=== PATIENT | female | born 1965 | race Caucasian/White ===

== ENCOUNTER → 2016-04-10 | Outpatient (REF) | payer OTHER ==
[~2016-04-10] MED LIST: /AUGM875TA OR; /CELE20CA PO; /DULO30CA; /ESCI20TA; /ESCI20TA OR; ABIL5TAB5 PO; ACETGRA PO; AMIT50TA2 OR; CLON-412 PO; COLA100C PO; COLA100C2 OR; COLA100C2 PO; COMBO CREAM TOP; COZA100T2 PO; COZA50TA18 OR; CRES20TA OR; CRES20TA PO; DOCU10CA PO; DULO20CA OR; ESTR2TAB; ESTR2TAB OR; FERR325T OR; FERR325T PO; FLAG500T OR; FURO40TA2 OR; KEFL500C; LASI20TA PO; LIDO5DIS EXT; LYRI75CA PO; NEUR300C; NEUR600T OR; NICO21DI4 TD; OXYC-299 PO; OXYC10TA12 OR; OXYC30TA4 PO; OXYC5CAP4; OXYC5CAP4 OR; PRIL20CA; PRIL20CA PO; PRIL40CA OR; SING10TA31 OR; SUDAFED PO; SULCRAFATE OR; TOPI100T OR; TOPI50TA OR; TRAM50TA2 OR; TRAZ50TA4 PO; TRIC145T PO; TRIC145T19 OR; VENL150T PO; VENL75CA PO; VITA500C OR; VITA500T PO; ZANT150T; ZANT150T PO; [UNRECOGNIZED DRUG - CODE] PO; [UNRECOGNIZED DRUG - OTHER]; [UNRECOGNIZED DRUG - OTHER] INH; butrans TOP
[2016-04-10 12:49] LABS: ALBUMIN 3.4 GM/DL (3.2-5.2); ALBUMIN/GLOBULIN RATIO 1.06 (1.00-1.93); ALKALINE PHOSPHATASE 127 U/L (45-117); ALT/SGPT 23 U/L (12-78); ANION GAP 6 MEQ/L (8-16); AST/SGOT 20 U/L (15-37); BILIRUBIN,TOTAL 0.3 MG/DL (0.2-1.0); BLOOD UREA NITROGEN 7 MG/DL (7-18); CALCIUM LEVEL 8.7 MG/DL (8.5-10.1); CARBON DIOXIDE LEVEL 29 MEQ/L (21-32); CHLORIDE LEVEL 109 MEQ/L (98-107); CREATININE FOR GFR 0.67 MG/DL (0.55-1.02); GLOMERULAR FILTRATION RATE > 60.0 (>58); GLUCOSE, FASTING 89 MG/DL (70-105); POTASSIUM SERUM 4.2 MEQ/L (3.5-5.1); SODIUM LEVEL 144 MEQ/L (136-145); TOTAL PROTEIN 6.6 GM/DL (6.4-8.2)
== END ==
LOC: M SFHCADAM 09:22
PROVIDERS: ATTEND Family Medicine
DX: R73.09 Other abnormal glucose (principal); E55.9 Vitamin D deficiency, unspecified

== ENCOUNTER → 2016-04-16 | Outpatient (CLI) | payer OTHER ==
[~2016-04-16] MED LIST changes: +ISOVUE-370 76% 100ML VIAL (Q9967) As Ordered ONE
--- NOTE | 2016-04-16 15:17 | REP ---
MAXILLOFACIAL CT WITH CONTRAST: HISTORY: Chronic rhinitis. Contrast: Isovue 370, 75 mL. Minimal mucosal thickening is present in the left ethmoid and right maxillary sinuses. The remaining sinuses are clear. The osteomeatal units are patent. The middle and inferior nasal turbinates are partially paradoxical. There is minimal deviation of the nasal septum to the right. The cribriform plate, medial christine of the orbits and optic canals are intact. The carotid canals form a segment of the posterolateral christine of the sphenoid sinus. A dorsal column stimulator is present in the cervical spinal canal. IMPRESSION: Sinus mucosal thickening as described above. Signed by Thor Gamboa MD 04/16/2016 03:46 P
== END ==
LOC: M RAD 14:04
PROVIDERS: ATTEND Otolaryngology
DX: J31.0 Chronic rhinitis (principal); H65.21 Chronic serous otitis media, right ear
CPT/HCPCS: 70487; Q9967

== ENCOUNTER → 2016-04-24 | Outpatient (REF) | payer OTHER ==
[~2016-04-24] MED LIST changes: +ALBU17IN INH; +ESOM1CAP5 PO; +FLON1SPR; +FURO20TA2 PO; -ISOVUE-370 76% 100ML VIAL (Q9967) As Ordered ONE; +SUCR1TA PO; +TRAM50TA2 PO; +VITAMIN D2 PO
[2016-04-24 20:46] LABS: FREE T4 0.9 NG/DL (0.76-1.46)
== END ==
LOC: M SFHCADAM 13:56
PROVIDERS: ATTEND Physician Assistant
DX: L65.9 Nonscarring hair loss, unspecified (principal)
CPT/HCPCS: 84439; 84443; G0463

== ENCOUNTER → 2016-04-25 | Outpatient (CLI) | payer OTHER | LOC: M PAIN 10:40 | PROVIDERS: ATTEND Anesthesiology | DX: Z53.29 Procedure and treatment not carried out because of patient's decision for other reasons (principal) ==

== ENCOUNTER → 2016-04-30 | Outpatient (REF) | payer OTHER ==
[2016-04-30 16:04] LABS: MEAN CORPUSCULAR HEMOGLOBIN 29.2 pg (27.0-33.0); MEAN CORPUSCULAR HGB CONC 33.6 g/dl (32.0-36.5); MEAN CORPUSCULAR VOLUME 86.9 fl (80.0-96.0); RED CELL DISTRIBUTION WIDTH 17.6 % (11.5-14.5); WHITE BLOOD COUNT 14.4 K/mm3 (4.0-10.0)
[2016-04-30 17:09] LABS: ALBUMIN 3.3 GM/DL (3.2-5.2); ALBUMIN/GLOBULIN RATIO 1.03 (1.00-1.93); ALKALINE PHOSPHATASE 122 U/L (45-117); ALT/SGPT 22 U/L (12-78); ANION GAP 6 MEQ/L (8-16); AST/SGOT 20 U/L (15-37); BILIRUBIN,TOTAL 0.2 MG/DL (0.2-1.0); BLOOD UREA NITROGEN 10 MG/DL (7-18); CALCIUM LEVEL 8.8 MG/DL (8.5-10.1); CARBON DIOXIDE LEVEL 27 MEQ/L (21-32); CHLORIDE LEVEL 112 MEQ/L (98-107); CREATININE FOR GFR 0.71 MG/DL (0.55-1.02); GLOMERULAR FILTRATION RATE > 60.0 (>58); GLUCOSE, FASTING 100 MG/DL (70-105); POTASSIUM SERUM 4.4 MEQ/L (3.5-5.1); SODIUM LEVEL 145 MEQ/L (136-145); TOTAL PROTEIN 6.5 GM/DL (6.4-8.2)
== END ==
LOC: M SFHCADAM 14:06
PROVIDERS: ATTEND Physician Assistant
DX: Z01.818 Encounter for other preprocedural examination (principal); H65.21 Chronic serous otitis media, right ear; R22.1 Localized swelling, mass and lump, neck; J31.0 Chronic rhinitis; J35.2 Hypertrophy of adenoids

== ENCOUNTER → 2016-04-30 | Outpatient (CLI) | payer OTHER ==
--- NOTE | 2016-04-30 16:54 | REP ---
Chest x-ray: Two views: History: Pneumonia. Findings: The lungs are well inflated and clear. Pleural angles are sharp. Cardiomediastinal silhouette is unremarkable. A dorsal column stimulator is seen in the mid thoracic canal and a pacemaker power plant is seen projecting over the posterolateral chest wall on the right with its leads extending up into the neck soft tissues. These findings are unchanged when compared with the prior chest x-ray of 01/19/2016. The left lower lobe infiltrate seen on that prior chest x-ray has resolved. Impression: Previously noted infiltrate has resolved. No acute disease seen radiographically. Signed by Bladimir Keith MD 04/30/2016 05:00 P
== END ==
LOC: M ADAMS 14:08
PROVIDERS: ATTEND Physician Assistant
DX: Z01.818 Encounter for other preprocedural examination (principal); H65.21 Chronic serous otitis media, right ear; R22.1 Localized swelling, mass and lump, neck; J31.0 Chronic rhinitis; J35.2 Hypertrophy of adenoids; Z72.0 Tobacco use; Z87.01 Personal history of pneumonia (recurrent)
CPT/HCPCS: 71020; 80053; 85027; G0463

== ENCOUNTER → 2016-05-08 | Day surgery (SDC) | payer OTHER ==
[~2016-05-08] VITALS: Ht 167.6 cm; Wt 80.7 kg
[~2016-05-08] MED LIST changes: +CIPRODEX OTIC SUSP 7.5ML As Ordered ONE; +EPINEPHrine 1MG/ML INJ 30ML MD-VIAL As Ordered ONE; +LIDOCAINE 2% INJ 100 MG/5 ML SDV (FOR ANES.) As Ordered ONE; +LR 1,000 ML IV SCH; +METOCLOPRAMIDE INJ 10MG/2ML VIAL (J2765) IV PRN; +MIDAZOLAM INJ 2 MG/2 ML VIAL (J2250) As Ordered ONE; +ONDANSETRON 4MG/2ML VIAL (J2405) As Ordered ONE; +ONDANSETRON 4MG/2ML VIAL (J2405) IV PRN; +OXYMETAZOLINE NASAL SPRAY (AFRIN) As Ordered ONE; +PERCOCET 5MG/325MG TAB As Ordered ONE; +PERCOCET 5MG/325MG TAB PO PRN; +PROPOFOL 200 MG/20 ML VIAL As Ordered ONE; +ROCURONIUM BROMIDE 50 MG/5 ML VIAL As Ordered ONE; +SILVER NITRATE APPLICATOR As Ordered ONE; +THROMBIN SOLN 5,000 UNITS VIAL As Ordered ONE; +dexameTHASONE 4 MG/ML 1ML VIAL (J1100) IV ONE; +fentaNYL 100 MCG/2 ML INJECTION (J3010) IV PRN; +fentaNYL 250 MCG/5 ML INJECTION (J3010) As Ordered ONE
[2016-05-08 13:50] VITALS: BP 118/61
--- NOTE | 2016-05-09 23:22 | RO ---
DATE OF PROCEDURE: 05/08/2016 PREPROCEDURE DIAGNOSIS: Right serous otitis media. POSTPROCEDURE DIAGNOSIS: Right serous otitis media. PROCEDURE PERFORMED: Right tympanostomy and nasal endoscopy with biopsy of the nasopharynx. SURGEON: Aj Aguilar MD CASINO SUPERVISOR: ANESTHESIA: General. CLINICAL PREAMBLE: This 50-year-old woman presented to the office with history of right serous otitis media. Physical exam revealed serous fluid in the right middle ear as well as fullness of the nasopharynx. Management options including surgery listed above have been discussed. The patient understood and consented to the procedure. DESCRIPTION OF PROCEDURE: Patient was identified in preop holding and had the right ear marked. She was brought to the operating room in stable condition. In supine position on the operating table, patient received general anesthesia followed by orotracheal intubation without incident. Patient was prepped and draped in the usual fashion for the procedure. Patient's head was turned to the left side to expose the right ear. Ear speculum was inserted, and cerumen was debrided. The right tympanic membrane was found to be intact and mildly retracted. Myringotomy incision was made over the anterior inferior quadrant of the tympanic membrane. Minimal effusion was encountered and suctioned clear. A 7 mm straight shank tympanostomy tube was inserted. Ciprodex drops were instilled, and a cotton ball was used to occlude the ear canal. Attention was turned to performing the biopsy from the nasopharynx. Both sides of the nasal cavity were packed using pledgets soaked in 1:1000 epinephrine. After a waiting period, both pledgets were removed. Both sides of the nasal cavity were inspected using 0-degree rigid nasal endoscope. No mucosal incision was noted in both sides of the nasal cavity. The nasopharynx was then visualized and found to have a cystic-like structure over the roof of the nasopharynx. Biopsy was then performed using straight cutting forceps from the nasopharyngeal area. Hemostasis was achieved using pledgets soaked in 1:1000 epinephrine. At the end of the procedure, sponge and instruments counts were correct. No complication was encountered. Estimated blood loss was less than 5 mL. General anesthesia was reversed, and patient was extubated and brought to recovery room in stable condition.
== END | disposition home or self-care (01) ==
LOC: M SDC 09:02
PROVIDERS: ATTEND Otolaryngology
DX: H65.21 Chronic serous otitis media, right ear (principal); J34.89 Other specified disorders of nose and nasal sinuses; I10 Essential (primary) hypertension; E78.5 Hyperlipidemia, unspecified; K21.9 Gastro-esophageal reflux disease without esophagitis; M79.7 Fibromyalgia; M43.07 Spondylolysis, lumbosacral region; F41.9 Anxiety disorder, unspecified; F32.9 Major depressive disorder, single episode, unspecified; Z79.899 Other long term (current) drug therapy; F17.210 Nicotine dependence, cigarettes, uncomplicated
CPT/HCPCS: 31237; 69436; 88305; J1100; J2250; J2405; J3010

== ENCOUNTER → 2016-06-14 | Outpatient (CLI) | payer OTHER ==
[~2016-06-14] MED LIST changes: -CIPRODEX OTIC SUSP 7.5ML As Ordered ONE; -COLA100C PO; +COLA100C3 PO; -EPINEPHrine 1MG/ML INJ 30ML MD-VIAL As Ordered ONE; -LIDOCAINE 2% INJ 100 MG/5 ML SDV (FOR ANES.) As Ordered ONE; -LR 1,000 ML IV SCH; -METOCLOPRAMIDE INJ 10MG/2ML VIAL (J2765) IV PRN; -MIDAZOLAM INJ 2 MG/2 ML VIAL (J2250) As Ordered ONE; -ONDANSETRON 4MG/2ML VIAL (J2405) As Ordered ONE; -ONDANSETRON 4MG/2ML VIAL (J2405) IV PRN; -OXYMETAZOLINE NASAL SPRAY (AFRIN) As Ordered ONE; -PERCOCET 5MG/325MG TAB As Ordered ONE; -PERCOCET 5MG/325MG TAB PO PRN; -PROPOFOL 200 MG/20 ML VIAL As Ordered ONE; -ROCURONIUM BROMIDE 50 MG/5 ML VIAL As Ordered ONE; -SILVER NITRATE APPLICATOR As Ordered ONE; -THROMBIN SOLN 5,000 UNITS VIAL As Ordered ONE; -dexameTHASONE 4 MG/ML 1ML VIAL (J1100) IV ONE; -fentaNYL 100 MCG/2 ML INJECTION (J3010) IV PRN; -fentaNYL 250 MCG/5 ML INJECTION (J3010) As Ordered ONE
--- NOTE | 2016-06-24 00:17 | ECWPNPC ---
PATIENT NAME: RACHEL MARTINEZ : 1965 GENDER: FEMALE VISIT DATE: 06/14/2016 DISCHARGE DATE: 06/14/16 1344 VISIT LOCKED DATE TIME: PHYSICIAN: JENNIFER MANUEL RESOURCE: JENNIFER MANUEL REASON FOR APPOINTMENT 1. BACK PAIN, WC HISTORY OF PRESENT ILLNESS HISTORY OF PRESENT ILLNESS: PAIN THE PATIENT DESCRIBES THE PAIN... 51 YEAR OLD FEMALE PATIENT WITH HISTORY OF CHRONIC NECK AND BACK PAIN. PATIENT DESCRIBES THE PAIN ACHING, BURNING, SHARP, STABBING, TENDER, THROBBING, SORE, SHOOTING AND HAVING IT ALL THE TIME WITH A PAIN SCORE OF 3/10 FOR THE NECK AND 7/10 FOR THE LOW BACK AT THIS TIME. PATIENT WAS HURT IN A WORK RELATED INJURY WHEN SHE WAS WORKING AT [employer] ON 02/28/1998 AND WAS TRYING TO RETRIEVE FILES OFF THE TOP SHELF WHEN SHE PULLED ON A BOX THAT RIPPED AND PATIENT FELL ONTO A CHAIR THEN THE FLOOR. PATIENT RECEIVED A LUMBAR FACET BLOCK ON 11/02/15 AND REPORTS HAVING OVER 50% PAIN RELIEF FOR OVER 2 MONTHS WITH INCREASED MOBILITY AND FUNCTIONALITY FROM THE INJECTION. CURRENTLY THE PATIENT IS USING TRAMADOL, GABAPENTIN, AND LYRICA WHICH SHE STATES KEEPS HER MOBILE AND FUNCTIONAL. PATIENT ALSO USING THE DCS FOR THE UPPER AND LOWER EXTREMITIES WHICH SHE STATES AIDS IN PAIN RELIEF WELL. PATIENT DENIES UNEXPLAINABLE WEIGHT LOSS, FEVER, CHILLS, NEW CHANGES ON HER URINARY OR BOWEL CONTROL. FALL RISK SCREENING: SCREENING :NO FALLS IN THE PAST YEAR CURRENT MEDICATIONS TAKING NICOTROL 10 MG INHALER 1 PUFF NEEDED INHALATION 16 TIME(S) A DAY TAKING OMEPRAZOLE 40 MG CAPSULE DELAYED RELEASE 1 CAPSULE ORALLY ONCE A DAY TAKING EFFEXOR XR 150 MG CAPSULE EXTENDED RELEASE 24 HOUR 3 CAPSULE WITH FOOD ORALLY ONCE A DAY TAKING ABILIFY 5 MG TABLET 1 TABLET ORALLY ONCE A DAY TAKING LYRICA 150 MG TABLET 1 TAB(S) ORALLY THREE A DAY MDD3 TAKING GABAPENTIN 600 MG TABLET 1 TABLET P.O. FOUR TIMES DAILY TAKING LOSARTAN POTASSIUM 50 MG TABLET 1 TAB(S) ORALLY ONCE A DAY TAKING LASIX 20 MG TABLET 1 TABLET ORALLY ONCE A DAY TAKING SUCRALFATE 1 GM TABLET 1 TABLET ON AN EMPTY STOMACH ORALLY TWICE A DAY TAKING ESTRADIOL 2 MG TABLET 1 TABLET ORALLY ONCE A DAY TAKING TRAMADOL HCL 50 MG TABLET 1 ORALLY EVERY 6 HRSMDD 4 TAKING FLUTICASONE PROPIONATE 50 MCG/ACT SUSPENSION 1 SPRAY IN EACH NOSTRIL NASALLY ONCE A DAY TAKING METFORMIN HCL 500 MG TABLET 1 TABLET WITH MEALS ORALLY TWICE A DAY TAKING DRISDOL 88392 UNIT CAPSULE 1 CAPSULE ORALLY WEEKLY TAKING NEXIUM 40 MG CAPSULE DELAYED RELEASE 1 CAPSULE ORALLY ONCE A DAY TAKING VENTOLIN HFA 108 (90 BASE) MCG/ACT AEROSOL SOLUTION 2 PUFFS NEEDED INHALATION EVERY 4 HRS NEEDED FOR SHORTNESS OF BREATH TAKING CRESTOR 10 MG TABLET 1 TABLET ORALLY ONCE A DAY TAKING METFORMIN HCL 1000 MG TABLET TAKE ONE TABLET BY MOUTH TWICE A DAY WITH MEALS MEDICATION LIST REVIEWED AND RECONCILED WITH THE PATIENT PAST MEDICAL HISTORY ANXIETY/DEPRESSION/AGORAPHOBIA WITH PANIC ATTACKS - PSYCHIATRIST CHRONIC LOWER BACK PAIN, DORSAL COLUMN STIMULATOR IN PLACE - [facility] HTN HYPERCHOLESTEROLEMIA GERD/H/O PUD WITH GI BLEED IN PAST SECONDARY TO CELEBREX ENDOMETRIOSIS PREDIABETES TOBACCO ABUSE CHRONIC NARCOTIC DEPENDENCE - WEANING OXYCODONE PER PAIN CLINIC ALLERGIES NSAIDS: BLEEDING: CONTRAINDICATION BETADINE: RASH: ALLERGY SKELAXIN: RASH: ALLERGY SURGICAL HISTORY TONSILLECTOMY TUBAL LIGATION 03/1989 ECTOPIC 09/1989 HYSTERECTOMY D/T PRE-CANCEROUS 1989 BSO 1999 LUMBAR LAMINECTOMY L4-L5 08/1997 TARSAL TUNNEL-BILATERAL FEET 2004 BILATERAL CARPAL TUNNEL RELEASE 2001 LUMBAR STIMULATOR PLACED 2005 CERVICAL STIMULATOR PLACED 2008 RIGHT CARPAL TUNNEL RELEASE 06/2013 GASTRIC BYPASS 2010 COLONOSCOPY WITH POLYP RESECTION, BENIGN 2012 CHOLECYSTECTOMY 12/2010 TOE NAIL SURGERY 08/10/15 TUBE PLACEMENT RIGHT EAR, BIOPSY SINUS CAVITY NODULE 05/2016 FAMILY HISTORY NO FAMILY HISTORY DOCUMENTED. SOCIAL HISTORY GENERAL: TOBACCO USE ARE YOU A:CURRENT SMOKER HOW MANY CIGARETTES A DAY DO YOU SMOKE?11- PATIENT COUNSELED ON THE DANGERS OF TOBACCO USE AND URGED TO QUIT:06/14/2016 ARE YOU INTERESTED IN QUITTING?READY TO QUIT COUNSELED THE PATIENT ON TOBACCO USE, CESSATION [id number]/28/2017 BMI CARE GOAL FOLLOW-UP ABOVE NORMAL BMI FOLLOW-UPDIETARY MANAGEMENT EDUCATION, GUIDANCE, AND COUNSELING ALCOHOL SCREENING DID YOU HAVE A DRINK CONTAINING ALCOHOL IN THE PAST YEAR?YES HOW OFTEN DID YOU HAVE SIX OR MORE DRINKS ON ONE OCCASION IN THE PAST YEAR?NEVER (0 POINTS) HOW MANY DRINKS DID YOU HAVE ON A TYPICAL DAY WHEN YOU WERE DRINKING IN THE PAST YEAR?1 OR 2 (0 POINTS) HOW OFTEN DID YOU HAVE A DRINK CONTAINING ALCOHOL IN THE PAST YEAR?MONTHLY OR LESS (1 POINT) POINTS1 INTERPRETATIONNEGATIVE RECREATIONAL DRUG USE DRUG USE?NO CAFFEINE CAFFEINE USE?YES HOW OFTEN AND HOW MUCH? COFFEE 6 CUPS DAILY, 2 SODAS DAILY SEXUAL HX HAD SEX IN THE LAST 12 MONTHS (VAGINAL, ORAL, OR ANAL)?YES WITHMEN ONLY USE PROTECTION?NO LMP:HYSTER HAVE YOU EVER HAD AN STD?NO OCCUPATION: RETIRED. DIET: REGULAR. EXERCISE: NO REGULAR EXERCISE. MARITAL STATUS: . OTHERS AT HOME: SPOUSE. PETS: 1 DOG. LANGUAGE WOLOF. LEARNING BARRIERS / SPECIAL NEEDS ORIENTED TO PLAN OF CARE: PATIENT, PAIN MANAGEMENT PATIENT, ORIENTED TO PLAN OF CARE: PATIENT, PAIN MANAGEMENT PATIENT. NEW PATIENT PAIN DIARY TODAY'S VISITNOTES FROM 0-10, WHAT LEVEL IS YOUR PAIN TODAY?0 PAIN CLINIC PFS, CLERGY, PUBLIC HEALTH REFERRALS PFS REFERRAL NEEDED?NO PFS REFERRAL NEEDED?NO CLERGY REFERRAL NEEDED?NO CLERGY REFERRAL NEEDED?NO PUBLIC HEALTH REFERRAL NEEDED?NO PUBLIC HEALTH REFERRAL NEEDED?NO WAS THE PROVIDER NOTIFIED OF ANY PERTINENT INFO?NO WAS THE PROVIDER NOTIFIED OF ANY PERTINENT INFO?NO HOSPITALIZATION/MAJOR DIAGNOSTIC PROCEDURE SURG RELATED PLUS 1 G-I BLEED REVIEW OF SYSTEMS CONSTITUTIONAL: ANY CHANGE IN YOUR MEDICAL CONDITION? NO . CHILLS NO . FEVER NO . INFECTION: DO YOU HAVE NEW INFECTIONS? NO . DO YOU HAVE HISTORY OF MRSA? NO . MUSCULOSKELETAL: ANY NEW PATTERNS OF PAIN OR NUMBNESS? NO . GASTROENTEROLOGY: ANY NEW CHANGE IN BOWEL CONTROL? NO . GENITOURINARY: ANY NEW CHANGE IN BLADDER CONTROL? NO . IS THERE A CHANCE YOU COULD BE ? NO . HEMATOLOGY/LYMPH: DO YOU TAKE ANY BLOOD THINNERS? (FOR EXAMPLE- COUMADIN, PLAVIX, AGGRENOX, PLATEL, PRADAXA, OR XARELTO) NO . WHEN WAS YOUR LAST DOSE? DATE: TIME: . NEUROLOGY: HAVE YOU FALLEN IN THE PAST 6 MONTHS? YES . ANY NEW EXTREMITY NUMBNESS OR WEAKNESS? NO . CARDIOLOGY: DO YOU HAVE A PACEMAKER OR DEFIBRILLATOR? NO . RESPIRATORY: HAVE YOU BEEN SICK IN THE PAST WEEK? NO . FEVER NO . FLU LIKE SYMPTOMS? NO . COUGH NO . INTEGUMENTARY: DO YOU HAVE ANY RASHES OR OPEN SORES? NO . ALLERGIC/IMMUNO: ARE YOU ALLERGIC TO SHELLFISH OR IV DYE? NO . ANY NEW ALLERGIES? NO . PSYCHIATRIC: DO YOU HAVE THOUGHTS OF HURTING YOURSELF OR SOMEONE ELSE? NO . ARE YOU ABUSED, NEGLECTED, OR IN AN UNSAFE ENVIRONMENT? NO . ENDOCRINOLOGY: ARE YOU DIABETIC? NO . OTHER: DO YOU NEED ANY PRESCRIPTIONS? YES . IF YES, PLEASE LIST: TRAMADOL, LYRICA . ANY NEW PROBLEMS WITH YOUR MEDICATIONS? NO . WHEN DID YOU LAST EAT? ____ . WHEN DID YOU LAST DRINK? ____ . WHAT DID YOU LAST DRINK? ____ . NAME OF PERSON DRIVING YOU HOME? ____ . DO YOU HAVE ANY OTHER QUESTIONS OR CONCERNS NO . REVIEWED BY: PROVIDER: JENNIFER MANUEL MD . VITAL SIGNS WT 182.0 LBS, HT 66 IN, BMI 29.37 INDEX, BP 132/77 MM HG, HR 80 /MIN, RR 16 /MIN, TEMP 98.6 F, OXYGEN SAT % 96%, NA INITIALS TL 1301, REVIEWED BY: LS. EXAMINATION : PATIENT IS ALERT O X 3 AND COOPERATIVE. TENDERNESS IN THE LOWER BACK AND PARASPINAL MUSCLE GROUP. BOTH LEGS ARE WEAK. PATIENT USES CANE TO AMBULATE. ANTALGIC GAIT. CT OF THE LUMBAR SPINE DONE ON 03/10/2013 SHOWS A DISC BULGE AT L4-L5, DISC PROTRUSION AT L5-S1, SCAR TISSUE EFFECTING L4 AND L5 NERVES, AND POST LAMINECTOMY CHANGES. CT OF THE CERVICAL SPINE DONE ON 04/01/11 SHOWS DEGENERATIVE CHANGES, DISC BULGES, AND IMPLANT AT C1 THROUGH C4 WHICH LIMITS THE EVALUATION. 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 MARTINEZ'S PAIN MANAGEMENT CASE. AT THIS TIME THE PATIENT WILL CONTINUE WITH THE SAME MEDICATION REGIME BEFORE. PATIENT IS USING THE LYRICA AND GABAPENTIN FOR THE NEUROPATHIC PAIN DOWN THE ARMS AND LEGS AND THE TRAMADOL FOR THE SOMATIC PAIN. MRS. KEECH WILL RECEIVE A REFILL OF THE MEDICATION. PATIENT DENIES ABUSE OF ANY MEDICATION, DENIES USE OF ILLEGAL SUBSTANCES, AND STATES THAT SHE IS ONLY USING THE MEDICATION FOR PAIN MANAGEMENT. URINE TOXICOLOGY REPORT DONE ON 09/26/15 SHOWS CONSISTENT RESULTS WITH THE PATIENT'S MEDICATION LIST. PATIENT ADVISED TO BRING ALL MEDICATION TO EVERY VISIT. AT THIS TIME THE PATIENT STATES THAT HER PAIN IN MANAGEABLE AND THAT SHE WOULD NOT LIKE INJECTIONS AT THIS TIME. PATIENT WILL RETURN TO THE CLINIC IN 3 WEEKS TO FURTHER DISCUSS HER CASE. INSTRUCTIONS WERE GIVEN, QUESTIONS WERE ANSWERED, PATIENT REPORTS UNDERSTANDING AND AGREES WITH THE PLAN. I, PRICILLA PATE, DOCUMENTED THE ABOVE INFORMATION ACTING A SCRIBE FOR DR. MANUEL. I HAVE REVIEWED THE ABOVE DOCUMENT, WRITTEN BY PRICILLA RIVERS AND I VERIFY THAT IT IS ACCURATE. POST LAMINECTOMY SYNDROME REFILL LYRICA TABLET, 150 MG, 1 TAB(S), ORALLY, THREE A DAY MDD3, 30 DAY(S), 90, REFILLS 0 REFILL TRAMADOL HCL TABLET, 50 MG, 1, ORALLY, EVERY 6 HRSMDD 4, 30 DAY(S), 120, REFILLS 0 REFILL GABAPENTIN TABLET, 600 MG, 1 TABLET, P.O., FOUR TIMES DAILY, 30 DAY(S), 120, REFILLS 1 PROCEDURES PN WORKMANS' COMP OPINION IN YOUR OPINION, WAS THE INCIDENT THAT THE PATIENT DESCRIBED THE COMPETENT MEDICAL CAUSE OF THIS INJURY/ILLNESS? YES ARE THE PATIENT'S COMPLAINTS CONSISTENT WITH HIS/HER HISTORY OF THE INJURY/ILLNESS? YES IS THE PATIENT'S HISTORY OF THE INJURY/ILLNESS CONSISTENT WITH YOUR OBJECTIVE FINDING? YES WHAT IS THE PERCENTAGE OF TEMPORARY IMPAIRMENT? MODERATE TO MARKED = 66.7% IS THE PATIENT WORKING? NO DOCTOR ON SITE: JENNIFER STEPHENS MD PROCEDURE CODES FA211 ESTABILISHED PATIENT [facility] FACILITY CHARGE G8427 DOC MEDS VERIFIED W/PT OR RE G8730 PAIN ASSESS POS TOOL F/U PLAN DOC DISPOSITION & COMMUNICATION FOLLOW UP 3 WEEKS ELECTRONICALLY SIGNED BY JENNIFER MANUEL MD ON 06/23/2016 AT 05:48 PM EDT DISCLAIMER : THIS IS A VISIT SUMMARY EXTRACTED FROM THE [employer] CHART. IT IS NOT A COPY OF THE [employer] PROGRESS NOTE. RAULITO
== END ==
LOC: M PAIN 12:40
PROVIDERS: ATTEND Anesthesiology
DX: M54.2 Cervicalgia (principal); M51.16 Intervertebral disc disorders with radiculopathy, lumbar region; M96.1 Postlaminectomy syndrome, not elsewhere classified; M51.17 Intervertebral disc disorders with radiculopathy, lumbosacral region; M47.812 Spondylosis without myelopathy or radiculopathy, cervical region; M47.816 Spondylosis without myelopathy or radiculopathy, lumbar region; M47.817 Spondylosis without myelopathy or radiculopathy, lumbosacral region; Z79.891 Long term (current) use of opiate analgesic; Z88.8 Allergy status to other drugs, medicaments and biological substances

== ENCOUNTER → 2016-07-15 | Outpatient (REF) | payer OTHER ==
[~2016-07-15] MED LIST changes: +DRIS50002 PO; +ESTR1TAB PO; +GABA600T PO; +LOSA50TA20 PO; +LYRI150C PO; +METF500T PO; +NICOTINE; +VENL150C43 PO
== END ==
LOC: M LAB REF 09:07
PROVIDERS: ATTEND Internal Medicine Gastroenterology
DX: R19.7 Diarrhea, unspecified (principal)

== ENCOUNTER → 2016-07-16 | Outpatient (CLI) | payer OTHER ==
[~2016-07-16] MED LIST changes: +E-Z-PAQUE 96% w/w SUSP 176GM BTL As Ordered ONE
--- NOTE | 2016-07-18 19:32 | REP ---
Small bowel follow-through The procedure was performed under the direct supervision of Dr. Peralta. The images were reviewed with Dr. Peralta. The insulation installer film shows no organomegaly or pathological masses. The intestinal gas pattern is nonspecific. There are surgical clips noted in the right upper quadrant. There is a dorsal column stimulator in place with the power pack overlying the right pelvis. There are surgical sutures noted in the epigastric region and left abdomen consistent with the patient's history of gastric bypass. Liquid barium was administered and the barium column was followed through the small bowel to the level of the terminal ileum. Small bowel transit time is approximately 30 minutes . During fluoroscopy gentle palpation shows all loops are freely movable and pliable. There are no fixed or angulated loops. The small bowel mucosal pattern is normal in course and caliber. There is no transition to suggest a partial small bowel obstruction. Spot filming of the terminal ileum shows it to be unremarkable. Impression: Small bowel follow-through examination within normal limits. 54 seconds of fluoro time was utilized for this procedure. Reviewed by NAVARRO Hood 07/16/2016 04:41 PSigned by Dinh Peralta MD 07/18/2016 07:19 P
== END ==
LOC: M RAD 07:48
PROVIDERS: ATTEND Internal Medicine Gastroenterology
DX: R19.7 Diarrhea, unspecified (principal)

== ENCOUNTER → 2016-07-25 | Outpatient (CLI) | payer OTHER ==
[~2016-07-25] VITALS: Ht 167.6 cm; Wt 81.6 kg
[~2016-07-25] MED LIST changes: -E-Z-PAQUE 96% w/w SUSP 176GM BTL As Ordered ONE; +NS 1,000 ML IV ONE; +PROPOFOL 200 MG/20 ML VIAL As Ordered ONE
--- NOTE | 2016-07-25 13:47 | ROOR ---
Patient Name: Nathalie Fernández Procedure Date: 07/25/2016 1:16 PM Date of : 1965 Age: 51 Room: [facility] Gender: Female Note Status: Finalized Procedure: Colonoscopy Indications: Chronic diarrhea Providers: Johnathan LUND MD Referring MD: JOSE Salvador Requesting Provider: Medicines: Monitored Anesthesia Care Complications: No immediate complications. Procedure: Pre-Anesthesia Assessment: - The heart rate, respiratory rate, oxygen saturations, blood pressure, adequacy of pulmonary ventilation, and response to care were monitored throughout the procedure. The Colonoscope was introduced through the anus and advanced to 5 cm into the ileum. The colonoscopy was performed without difficulty. The patient tolerated the procedure well. The quality of the bowel preparation was fair. Findings: (EXAM: Complete, PREP: Suboptimal) A 4 mm polyp was found in the cecum. The polyp was sessile. The polyp was removed with a cold snare. Resection and retrieval were complete. Two sessile polyps were found in the sigmoid colon. The polyps were 5 to 7 mm in size. These polyps were removed with a cold snare. Resection and retrieval were complete. Biopsies for histology were taken with a cold forceps from the entire colon for evaluation of microscopic colitis. The exam was otherwise without abnormality on direct and retroflexion views. Impression: - (EXAM: Complete, PREP: Suboptimal) - One 4 mm polyp in the cecum, removed with a cold snare. Resected and retrieved. - Two 5 to 7 mm polyps in the sigmoid colon, removed with a cold snare. Resected and retrieved. - The examination was otherwise normal on direct and retroflexion views. - Biopsies were taken with a cold forceps from the entire colon for evaluation of microscopic colitis. Recommendation: - Telephone endoscopist for pathology results in 2 weeks. - If the pathology report reveals adenomatous tissue, then repeat the colonoscopy for surveillance in 3 years. - Imodium 1 tablet twice a day. Johnathan Lund MD Johnathan LUND MD 07/25/2016 1:47:27 PM This report has been signed electronically. Number of Addenda: 0 Note Initiated On: 07/25/2016 1:16 PM Estimated Blood Loss: Estimated blood loss: none.
[2016-07-25 14:15] VITALS: BP 137/77
== END | disposition home or self-care (01) ==
LOC: M OPP 11:28
PROVIDERS: ATTEND Internal Medicine Gastroenterology
DX: K63.5 Polyp of colon (principal); D12.5 Benign neoplasm of sigmoid colon; I10 Essential (primary) hypertension; E78.00 Pure hypercholesterolemia, unspecified; K21.9 Gastro-esophageal reflux disease without esophagitis; M19.90 Unspecified osteoarthritis, unspecified site; M79.7 Fibromyalgia; F33.9 Major depressive disorder, recurrent, unspecified; F41.9 Anxiety disorder, unspecified; Z96.9 Presence of functional implant, unspecified; F17.210 Nicotine dependence, cigarettes, uncomplicated; Z98.0 Intestinal bypass and anastomosis status; Z79.899 Other long term (current) drug therapy; Z79.890 Hormone replacement therapy; Z79.84 Long term (current) use of oral hypoglycemic drugs; Z88.8 Allergy status to other drugs, medicaments and biological substances

== ENCOUNTER → 2016-07-31 | Outpatient (CLI) | payer OTHER ==
[~2016-07-31] MED LIST changes: +ABIL1TAB11 PO; -ABIL5TAB5 PO; -COLA100C3 PO; +COLA100C5 PO; -METF500T PO; +METF500T13 PO; -NS 1,000 ML IV ONE; +OXYC-141 PO; -OXYC-299 PO; -PROPOFOL 200 MG/20 ML VIAL As Ordered ONE; +TRAZ50TA11 PO; -TRAZ50TA4 PO; -TRIC145T PO; +TRIC145T22 PO
--- NOTE | 2016-08-10 00:18 | ECWPNPC ---
PATIENT NAME: RACHEL MARTINEZ : 1965 GENDER: FEMALE VISIT DATE: 07/31/2016 DISCHARGE DATE: 07/31/16 1629 VISIT LOCKED DATE TIME: PHYSICIAN: JENNIFER MANUEL RESOURCE: JENNIFER MANUEL HISTORY OF PRESENT ILLNESS HISTORY OF PRESENT ILLNESS: PAIN THE PATIENT DESCRIBES THE PAIN... 51 YEAR OLD FEMALE PATIENT WITH HISTORY OF CHRONIC NECK AND BACK PAIN. PATIENT DESCRIBES THE PAIN ACHING, BURNING, SHARP, STABBING, TENDER, THROBBING, SORE, SHOOTING AND HAVING IT ALL THE TIME WITH A PAIN SCORE OF 4/10 FOR THE NECK AND 5/10 FOR THE LOW BACK AT THIS TIME. 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 PATIENT DENIES UNEXPLAINABLE WEIGHT LOSS, FEVER, CHILLS, NEW CHANGES ON HER URINARY OR BOWEL CONTROL. FALL RISK SCREENING: SCREENING :NO FALLS IN THE PAST YEAR CURRENT MEDICATIONS TAKING OMEPRAZOLE 40 MG CAPSULE DELAYED RELEASE 1 CAPSULE ORALLY ONCE A DAY TAKING EFFEXOR XR 150 MG CAPSULE EXTENDED RELEASE 24 HOUR 3 CAPSULE WITH FOOD ORALLY ONCE A DAY TAKING ABILIFY 10 MG TABLET 1 TABLET ORALLY ONCE A DAY TAKING LOSARTAN POTASSIUM 50 MG TABLET 1 TAB(S) ORALLY ONCE A DAY TAKING LASIX 20 MG TABLET 1 TABLET ORALLY ONCE A DAY TAKING SUCRALFATE 1 GM TABLET 1 TABLET ON AN EMPTY STOMACH ORALLY TWICE A DAY TAKING ESTRADIOL 2 MG TABLET 1 TABLET ORALLY ONCE A DAY TAKING FLUTICASONE PROPIONATE 50 MCG/ACT SUSPENSION 1 SPRAY IN EACH NOSTRIL NASALLY BID TAKING METFORMIN HCL 500 MG TABLET 1 TABLET WITH MEALS ORALLY TWICE A DAY TAKING DRISDOL 85537 UNIT CAPSULE 1 CAPSULE ORALLY WEEKLY TAKING VENTOLIN HFA 108 (90 BASE) MCG/ACT AEROSOL SOLUTION 2 PUFFS NEEDED INHALATION EVERY 4 HRS NEEDED FOR SHORTNESS OF BREATH TAKING CRESTOR 10 MG TABLET 1 TABLET ORALLY ONCE A DAY TAKING TRAMADOL HCL 50 MG TABLET 1(50-100MGS) ORALLY EVERY 6 HRSMDD 4 TAKING GABAPENTIN 600 MG TABLET 1 TABLET P.O. FOUR TIMES DAILY TAKING LYRICA 150 MG TABLET 1 TAB(S) ORALLY THREE A DAY MDD3 NOT-TAKING NICOTROL 10 MG INHALER 1 PUFF NEEDED INHALATION 16 TIME(S) A DAY DISCONTINUED NEXIUM 40 MG CAPSULE DELAYED RELEASE 1 CAPSULE ORALLY ONCE A DAY DISCONTINUED METFORMIN HCL 1000 MG TABLET TAKE ONE TABLET BY MOUTH TWICE A DAY WITH MEALS MEDICATION LIST REVIEWED AND RECONCILED WITH THE PATIENT PAST MEDICAL HISTORY ANXIETY/DEPRESSION/AGORAPHOBIA WITH PANIC ATTACKS - PSYCHIATRIST CHRONIC LOWER BACK PAIN, DORSAL COLUMN STIMULATOR IN PLACE - [facility] HTN HYPERCHOLESTEROLEMIA GERD/H/O PUD WITH GI BLEED IN PAST SECONDARY TO CELEBREX ENDOMETRIOSIS PREDIABETES TOBACCO ABUSE CHRONIC NARCOTIC DEPENDENCE - WEANING OXYCODONE PER PAIN CLINIC ALLERGIES NSAIDS: BLEEDING: CONTRAINDICATION BETADINE: RASH: ALLERGY SKELAXIN: RASH: ALLERGY SURGICAL HISTORY TONSILLECTOMY TUBAL LIGATION 03/1989 ECTOPIC 09/1989 HYSTERECTOMY D/T PRE-CANCEROUS 1989 BSO 1999 LUMBAR LAMINECTOMY L4-L5 08/1997 TARSAL TUNNEL-BILATERAL FEET 2004 BILATERAL CARPAL TUNNEL RELEASE 2001 LUMBAR STIMULATOR PLACED 2005 CERVICAL STIMULATOR PLACED 2008 RIGHT CARPAL TUNNEL RELEASE 06/2013 GASTRIC BYPASS 2010 COLONOSCOPY WITH POLYP RESECTION, BENIGN 2012 CHOLECYSTECTOMY 12/2010 TOE NAIL SURGERY 08/10/15 TUBE PLACEMENT RIGHT EAR, BIOPSY SINUS CAVITY NODULE 05/2016 FAMILY HISTORY NO FAMILY HISTORY DOCUMENTED. SOCIAL HISTORY GENERAL: TOBACCO USE ARE YOU A:CURRENT SMOKER HOW MANY CIGARETTES A DAY DO YOU SMOKE?11-20 HOW SOON AFTER YOU WAKE UP DO YOU SMOKE YOUR FIRST CIGARETTE?6-30 MIN HOW OFTEN DO YOU SMOKE CIGARETTES?EVERY DAY PATIENT COUNSELED ON THE DANGERS OF TOBACCO USE AND URGED TO QUIT:07/31/2016 ARE YOU INTERESTED IN QUITTING?THINKING ABOUT QUITTING PREVIOUS QUIT ATTEMPTS?YES, WITHIN THE LAST 6 MONTHS. TRIED NICOTROL--IT DIDN'T WORK BUT SHE PLANS ON TRYING IT AGAIN COUNSELED THE PATIENT ON SMOKING CESSATION, EDUCATION [id number] BMI CARE GOAL FOLLOW-UP ABOVE NORMAL BMI FOLLOW-UPDIETARY MANAGEMENT EDUCATION, GUIDANCE, AND COUNSELING ALCOHOL SCREENING DID YOU HAVE A DRINK CONTAINING ALCOHOL IN THE PAST YEAR?YES HOW OFTEN DID YOU HAVE SIX OR MORE DRINKS ON ONE OCCASION IN THE PAST YEAR?NEVER (0 POINTS) HOW MANY DRINKS DID YOU HAVE ON A TYPICAL DAY WHEN YOU WERE DRINKING IN THE PAST YEAR?1 OR 2 (0 POINTS) HOW OFTEN DID YOU HAVE A DRINK CONTAINING ALCOHOL IN THE PAST YEAR?MONTHLY OR LESS (1 POINT) POINTS1 INTERPRETATIONNEGATIVE RECREATIONAL DRUG USE DRUG USE?NO CAFFEINE CAFFEINE USE?YES HOW OFTEN AND HOW MUCH? COFFEE 6 CUPS DAILY, 2 SODAS DAILY SEXUAL HX HAD SEX IN THE LAST 12 MONTHS (VAGINAL, ORAL, OR ANAL)?YES WITHMEN ONLY USE PROTECTION?NO LMP:HYSTER HAVE YOU EVER HAD AN STD?NO OCCUPATION: RETIRED. DIET: REGULAR. EXERCISE: NO REGULAR EXERCISE. MARITAL STATUS: . OTHERS AT HOME: SPOUSE. PETS: 1 DOG. LANGUAGE MACEDONIAN. LEARNING BARRIERS / SPECIAL NEEDS ORIENTED TO PLAN OF CARE: PATIENT, PAIN MANAGEMENT PATIENT, ORIENTED TO PLAN OF CARE: PATIENT, PAIN MANAGEMENT PATIENT. NEW PATIENT PAIN DIARY TODAY'S VISITNOTES FROM 0-10, WHAT LEVEL IS YOUR PAIN TODAY?0 PAIN CLINIC PFS, CLERGY, PUBLIC HEALTH REFERRALS PFS REFERRAL NEEDED?NO PFS REFERRAL NEEDED?NO CLERGY REFERRAL NEEDED?NO CLERGY REFERRAL NEEDED?NO PUBLIC HEALTH REFERRAL NEEDED?NO PUBLIC HEALTH REFERRAL NEEDED?NO WAS THE PROVIDER NOTIFIED OF ANY PERTINENT INFO?NO WAS THE PROVIDER NOTIFIED OF ANY PERTINENT INFO?NO HOSPITALIZATION/MAJOR DIAGNOSTIC PROCEDURE SURG RELATED PLUS 1 G-I BLEED REVIEW OF SYSTEMS REVIEWED BY: PROVIDER: . CONSTITUTIONAL: ANY CHANGE IN YOUR MEDICAL CONDITION? NO . CHILLS NO . FEVER NO . INFECTION: DO YOU HAVE NEW INFECTIONS? NO . DO YOU HAVE HISTORY OF MRSA? NO . MUSCULOSKELETAL: ANY NEW PATTERNS OF PAIN OR NUMBNESS? NO . GASTROENTEROLOGY: ANY NEW CHANGE IN BOWEL CONTROL? NO . GENITOURINARY: ANY NEW CHANGE IN BLADDER CONTROL? NO . IS THERE A CHANCE YOU COULD BE ? NO . HEMATOLOGY/LYMPH: DO YOU TAKE ANY BLOOD THINNERS? (FOR EXAMPLE- COUMADIN, PLAVIX, AGGRENOX, PLATEL, PRADAXA, OR XARELTO) NO . WHEN WAS YOUR LAST DOSE? DATE: TIME: . NEUROLOGY: HAVE YOU FALLEN IN THE PAST 6 MONTHS? YES, WAS WALKING ON HER PROPERTY 07/28, HER RIGHT LEG GAVE OUT AND SHE LOST HER BALANCE, SHE FELL INTO A LANDEROS SCRAPING HER RIGHT LEG. . ANY NEW EXTREMITY NUMBNESS OR WEAKNESS? NO . CARDIOLOGY: DO YOU HAVE A PACEMAKER OR DEFIBRILLATOR? NO . RESPIRATORY: HAVE YOU BEEN SICK IN THE PAST WEEK? NO . FEVER NO . FLU LIKE SYMPTOMS? NO . COUGH NO . INTEGUMENTARY: DO YOU HAVE ANY RASHES OR OPEN SORES? NO . ALLERGIC/IMMUNO: ARE YOU ALLERGIC TO SHELLFISH OR IV DYE? NO . ANY NEW ALLERGIES? NO . PSYCHIATRIC: DO YOU HAVE THOUGHTS OF HURTING YOURSELF OR SOMEONE ELSE? NO . ARE YOU ABUSED, NEGLECTED, OR IN AN UNSAFE ENVIRONMENT? NO . ENDOCRINOLOGY: ARE YOU DIABETIC? NO . OTHER: DO YOU NEED ANY PRESCRIPTIONS? YES . IF YES, PLEASE LIST: LYRICA, MAY ALSO NEED TRAMADOL AND GABAPENTIN . ANY NEW PROBLEMS WITH YOUR MEDICATIONS? NO . WHEN DID YOU LAST EAT? ____ . WHEN DID YOU LAST DRINK? ____ . WHAT DID YOU LAST DRINK? ____ . NAME OF PERSON DRIVING YOU HOME? ____ . DO YOU HAVE ANY OTHER QUESTIONS OR CONCERNS NO . VITAL SIGNS WT 185.8 LBS, HT 66 IN, BMI 29.99 INDEX, BP 127/85 MM HG, HR 84 /MIN, RR 16 /MIN, TEMP 98.4 F, OXYGEN SAT % 96%, NA INITIALS SC 15:14. EXAMINATION : PATIENT IS ALERT O X 3 AND COOPERATIVE. PATIENT AMBULATES WITH A LIMP ON THE RIGHT LEG. PATIENT'S RIGHT LEG IS WEAKER AT FLEXION AND EXTENSION COMPARED TO THE LEFT LEG. THERE IS TENDERNESS IN THE LOW BACK PARASPINAL MUSCLE GROUP. PATIENT USES A CANE TO AMBULATE. CT OF THE LUMBAR SPINE DONE ON 03/10/2013 SHOWS A DISC BULGE AT L4-L5, DISC PROTRUSION AT L5-S1, SCAR TISSUE EFFECTING L4 AND L5 NERVES, AND POST LAMINECTOMY CHANGES. CT OF THE CERVICAL SPINE DONE ON 04/01/11 SHOWS DEGENERATIVE CHANGES, DISC BULGES, AND IMPLANT AT C1 THROUGH C4 WHICH LIMITS THE EVALUATION. ASSESSMENTS POST LAMINECTOMY SYNDROME - M96.1 (PRIMARY) INTERVERTEBRAL DISC DISORDERS WITH RADICULOPATHY, LUMBAR REGION - M51.16 INTERVERTEBRAL DISC DISORDERS WITH RADICULOPATHY, LUMBOSACRAL REGION - M51.17 SPONDYLOSIS WITHOUT MYELOPATHY OR RADICULOPATHY, LUMBAR REGION - M47.816 SPONDYLOSIS WITHOUT MYELOPATHY OR RADICULOPATHY, LUMBOSACRAL REGION - M47.817 TREATMENT POST LAMINECTOMY SYNDROME REFILL LYRICA TABLET, 150 MG, 1 TAB(S), ORALLY, THREE A DAY MDD3, 30 DAY(S), 90, REFILLS 0 REFILL GABAPENTIN TABLET, 600 MG, 1 TABLET, P.O., FOUR TIMES DAILY, 30 DAY(S), 120, REFILLS 1 REFILL TRAMADOL HCL TABLET, 50 MG, 1 TAB, ORALLY, EVERY 6 HRS NEEDED FOR PAIN MDD 4, 30 DAY(S), 120, REFILLS 0 NOTES: WE DISCUSSED SEVERAL ISSUES WITH MRS. MARTINEZ'S PAIN MANAGEMENT CASE. AT THIS TIME THE PATIENT WILL CONTINUE WITH THE SAME MEDICATION REGIME BEFORE. PATIENT IS USING THE LYRICA AND GABAPENTIN FOR THE NEUROPATHIC PAIN DOWN THE ARMS AND LEGS AND THE TRAMADOL FOR THE SOMATIC PAIN. MRS. MARTINEZ WILL RECEIVE A REFILL OF THE MEDICATION. PATIENT DENIES ABUSE OF ANY MEDICATION, DENIES USE OF ILLEGAL SUBSTANCES, AND STATES THAT SHE IS ONLY USING THE MEDICATION FOR PAIN MANAGEMENT. PATIENT ADVISED TO BRING ALL MEDICATION TO EVERY VISIT. AT THIS TIME THE PATIENT STATES THAT HER PAIN IN MANAGEABLE AND THAT SHE WOULD NOT LIKE INJECTIONS AT THIS TIME. PATIENT WILL FOLLOW UP WITH ME IN 6 WEEKS. INSTRUCTIONS WERE GIVEN, QUESTIONS WERE ANSWERED, PATIENT REPORTS UNDERSTANDING AND AGREES WITH THE PLAN. I, MARIANA ESPINOSA, DOCUMENTED THE ABOVE INFORMATION ACTING A SCRIBE FOR DR. MANUEL. I HAVE REVIEWED THE ABOVE DOCUMENT, WRITTEN BY MARIANA ESPINOSA SCRIBE AND I VERIFY THAT IT IS ACCURATE. PROCEDURES PN WORKMANS' COMP OPINION IN YOUR OPINION, WAS THE INCIDENT THAT THE PATIENT DESCRIBED THE COMPETENT MEDICAL CAUSE OF THIS INJURY/ILLNESS? YES ARE THE PATIENT'S COMPLAINTS CONSISTENT WITH HIS/HER HISTORY OF THE INJURY/ILLNESS? YES IS THE PATIENT'S HISTORY OF THE INJURY/ILLNESS CONSISTENT WITH YOUR OBJECTIVE FINDING? YES WHAT IS THE PERCENTAGE OF TEMPORARY IMPAIRMENT? MODERATE TO MARKED = 66.7% IS THE PATIENT WORKING? NO DOCTOR ON SITE: JENNIFER STEPHENS MD PROCEDURE CODES FA211 ESTABILISHED PATIENT [facility] CHARGE G8730 PAIN ASSESS POS TOOL F/U PLAN DOC G8427 DOC MEDS VERIFIED W/PT OR RE DISPOSITION & COMMUNICATION FOLLOW UP 6 WEEKS ELECTRONICALLY SIGNED BY JENNIFER MANUEL MD ON 08/09/2016 AT 08:16 AM EDT DISCLAIMER : THIS IS A VISIT SUMMARY EXTRACTED FROM THE [employer] CHART. IT IS NOT A COPY OF THE [employer] PROGRESS NOTE. ROSED
== END ==
LOC: M PAIN 15:00
PROVIDERS: ATTEND Anesthesiology
DX: M96.1 Postlaminectomy syndrome, not elsewhere classified (principal); M51.16 Intervertebral disc disorders with radiculopathy, lumbar region; M51.17 Intervertebral disc disorders with radiculopathy, lumbosacral region; M47.816 Spondylosis without myelopathy or radiculopathy, lumbar region; M47.817 Spondylosis without myelopathy or radiculopathy, lumbosacral region; M54.2 Cervicalgia; G89.29 Other chronic pain; Z79.891 Long term (current) use of opiate analgesic; Z79.899 Other long term (current) drug therapy; Z79.84 Long term (current) use of oral hypoglycemic drugs; F17.210 Nicotine dependence, cigarettes, uncomplicated; Z88.8 Allergy status to other drugs, medicaments and biological substances; Z88.3 Allergy status to other anti-infective agents

== ENCOUNTER → 2016-09-13 | Outpatient (CLI) | payer OTHER ==
--- NOTE | 2016-10-01 00:11 | ECWPNPC ---
PATIENT NAME: RACHEL MARTINEZ : 1965 GENDER: FEMALE VISIT DATE: 09/13/2016 DISCHARGE DATE: 09/13/16 1504 VISIT LOCKED DATE TIME: PHYSICIAN: JENNIFER MANUEL RESOURCE: JENNIFER MANUEL REASON FOR APPOINTMENT 1. WC NECK AND BACK PAIN HISTORY OF PRESENT ILLNESS HISTORY OF PRESENT ILLNESS: PAIN THE PATIENT DESCRIBES THE PAIN... 51 YEAR OLD FEMALE PATIENT WITH HISTORY OF CHRONIC NECK AND BACK PAIN. PATIENT DESCRIBES THE PAIN ACHING, BURNING, SHARP, STABBING, TENDER, THROBBING, SORE, SHOOTING AND HAVING IT ALL THE TIME WITH A PAIN SCORE OF 5/10 FOR THE NECK AND 6/10 FOR THE LOW BACK AT THIS TIME. PATIENT WAS HURT IN A WORK RELATED INJURY WHEN SHE WAS WORKING AT [employer] ON 02/28/1998 AND WAS TRYING TO RETRIEVE FILES OFF THE TOP SHELF WHEN SHE PULLED ON A BOX THAT RIPPED AND PATIENT FELL ONTO A CHAIR THEN THE FLOOR. PATIENT REPORTS OF RADIATING PAIN DOWN THE ARMS FROM HER NECK AND RADIATING PAIN DOWN THE LEGS FROM HER BACK. PATIENT DENIES UNEXPLAINABLE WEIGHT LOSS, FEVER, CHILLS, NEW CHANGES ON HER URINARY OR BOWEL CONTROL. FALL RISK SCREENING: SCREENING :NO FALLS IN THE PAST YEAR CURRENT MEDICATIONS TAKING ESTRADIOL 2 MG TABLET 1 TABLET ORALLY ONCE A DAY TAKING LYRICA 150 MG TABLET 1 TAB(S) ORALLY THREE A DAY MDD3 TAKING GABAPENTIN 600 MG TABLET 1 TABLET P.O. FOUR TIMES DAILY TAKING TRAMADOL HCL 50 MG TABLET 1 TAB ORALLY EVERY 6 HRS NEEDED FOR PAIN MDD 4 TAKING OMEPRAZOLE 40 MG CAPSULE DELAYED RELEASE 1 CAPSULE ORALLY ONCE A DAY TAKING EFFEXOR XR 150 MG CAPSULE EXTENDED RELEASE 24 HOUR 3 CAPSULE WITH FOOD ORALLY ONCE A DAY TAKING ABILIFY 15 MG TABLET 1 TABLET ORALLY ONCE A DAY TAKING FLUTICASONE PROPIONATE 50 MCG/ACT SUSPENSION 1 SPRAY IN EACH NOSTRIL NASALLY BID TAKING DRISDOL 32343 UNIT CAPSULE 1 CAPSULE ORALLY WEEKLY TAKING VENTOLIN HFA 108 (90 BASE) MCG/ACT AEROSOL SOLUTION 2 PUFFS NEEDED INHALATION EVERY 4 HRS NEEDED FOR SHORTNESS OF BREATH TAKING CRESTOR 10 MG TABLET 1 TABLET ORALLY ONCE A DAY TAKING LOSARTAN POTASSIUM 50 MG TABLET 1 TAB(S) ORALLY ONCE A DAY TAKING SUCRALFATE 1 GM TABLET 1 TABLET ON AN EMPTY STOMACH ORALLY TWICE A DAY TAKING LASIX 20 MG TABLET 1 TABLET ORALLY ONCE A DAY NOT-TAKING AZELASTINE HCL 0.15 % SOLUTION 1 DROP IN EACH NOSTRIL NASALLY TWICE A DAY MEDICATION LIST REVIEWED AND RECONCILED WITH THE PATIENT PAST MEDICAL HISTORY ANXIETY/DEPRESSION/AGORAPHOBIA WITH PANIC ATTACKS - PSYCHIATRIST CHRONIC LOWER BACK PAIN, DORSAL COLUMN STIMULATOR IN PLACE - [facility] HTN HYPERCHOLESTEROLEMIA GERD/H/O PUD WITH GI BLEED IN PAST SECONDARY TO CELEBREX ENDOMETRIOSIS PREDIABETES TOBACCO ABUSE CHRONIC NARCOTIC DEPENDENCE - WEANING OXYCODONE PER PAIN CLINIC ALLERGIES NSAIDS: BLEEDING: CONTRAINDICATION BETADINE: RASH: ALLERGY SKELAXIN: RASH: ALLERGY METFORMIN HCL: DIARRHEA: SIDE EFFECTS REVIEW OF SYSTEMS REVIEWED BY: PROVIDER: JENNIFER MANUEL MD . CONSTITUTIONAL: ANY CHANGE IN YOUR MEDICAL CONDITION? NO . CHILLS NO . FEVER NO . INFECTION: DO YOU HAVE NEW INFECTIONS? NO . DO YOU HAVE HISTORY OF MRSA? NO . MUSCULOSKELETAL: ANY NEW PATTERNS OF PAIN OR NUMBNESS? NO . GASTROENTEROLOGY: ANY NEW CHANGE IN BOWEL CONTROL? NO . GENITOURINARY: ANY NEW CHANGE IN BLADDER CONTROL? NO . IS THERE A CHANCE YOU COULD BE ? NO . HEMATOLOGY/LYMPH: DO YOU TAKE ANY BLOOD THINNERS? (FOR EXAMPLE- COUMADIN, PLAVIX, AGGRENOX, PLATEL, PRADAXA, OR XARELTO) NO . WHEN WAS YOUR LAST DOSE? DATE: TIME: . NEUROLOGY: HAVE YOU FALLEN IN THE PAST 6 MONTHS? YES . ANY NEW EXTREMITY NUMBNESS OR WEAKNESS? NO . CARDIOLOGY: DO YOU HAVE A PACEMAKER OR DEFIBRILLATOR? NO . RESPIRATORY: HAVE YOU BEEN SICK IN THE PAST WEEK? NO . FEVER NO . FLU LIKE SYMPTOMS? NO . COUGH NO . INTEGUMENTARY: DO YOU HAVE ANY RASHES OR OPEN SORES? NO . ALLERGIC/IMMUNO: ARE YOU ALLERGIC TO SHELLFISH OR IV DYE? NO . ANY NEW ALLERGIES? NO . PSYCHIATRIC: DO YOU HAVE THOUGHTS OF HURTING YOURSELF OR SOMEONE ELSE? NO . ARE YOU ABUSED, NEGLECTED, OR IN AN UNSAFE ENVIRONMENT? NO . ENDOCRINOLOGY: ARE YOU DIABETIC? NO . OTHER: DO YOU NEED ANY PRESCRIPTIONS? YES . IF YES, PLEASE LIST: TRAMADOL . ANY NEW PROBLEMS WITH YOUR MEDICATIONS? NO . WHEN DID YOU LAST EAT? ____ . WHEN DID YOU LAST DRINK? ____ . WHAT DID YOU LAST DRINK? ____ . NAME OF PERSON DRIVING YOU HOME? ____ . DO YOU HAVE ANY OTHER QUESTIONS OR CONCERNS NO . VITAL SIGNS WT 183.8 LBS, HT 66 IN, BMI 29.66 INDEX, BP 130/70 MM HG, HR 101 /MIN, RR 16 /MIN, TEMP 98.9 F, OXYGEN SAT % 100%, NA INITIALS SC 14:08, REVIEWED BY: NL. EXAMINATION : PATIENT IS ALERT O X 3 AND COOPERATIVE. PATIENT AMBULATES WITH A LIMP ON THE RIGHT LEG. PATIENT'S RIGHT LEG IS WEAKER AT FLEXION AND EXTENSION COMPARED TO THE LEFT LEG. THERE IS TENDERNESS IN THE LOW BACK PARASPINAL MUSCLE GROUP. PATIENT USES A CANE TO AMBULATE. CT OF THE LUMBAR SPINE DONE ON 03/10/2013 SHOWS A DISC BULGE AT L4-L5, DISC PROTRUSION AT L5-S1, SCAR TISSUE EFFECTING L4 AND L5 NERVES, AND POST LAMINECTOMY CHANGES. CT OF THE CERVICAL SPINE DONE ON 04/01/11 SHOWS DEGENERATIVE CHANGES, DISC BULGES, AND IMPLANT AT C1 THROUGH C4 WHICH LIMITS THE EVALUATION. 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 MARTINEZ'S PAIN MANAGEMENT CASE. AT THIS TIME THE PATIENT WILL CONTINUE WITH THE SAME MEDICATION REGIME BEFORE. PATIENT IS USING THE LYRICA AND GABAPENTIN FOR THE NEUROPATHIC PAIN DOWN THE ARMS AND LEGS AND THE TRAMADOL FOR THE SOMATIC PAIN. MRS. MARTINEZ WILL RECEIVE A REFILL OF THE MEDICATION. PATIENT DENIES ABUSE OF ANY MEDICATION, DENIES USE OF ILLEGAL SUBSTANCES, AND STATES THAT SHE IS ONLY USING THE MEDICATION FOR PAIN MANAGEMENT. PATIENT WAS REMINDED TO BRING ALL MEDICATIONS TO EVERY VISIT. PATIENT WILL PERFORM A URINE TOXICOLOGY REPORT TODAY. PATIENT STATES THE WORST PAIN IS IN THE CERVICAL AREA AT THIS TIME. AFTER VIEWING THE MRI I WOULD LIKE TO MOVE FORWARD WITH A CERVICAL FACET BLOCK. WE DISCUSSED THE RISKS, BENENFITS, AND ALTNERATIVES OF THE INJECTION AND THE PATIENT WOULD LIKE TO PROCEED AT THIS TIME. INSTRUCTIONS WERE GIVEN, QUESTIONS WERE ANSWERED, PATIENT REPORTS UNDERSTANDING AND AGREES WITH THE PLAN. I, PRICILLA PATE, DOCUMENTED THE ABOVE INFORMATION ACTING A SCRIBE FOR DR. MANUEL. I HAVE REVIEWED THE ABOVE DOCUMENT, WRITTEN BY PRICILLA RIVERS AND I VERIFY THAT IT IS ACCURATE. POST LAMINECTOMY SYNDROME REFILL LYRICA TABLET, 150 MG, 1 TAB(S), ORALLY, THREE A DAY MDD3, 30 DAY(S), 90, REFILLS 0 REFILL GABAPENTIN TABLET, 600 MG, 1 TABLET, P.O., FOUR TIMES DAILY, 30 DAY(S), 120, REFILLS 1 REFILL TRAMADOL HCL TABLET, 50 MG, 1 TAB, ORALLY, EVERY 6 HRS NEEDED FOR PAIN MDD 4, 30 DAY(S), 120, REFILLS 0 PROCEDURES PN WORKMANS' COMP OPINION IN YOUR OPINION, WAS THE INCIDENT THAT THE PATIENT DESCRIBED THE COMPETENT MEDICAL CAUSE OF THIS INJURY/ILLNESS? YES ARE THE PATIENT'S COMPLAINTS CONSISTENT WITH HIS/HER HISTORY OF THE INJURY/ILLNESS? YES IS THE PATIENT'S HISTORY OF THE INJURY/ILLNESS CONSISTENT WITH YOUR OBJECTIVE FINDING? YES WHAT IS THE PERCENTAGE OF TEMPORARY IMPAIRMENT? MODERATE TO MARKED = 66.7% IS THE PATIENT WORKING? NO DOCTOR ON SITE: JENNIFER STEPHENS MD PREVENTIVE MEDICINE REVIEWED PRE PROCEDURE CARE FOR CE/ PT EXPRESSED UNDERSTANDING. PROCEDURE CODES FA211 ESTABILISHED PATIENT [facility]AC[facility] CHARGE G8427 DOC MEDS VERIFIED W/PT OR RE G8730 PAIN ASSESS POS TOOL F/U PLAN DOC DISPOSITION & COMMUNICATION FOLLOW UP CFBT AFTER APPROVAL ELECTRONICALLY SIGNED BY JENNIFER MANUEL MD ON 09/30/2016 AT 08:06 PM EDT DISCLAIMER : THIS IS A VISIT SUMMARY EXTRACTED FROM THE [employer] CHART. IT IS NOT A COPY OF THE [employer] PROGRESS NOTE. RAULITO
== END ==
LOC: M PAIN 14:00
PROVIDERS: ATTEND Anesthesiology
DX: M96.1 Postlaminectomy syndrome, not elsewhere classified (principal); M47.812 Spondylosis without myelopathy or radiculopathy, cervical region; M51.16 Intervertebral disc disorders with radiculopathy, lumbar region; M47.816 Spondylosis without myelopathy or radiculopathy, lumbar region; M47.817 Spondylosis without myelopathy or radiculopathy, lumbosacral region; F32.9 Major depressive disorder, single episode, unspecified; F41.9 Anxiety disorder, unspecified; I10 Essential (primary) hypertension; E78.4 Other hyperlipidemia; F17.200 Nicotine dependence, unspecified, uncomplicated; E55.9 Vitamin D deficiency, unspecified; R73.09 Other abnormal glucose; Z88.6 Allergy status to analgesic agent; Z88.3 Allergy status to other anti-infective agents; Z88.8 Allergy status to other drugs, medicaments and biological substances; Z79.899 Other long term (current) drug therapy

== ENCOUNTER → 2016-11-07 | Outpatient (CLI) | payer OTHER ==
[~2016-11-07] MED LIST changes: +BUPIVACAINE HCL 0.25% 30 ML VIAL As Ordered ONE; +ISOVUE-M 300 61% 15ML VIAL (Q9967) As Ordered ONE; +LIDOCAINE 1% SDV INJ 30 ML VIAL As Ordered ONE; +TRIAMCINOLONE ACETONIDE SUSP 40 MG/ML VIAL (J3301) As Ordered ONE; +diazePAM 5 MG TAB As Ordered ONE; +oxyCODONE 5MG TAB As Ordered ONE
--- NOTE | 2016-11-07 17:03 | REP ---
Partial cervical spine series: Single view. History: Injection procedure for pain. 8 seconds of fluoroscopy time is reported. Findings: A single last image hold fluoroscopic spot radiograph of the cervical spine documents various needle positions and contrast injections for facet joint injection procedure. Signed by Bladimir Keith MD 11/07/2016 06:03 P
--- NOTE | 2016-11-07 23:34 | ECWPNPC ---
PATIENT NAME: RACHEL MARTINEZ : 1965 GENDER: FEMALE VISIT DATE: 11/07/2016 DISCHARGE DATE: 11/07/16 1029 VISIT LOCKED DATE TIME: PHYSICIAN: JENNIFER MANUEL RESOURCE: JENNIFER MANUEL REASON FOR APPOINTMENT 1. CFBT C5-C6 C6-C7 HISTORY OF PRESENT ILLNESS HISTORY OF PRESENT ILLNESS: PAIN THE PATIENT DESCRIBES THE PAIN... FALL RISK SCREENING: SCREENING :TWO OR MORE FALLS WITHOUT INJURY IN THE PAST YEAR CURRENT MEDICATIONS TAKING ESTRADIOL 2 MG TABLET 1 TABLET ORALLY ONCE A DAY, NOTES: 11/06/16@2100 TAKING OMEPRAZOLE 40 MG CAPSULE DELAYED RELEASE 1 CAPSULE ORALLY ONCE A DAY, NOTES: 11/06/16@2100 TAKING EFFEXOR XR 150 MG CAPSULE EXTENDED RELEASE 24 HOUR 3 CAPSULE WITH FOOD ORALLY ONCE A DAY, NOTES: 0800 TAKING ABILIFY 15 MG TABLET 1 TABLET ORALLY ONCE A DAY, NOTES: 0800 TAKING FLUTICASONE PROPIONATE 50 MCG/ACT SUSPENSION 1 SPRAY IN EACH NOSTRIL NASALLY BID, NOTES: 11/06/16@1700 TAKING VENTOLIN HFA 108 (90 BASE) MCG/ACT AEROSOL SOLUTION 2 PUFFS NEEDED INHALATION EVERY 4 HRS NEEDED FOR SHORTNESS OF BREATH, NOTES: 0600 TAKING CRESTOR 10 MG TABLET 1 TABLET ORALLY ONCE A DAY, NOTES: 11/06/16@2100 TAKING LOSARTAN POTASSIUM 50 MG TABLET 1 TAB(S) ORALLY ONCE A DAY, NOTES: 11/06/16@1100 TAKING SUCRALFATE 1 GM TABLET 1 TABLET ON AN EMPTY STOMACH ORALLY TWICE A DAY, NOTES: 10/2016@1100 TAKING LASIX 20 MG TABLET 1 TABLET ORALLY ONCE A DAY, NOTES: 1100 TAKING LYRICA 150 MG TABLET 1 TAB(S) ORALLY THREE A DAY MDD3, NOTES: 11/06/16@1800 TAKING GABAPENTIN 600 MG TABLET 1 TABLET P.O. FOUR TIMES DAILY, NOTES: 11/06/16@1900 TAKING TRAMADOL HCL 50 MG TABLET 1 TAB ORALLY EVERY 6 HRS NEEDED FOR PAIN MDD 4, NOTES: 0800 TAKING DRISDOL 08293 UNIT CAPSULE 1 CAPSULE ORALLY WEEKLY, NOTES: 11/03/16@1100 TAKING NEXIUM 40 MG CAPSULE DELAYED RELEASE 1 CAPSULE ORALLY ONCE A DAY, NOTES: 11/06/16@45630 NOT-TAKING AZELASTINE HCL 0.15 % SOLUTION 1 DROP IN EACH NOSTRIL NASALLY TWICE A DAY MEDICATION LIST REVIEWED AND RECONCILED WITH THE PATIENT PAST MEDICAL HISTORY ANXIETY/DEPRESSION/AGORAPHOBIA WITH PANIC ATTACKS - PSYCHIATRIST CHRONIC LOWER BACK PAIN, DORSAL COLUMN STIMULATOR IN PLACE - [facility] HTN HYPERCHOLESTEROLEMIA GERD/H/O PUD WITH GI BLEED IN PAST SECONDARY TO CELEBREX ENDOMETRIOSIS PREDIABETES TOBACCO ABUSE CHRONIC NARCOTIC DEPENDENCE - WEANING OXYCODONE PER PAIN CLINIC ALLERGIES NSAIDS: BLEEDING: CONTRAINDICATION BETADINE: RASH: ALLERGY SKELAXIN: RASH: ALLERGY METFORMIN HCL: DIARRHEA: SIDE EFFECTS SOCIAL HISTORY GENERAL: TOBACCO USE ARE YOU A:CURRENT SMOKER HOW MANY CIGARETTES A DAY DO YOU SMOKE?11-20 HOW SOON AFTER YOU WAKE UP DO YOU SMOKE YOUR FIRST CIGARETTE?6-30 MIN HOW OFTEN DO YOU SMOKE CIGARETTES?EVERY DAY PATIENT COUNSELED ON THE DANGERS OF TOBACCO USE AND URGED TO QUIT:11/07/2016 ARE YOU INTERESTED IN QUITTING?THINKING ABOUT QUITTING PREVIOUS QUIT ATTEMPTS?YES, WITHIN THE LAST 6 MONTHS. TRIED NICOTROL--IT DIDN'T WORK BUT SHE PLANS ON TRYING IT AGAIN COUNSELED THE PATIENT ON SMOKING CESSATION, EDUCATION [id number]/21/2017 BMI CARE GOAL FOLLOW-UP ABOVE NORMAL BMI FOLLOW-UPDIETARY MANAGEMENT EDUCATION, GUIDANCE, AND COUNSELING ALCOHOL SCREENING DID YOU HAVE A DRINK CONTAINING ALCOHOL IN THE PAST YEAR?YES HOW OFTEN DID YOU HAVE A DRINK CONTAINING ALCOHOL IN THE PAST YEAR?MONTHLY OR LESS (1 POINT) HOW MANY DRINKS DID YOU HAVE ON A TYPICAL DAY WHEN YOU WERE DRINKING IN THE PAST YEAR?1 OR 2 (0 POINTS) HOW OFTEN DID YOU HAVE SIX OR MORE DRINKS ON ONE OCCASION IN THE PAST YEAR?NEVER (0 POINTS) POINTS1 INTERPRETATIONNEGATIVE RECREATIONAL DRUG USE DRUG USE?NO CAFFEINE CAFFEINE USE?YES HOW OFTEN AND HOW MUCH? COFFEE 6 CUPS DAILY, 2 SODAS DAILY SEXUAL HX HAD SEX IN THE LAST 12 MONTHS (VAGINAL, ORAL, OR ANAL)?YES WITHMEN ONLY USE PROTECTION?NO HAVE YOU EVER HAD AN STD?NO LMP:HYSTER OCCUPATION: RETIRED. DIET: REGULAR. EXERCISE: NO REGULAR EXERCISE. MARITAL STATUS: . OTHERS AT HOME: SPOUSE. PETS: 1 DOG. LANGUAGE LATVIAN. LEARNING BARRIERS / SPECIAL NEEDS ORIENTED TO PLAN OF CARE: PATIENT, PAIN MANAGEMENT PATIENT, ORIENTED TO PLAN OF CARE: PATIENT, PAIN MANAGEMENT PATIENT. NEW PATIENT PAIN DIARY TODAY'S VISIT NOTES, FROM 0-10, WHAT LEVEL IS YOUR PAIN TODAY? 0. PAIN CLINIC PFS, CLERGY, PUBLIC HEALTH REFERRALS HAS THE PATIENT BEEN EDUCATED REGARDING HIS/HER PLAN OF CARE?YES HAS THE PATIENT BEEN EDUCATED REGARDING PAIN, THE RISK FOR PAIN, THE IMPORTANCE OF EFFECTIVE PAIN MANAGEMENT, AND THE PAIN ASSESSMENT PROCESS?YES ADVANCE DIRECTIVES HEALTH CARE PROXY?YES NAME OF PRATIK MARTINEZ [phone] CONTACT # FOR HCP [phone] DO YOU HAVE A COPY WITH YOU? STATES COPY IN CHART REVIEW OF SYSTEMS REVIEWED BY: PROVIDER: . CONSTITUTIONAL: ANY CHANGE IN YOUR MEDICAL CONDITION? NO . CHILLS NO . FEVER NO . INFECTION: DO YOU HAVE NEW INFECTIONS? NO . DO YOU HAVE HISTORY OF MRSA? NO . MUSCULOSKELETAL: ANY NEW PATTERNS OF PAIN OR NUMBNESS? NO . GASTROENTEROLOGY: ANY NEW CHANGE IN BOWEL CONTROL? NO . GENITOURINARY: ANY NEW CHANGE IN BLADDER CONTROL? NO . IS THERE A CHANCE YOU COULD BE ? NO . HEMATOLOGY/LYMPH: DO YOU TAKE ANY BLOOD THINNERS? (FOR EXAMPLE- COUMADIN, PLAVIX, AGGRENOX, PLATEL, PRADAXA, OR XARELTO) NO . WHEN WAS YOUR LAST DOSE? DATE: TIME: . NEUROLOGY: HAVE YOU FALLEN IN THE PAST 6 MONTHS? YES, FELL DOWN TWO STEPS . ANY NEW EXTREMITY NUMBNESS OR WEAKNESS? NO . CARDIOLOGY: DO YOU HAVE A PACEMAKER OR DEFIBRILLATOR? NO . RESPIRATORY: HAVE YOU BEEN SICK IN THE PAST WEEK? NO . FEVER NO . FLU LIKE SYMPTOMS? NO . COUGH NO . INTEGUMENTARY: DO YOU HAVE ANY RASHES OR OPEN SORES? NO . ALLERGIC/IMMUNO: ARE YOU ALLERGIC TO SHELLFISH OR IV DYE? NO . ANY NEW ALLERGIES? NO . PSYCHIATRIC: DO YOU HAVE THOUGHTS OF HURTING YOURSELF OR SOMEONE ELSE? NO . ARE YOU ABUSED, NEGLECTED, OR IN AN UNSAFE ENVIRONMENT? NO . ENDOCRINOLOGY: ARE YOU DIABETIC? NO . OTHER: DO YOU NEED ANY PRESCRIPTIONS? YES, YES . IF YES, PLEASE LIST: ____TRAMADOL AND LYRICA . WHEN DID YOU LAST EAT? ____11/06/16@2300 . WHEN DID YOU LAST DRINK? ____0200 . WHAT DID YOU LAST DRINK? ____WATER AND MEDICATION . NAME OF PERSON DRIVING YOU HOME? ____HUSBAND ROYAL . DO YOU HAVE ANY OTHER QUESTIONS OR CONCERNS NO . VITAL SIGNS WT 185 LBS, HT 66 IN, BMI 29.86 INDEX, BP 146/76 MM HG, HR 98 /MIN, RR 16 /MIN, TEMP 98.0 F, OXYGEN SAT % 98%, NA INITIALS AW 0914, REVIEWED BY: FRANKY. 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 YES ARE THE PATIENT'S COMPLAINTS CONSISTENT WITH HIS/HER HISTORY OF THE INJURY/ILLNESS? YES IS THE PATIENT'S HISTORY OF THE INJURY/ILLNESS CONSISTENT WITH YOUR OBJECTIVE FINDING? YES WHAT IS THE PERCENTAGE OF TEMPORARY IMPAIRMENT? MODERATE TO MARKED = 66.7% IS THE PATIENT WORKING? NO DOCTOR ON SITE: JENNIFER STEPHENS MD PN CERVICAL FACET BLOCK LOW BILATERAL CERVICAL PRE PROCEDURE DIAGNOSIS CERVICAL SPONDYLOSIS, CERVICOTHORACIC SPONDYLOSIS POST PROCEDURE DIAGNOSIS CERVICAL SPONDYLOSIS, CERVICOTHORACIC SPONDYLOSIS PROCEDURE BILATERAL C6-C7 AND BILATERAL C7-T1 CERVICAL FACET BLOCK SURGEON DR. 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 I EVALUATE THE PATIENT AND REVIEWED THE CHART. I WENT OVER THE RISKS, ALTERNATIVES, AND BENEFITS ASSOCIATED WITH THIS PROCEDURE. THE PATIENT WOULD LIKE TO PROCEED AND GIVE CONSENT TO PERFORMED THE PROCEDURE. THE PATIENT DENIES UNEXPLAINABLE WEIGHT LOSS, FEVER, CHILLS, OR NEW CHANGES IN URINARY OR BOWEL CONTROL DESCRIPTION OF PROCEDURE THE PATIENT WAS BROUGHT TO THE PROCEDURE ROOM AND PLACED IN THE PRONE POSITION. THE CERVICOTHORACIC AREA WAS CLEANED WITH CHLORAPREP SOLUTION AND DRAPED ASEPTICALLY. THE PROCEDURE WAS DONE UNDER STERILE CONDITIONS. I CHECKED LATERALITY AND THE LEVEL WHERE THE PROCEDURE WAS GOING TO BE PERFORMED WITH THE PATIENT AND THE SUPPORTING STAFF AT THE MOMENT OF THE TIME OUT IN THE PROCEDURE ROOM. UNDER FLUOROSCOPIC GUIDANCE, TARGET POINT WAS SELECTED AT THE RIGHT AND LEFT C6-C7 AND RIGHT AND LEFT C7-T1 CERVICAL FACET JOINT. TARGET POINTS WERE SELECTED AFTER LATERAL ROTATION AND TILT OF THE MAGNIFIER OF THE C-ARM. LIDOCAINE 0.5% WAS USED TO NUMB THE SKIN AND THE SUBCUTANEOUS TISSUE BELOW IT. SPINAL NEEDLES, 22-GAUGE, WERE ADVANCED UNDER FLUOROSCOPIC GUIDANCE AND FOLLOWING PATIENT FEEDBACK UNTIL THE TARGETS WERE TOUCHED. THE POSITION OF THE NEEDLES WAS VERIFIED WITH AP AND LATERAL VIEWS. AFTER PROPER POSITION OF THE NEEDLES WAS ACHIEVED, ISOVUE M DYE 30, 0.1 ML WAS INJECTED SHOWING SPREAD OF THE DYE. THEN A SOLUTION OF 0.9 ML OF BUPIVACAINE 0.125% AND KENALOG 10 MG WAS INJECTED AT EACH SITE. THERE WAS NO EVIDENCE OF BLOOD, PARESTHESIA OR CEREBROSPINAL FLUID DURING THE PROCEDURE. THE PATIENT WAS SENT TO THE RECOVERY ROOM. THE PATIENT WAS MOVING THE EXTREMITIES AND DOING WELL. THERE WAS NO COMPLICATION DURING THE PROCEDURE. FLUOROSCOPY TIME WAS 8 SECONDS POST PROCEDURE NOTE THE PATIENT WILL BE SEEN IN A FOLLOW UP IN THE NEXT FEW WEEKS. INSTRUCTIONS WERE GIVEN, QUESTIONS WERE ANSWERED, AND THE PATIENT EXPRESSED UNDERSTANDING AND AGREES WITH THE PLAN. I, PRICILLA PATE, DOCUMENTED THE ABOVE INFORMATION ACTING A SCRIBE FOR DR. MANUEL. I HAVE REVIEWED THE ABOVE DOCUMENT, WRITTEN BY PRICILLA PATE SCRIBE AND I VERIFY THAT IT IS ACCURATE DIAGNOSTIC IMAGING [facility] FACET BLOCK (PAIN)[id number] PROCEDURE CODES 41095 INJ PARAVERT F JNT C/T 1 LEV 34152 INJ PARAVERT F JNT C/T 2 LEV 6045F RADXPS IN END [id number] PXD DISPOSITION & COMMUNICATION FOLLOW UP 3 WEEKS ELECTRONICALLY SIGNED BY JENNIFER MANUEL MD ON 11/07/2016 AT 05:11 PM EDT DISCLAIMER : THIS IS A VISIT SUMMARY EXTRACTED FROM THE [employer] CHART. IT IS NOT A COPY OF THE [employer] PROGRESS NOTE. MTDD
== END ==
LOC: M PAIN 09:00
PROVIDERS: ATTEND Anesthesiology
DX: G89.29 Other chronic pain (principal); M47.812 Spondylosis without myelopathy or radiculopathy, cervical region; M47.813 Spondylosis without myelopathy or radiculopathy, cervicothoracic region; E55.9 Vitamin D deficiency, unspecified; F17.210 Nicotine dependence, cigarettes, uncomplicated; K21.9 Gastro-esophageal reflux disease without esophagitis; Z79.891 Long term (current) use of opiate analgesic; Z79.899 Other long term (current) drug therapy; Z88.8 Allergy status to other drugs, medicaments and biological substances
CPT/HCPCS: 64490; 64491; J3301; Q9967

== ENCOUNTER → 2017-01-02 | Outpatient (CLI) | payer OTHER ==
[~2017-01-02] MED LIST changes: -BUPIVACAINE HCL 0.25% 30 ML VIAL As Ordered ONE; -TRIAMCINOLONE ACETONIDE SUSP 40 MG/ML VIAL (J3301) As Ordered ONE; +methylPREDNISolone SUSP 40 MG/ML (DEPO-medrol) VIAL (J1030) As Ordered ONE
--- NOTE | 2017-01-02 16:10 | REP ---
FLUOROSCOPIC GUIDED SPINAL INJECTION: The films were reviewed with Dr. Peralta. The patient has a history of low back pain. The portable C-Arm was provided in the OR for Dr. Daniels for fluoroscopic guidance. Three intraoperative fluoroscopic spot films were obtained for needle placement verification for lumbar epidural injection. The films are on the PACs system and are available for review. 17 seconds of fluoroscopy time was utilized for this procedure. Reviewed by NAVARRO Hood 01/03/2017 03:44 PEdited and Signed by Dinh Peralta MD 01/03/2017 03:44 P
--- NOTE | 2017-01-14 00:44 | ECWPNPC ---
PATIENT NAME: RACHEL MARTINEZ : 1965 GENDER: FEMALE VISIT DATE: 01/02/2017 DISCHARGE DATE: 01/02/17 1154 VISIT LOCKED DATE TIME: PHYSICIAN: JENNIFER MANUEL RESOURCE: JENNIFER MANUEL REASON FOR APPOINTMENT 1. W/C,CAUDAL EPIDURAL HISTORY OF PRESENT ILLNESS HISTORY OF PRESENT ILLNESS: PAIN THE PATIENT DESCRIBES THE PAIN... FALL RISK SCREENING: SCREENING :TWO OR MORE FALLS WITHOUT INJURY IN THE PAST YEAR CURRENT MEDICATIONS TAKING OMEPRAZOLE 40 MG CAPSULE DELAYED RELEASE 1 CAPSULE ORALLY ONCE A DAY, NOTES: 01/01/17@2099 TAKING EFFEXOR XR 150 MG CAPSULE EXTENDED RELEASE 24 HOUR 3 CAPSULE WITH FOOD ORALLY ONCE A DAY, NOTES: 829 TAKING ABILIFY 15 MG TABLET 1 TABLET ORALLY ONCE A DAY, NOTES: 829 TAKING FLUTICASONE PROPIONATE 50 MCG/ACT SUSPENSION 1 SPRAY IN EACH NOSTRIL NASALLY BID, NOTES: TAKING VENTOLIN HFA 108 (90 BASE) MCG/ACT AEROSOL SOLUTION 2 PUFFS NEEDED INHALATION EVERY 4 HRS NEEDED FOR SHORTNESS OF BREATH, NOTES: 01/01/17@1100 TAKING CRESTOR 10 MG TABLET 1 TABLET ORALLY ONCE A DAY, NOTES: TAKING LOSARTAN POTASSIUM 50 MG TABLET 1 TAB(S) ORALLY ONCE A DAY, NOTES: 829 TAKING SUCRALFATE 1 GM TABLET 1 TABLET ON AN EMPTY STOMACH ORALLY TWICE A DAY, NOTES: 01/01/17@0900 TAKING LASIX 20 MG TABLET 1 TABLET ORALLY ONCE A DAY, NOTES: 08 TAKING LYRICA 150 MG TABLET 1 TAB(S) ORALLY THREE A DAY MDD3, NOTES: 829 TAKING DRISDOL 55981 UNIT CAPSULE 1 CAPSULE ORALLY WEEKLY, NOTES: 12/29/16@0900 TAKING NEXIUM 40 MG CAPSULE DELAYED RELEASE 1 CAPSULE ORALLY ONCE A DAY, NOTES: 01/01/17 TAKING ESTRADIOL 2 MG TABLET 1 TABLET ORALLY ONCE A DAY, NOTES: 01/01/17 TAKING TRAMADOL HCL 50 MG TABLET 1 TAB ORALLY EVERY 6 HRS NEEDED FOR PAIN MDD 4, NOTES: 0830 TAKING GABAPENTIN 600 MG TABLET 1 TABLET P.O. FOUR TIMES DAILY, NOTES: 0830 DISCONTINUED METFORMIN HCL 1000 MG TABLET TAKE ONE TABLET BY MOUTH TWICE A DAY WITH MEALS DISCONTINUED LYRICA 150 MG CAPSULE 1 CAPSULE ORALLY TID MDD3 DISCONTINUED TRAMADOL HCL 50 MG TABLET 1 TABLET NEEDED ORALLY EVERY 6 HRS MDD4 DISCONTINUED AZELASTINE HCL 0.15 % SOLUTION 1 DROP IN EACH NOSTRIL NASALLY TWICE A DAY MEDICATION LIST REVIEWED AND RECONCILED WITH THE PATIENT PAST MEDICAL HISTORY ANXIETY/DEPRESSION/AGORAPHOBIA WITH PANIC ATTACKS - PSYCHIATRIST CHRONIC LOWER BACK PAIN, DORSAL COLUMN STIMULATOR IN PLACE - [facility] HTN HYPERCHOLESTEROLEMIA GERD/H/O PUD WITH GI BLEED IN PAST SECONDARY TO CELEBREX ENDOMETRIOSIS PREDIABETES TOBACCO ABUSE CHRONIC NARCOTIC DEPENDENCE - WEANING OXYCODONE PER PAIN CLINIC ALLERGIES NSAIDS: BLEEDING: CONTRAINDICATION BETADINE: RASH: ALLERGY SKELAXIN: RASH: ALLERGY METFORMIN HCL: DIARRHEA: SIDE EFFECTS SOCIAL HISTORY GENERAL: TOBACCO USE ARE YOU A:CURRENT SMOKER ARE YOU INTERESTED IN QUITTING?THINKING ABOUT QUITTING PREVIOUS QUIT ATTEMPTS?YES, WITHIN THE LAST 6 MONTHS. TRIED NICOTROL--IT DIDN'T WORK BUT SHE PLANS ON TRYING IT AGAIN COUNSELED THE PATIENT ON SMOKING CESSATION, EDUCATION [id number]/16/2017 HOW MANY CIGARETTES A DAY DO YOU SMOKE?11-20 HOW SOON AFTER YOU WAKE UP DO YOU SMOKE YOUR FIRST CIGARETTE?6-30 MIN HOW OFTEN DO YOU SMOKE CIGARETTES?EVERY DAY PATIENT COUNSELED ON THE DANGERS OF TOBACCO USE AND URGED TO QUIT:01/02/2017 DISCUSSED AND DOES NOT DESIRE TO QUIT SMOKING TODAY BMI CARE GOAL FOLLOW-UP ABOVE NORMAL BMI FOLLOW-UPDIETARY MANAGEMENT EDUCATION, GUIDANCE, AND COUNSELING ALCOHOL SCREENING DID YOU HAVE A DRINK CONTAINING ALCOHOL IN THE PAST YEAR?YES HOW OFTEN DID YOU HAVE A DRINK CONTAINING ALCOHOL IN THE PAST YEAR?MONTHLY OR LESS (1 POINT) HOW MANY DRINKS DID YOU HAVE ON A TYPICAL DAY WHEN YOU WERE DRINKING IN THE PAST YEAR?1 OR 2 (0 POINTS) HOW OFTEN DID YOU HAVE SIX OR MORE DRINKS ON ONE OCCASION IN THE PAST YEAR?NEVER (0 POINTS) POINTS1 INTERPRETATIONNEGATIVE RECREATIONAL DRUG USE DRUG USE?NO CAFFEINE CAFFEINE USE?YES HOW OFTEN AND HOW MUCH? COFFEE 6 CUPS DAILY, 2 SODAS DAILY SEXUAL HX HAD SEX IN THE LAST 12 MONTHS (VAGINAL, ORAL, OR ANAL)?YES WITHMEN ONLY USE PROTECTION?NO HAVE YOU EVER HAD AN STD?NO LMP:HYSTER OCCUPATION: RETIRED. DIET: REGULAR. EXERCISE: NO REGULAR EXERCISE. MARITAL STATUS: . OTHERS AT HOME: SPOUSE. PETS: 1 DOG. LANGUAGE LATVIAN. LEARNING BARRIERS / SPECIAL NEEDS ORIENTED TO PLAN OF CARE: PATIENT, PAIN MANAGEMENT PATIENT, ORIENTED TO PLAN OF CARE: PATIENT, PAIN MANAGEMENT PATIENT. NEW PATIENT PAIN DIARY TODAY'S VISIT NOTES, FROM 0-10, WHAT LEVEL IS YOUR PAIN TODAY? 0. PAIN CLINIC PFS, CLERGY, PUBLIC HEALTH REFERRALS HAS THE PATIENT BEEN EDUCATED REGARDING HIS/HER PLAN OF CARE?YES HAS THE PATIENT BEEN EDUCATED REGARDING PAIN, THE RISK FOR PAIN, THE IMPORTANCE OF EFFECTIVE PAIN MANAGEMENT, AND THE PAIN ASSESSMENT PROCESS?YES ADVANCE DIRECTIVES HEALTH CARE PROXY?YES NAME OF [facility] [phone] CONTACT # FOR HCP [phone] DO YOU HAVE A COPY WITH YOU? STATES COPY IN CHART REVIEW OF SYSTEMS REVIEWED BY: PROVIDER: . CONSTITUTIONAL: ANY CHANGE IN YOUR MEDICAL CONDITION? NO . CHILLS NO . FEVER NO . INFECTION: DO YOU HAVE NEW INFECTIONS? NO . DO YOU HAVE HISTORY OF MRSA? NO . MUSCULOSKELETAL: ANY NEW PATTERNS OF PAIN OR NUMBNESS? NO . GASTROENTEROLOGY: ANY NEW CHANGE IN BOWEL CONTROL? NO . GENITOURINARY: ANY NEW CHANGE IN BLADDER CONTROL? NO . IS THERE A CHANCE YOU COULD BE ? NO . HEMATOLOGY/LYMPH: DO YOU TAKE ANY BLOOD THINNERS? (FOR EXAMPLE- COUMADIN, PLAVIX, AGGRENOX, PLATEL, PRADAXA, OR XARELTO) NO . WHEN WAS YOUR LAST DOSE? DATE: TIME: . NEUROLOGY: HAVE YOU FALLEN IN THE PAST 6 MONTHS? YES . ANY NEW EXTREMITY NUMBNESS OR WEAKNESS? NO . CARDIOLOGY: DO YOU HAVE A PACEMAKER OR DEFIBRILLATOR? NO . RESPIRATORY: HAVE YOU BEEN SICK IN THE PAST WEEK? NO . FEVER NO . FLU LIKE SYMPTOMS? NO . COUGH NO . INTEGUMENTARY: DO YOU HAVE ANY RASHES OR OPEN SORES? NO . ALLERGIC/IMMUNO: ARE YOU ALLERGIC TO SHELLFISH OR IV DYE? NO . ANY NEW ALLERGIES? NO . PSYCHIATRIC: DO YOU HAVE THOUGHTS OF HURTING YOURSELF OR SOMEONE ELSE? NO . ARE YOU ABUSED, NEGLECTED, OR IN AN UNSAFE ENVIRONMENT? NO . ENDOCRINOLOGY: ARE YOU DIABETIC? NO . OTHER: DO YOU NEED ANY PRESCRIPTIONS? NO . IF YES, PLEASE LIST: ____ . ANY NEW PROBLEMS WITH YOUR MEDICATIONS? NO . WHEN DID YOU LAST EAT? ____01/01/17 . WHEN DID YOU LAST DRINK? ____0200 . WHAT DID YOU LAST DRINK? ____BLACK COFFEE . NAME OF PERSON DRIVING YOU HOME? ____ROYAL KEECH . DO YOU HAVE ANY OTHER QUESTIONS OR CONCERNS NO . VITAL SIGNS WT 182 LBS, HT 66 IN, BMI 29.37 INDEX, BP 119/72 MM HG, HR 111 /MIN, RR 18 /MIN, TEMP 98.9 F, OXYGEN SAT % 96%, NA INITIALS SC 10:02. ASSESSMENTS INTERVERTEBRAL DISC DISORDER WITH RADICULOPATHY OF LUMBOSACRAL REGION - M51.17 (PRIMARY) PROCEDURES PRE PROCEDURE DIAGNOSIS LUMBOSACRAL DISC DISORDER WITH RADICULOPATHY POST PROCEDURE DIAGNOSIS LUMBOSACRAL DISC DISORDER WITH RADICULOPATHY PROCEDURE LUMBAR EPIDURAL STEROID INJECTION UNDER FLUOROSCOPIC GUIDANCE SURGEON DR. JENNIFER MANUEL NATURE PHOTOGRAPHER NONE ANESTHESIA LOCAL PRE PROCEDURE NOTE THE PATIENT HAS A HISTORY OF CHRONIC LOW BACK PAIN. I EVALUATE THE PATIENT AND REVIEWED THE CHART. I WENT OVER THE RISKS, ALTERNATIVES, AND BENEFITS ASSOCIATED WITH THIS PROCEDURE. THE PATIENT WOULD LIKE TO PROCEED AND GIVE CONSENT TO PERFORMED THE PROCEDURE. THE PATIENT DENIES UNEXPLAINABLE WEIGHT LOSS, FEVER, CHILLS, OR NEW CHANGES IN URINARY OR BOWEL CONTROL. DESCRIPTION OF PROCEDURE THE PATIENT WAS BROUGHT TO THE PROCEDURE ROOM AND PLACED IN THE PRONE POSITION. THE LUMBOSACRAL AREA WAS CLEANED WITH BETADINE SOLUTION AND DRAPED ASEPTICALLY. THE PROCEDURE WAS DONE UNDER STERILE CONDITIONS. I CHECKED LATERALITY AND THE LEVEL WHERE THE PROCEDURE WAS GOING TO BE PERFORMED WITH THE PATIENT AND THE SUPPORTING STAFF AT THE MOMENT OF THE TIME OUT IN THE PROCEDURE ROOM. UNDER FLUOROSCOPIC GUIDANCE, THE TARGET POINT WAS SELECTED AT THE INTERLAMINAR LEVEL OF L5-S1. LIDOCAINE WAS USED TO NUMB THE SKIN AND THE SUBCUTANEOUS TISSUE BELOW IT. EPIDURAL TUOHY NEEDLE, 17-GAUGE, WAS ADVANCED UNDER FLUOROSCOPIC GUIDANCE AND FOLLOWING PATIENT FEEDBACK UNTIL THE EPIDURAL SPACE WAS REACHED, 7 CM DEEP INTO THE SKIN BY THE LOSS OF RESISTANCE TECHNIQUE. ISOVUE M DYE 30%, 0.25 ML, WAS INJECTED SHOWING ADEQUATE SPREAD OF THE DYE. THEN, A SOLUTION OF 3 ML OF NORMAL SALINE WITH DEPO-MEDROL 60 MG WAS INJECTED SLOWLY FOLLOWING PATIENT FEEDBACK. THERE WAS NO EVIDENCE OF BLOOD, PARESTHESIA OR CEREBROSPINAL FLUID DURING THE PROCEDURE. THE PATIENT WAS SENT TO THE RECOVERY ROOM. THE PATIENT WAS MOVING THE EXTREMITIES AND DOING WELL. THERE WAS NO COMPLICATION DURING THE PROCEDURE. FLUOROSCOPY TIME WAS 17 SECONDS. POST PROCEDURE NOTE THE PATIENT WILL BE SEEN IN A FOLLOW UP IN THE NEXT FEW WEEKS. INSTRUCTIONS WERE GIVEN, QUESTIONS WERE ANSWERED, AND THE PATIENT EXPRESSED UNDERSTANDING AND AGREES WITH THE PLAN. I, PRICILLA PATE, DOCUMENTED THE ABOVE INFORMATION ACTING A SCRIBE FOR DR. MANUEL. I, DR. MANUEL, HAVE REVIEWED THE ABOVE DOCUMENT, SCRIBED BY PRICILLA PATE, AND I VERIFY THAT IT IS ACCURATE PN WORKMANS' COMP OPINION IN YOUR OPINION, WAS THE INCIDENT THAT THE PATIENT DESCRIBED THE COMPETENT MEDICAL CAUSE OF THIS INJURY/ILLNESS? YES ARE THE PATIENT'S COMPLAINTS CONSISTENT WITH HIS/HER HISTORY OF THE INJURY/ILLNESS? YES IS THE PATIENT'S HISTORY OF THE INJURY/ILLNESS CONSISTENT WITH YOUR OBJECTIVE FINDING? YES WHAT IS THE PERCENTAGE OF TEMPORARY IMPAIRMENT? MODERATE TO MARKED = 66.7% IS THE PATIENT WORKING? NO DOCTOR ON SITE: JENNIFER STEPHENS MD DIAGNOSTIC IMAGING [facility] FLUORO GUIDE SPINE INJECTION (PAIN)[id number] PROCEDURE CODES 11049 LUMBAR/SACRAL W/ IMAGING 6045F RADXPS IN END [id number] PXD DISPOSITION & COMMUNICATION FOLLOW UP 2 WEEKS ELECTRONICALLY SIGNED BY JENNIFER MANUEL MD ON 01/13/2017 AT 02:30 PM EST DISCLAIMER : THIS IS A VISIT SUMMARY EXTRACTED FROM THE [employer] CHART. IT IS NOT A COPY OF THE [employer] PROGRESS NOTE. MTDD
== END ==
LOC: M PAIN 09:45
PROVIDERS: ATTEND Anesthesiology
DX: G89.29 Other chronic pain (principal); M51.17 Intervertebral disc disorders with radiculopathy, lumbosacral region; I10 Essential (primary) hypertension; E78.00 Pure hypercholesterolemia, unspecified; K21.9 Gastro-esophageal reflux disease without esophagitis; E55.9 Vitamin D deficiency, unspecified; R73.09 Other abnormal glucose; K52.9 Noninfective gastroenteritis and colitis, unspecified; F17.210 Nicotine dependence, cigarettes, uncomplicated; F32.9 Major depressive disorder, single episode, unspecified; F41.0 Panic disorder [episodic paroxysmal anxiety]; Z88.6 Allergy status to analgesic agent; Z88.1 Allergy status to other antibiotic agents; Z88.8 Allergy status to other drugs, medicaments and biological substances; Z79.891 Long term (current) use of opiate analgesic; Z79.899 Other long term (current) drug therapy
CPT/HCPCS: 62323; J1030; Q9967

== ENCOUNTER → 2017-01-06 | Outpatient (REF) | payer OTHER ==
[~2017-01-06] MED LIST changes: -ISOVUE-M 300 61% 15ML VIAL (Q9967) As Ordered ONE; -LIDOCAINE 1% SDV INJ 30 ML VIAL As Ordered ONE; -diazePAM 5 MG TAB As Ordered ONE; -methylPREDNISolone SUSP 40 MG/ML (DEPO-medrol) VIAL (J1030) As Ordered ONE; -oxyCODONE 5MG TAB As Ordered ONE
[2017-01-06 13:08] LABS: MEAN CORPUSCULAR HEMOGLOBIN 30.9 pg (27.0-33.0); MEAN CORPUSCULAR VOLUME 90.9 fl (80.0-96.0); PLATELET COUNT, AUTOMATED 256 10^3/uL (150-450); RED CELL DISTRIBUTION WIDTH 14.1 % (11.5-14.5); WHITE BLOOD COUNT 14.3 10^3/uL (4.0-10.0)
[2017-01-06 14:22] LABS: ALBUMIN 3.5 GM/DL (3.2-5.2); ALBUMIN/GLOBULIN RATIO 1.13 (1.00-1.93); ALKALINE PHOSPHATASE 102 U/L (45-117); ALT/SGPT 24 U/L (12-78); ANION GAP 7 MEQ/L (8-16); AST/SGOT 14 U/L (7-37); BILIRUBIN,TOTAL 0.2 MG/DL (0.2-1.0); BLOOD UREA NITROGEN 9 MG/DL (7-18); CALCIUM LEVEL 8.9 MG/DL (8.5-10.1); CARBON DIOXIDE LEVEL 27 MEQ/L (21-32); CHLORIDE LEVEL 107 MEQ/L (98-107); CREATININE FOR GFR 0.74 MG/DL (0.55-1.02); GLOMERULAR FILTRATION RATE > 60.0 (>51); GLUCOSE, FASTING 99 MG/DL (70-105); SODIUM LEVEL 141 MEQ/L (136-145); TOTAL PROTEIN 6.6 GM/DL (6.4-8.2)
== END ==
LOC: M SFHCADAM 08:11
PROVIDERS: ATTEND Physician Assistant
DX: E55.9 Vitamin D deficiency, unspecified (principal); F17.200 Nicotine dependence, unspecified, uncomplicated; K52.9 Noninfective gastroenteritis and colitis, unspecified

== ENCOUNTER → 2017-01-17 | Outpatient (REF) | payer OTHER | LOC: M SFHCADAM 18:39 | PROVIDERS: ATTEND Physician Assistant | DX: J02.9 Acute pharyngitis, unspecified (principal) ==

== ENCOUNTER → 2017-01-29 | Outpatient (REF) | payer OTHER ==
[2017-01-29 12:58] LABS: BLOOD UREA NITROGEN 6 MG/DL (7-18); GLOMERULAR FILTRATION RATE > 60.0 (>51)
== END ==
LOC: M LABDRWAD 12:11
PROVIDERS: ATTEND Otolaryngology
DX: J37.0 Chronic laryngitis (principal)

== ENCOUNTER → 2017-02-28 | Outpatient (CLI) | payer OTHER | LOC: M PAIN 11:00 | DX: M96.1 Postlaminectomy syndrome, not elsewhere classified (principal); M47.813 Spondylosis without myelopathy or radiculopathy, cervicothoracic region; F32.9 Major depressive disorder, single episode, unspecified; F40.01 Agoraphobia with panic disorder; I10 Essential (primary) hypertension; E78.00 Pure hypercholesterolemia, unspecified; K21.9 Gastro-esophageal reflux disease without esophagitis; F17.210 Nicotine dependence, cigarettes, uncomplicated; Z79.899 Other long term (current) drug therapy; Z88.1 Allergy status to other antibiotic agents; Z88.6 Allergy status to analgesic agent; Z88.8 Allergy status to other drugs, medicaments and biological substances; Z86.59 Personal history of other mental and behavioral disorders | CPT/HCPCS: G0463 ==

== ENCOUNTER → 2017-02-28 | Outpatient (CLI) | payer OTHER | LOC: M CARPUL 08:27 | DX: R94.31 Abnormal electrocardiogram [ECG] [EKG] (principal) | CPT/HCPCS: 93306 ==

== ENCOUNTER 2017-03-12 07:44 | Day surgery (SDC) | payer OTHER ==
[2017-03-12] MEDS ORDERED: LR 1,000 ML IV ×3 (08:00→11:00)
[2017-03-12 08:56] LABS: ANION GAP 6 MEQ/L (8-16); BLOOD UREA NITROGEN 10 MG/DL (7-18); CALCIUM LEVEL 8.7 MG/DL (8.5-10.1); CARBON DIOXIDE LEVEL 28 MEQ/L (21-32); CHLORIDE LEVEL 109 MEQ/L (98-107); CREATININE FOR GFR 0.73 MG/DL (0.55-1.02); GLOMERULAR FILTRATION RATE > 60.0 (>51); GLUCOSE, FASTING 97 MG/DL (70-100); POTASSIUM SERUM 4.5 MEQ/L (3.5-5.1); SODIUM LEVEL 143 MEQ/L (136-145)
[2017-03-12] MEDS ORDERED: fentaNYL 100 MCG/2 ML INJECTION (J3010) As Ordered ×2 (09:03→09:43)
[2017-03-12] MEDS ORDERED: MIDAZOLAM INJ 2 MG/2 ML VIAL (J2250) As Ordered (09:03)
[2017-03-12] MEDS ORDERED: LIDOCAINE W/EPINEPHRINE 1% 20ML VIAL As Ordered (09:11)
[2017-03-12] MEDS: dexameTHASONE 4 MG/ML 1ML VIAL (J1100) IV (09:40)
[2017-03-12] MEDS: CETACAINE SPRAY 5GM As Ordered (09:40)
[2017-03-12] MEDS ORDERED: ONDANSETRON 4MG/2ML VIAL (J2405) As Ordered (09:44)
[2017-03-12] MEDS ORDERED: dexameTHASONE 4 MG/ML 1ML VIAL (J1100) As Ordered (09:44)
[2017-03-12] MEDS ORDERED: PROPOFOL 200 MG/20 ML VIAL As Ordered (09:44)
[2017-03-12] MEDS ORDERED: ROCURONIUM BROMIDE 50 MG/5 ML VIAL As Ordered (09:44)
[2017-03-12] MEDS ORDERED: GLYCOPYRROLATE INJ 0.2 MG/ML 2 ML VIAL As Ordered (09:44)
[2017-03-12] MEDS ORDERED: LIDOCAINE 2% INJ 100 MG/5 ML SYRINGE As Ordered (09:44)
[2017-03-12] MEDS: OXYMETAZOLINE NASAL SPRAY (AFRIN) As Ordered (09:50)
[2017-03-12] MEDS: METHYLENE BLUE 0.5% (5MG/ML) 10 ML AMP (PROVAYBLUE)(Q9968 PER 1MG) As Ordered (09:50)
[2017-03-12] MEDS ORDERED: ONDANSETRON 4MG/2ML VIAL (J2405) IV (11:00)
[2017-03-12] MEDS ORDERED: HYDROmorphone HCL 1 MG/ML SYRINGE (J1170) IV (11:00)
[2017-03-12] MEDS ORDERED: fentaNYL 100 MCG/2 ML INJECTION (J3010) IV (11:00)
[2017-03-12] MEDS: PERCOCET 5MG/325MG TAB PO (11:35)
== END 2017-03-12 12:25 | disposition home or self-care (01) ==
LOC: M SDC 07:44
DX: J37.0 Chronic laryngitis (principal); J06.9 Acute upper respiratory infection, unspecified; I10 Essential (primary) hypertension; F17.210 Nicotine dependence, cigarettes, uncomplicated; Z98.84 Bariatric surgery status; R06.83 Snoring; M54.5 Low back pain; G89.29 Other chronic pain; Z96.9 Presence of functional implant, unspecified; F32.9 Major depressive disorder, single episode, unspecified; F41.0 Panic disorder [episodic paroxysmal anxiety]; E78.00 Pure hypercholesterolemia, unspecified; K21.9 Gastro-esophageal reflux disease without esophagitis; N80.9 Endometriosis, unspecified; R73.03 Prediabetes; F11.20 Opioid dependence, uncomplicated; R60.0 Localized edema; M19.90 Unspecified osteoarthritis, unspecified site; G62.9 Polyneuropathy, unspecified; Z88.8 Allergy status to other drugs, medicaments and biological substances; Z88.6 Allergy status to analgesic agent; Z79.899 Other long term (current) drug therapy
CPT/HCPCS: 31535

== ENCOUNTER → 2017-05-07 | Outpatient (CLI) | payer OTHER ==
[~2017-05-07] MED LIST changes: -/AUGM875TA OR; -/CELE20CA PO; -/DULO30CA; -/ESCI20TA; -/ESCI20TA OR; -ABIL1TAB11 PO; -ACETGRA PO; -ALBU17IN INH; -AMIT50TA2 OR; -CLON-412 PO; -COLA100C2 OR; -COLA100C2 PO; -COLA100C5 PO; -COMBO CREAM TOP; -COZA100T2 PO; -COZA50TA18 OR; -CRES20TA OR; -CRES20TA PO; -DOCU10CA PO; -DRIS50002 PO; -DULO20CA OR; -ESOM1CAP5 PO; -ESTR1TAB PO; -ESTR2TAB; -ESTR2TAB OR; -FERR325T OR; -FERR325T PO; -FLAG500T OR; -FLON1SPR; -FURO20TA2 PO; -FURO40TA2 OR; -GABA600T PO; +ISOVUE-370 76% 100ML VIAL (Q9967) As Ordered; -KEFL500C; -LASI20TA PO; -LIDO5DIS EXT; -LOSA50TA20 PO; -LYRI150C PO; -LYRI75CA PO; -METF500T13 PO; -NEUR300C; -NEUR600T OR; -NICO21DI4 TD; -NICOTINE; -OXYC-141 PO; -OXYC10TA12 OR; -OXYC30TA4 PO; -OXYC5CAP4; -OXYC5CAP4 OR; -PRIL20CA; -PRIL20CA PO; -PRIL40CA OR; -SING10TA31 OR; -SUCR1TA PO; -SUDAFED PO; -SULCRAFATE OR; -TOPI100T OR; -TOPI50TA OR; -TRAM50TA2 OR; -TRAM50TA2 PO; -TRAZ50TA11 PO; -TRIC145T19 OR; -TRIC145T22 PO; -VENL150C43 PO; -VENL150T PO; -VENL75CA PO; -VITA500C OR; -VITA500T PO; -VITAMIN D2 PO; -ZANT150T; -ZANT150T PO; -[UNRECOGNIZED DRUG - CODE] PO; -[UNRECOGNIZED DRUG - OTHER]; -[UNRECOGNIZED DRUG - OTHER] INH; -butrans TOP
== END ==
LOC: M RAD 07:54
DX: R22.0 Localized swelling, mass and lump, head (principal); J31.2 Chronic pharyngitis; Z72.0 Tobacco use
CPT/HCPCS: Q9967

== ENCOUNTER → 2017-05-08 | Outpatient (REF) | payer OTHER | LOC: M LAB REF 15:41 | DX: R59.0 Localized enlarged lymph nodes (principal) | CPT/HCPCS: 87205 ==

== ENCOUNTER → 2017-05-19 | Outpatient (CLI) | payer OTHER | LOC: M PAIN 10:00 | DX: M96.1 Postlaminectomy syndrome, not elsewhere classified (principal); I10 Essential (primary) hypertension; E78.00 Pure hypercholesterolemia, unspecified; K21.9 Gastro-esophageal reflux disease without esophagitis; R73.09 Other abnormal glucose; F41.9 Anxiety disorder, unspecified; F32.9 Major depressive disorder, single episode, unspecified; F40.01 Agoraphobia with panic disorder; Z79.899 Other long term (current) drug therapy; Z88.1 Allergy status to other antibiotic agents; Z88.6 Allergy status to analgesic agent; Z88.8 Allergy status to other drugs, medicaments and biological substances; Z98.84 Bariatric surgery status; Z87.891 Personal history of nicotine dependence | CPT/HCPCS: G0463 ==

== ENCOUNTER → 2017-06-05 | Outpatient (CLI) | payer OTHER | LOC: M ONCR 09:43 | DX: C32.1 Malignant neoplasm of supraglottis (principal) | CPT/HCPCS: G0463 ==

== ENCOUNTER 2017-06-17 12:43 | Day surgery (SDC) | payer OTHER ==
[2017-06-17] MEDS ORDERED: NS 1,000 ML IV (13:00)
[2017-06-17] MEDS ORDERED: fentaNYL 100 MCG/2 ML INJECTION (J3010) As Ordered (14:10)
[2017-06-17] MEDS ORDERED: LIDOCAINE 2% INJ 100 MG/5 ML SDV (FOR ANES.) As Ordered (14:30)
[2017-06-17] MEDS ORDERED: PROPOFOL 200 MG/20 ML VIAL As Ordered (14:30)
== END 2017-06-17 14:49 | disposition home or self-care (01) ==
LOC: M OPP 12:43
DX: R93.3 Abnormal findings on diagnostic imaging of other parts of digestive tract (principal); Z98.0 Intestinal bypass and anastomosis status; C32.1 Malignant neoplasm of supraglottis; C10.1 Malignant neoplasm of anterior surface of epiglottis; I10 Essential (primary) hypertension; E78.5 Hyperlipidemia, unspecified; R73.03 Prediabetes; Z87.19 Personal history of other diseases of the digestive system; K44.9 Diaphragmatic hernia without obstruction or gangrene; R19.7 Diarrhea, unspecified; K21.9 Gastro-esophageal reflux disease without esophagitis; M19.90 Unspecified osteoarthritis, unspecified site; M54.89 Other dorsalgia; M54.2 Cervicalgia; M79.7 Fibromyalgia; F41.9 Anxiety disorder, unspecified; F32.9 Major depressive disorder, single episode, unspecified; G43.909 Migraine, unspecified, not intractable, without status migrainosus; G62.9 Polyneuropathy, unspecified; Z97.8 Presence of other specified devices; Z78.0 Asymptomatic menopausal state; Z98.84 Bariatric surgery status; Z87.891 Personal history of nicotine dependence; Z88.8 Allergy status to other drugs, medicaments and biological substances; Z88.3 Allergy status to other anti-infective agents; Z79.899 Other long term (current) drug therapy; Z80.0 Family history of malignant neoplasm of digestive organs; Z80.3 Family history of malignant neoplasm of breast
CPT/HCPCS: 43235

== ENCOUNTER 2017-06-18 10:47 | Outpatient (RCR) | payer OTHER | END 2017-07-17 | LOC: M ST 10:47 | DX: Z51.89 Encounter for other specified aftercare (principal); C10.1 Malignant neoplasm of anterior surface of epiglottis | CPT/HCPCS: 92610 ==

== ENCOUNTER 2017-06-18 14:20 | Outpatient (RCR) | payer OTHER | END 2017-07-17 | LOC: M ONCR 14:20 | DX: C32.1 Malignant neoplasm of supraglottis (principal) | CPT/HCPCS: 77300 ==

== ENCOUNTER → 2017-06-20 | Outpatient (REF) | payer OTHER ==
[2017-06-20 14:06] LABS: INR 0.91; PROTHROMBIN TIME 12.3 SECONDS (12.4-14.5)
[2017-06-20 14:07] LABS: PARTIAL THROMBOPLASTIN TIME 25.5 SECONDS (26.8-37.9)
== END ==
LOC: M LAB REF 13:33
DX: Z01.818 Encounter for other preprocedural examination (principal); C10.9 Malignant neoplasm of oropharynx, unspecified
CPT/HCPCS: 85610

== ENCOUNTER 2017-06-25 06:03 | Day surgery (SDC) | payer OTHER ==
[2017-06-25] MEDS ORDERED: ONDANSETRON 4MG/2ML VIAL (J2405) As Ordered (06:27)
[2017-06-25] MEDS ORDERED: PROPOFOL 200 MG/20 ML VIAL As Ordered (06:27)
[2017-06-25] MEDS ORDERED: dexameTHASONE 4 MG/ML 1ML VIAL (J1100) As Ordered (06:27)
[2017-06-25] MEDS ORDERED: ROCURONIUM BROMIDE 50 MG/5 ML VIAL As Ordered (06:27)
[2017-06-25] MEDS ORDERED: LIDOCAINE 2% INJ 100 MG/5 ML SDV (FOR ANES.) As Ordered (06:27)
[2017-06-25] MEDS ORDERED: fentaNYL 250 MCG/5 ML INJECTION (J3010) As Ordered (06:34)
[2017-06-25] MEDS ORDERED: MIDAZOLAM INJ 2 MG/2 ML VIAL (J2250) As Ordered (06:34)
[2017-06-25] MEDS: LR 1,000 ML IV (06:55)
[2017-06-25] MEDS ORDERED: SUGAMMADEX SODIUM 500 MG/5 ML VIAL (BRIDION) As Ordered (07:46)
[2017-06-25] MEDS ORDERED: ePHEDrine SULFATE 25 MG/5 ML(5MG/ML) SYRINGE As Ordered (07:52)
[2017-06-25] MEDS: BUPIVACAINE/EPIN 0.5% 30 ML VIAL As Ordered (08:40)
[2017-06-25] MEDS ORDERED: PERCOCET 5MG/325MG TAB As Ordered (09:04)
[2017-06-25] MEDS: PERCOCET 5MG/325MG TAB PO (09:10)
[2017-06-25] MEDS ORDERED: METOCLOPRAMIDE INJ 10MG/2ML VIAL (J2765) IV (09:30)
[2017-06-25] MEDS ORDERED: MEPERIDINE INJ 25 MG/ML VIAL (J2175) IV (09:30)
[2017-06-25] MEDS ORDERED: ONDANSETRON 4MG/2ML VIAL (J2405) IV (09:30)
[2017-06-25] MEDS ORDERED: LR 1,000 ML IV (09:30)
[2017-06-25] MEDS ORDERED: fentaNYL 100 MCG/2 ML INJECTION (J3010) IV (09:30)
[2017-06-26] MEDS ORDERED: VARIBAR PUDDING 40% w/v 230ML TUBE As Ordered (12:10)
[2017-06-26] MEDS ORDERED: VARIBAR NECTAR 40% w/v 240ML SUSP BTL As Ordered (12:10)
[2017-06-26] MEDS ORDERED: E-Z-PAQUE 96% w/w SUSP 176GM BTL As Ordered (12:11)
[2017-06-26] MEDS ORDERED: BARIUM SULFATE 700 MG TABLET (E-Z-DISK) As Ordered (12:12)
== END 2017-06-25 10:27 | disposition home or self-care (01) ==
LOC: M SDC 06:03
DX: R13.12 Dysphagia, oropharyngeal phase (principal); C32.1 Malignant neoplasm of supraglottis; Z98.84 Bariatric surgery status; I10 Essential (primary) hypertension; F32.9 Major depressive disorder, single episode, unspecified; E78.00 Pure hypercholesterolemia, unspecified; E11.9 Type 2 diabetes mellitus without complications; I49.9 Cardiac arrhythmia, unspecified; K44.9 Diaphragmatic hernia without obstruction or gangrene; K21.9 Gastro-esophageal reflux disease without esophagitis; R19.7 Diarrhea, unspecified; M79.7 Fibromyalgia; G62.9 Polyneuropathy, unspecified; Z96.9 Presence of functional implant, unspecified; Z87.891 Personal history of nicotine dependence; Z88.6 Allergy status to analgesic agent; Z88.8 Allergy status to other drugs, medicaments and biological substances; Z88.4 Allergy status to anesthetic agent; Z79.899 Other long term (current) drug therapy
CPT/HCPCS: 43653

== ENCOUNTER → 2017-06-26 | Outpatient (CLI) | payer OTHER | LOC: M ST 12:03 | DX: R13.10 Dysphagia, unspecified (principal) | CPT/HCPCS: 74230 ==

== ENCOUNTER → 2017-07-01 | Outpatient (CLI) | payer OTHER ==
[~2017-07-01] MED LIST changes: -ISOVUE-370 76% 100ML VIAL (Q9967) As Ordered; +LIDOCAINE 2% MDV 20 ML VIAL As Ordered; +ceFAZolin 1GM INJ (J0690 PER 500MG) As Ordered
== END | disposition home or self-care (01) ==
LOC: M IRPRO 11:52
DX: C32.1 Malignant neoplasm of supraglottis (principal)
CPT/HCPCS: 36561

== ENCOUNTER 2017-07-18 10:43 | Outpatient (RCR) | payer OTHER | END 2017-08-16 | LOC: M ONCR 10:43 | DX: C32.1 Malignant neoplasm of supraglottis (principal) | CPT/HCPCS: 77300 ==

== ENCOUNTER 2017-07-22 13:42 | Outpatient (RCR) | payer OTHER | END 2017-08-16 | LOC: M ST 13:42 | DX: Z51.89 Encounter for other specified aftercare (principal); C32.1 Malignant neoplasm of supraglottis | CPT/HCPCS: 92526 ==

== ENCOUNTER → 2017-07-29 | Outpatient (REF) | payer OTHER | LOC: M SFHCWAGY 13:35 | DX: Z08 Encounter for follow-up examination after completed treatment for malignant neoplasm (principal); Z12.4 Encounter for screening for malignant neoplasm of cervix | CPT/HCPCS: G0123 ==

== ENCOUNTER → 2017-07-29 | Outpatient (CLI) | payer OTHER | LOC: M WHC 13:11 | DX: Z12.31 Encounter for screening mammogram for malignant neoplasm of breast (principal); Z78.0 Asymptomatic menopausal state; Z85.818 Personal history of malignant neoplasm of other sites of lip, oral cavity, and pharynx; Z92.21 Personal history of antineoplastic chemotherapy; Z92.23 Personal history of estrogen therapy; Z80.3 Family history of malignant neoplasm of breast; Z12.4 Encounter for screening for malignant neoplasm of cervix | CPT/HCPCS: 77067; G0123 ==

== ENCOUNTER → 2017-08-08 | Outpatient (CLI) | payer OTHER | LOC: M PAIN 13:30 | DX: M96.1 Postlaminectomy syndrome, not elsewhere classified (principal); G89.29 Other chronic pain; I10 Essential (primary) hypertension; E78.5 Hyperlipidemia, unspecified; K21.9 Gastro-esophageal reflux disease without esophagitis; R73.09 Other abnormal glucose; F32.9 Major depressive disorder, single episode, unspecified; F40.01 Agoraphobia with panic disorder; Z79.899 Other long term (current) drug therapy; Z88.1 Allergy status to other antibiotic agents; Z88.6 Allergy status to analgesic agent; Z88.8 Allergy status to other drugs, medicaments and biological substances; Z86.59 Personal history of other mental and behavioral disorders; Z87.891 Personal history of nicotine dependence; Z87.39 Personal history of other diseases of the musculoskeletal system and connective tissue | CPT/HCPCS: G0463 ==

== ENCOUNTER 2017-08-18 10:28 | Outpatient (RCR) | payer OTHER | END 2017-09-16 | LOC: M ONCR 10:28 | DX: C32.1 Malignant neoplasm of supraglottis (principal) | CPT/HCPCS: 77336 ==

== ENCOUNTER → 2017-09-08 | Outpatient (REF) | payer OTHER ==
[2017-09-08 12:35] LABS: BASO % 0.3 % (0.0-1.0); EOS # 0.1 10^3/uL (0.0-0.50); EOS % 1.3 % (0.0-3.0); HEMATOCRIT 30.3 % (36.0-47.0); HEMOGLOBIN 10.1 g/dl (12.0-15.5); IMMATURE GRANULOCYTE % 1.3 % (0-3.0); LYMPH # 0.6 10^3/uL (1.5-4.5); LYMPH % 15.1 % (24.0-44.0); MEAN CORPUSCULAR HEMOGLOBIN 31.2 pg (27.0-33.0); MEAN CORPUSCULAR HGB CONC 33.3 g/dl (32.0-36.5); MEAN CORPUSCULAR VOLUME 93.5 fl (80.0-96.0); MONO # 0.5 10^3/uL (0.0-0.8); MONO % 12.3 % (0.0-5.0); NEUTROPHILS # 2.7 10^3/uL (1.8-7.7); NEUTROPHILS % 69.7 % (36.0-66.0); PLATELET COUNT, AUTOMATED 244 10^3/uL (150-450); RED BLOOD COUNT 3.24 10^6/uL (4.00-5.40); RED CELL DISTRIBUTION WIDTH 19.7 % (11.5-14.5); WHITE BLOOD COUNT 3.8 10^3/uL (4.0-10.0)
[2017-09-08 13:12] LABS: ALBUMIN/GLOBULIN RATIO 0.97 (1.00-1.93); ALKALINE PHOSPHATASE 92 U/L (45-117); ALT/SGPT 23 U/L (12-78); ANION GAP 11 MEQ/L (8-16); AST/SGOT 19 U/L (7-37); BILIRUBIN,TOTAL 0.4 MG/DL (0.2-1.0); BLOOD UREA NITROGEN 11 MG/DL (7-18); CALCIUM LEVEL 8.9 MG/DL (8.5-10.1); CARBON DIOXIDE LEVEL 26 MEQ/L (21-32); CHLORIDE LEVEL 107 MEQ/L (98-107); CHOLESTEROL LEVEL 169 MG/DL (<200); CREATININE FOR GFR 0.66 MG/DL (0.55-1.30); GLOMERULAR FILTRATION RATE > 60.0 (>51); GLUCOSE, FASTING 90 MG/DL (70-100); HDL CHOLESTEROL 61 MG/DL (>40); LDL CHOLESTEROL 70.4 MG/DL (<100); NON-HDL-C 108 MG/DL; POTASSIUM SERUM 4.1 MEQ/L (3.5-5.1); SODIUM LEVEL 144 MEQ/L (136-145); TOTAL PROTEIN 6.1 GM/DL (6.4-8.2); TRIGLYCERIDES LEVEL 188 MG/DL (<150)
[2017-09-08 14:02] LABS: ESTIMATED AVERAGE GLUCOSE 105 MG/DL (60-110); HEMOGLOBIN A1c 5.3 %
== END ==
LOC: M SFHCADAM 09:23
DX: Z72.0 Tobacco use (principal); R73.01 Impaired fasting glucose

== ENCOUNTER → 2017-09-24 | Outpatient (CLI) | payer OTHER | LOC: M ONCR 13:58 | DX: C32.1 Malignant neoplasm of supraglottis (principal) | CPT/HCPCS: G0463 ==

== ENCOUNTER → 2017-11-04 | Outpatient (CLI) | payer OTHER | LOC: M PLARAD 15:48 | DX: C32.1 Malignant neoplasm of supraglottis (principal) | CPT/HCPCS: 78815 ==

== ENCOUNTER → 2017-11-10 | Outpatient (CLI) | payer OTHER | LOC: M PAIN 13:00 | DX: M96.1 Postlaminectomy syndrome, not elsewhere classified (principal); I10 Essential (primary) hypertension; E78.00 Pure hypercholesterolemia, unspecified; K21.9 Gastro-esophageal reflux disease without esophagitis; R73.03 Prediabetes; F32.9 Major depressive disorder, single episode, unspecified; F40.01 Agoraphobia with panic disorder; F10.20 Alcohol dependence, uncomplicated; Z85.818 Personal history of malignant neoplasm of other sites of lip, oral cavity, and pharynx; Z92.3 Personal history of irradiation; Z92.21 Personal history of antineoplastic chemotherapy; Z87.891 Personal history of nicotine dependence; Z79.899 Other long term (current) drug therapy; Z98.84 Bariatric surgery status; Z88.6 Allergy status to analgesic agent; Z88.8 Allergy status to other drugs, medicaments and biological substances | CPT/HCPCS: G0463 ==

== ENCOUNTER → 2017-11-27 | Outpatient (CLI) | payer OTHER | LOC: M ONCR 08:45 | DX: C32.1 Malignant neoplasm of supraglottis (principal) | CPT/HCPCS: G0463 ==

== ENCOUNTER → 2018-01-16 | Outpatient (CLI) | payer OTHER | LOC: M ADAMS 14:03 | DX: R00.0 Tachycardia, unspecified (principal); J40 Bronchitis, not specified as acute or chronic; Z96.9 Presence of functional implant, unspecified | CPT/HCPCS: 71046 ==

== ENCOUNTER → 2018-01-29 | Outpatient (CLI) | payer OTHER ==
[~2018-01-29] MED LIST changes: +/AUGM875TA OR; +/CELE20CA PO; +/DULO30CA; +/ESCI20TA; +/ESCI20TA OR; +ABIL1TAB11 PO; +ACETGRA PO; +ALBU17IN INH; +AMIT50TA2 OR; +CLON-412 PO; +COLA100C2 OR; +COLA100C2 PO; +COLA100C5 PO; +COMBO CREAM TOP; +COZA100T2 PO; +COZA50TA PO; +COZA50TA18 OR; +CRES20TA OR; +CRES20TA PO; +DOCU10CA PO; +DRIS50003 PO; +DULO20CA OR; +ESOM1CAP5 PO; +ESTR1TAB PO; +ESTR2TAB; +ESTR2TAB OR; +FERR325T OR; +FERR325T PO; +FLAG500T OR; +FLON1SPR; +FURO20TA2 PO; +FURO40TA2 OR; +GABA600T4 PO; +KEFL500C; +LASI20TA PO; +LIDO5DIS EXT; -LIDOCAINE 2% MDV 20 ML VIAL As Ordered; +LOSA50TA88 PO; +LYRI150C PO; +LYRI75CA PO; +METF500T13 PO; +NEUR300C; +NEUR600T OR; +NICO21DI4 TD; +NICOTINE; +OMEP40CA2 PO; +OXYC-141 PO; +OXYC10TA12 OR; +OXYC30TA4 PO; +OXYC5CAP4; +OXYC5CAP4 OR; +PREV15CA18 PO; +PRIL20CA; +PRIL20CA PO; +PRIL40CA OR; +SALI0.6528; +SILV40CR EXT; +SING10TA31 OR; +SUCR1TA PO; +SUDAFED PO; +SULCRAFATE OR; +TOPI100T OR; +TOPI50TA OR; +TRAM50TA2 OR; +TRAM50TA2 PO; +TRAZ-160 PO; +TRAZO50TA FT; +TRIC145T19 OR; +TRIC145T22 PO; +TYLE325T5 PO; +VENL150C43 PO; +VENL150T PO; +VENL75CA PO; +VITA500C OR; +VITA500T PO; +VITAMIN D2 PO; +ZANT150T; +ZANT150T PO; +[UNRECOGNIZED DRUG - CODE] PO; +[UNRECOGNIZED DRUG - OTHER]; +[UNRECOGNIZED DRUG - OTHER] INH; +butrans TOP; -ceFAZolin 1GM INJ (J0690 PER 500MG) As Ordered
--- NOTE | 2018-02-21 01:33 | ECWPNPC ---
PATIENT NAME: RACHEL MARTINEZ : 1965 GENDER: FEMALE VISIT DATE: 01/29/2018 DISCHARGE DATE: 01/29/18 1148 VISIT LOCKED DATE TIME: PHYSICIAN: RICK GIL RESOURCE: RICK GIL REASON FOR APPOINTMENT 1. W/C BACK HISTORY OF PRESENT ILLNESS HISTORY OF PRESENT ILLNESS: HERE FOR ROUTINE F/U.HISTORY OF CHRONIC GENERALIZED BACK ,NECK AND LEG PAIN. RATING PAIN VAS NECK3/10,LBP 6/10 AND LEG PAIN R>L .CURRENTLY USING TRAMADOL 50MG 1 -2 TAB Q8H MDD6,LYRICA 150MG TID AND GABAPENTIN 600MG QID.REPORTS EFFECTIVENESS OF CURRENT PAIN MEDICATION AND DENIES SIDE EFFECTS.THIS IS A WORK RELATED INJURY DATED FEBRUARY 1998.PAIN IS AGGREVATED BY PROLONGED SITTING OR STANDING.REPORTING INCREASE IN LOW BACK PAIN OVER THE PAST 2 MONTHS.HAS RESPONDED WELL TO LESI IN PAST. PAIN THE PATIENT DESCRIBES THE PAIN... THE PATIENT DESCRIBES THE PAIN... THE PATIENT DESCRIBES THE PAIN... THE PATIENT DESCRIBES THE PAIN... THE PATIENT DESCRIBES THE PAIN... THE PATIENT DESCRIBES THE PAIN... THE PATIENT DESCRIBES THE PAIN... THE PATIENT DESCRIBES THE PAIN... THE PATIENT DESCRIBES THE PAIN... THE PATIENT DESCRIBES THE PAIN... FALL RISK SCREENING: SCREENING :NO FALLS IN THE PAST YEAR CURRENT MEDICATIONS TAKING SUCRALFATE 1 GM/10ML SUSPENSION 10 ML AT BEDTIME ON AN EMPTY STOMACH BEFORE MEALS ORALLY TWICE A DAY NEEDED TAKING EFFEXOR XR 150 MG CAPSULE EXTENDED RELEASE 24 HOUR 3 CAPSULE WITH FOOD ORALLY ONCE A DAY TAKING ABILIFY 15 MG TABLET 1 TABLET ORALLY ONCE A DAY TAKING FLUTICASONE PROPIONATE 50 MCG/ACT SUSPENSION 1 SPRAY IN EACH NOSTRIL NASALLY BID NEEDED TAKING CRESTOR 10 MG TABLET 1 TABLET ORALLY ONCE A DAY TAKING DRISDOL 80416 UNIT CAPSULE 1 CAPSULE ORALLY WEEKLY TAKING GABAPENTIN 600 MG TABLET 1 TABLET P.O. FOUR TIMES DAILY TAKING LYRICA 150 MG TABLET 1 TAB(S) ORALLY THREE A DAY MDD3 TAKING TRAMADOL HCL 50 MG TABLET 1-2 TAB ORALLY Q8H PRN MDD6 TAKING ESTRADIOL 2 MG TABLET 1 TABLET ORALLY ONCE A DAY TAKING OMEPRAZOLE 40 MG CAPSULE DELAYED RELEASE 1 CAPSULE ORALLY ONCE A DAY TAKING VENTOLIN HFA 108 (90 BASE) MCG/ACT AEROSOL SOLUTION 2 PUFFS NEEDED INHALATION EVERY 4 HRS NEEDED FOR SHORTNESS OF BREATH TAKING BACID - CAPSULE 1 CAP ORALLY TWICE A DAY DISCONTINUED AUGMENTIN 875-125 MG TABLET 1 TABLET ORALLY EVERY 12 HRS DISCONTINUED CEFUROXIME AXETIL 500 MG TABLET 1 TABLET ORALLY EVERY 12 HRS MEDICATION LIST REVIEWED AND RECONCILED WITH THE PATIENT PAST MEDICAL HISTORY SUPRAGLOTTIC LARYNGEAL CANCER, STAGE KIZZY [id number]-- RAD TX X 35 SESSIONS WITH CISPLATIN CHEMOTX CHRONIC LOWER BACK PAIN, DORSAL COLUMN STIMULATOR IN PLACE - [facility] HTN HYPERCHOLESTEROLEMIA GERD/H/O PUD WITH GI BLEED IN PAST SECONDARY TO CELEBREX ENDOMETRIOSIS PREDIABETES TOBACCO ABUSE CHRONIC NARCOTIC DEPENDENCE - WEANING OXYCODONE PER PAIN CLINIC ECHO - 02/28/17 - NORMAL LV SIZE AND WALL THICKNESS EF 70% GRADE 1 DIASTOLIC DYSFUNCTION ANXIETY/DEPRESSION/AGORAPHOBIA WITH PANIC ATTACKS - PSYCHIATRIST ALLERGIES NSAIDS: BLEEDING: CONTRAINDICATION BETADINE: RASH: ALLERGY SKELAXIN: RASH: ALLERGY METFORMIN HCL: DIARRHEA: SIDE EFFECTS SURGICAL HISTORY TONSILLECTOMY TUBAL LIGATION 03/1989 ECTOPIC 09/1989 HYSTERECTOMY D/T PRE-CANCEROUS 1989 BSO 1999 LUMBAR LAMINECTOMY L4-L5 08/1997 TARSAL TUNNEL-BILATERAL FEET 2004 BILATERAL CARPAL TUNNEL RELEASE 2001 LUMBAR STIMULATOR PLACED 2005 CERVICAL STIMULATOR PLACED 2008 RIGHT CARPAL TUNNEL RELEASE 06/2013 GASTRIC BYPASS 2010 COLONOSCOPY WITH POLYP RESECTION, BENIGN 2011 CHOLECYSTECTOMY 12/2010 TOE NAIL SURGERY 08/10/15 TUBE PLACEMENT RIGHT EAR, BIOPSY SINUS CAVITY NODULE 05/2016 LYMPH NODE, THROAT BIOPSY MALIGNANT 05/2017 FEEDING TUBE 06/2017 CHEMO PORT PLACEMENT 06/2017 FAMILY HISTORY FATHER: ALIVE MOTHER: ALIVE, DIAGNOSED WITH DIABETES, HYPERTENSION, CANCER 1 SON(S) , 1 DAUGHTER(S) - HEALTHY. MOM-LEFT BREAST CA. SOCIAL HISTORY GENERAL: TOBACCO USE ARE YOU A:FORMER SMOKER HOW LONG HAS IT BEEN SINCE YOU LAST SMOKED?6-12 MONTHS QUIT 05/19/17 BMI CARE GOAL FOLLOW-UP ABOVE NORMAL BMI FOLLOW-UPDIETARY MANAGEMENT EDUCATION, GUIDANCE, AND COUNSELING ALCOHOL SCREENING DID YOU HAVE A DRINK CONTAINING ALCOHOL IN THE PAST YEAR?YES HOW OFTEN DID YOU HAVE SIX OR MORE DRINKS ON ONE OCCASION IN THE PAST YEAR?NEVER (0 POINTS) HOW MANY DRINKS DID YOU HAVE ON A TYPICAL DAY WHEN YOU WERE DRINKING IN THE PAST YEAR?1 OR 2 (0 POINTS) HOW OFTEN DID YOU HAVE A DRINK CONTAINING ALCOHOL IN THE PAST YEAR?MONTHLY OR LESS (1 POINT) POINTS1 INTERPRETATIONNEGATIVE RECREATIONAL DRUG USE DRUG USE?NO CAFFEINE CAFFEINE USE?YES HOW OFTEN AND HOW MUCH? COFFEE 6 CUPS DAILY, 2 SODAS DAILY SEXUAL HX HAD SEX IN THE LAST 12 MONTHS (VAGINAL, ORAL, OR ANAL)?YES WITHMEN ONLY USE PROTECTION?NO LMP:HYSTER HAVE YOU EVER HAD AN STD?NO HIV / HEP-C SCREENING HIV TEST OFFERED TO PATIENT:YES DATE OFFERED:07/29/2017 TEST ACCEPTED:NO REASON:PATIENT DECLINED BROCHURE PROVIDED TO PATIENTNO BAHAI [id number] UATSDIN LANGUAGE SWISS. 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 DIET: REGULAR. EXERCISE: NO REGULAR EXERCISE. MARITAL STATUS: . OTHERS AT HOME: SPOUSE. NEW PATIENT PAIN DIARY FROM 0-10, WHAT LEVEL IS YOUR PAIN TODAY?5 PAIN CLINIC PFS, CLERGY, PUBLIC HEALTH REFERRALS WAS THE PROVIDER NOTIFIED OF ANY PERTINENT INFO? N/A HAS THE PATIENT BEEN EDUCATED REGARDING HIS/HER PLAN OF CARE?YES HAS THE PATIENT BEEN EDUCATED REGARDING PAIN, THE RISK FOR PAIN, THE IMPORTANCE OF EFFECTIVE PAIN MANAGEMENT, AND THE PAIN ASSESSMENT PROCESS?YES ADVANCE DIRECTIVE ADVANCE DIRECTIVE DISCUSSED WITH PATIENT:YES PT HAS HCP ROYAL MARTINEZ [phone] REVEIWED WITH PT 08/08/17 1344 BVREVIEWED WITH PT 11/10/17 1320 LAS01/29 18 1100 REVIEWED WITH PT. AD. HOSPITALIZATION/MAJOR DIAGNOSTIC PROCEDURE SURG RELATED PLUS 1 G-I BLEED REVIEW OF SYSTEMS REVIEWED BY: PROVIDER: RICK WILLIS . CONSTITUTIONAL: ANY CHANGE IN YOUR MEDICAL CONDITION? NO . CHILLS NO . FEVER NO . INFECTION: DO YOU HAVE NEW INFECTIONS? NO . DO YOU HAVE HISTORY OF MRSA? NO . MUSCULOSKELETAL: ANY NEW PATTERNS OF PAIN OR NUMBNESS? NO . GASTROENTEROLOGY: ANY NEW CHANGE IN BOWEL CONTROL? NO . GENITOURINARY: ANY NEW CHANGE IN BLADDER CONTROL? NO . IS THERE A CHANCE YOU COULD BE ? NO . HEMATOLOGY/LYMPH: DO YOU TAKE ANY BLOOD THINNERS? (FOR EXAMPLE- COUMADIN, PLAVIX, AGGRENOX, PLATEL, PRADAXA, OR XARELTO) NO . WHEN WAS YOUR LAST DOSE? DATE: TIME: . NEUROLOGY: HAVE YOU FALLEN IN THE PAST 6 MONTHS? YES, FELL IN AUGUST,RIGHT LEG FELT WEAK AND SHE FELL. WAS NOT SEEN AFTER. WAS SORE FOR A FEW DAYS . ANY NEW EXTREMITY NUMBNESS OR WEAKNESS? NO . CARDIOLOGY: DO YOU HAVE A PACEMAKER OR DEFIBRILLATOR? NO . RESPIRATORY: HAVE YOU BEEN SICK IN THE PAST WEEK? NO . FEVER NO . FLU LIKE SYMPTOMS? NO . COUGH NO . INTEGUMENTARY: DO YOU HAVE ANY RASHES OR OPEN SORES? NO . ALLERGIC/IMMUNO: ARE YOU ALLERGIC TO SHELLFISH OR IV DYE? NO . ANY NEW ALLERGIES? NO . PSYCHIATRIC: DO YOU HAVE THOUGHTS OF HURTING YOURSELF OR SOMEONE ELSE? NO . ARE YOU ABUSED, NEGLECTED, OR IN AN UNSAFE ENVIRONMENT? NO . ENDOCRINOLOGY: ARE YOU DIABETIC? NO . OTHER: DO YOU NEED ANY PRESCRIPTIONS? YES . IF YES, PLEASE LIST: GABAPENTIN, LYRICA AND TRAMADOL . ANY NEW PROBLEMS WITH YOUR MEDICATIONS? NO . WHEN DID YOU LAST EAT? ____ . WHEN DID YOU LAST DRINK? ____ . WHAT DID YOU LAST DRINK? ____ . NAME OF PERSON DRIVING YOU HOME? ____ . DO YOU HAVE ANY OTHER QUESTIONS OR CONCERNS NO HAD FLU VACCINE APPROX 4 WEEKS AGO . VITAL SIGNS WT 152.2 LBS, HT 66 IN, BMI 24.56 INDEX, BP 131/73 MM HG, HR 95 /MIN, RR 18 /MIN, TEMP 98.2 F, OXYGEN SAT % 95%, SAFE IN ENV? (Y/N) Y, NA INITIALS AW 1042, REVIEWED BY: SHARAN. EXAMINATION GENERAL EXAMINATION: LUNGS:LUNG SOUNDS ARE CLEAR. HEART:HEART RATE REGULAR. MUSCULOSKELETAL:*, MUSCLE STRENGTH TESTING 3/5 BILATERAL, PALPATION: POSITIVE FOR PAIN OVER L/S SPINE. POSITIVE FOR PAIN OVER L/S PARSPINALS. ASSESSMENTS POST LAMINECTOMY SYNDROME - M96.1 (PRIMARY) TREATMENT POST LAMINECTOMY SYNDROME REFILL GABAPENTIN TABLET, 600 MG, 1 TABLET, P.O., FOUR TIMES DAILY, 30 DAY(S), 120, REFILLS 2 STOP LYRICA TABLET, 150 MG, 1 TAB(S), ORALLY, THREE A DAY MDD3 REFILL TRAMADOL HCL TABLET, 50 MG, 1-2 TAB, ORALLY, Q8H PRN MDD6, 30 DAY(S), 180, REFILLS 2 START LYRICA CAPSULE, 150 MG, 1 CAPSULE, ORALLY, Q8H MDD3, 30 DAY(S), 90, REFILLS 2 NOTES: W/C LESI. PROCEDURES PN WORKMANS' COMP OPINION IN YOUR OPINION, WAS THE INCIDENT THAT THE PATIENT DESCRIBED THE COMPETENT MEDICAL CAUSE OF THIS INJURY/ILLNESS? YES ARE THE PATIENT'S COMPLAINTS CONSISTENT WITH HIS/HER HISTORY OF THE INJURY/ILLNESS? YES IS THE PATIENT'S HISTORY OF THE INJURY/ILLNESS CONSISTENT WITH YOUR OBJECTIVE FINDING? YES WHAT IS THE PERCENTAGE OF TEMPORARY IMPAIRMENT? MODERATE TO MARKED = 66.7% IS THE PATIENT WORKING? NO DOCTOR ON SITE: JENNIFER STEPHENS MD PROCEDURE CODES FA211 ESTABILISHED PATIENT [facility] CHARGE DISPOSITION & COMMUNICATION FOLLOW UP POST (REASON: W/C LESI) ELECTRONICALLY SIGNED BY ALBA DENNIS ON 02/20/2018 AT 09:00 AM EST DISCLAIMER : THIS IS A VISIT SUMMARY EXTRACTED FROM THE [employer] CHART. IT IS NOT A COPY OF THE [employer] PROGRESS NOTE. RAULITO
== END ==
LOC: M PAIN 10:45
PROVIDERS: ATTEND Nurse Practitioner Family
DX: M96.1 Postlaminectomy syndrome, not elsewhere classified (principal); I10 Essential (primary) hypertension; E78.00 Pure hypercholesterolemia, unspecified; K21.9 Gastro-esophageal reflux disease without esophagitis; R73.03 Prediabetes; F40.01 Agoraphobia with panic disorder; F32.9 Major depressive disorder, single episode, unspecified; Z79.891 Long term (current) use of opiate analgesic; Z79.899 Other long term (current) drug therapy; Z88.1 Allergy status to other antibiotic agents; Z88.6 Allergy status to analgesic agent; Z88.8 Allergy status to other drugs, medicaments and biological substances; Z85.21 Personal history of malignant neoplasm of larynx; Z86.59 Personal history of other mental and behavioral disorders; Z87.891 Personal history of nicotine dependence; Z98.84 Bariatric surgery status

== ENCOUNTER → 2018-03-09 | Outpatient (CLI) | payer OTHER ==
[~2018-03-09] MED LIST changes: +ISOVUE-M 300 61% 15ML VIAL (Q9967) As Ordered ONE; +LIDOCAINE 1% SDV INJ 30 ML VIAL As Ordered ONE; +diazePAM 5 MG TAB As Ordered ONE; +methylPREDNISolone SUSP 40 MG/ML (DEPO-medrol) VIAL (J1030) As Ordered ONE; +oxyCODONE 5MG TAB As Ordered ONE
--- NOTE | 2018-03-09 12:52 | REP ---
Partial lumbar spine series: Two views History: Injection procedure for pain. 10 seconds of fluoroscopy time is reported. Findings: A sequence of two fluoroscopically obtained last image hold procedural spot radiographs of the lumbar spine document needle position and contrast injection associated with injection procedure. Electronically Signed by Bladimir Keith MD 03/09/2018 12:44 P
--- NOTE | 2018-03-23 00:30 | ECWPNPC ---
PATIENT NAME: RACHEL MARTINEZ : 1965 GENDER: FEMALE VISIT DATE: 03/09/2018 DISCHARGE DATE: 03/09/18 1225 VISIT LOCKED DATE TIME: PHYSICIAN: JENNIFER MANUEL MD RESOURCE: JENNIFER MANUEL MD REASON FOR APPOINTMENT 1. YAKELIN W/C HISTORY OF PRESENT ILLNESS HISTORY OF PRESENT ILLNESS: PAIN THE PATIENT DESCRIBES THE PAIN... FALL RISK SCREENING: SCREENING :NO FALLS IN THE PAST YEAR CURRENT MEDICATIONS TAKING SUCRALFATE 1 GM/10ML SUSPENSION 10 ML AT BEDTIME ON AN EMPTY STOMACH BEFORE MEALS ORALLY TWICE A DAY NEEDED, NOTES: 1 WEEK TAKING EFFEXOR XR 150 MG CAPSULE EXTENDED RELEASE 24 HOUR 3 CAPSULE WITH FOOD ORALLY ONCE A DAY, NOTES: 03/09 7AM TAKING ABILIFY 15 MG TABLET 1 TABLET ORALLY ONCE A DAY, NOTES: 03/08 8PM TAKING FLUTICASONE PROPIONATE 50 MCG/ACT SUSPENSION 1 SPRAY IN EACH NOSTRIL NASALLY BID NEEDED, NOTES: 03/08 11AM TAKING DRISDOL 99414 UNIT CAPSULE 1 CAPSULE ORALLY WEEKLY, NOTES: FRIDAY TAKING OMEPRAZOLE 40 MG CAPSULE DELAYED RELEASE 1 CAPSULE ORALLY ONCE A DAY, NOTES: 03/08 8PM TAKING VENTOLIN HFA 108 (90 BASE) MCG/ACT AEROSOL SOLUTION 2 PUFFS NEEDED INHALATION EVERY 4 HRS NEEDED FOR SHORTNESS OF BREATH, NOTES: 3 WEEKS TAKING GABAPENTIN 600 MG TABLET 1 TABLET P.O. FOUR TIMES DAILY, NOTES: 03/09 8PM TAKING TRAMADOL HCL 50 MG TABLET 1-2 TAB ORALLY Q8H PRN MDD6, NOTES: 03/09 7AM TAKING LYRICA 150 MG CAPSULE 1 CAPSULE ORALLY Q8H MDD3, NOTES: 03/08 8PM TAKING FLONASE 50 MCG/ACT SUSPENSION 1 SPRAY IN EACH NOSTRIL NASALLY ONCE A DAY, NOTES: 2 WEEKS TAKING CRESTOR 10 MG TABLET 1 TABLET ORALLY ONCE A DAY, NOTES: 03/08 8PM TAKING ESTRADIOL 2 MG TABLET 1 TABLET ORALLY ONCE A DAY, NOTES: 03/08 8PM TAKING NEXIUM 40 MG CAPSULE DELAYED RELEASE 1 CAPSULE ORALLY ONCE A DAY, NOTES: 03/08 8PM NOT-TAKING DOXYCYCLINE HYCLATE 100 MG TABLET 1 TABLET ORALLY TWICE A DAY NOT-TAKING MUCINEX 600 MG TABLET EXTENDED RELEASE 12 HOUR 1 TABLET NEEDED ORALLY EVERY 12 HRS NOT-TAKING BACID - CAPSULE 1 CAP ORALLY TWICE A DAY MEDICATION LIST REVIEWED AND RECONCILED WITH THE PATIENT PAST MEDICAL HISTORY SUPRAGLOTTIC LARYNGEAL CANCER, STAGE KIZZY [id number]-- RAD TX X 35 SESSIONS WITH CISPLATIN CHEMOTX CHRONIC LOWER BACK PAIN, DORSAL COLUMN STIMULATOR IN PLACE - [facility] HTN HYPERCHOLESTEROLEMIA GERD/H/O PUD WITH GI BLEED IN PAST SECONDARY TO CELEBREX ENDOMETRIOSIS PREDIABETES TOBACCO ABUSE CHRONIC NARCOTIC DEPENDENCE - WEANING OXYCODONE PER PAIN CLINIC ECHO - 02/28/17 - NORMAL LV SIZE AND WALL THICKNESS EF 70% GRADE 1 DIASTOLIC DYSFUNCTION ANXIETY/DEPRESSION/AGORAPHOBIA WITH PANIC ATTACKS - PSYCHIATRIST ALLERGIES NSAIDS: BLEEDING: CONTRAINDICATION BETADINE: RASH: ALLERGY SKELAXIN: RASH: ALLERGY METFORMIN HCL: DIARRHEA: SIDE EFFECTS SURGICAL HISTORY TONSILLECTOMY TUBAL LIGATION 03/1989 ECTOPIC 09/1989 HYSTERECTOMY D/T PRE-CANCEROUS 1989 BSO 1999 LUMBAR LAMINECTOMY L4-L5 08/1997 TARSAL TUNNEL-BILATERAL FEET 2003 BILATERAL CARPAL TUNNEL RELEASE 2001 LUMBAR STIMULATOR PLACED 2005 CERVICAL STIMULATOR PLACED 2008 RIGHT CARPAL TUNNEL RELEASE 06/2013 GASTRIC BYPASS 2009 COLONOSCOPY WITH POLYP RESECTION, BENIGN 2011 CHOLECYSTECTOMY 12/2010 TOE NAIL SURGERY 08/10/15 TUBE PLACEMENT RIGHT EAR, BIOPSY SINUS CAVITY NODULE 05/2016 LYMPH NODE, THROAT BIOPSY MALIGNANT 05/2017 FEEDING TUBE 06/2017 CHEMO PORT PLACEMENT 06/2017 FAMILY HISTORY FATHER: ALIVE MOTHER: ALIVE, DIAGNOSED WITH DIABETES, HYPERTENSION, CANCER 1 SON(S) , 1 DAUGHTER(S) - HEALTHY. MOM-LEFT BREAST CA. SOCIAL HISTORY GENERAL: TOBACCO USE ARE YOU A:FORMER SMOKER HOW LONG HAS IT BEEN SINCE YOU LAST SMOKED?6-12 MONTHS QUIT 05/19/17 BMI CARE GOAL FOLLOW-UP ABOVE NORMAL BMI FOLLOW-UPDIETARY MANAGEMENT EDUCATION, GUIDANCE, AND COUNSELING ALCOHOL SCREENING DID YOU HAVE A DRINK CONTAINING ALCOHOL IN THE PAST YEAR?YES HOW OFTEN DID YOU HAVE SIX OR MORE DRINKS ON ONE OCCASION IN THE PAST YEAR?NEVER (0 POINTS) HOW MANY DRINKS DID YOU HAVE ON A TYPICAL DAY WHEN YOU WERE DRINKING IN THE PAST YEAR?1 OR 2 (0 POINTS) HOW OFTEN DID YOU HAVE A DRINK CONTAINING ALCOHOL IN THE PAST YEAR?MONTHLY OR LESS (1 POINT) POINTS1 INTERPRETATIONNEGATIVE RECREATIONAL DRUG USE DRUG USE?NO CAFFEINE CAFFEINE USE?YES HOW OFTEN AND HOW MUCH? COFFEE 6 CUPS DAILY, 2 SODAS DAILY SEXUAL HX HAD SEX IN THE LAST 12 MONTHS (VAGINAL, ORAL, OR ANAL)?YES WITHMEN ONLY USE PROTECTION?NO LMP:HYSTER HAVE YOU EVER HAD AN STD?NO HIV / HEP-C SCREENING HIV TEST OFFERED TO PATIENT:YES DATE OFFERED:07/29/2017 TEST ACCEPTED:NO REASON:PATIENT DECLINED BROCHURE PROVIDED TO PATIENTNO NONDENOMINATIONAL [id number] CONFUCIANIST LANGUAGE ARMENIAN. 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 DIET: REGULAR. EXERCISE: NO REGULAR EXERCISE. MARITAL STATUS: . OTHERS AT HOME: SPOUSE. NEW PATIENT PAIN DIARY FROM 0-10, WHAT LEVEL IS YOUR PAIN TODAY?5 PAIN CLINIC PFS, CLERGY, PUBLIC HEALTH REFERRALS WAS THE PROVIDER NOTIFIED OF ANY PERTINENT INFO?YES HAS THE PATIENT BEEN EDUCATED REGARDING HIS/HER PLAN OF CARE?YES HAS THE PATIENT BEEN EDUCATED REGARDING PAIN, THE RISK FOR PAIN, THE IMPORTANCE OF EFFECTIVE PAIN MANAGEMENT, AND THE PAIN ASSESSMENT PROCESS?YES ADVANCE DIRECTIVE ADVANCE DIRECTIVE DISCUSSED WITH PATIENT:YES PT HAS HCP [facility] [phone] REVEIWED WITH PT 08/08/17 1344 BVREVIEWED WITH PT 11/10/17 1320 LAS01/29 18 1100 REVIEWED WITH PT. AD. HOSPITALIZATION/MAJOR DIAGNOSTIC PROCEDURE SURG RELATED PLUS 1 G-I BLEED REVIEW OF SYSTEMS REVIEWED BY: PROVIDER: . CONSTITUTIONAL: ANY CHANGE IN YOUR MEDICAL CONDITION? NO . CHILLS NO . FEVER NO . INFECTION: DO YOU HAVE NEW INFECTIONS? NO . DO YOU HAVE HISTORY OF MRSA? NO . MUSCULOSKELETAL: ANY NEW PATTERNS OF PAIN OR NUMBNESS? NO . GASTROENTEROLOGY: ANY NEW CHANGE IN BOWEL CONTROL? NO . GENITOURINARY: ANY NEW CHANGE IN BLADDER CONTROL? NO . IS THERE A CHANCE YOU COULD BE ? NO . HEMATOLOGY/LYMPH: DO YOU TAKE ANY BLOOD THINNERS? (FOR EXAMPLE- COUMADIN, PLAVIX, AGGRENOX, PLATEL, PRADAXA, OR XARELTO) NO . WHEN WAS YOUR LAST DOSE? DATE: TIME: . NEUROLOGY: HAVE YOU FALLEN IN THE PAST 12 MONTHS? YES, FELL AT HOME, NO INJRUY, NO REPORT TO ED . ANY NEW EXTREMITY NUMBNESS OR WEAKNESS? NO . CARDIOLOGY: DO YOU HAVE A PACEMAKER OR DEFIBRILLATOR? NO . RESPIRATORY: HAVE YOU BEEN SICK IN THE PAST WEEK? NO . FEVER NO . FLU LIKE SYMPTOMS? NO . COUGH NO . INTEGUMENTARY: DO YOU HAVE ANY RASHES OR OPEN SORES? NO . ALLERGIC/IMMUNO: ARE YOU ALLERGIC TO IV DYE? NO . ANY NEW ALLERGIES? NO . PSYCHIATRIC: DO YOU HAVE THOUGHTS OF HURTING YOURSELF OR SOMEONE ELSE? NO . ARE YOU ABUSED, NEGLECTED, OR IN AN UNSAFE ENVIRONMENT? NO . ENDOCRINOLOGY: ARE YOU DIABETIC? NO . OTHER: DO YOU NEED ANY PRESCRIPTIONS? NO . IF YES, PLEASE LIST: ____ . ANY NEW PROBLEMS WITH YOUR MEDICATIONS? NO . WHEN DID YOU LAST EAT? 03/08 10PM . WHEN DID YOU LAST DRINK? 03/09 4:30AM, PT STATES THAT SHE HAS BEEN GIVEN APPROVAL BY MD MANUEL TO TAKE FEW SIPS OF WATER AT INTERVALS DUE TO HISTORY OF THROAT CANCER. MD MANUEL AWARE . WHAT DID YOU LAST DRINK? WATER . NAME OF PERSON DRIVING YOU HOME? [facility] . DO YOU HAVE ANY OTHER QUESTIONS OR CONCERNS NO . VITAL SIGNS WT 152 LBS, HT 66 IN, BMI 24.53 INDEX, BP 120/68 MM HG, HR 85 /MIN, RR 18 /MIN, TEMP 98.3 F, OXYGEN SAT % 100%, SAFE IN ENV? (Y/N) Y, NA INITIALS AW 1107, REVIEWED BY: MODESTO. ASSESSMENTS LUMBAR POST-LAMINECTOMY SYNDROME - M96.1 (PRIMARY) INTERVERTEBRAL DISC DISORDER WITH RADICULOPATHY OF LUMBOSACRAL REGION - M51.17 PROCEDURES PRE PROCEDURE DIAGNOSIS LUMBAR POST LAMINECTOMY PAIN SYNDROME, LUMBOSACRAL DISC DISORDER WITH RADICULOPATHY POST PROCEDURE DIAGNOSIS LUMBAR POST LAMINECTOMY PAIN SYNDROME , LUMBOSACRAL DISC DISORDER WITH RADICULOPATHY PROCEDURE LUMBAR EPIDURAL STEROID INJECTION UNDER FLUOROSCOPIC GUIDANCE SURGEON DR. JENNIFER MANUEL SHERIFF'S OFFICER NONE ANESTHESIA LOCAL PRE PROCEDURE NOTE THE PATIENT HAS A HISTORY OF CHRONIC LOW BACK PAIN. I EVALUATE THE PATIENT AND REVIEWED THE CHART. I WENT OVER THE RISKS, ALTERNATIVES, AND BENEFITS ASSOCIATED WITH THIS PROCEDURE. THE PATIENT WOULD LIKE TO PROCEED AND GIVE CONSENT TO PERFORMED THE PROCEDURE. THE PATIENT DENIES UNEXPLAINABLE WEIGHT LOSS, FEVER, CHILLS, OR NEW CHANGES IN URINARY OR BOWEL CONTROL. DESCRIPTION OF PROCEDURE THE PATIENT WAS BROUGHT TO THE PROCEDURE ROOM AND PLACED IN THE PRONE POSITION. THE LUMBOSACRAL AREA WAS CLEANED WITH BETADINE SOLUTION AND DRAPED ASEPTICALLY. THE PROCEDURE WAS DONE UNDER STERILE CONDITIONS. I CHECKED LATERALITY AND THE LEVEL WHERE THE PROCEDURE WAS GOING TO BE PERFORMED WITH THE PATIENT AND THE SUPPORTING STAFF AT THE MOMENT OF THE TIME OUT IN THE PROCEDURE ROOM. UNDER FLUOROSCOPIC GUIDANCE, THE TARGET POINT WAS SELECTED AT THE INTERLAMINAR LEVEL OF L5-S1. LIDOCAINE WAS USED TO NUMB THE SKIN AND THE SUBCUTANEOUS TISSUE BELOW IT. EPIDURAL TUOHY NEEDLE, 17-GAUGE, WAS ADVANCED UNDER FLUOROSCOPIC GUIDANCE AND FOLLOWING PATIENT FEEDBACK UNTIL THE EPIDURAL SPACE WAS REACHED, 7 CM DEEP INTO THE SKIN BY THE LOSS OF RESISTANCE TECHNIQUE. ISOVUE M DYE 30%, 0.25 ML, WAS INJECTED SHOWING ADEQUATE SPREAD OF THE DYE. THEN, A SOLUTION OF 3 ML OF NORMAL SALINE WITH DEPO-MEDROL 60 MG WAS INJECTED SLOWLY FOLLOWING PATIENT FEEDBACK. THERE WAS NO EVIDENCE OF BLOOD, PARESTHESIA OR CEREBROSPINAL FLUID DURING THE PROCEDURE. THE PATIENT WAS SENT TO THE RECOVERY ROOM. THE PATIENT WAS MOVING THE EXTREMITIES AND DOING WELL. THERE WAS NO COMPLICATION DURING THE PROCEDURE. FLUOROSCOPY TIME WAS 10 SECONDS. POST PROCEDURE NOTE THE PATIENT WILL BE SEEN IN A FOLLOW UP IN THE NEXT FEW WEEKS. INSTRUCTIONS WERE GIVEN, QUESTIONS WERE ANSWERED, AND THE PATIENT EXPRESSED UNDERSTANDING AND AGREES WITH THE PLAN. I, FRANK GALLEGOS, DOCUMENTED THE ABOVE INFORMATION ACTING A SCRIBE FOR DR. MANUEL. I HAVE REVIEWED THE ABOVE DOCUMENT, WRITTEN BY FRANK RIVERS AND I VERIFY THAT IT IS ACCURATE. PN WORKMANS' COMP OPINION IN YOUR OPINION, WAS THE INCIDENT THAT THE PATIENT DESCRIBED THE COMPETENT MEDICAL CAUSE OF THIS INJURY/ILLNESS? YES ARE THE PATIENT'S COMPLAINTS CONSISTENT WITH HIS/HER HISTORY OF THE INJURY/ILLNESS? YES IS THE PATIENT'S HISTORY OF THE INJURY/ILLNESS CONSISTENT WITH YOUR OBJECTIVE FINDING? YES WHAT IS THE PERCENTAGE OF TEMPORARY IMPAIRMENT? MODERATE TO MARKED = 66.7% IS THE PATIENT WORKING? NO DOCTOR ON SITE: JENNIFER STEPHENS MD DIAGNOSTIC IMAGING [facility] FLUORO GUIDE SPINE INJECTION (PAIN)[id number] PROCEDURE CODES 6045F RADXPS IN END [id number] PXD [id number] LUMBAR/SACRAL W/ IMAGING DISPOSITION & COMMUNICATION FOLLOW UP 2 WEEKS ELECTRONICALLY SIGNED BY JENNIFER MANUEL MD, MD ON 03/22/2018 AT 06:12 PM EST DISCLAIMER : THIS IS A VISIT SUMMARY EXTRACTED FROM THE [employer] CHART. IT IS NOT A COPY OF THE [employer] PROGRESS NOTE. RAULITO
== END ==
LOC: M PAIN 11:00
PROVIDERS: ATTEND Anesthesiology
DX: M96.1 Postlaminectomy syndrome, not elsewhere classified (principal); M51.17 Intervertebral disc disorders with radiculopathy, lumbosacral region; I10 Essential (primary) hypertension; E78.00 Pure hypercholesterolemia, unspecified; K21.9 Gastro-esophageal reflux disease without esophagitis; F40.01 Agoraphobia with panic disorder; F41.0 Panic disorder [episodic paroxysmal anxiety]; F32.9 Major depressive disorder, single episode, unspecified; Z79.891 Long term (current) use of opiate analgesic; Z79.899 Other long term (current) drug therapy; Z88.1 Allergy status to other antibiotic agents; Z88.6 Allergy status to analgesic agent; Z88.8 Allergy status to other drugs, medicaments and biological substances; Z85.21 Personal history of malignant neoplasm of larynx; Z92.3 Personal history of irradiation; Z87.891 Personal history of nicotine dependence; Z98.84 Bariatric surgery status
CPT/HCPCS: 62323; J1030; Q9967

== ENCOUNTER → 2018-03-13 | Outpatient (CLI) | payer MEDICARE ==
[~2018-03-13] MED LIST changes: +ISOVUE-370 76% 100ML VIAL (Q9967) As Ordered ONE; -ISOVUE-M 300 61% 15ML VIAL (Q9967) As Ordered ONE; -LIDOCAINE 1% SDV INJ 30 ML VIAL As Ordered ONE; -diazePAM 5 MG TAB As Ordered ONE; -methylPREDNISolone SUSP 40 MG/ML (DEPO-medrol) VIAL (J1030) As Ordered ONE; -oxyCODONE 5MG TAB As Ordered ONE
--- NOTE | 2018-03-13 09:16 | REP ---
CT NECK WITH CONTRAST: HISTORY: Supraglottic neoplasm. CONTRAST: Isovue 370, 75 mL. COMPARISON: 05/07/2017 There is thickening of the epiglottis and aryepiglottic folds. Increased density is present in the retropharyngeal space. These findings are consistent with post radiation change. The naso- and oropharynx, larynx and subglottic trachea are normal in appearance. The salivary and thyroid glands are normal in size and density. Small lymph nodes less than 1 cm in size are present in the right internal jugular chain, posterior triangles and submandibular areas. Atherosclerotic calcification is present at the right carotid bifurcation. Degenerative change is present in the cervical spine. The lung apices are clear. Mucosal thickening is present in the sphenoid, ethmoid, and right maxillary sinuses. A dorsal column stimulator is present in the spinal canal at the C2-3 level. IMPRESSION: Findings consistent with post radiation change. There is no recurrent tumor. Electronically Signed by Thor Gamboa MD 03/13/2018 09:18 A
== END ==
LOC: M RAD 07:23
PROVIDERS: ATTEND Otolaryngology
DX: C32.1 Malignant neoplasm of supraglottis (principal); M50.30 Other cervical disc degeneration, unspecified cervical region; F17.211 Nicotine dependence, cigarettes, in remission; E78.49 Other hyperlipidemia; E55.9 Vitamin D deficiency, unspecified

== ENCOUNTER → 2018-03-13 | Outpatient (REF) | payer MEDICARE ==
[~2018-03-13] MED LIST changes: -ISOVUE-370 76% 100ML VIAL (Q9967) As Ordered ONE
[2018-03-13 13:11] LABS: HEMATOCRIT 41.9 % (36.0-47.0); HEMOGLOBIN 13.4 g/dl (12.0-15.5); MEAN CORPUSCULAR HEMOGLOBIN 29.5 pg (27.0-33.0); MEAN CORPUSCULAR VOLUME 92.3 fl (80.0-96.0); PLATELET COUNT, AUTOMATED 242 10^3/uL (150-450); RED BLOOD COUNT 4.54 10^6/uL (4.00-5.40); WHITE BLOOD COUNT 8.9 10^3/uL (4.0-10.0)
[2018-03-13 15:15] LABS: ALBUMIN 3.5 GM/DL (3.2-5.2); ALT/SGPT 21 U/L (12-78); BILIRUBIN,TOTAL 0.2 MG/DL (0.2-1.0); BLOOD UREA NITROGEN 17 MG/DL (7-18); CARBON DIOXIDE LEVEL 30 MEQ/L (21-32); CHLORIDE LEVEL 101 MEQ/L (98-107); CHOLESTEROL LEVEL 201 MG/DL (<200); CHOLESTEROL RISK RATIO 1.878 (<5); CREATININE FOR GFR 0.78 MG/DL (0.55-1.30); FREE T4 0.91 NG/DL (0.76-1.46); GLOMERULAR FILTRATION RATE > 60.0 (>51); GLUCOSE, FASTING 97 MG/DL (70-100); HDL CHOLESTEROL 107 MG/DL (>40); LDL CHOLESTEROL 74 MG/DL (<100); NON-HDL-C 94 MG/DL; POTASSIUM SERUM 4.9 MEQ/L (3.5-5.1); SODIUM LEVEL 137 MEQ/L (136-145); TOTAL PROTEIN 7.1 GM/DL (6.4-8.2); TRIGLYCERIDES LEVEL 98 MG/DL (<150)
[2018-03-13 16:03] LABS: TOTAL 25(OH) VITAMIN D 80.4 NG/ML (30.0-100.0)
== END ==
LOC: M SFHCADAM 08:13
PROVIDERS: ATTEND Physician Assistant
DX: C32.9 Malignant neoplasm of larynx, unspecified (principal); F17.211 Nicotine dependence, cigarettes, in remission; E78.49 Other hyperlipidemia; E55.9 Vitamin D deficiency, unspecified
CPT/HCPCS: 70491; 80053; 80061; 82306; 84439; 84443; 85027; Q9967

== ENCOUNTER 2018-06-08 14:13 | Emergency (ER) | payer MEDICARE, OTHER ==
[~2018-06-08] VITALS: Ht 167.6 cm; Wt 67.7 kg
[2018-06-08 15:11] LABS: BASO % 0.3 % (0.0-1.0); EOS # 0.1 10^3/uL (0.0-0.50); EOS % 1.6 % (0.0-3.0); HEMATOCRIT 41.4 % (36.0-47.0); HEMOGLOBIN 13.7 g/dl (12.0-15.5); LYMPH # 1.1 10^3/uL (1.5-4.5); MEAN CORPUSCULAR HEMOGLOBIN 29.7 pg (27.0-33.0); MEAN CORPUSCULAR HGB CONC 33.1 g/dl (32.0-36.5); MEAN CORPUSCULAR VOLUME 89.8 fl (80.0-96.0); MONO # 0.5 10^3/uL (0.0-0.8); MONO % 7.6 % (0.0-5.0); NEUTROPHILS # 4.7 10^3/uL (1.8-7.7); NEUTROPHILS % 73.2 % (36.0-66.0); PLATELET COUNT, AUTOMATED 219 10^3/uL (150-450); RED BLOOD COUNT 4.61 10^6/uL (4.00-5.40); WHITE BLOOD COUNT 6.4 10^3/uL (4.0-10.0)
--- NOTE | 2018-06-08 15:26 | REP ---
SOFT-TISSUE NECK RADIOGRAPHS: THREE VIEWS. HISTORY: Odynophagia, dysphasia. COMPARISON STUDY: April 03, 2006 FINDINGS: In the interval since the 2006 study, a dorsal column stimulator lead has been placed entering the spinal canal at the craniocervical junction and terminating in the dorsal aspect of the canal at the C4 level. Cervical vertebral body heights are preserved. There is degenerative disc spurring and disc space narrowing at C5-6, which is slightly more prominent. On soft tissue lateral view, the epiglottis appears blunted and rounded but unchanged from the March 13, 2018 CT appearance. Patient has history of radiation therapy for supraglottic malignancy. These findings are unchanged. Retropharyngeal soft tissues are not widened. Glottic and subglottic airway appear intact. There is air in the cervical esophagus. IMPRESSION: Status post dorsal column stimulator in the cervical epidural space terminating at C4 as above. Status post radiation change in the epiglottis and aryepiglottic folds, unchanged from comparison CT study March 13, 2018. No acute abnormality noted. Electronically Signed by Bladimir Keith MD 06/08/2018 04:13 P
[2018-06-08 15:29] LABS: BLOOD UREA NITROGEN 12 MG/DL (7-18); CALCIUM LEVEL 9.1 MG/DL (8.5-10.1); CARBON DIOXIDE LEVEL 29 MEQ/L (21-32); CHLORIDE LEVEL 106 MEQ/L (98-107); CREATININE FOR GFR 0.76 MG/DL (0.55-1.30); GLOMERULAR FILTRATION RATE > 60.0 (>51); GLUCOSE, FASTING 69 MG/DL (70-100); POTASSIUM SERUM 4.1 MEQ/L (3.5-5.1); SODIUM LEVEL 139 MEQ/L (136-145)
[2018-06-08] MEDS ORDERED: ISOVUE-370 76% 100ML VIAL (Q9967) As Ordered ONE (16:25)
[2018-06-08 17:47] VITALS: BP 124/80
--- NOTE | 2018-06-08 18:47 | REP ---
CT NECK WITH CONTRAST: HISTORY: Dysphagia. CONTRAST: Isovue-370 75 mL. A soft tissue mass is present in the hypopharynx. There is inferior extension to the level of the vocal cords. There is superior extension into the base of the epiglottis and left lateral wall of the oropharynx. There is almost complete effacement of the hypopharynx. Increased density is present in the retropharyngeal space. There is thickening of the epiglottis and aryepiglottic folds. Stranding is present in the overlying subcutaneous tissue. These findings are consistent with post-radiation change. The nasopharynx and subglottic trachea are normal in appearance. The salivary and thyroid glands are normal in size and density. Small lymph nodes less than 1 cm in size are present in the internal jugular chains, posterior triangles, and submandibular areas. Atherosclerotic calcification is present at the right carotid bifurcation. Degenerative change is present in the cervical spine. The lung apices are clear. Minimal mucosal thickening is present in the left ethmoid and right maxillary sinuses. A dorsal column stimulator is present in the spinal canal at the C2-3 level. IMPRESSION:1. Findings consistent with recurrent pharyngeal tumor. There is almost complete effacement of the hypopharynx. 2. Findings consistent with post-radiation change. Electronically Signed by Thor Gamboa MD 06/09/2018 08:18 A
[2018-06-16] MEDS ORDERED: SM N0.65 (14:34)
== END 2018-06-08 17:49 | disposition home or self-care (01) ==
LOC: M ED 14:13
DX: J02.9 Acute pharyngitis, unspecified (principal); Z85.21 Personal history of malignant neoplasm of larynx; Z85.41 Personal history of malignant neoplasm of cervix uteri; Z88.8 Allergy status to other drugs, medicaments and biological substances; Z79.899 Other long term (current) drug therapy; Z79.890 Hormone replacement therapy
CPT/HCPCS: 70360; 70491; 80048; 85025; 87880; 99284; Q9967

== ENCOUNTER → 2018-06-08 | Outpatient (CLI) | payer OTHER, MEDICARE ==
[~2018-06-08] MED LIST changes: -/CELE20CA PO; -/DULO30CA; -/ESCI20TA; -/ESCI20TA OR; +CELE1CAP4 PO; -CRES20TA PO; +CRES20TA2 PO; +CYMB1CAP4 OR; +CYMB1CAP5; -DULO20CA OR; +LEXA1TAB2; +LEXA1TAB2 OR; -VENL150T PO; +VENL150T40 PO; +VITA-113 SL
--- NOTE | 2018-06-10 02:07 | ECWPNPC ---
PATIENT NAME: RACHEL MARTINEZ : 1965 GENDER: FEMALE VISIT DATE: 06/08/2018 DISCHARGE DATE: 06/08/18 1403 VISIT LOCKED DATE TIME: PHYSICIAN: YONNY NOGUEIRA RESOURCE: YONNY NOGUEIRA REASON FOR APPOINTMENT 1. POST PROC HISTORY OF PRESENT ILLNESS HISTORY OF PRESENT ILLNESS: PAIN THE PATIENT DESCRIBES THE PAIN... SEVERITY - PAIN SCORE OF5/10 PATIENT IS A53 YR FEMALE HERE FOR F/U FROM [facility] IN 03/07. PATIENT SAYS HER PAIN WAS REDUCED FOR ABOUT 2 WEEKS AND NOW IT IS A 5/10. PATIENT SAYS OVERALL, THERE HAS BEEN REDUCTION IN HER PAIN.SHE SAYS SHE STILL HAS RADICULOPTHY ON LEFT SIDE.SHE DENIES SADDLE ANESTHESIA, FEVERS AND CHILLS. FALL RISK SCREENING: SCREENING :NO FALLS REPORTED IN THE LAST YEAR CURRENT MEDICATIONS TAKING SUCRALFATE 1 GM/10ML SUSPENSION 10 ML ORALLY TWICE A DAY NEEDED TAKING EFFEXOR XR 150 MG CAPSULE EXTENDED RELEASE 24 HOUR 3 CAPSULE WITH FOOD ORALLY ONCE A DAY TAKING ABILIFY 15 MG TABLET 1 TABLET ORALLY ONCE A DAY TAKING OMEPRAZOLE 40 MG CAPSULE DELAYED RELEASE 1 CAPSULE ORALLY ONCE A DAY TAKING VENTOLIN HFA 108 (90 BASE) MCG/ACT AEROSOL SOLUTION 2 PUFFS NEEDED INHALATION EVERY 4 HRS NEEDED FOR SHORTNESS OF BREATH TAKING GABAPENTIN 600 MG TABLET 1 TABLET P.O. FOUR TIMES DAILY TAKING TRAMADOL HCL 50 MG TABLET 1-2 TAB ORALLY Q8H PRN MDD6 TAKING LYRICA 150 MG CAPSULE 1 CAPSULE ORALLY Q8H MDD3 TAKING FLONASE 50 MCG/ACT SUSPENSION 1 SPRAY IN EACH NOSTRIL NASALLY ONCE A DAY TAKING CRESTOR 10 MG TABLET 1 TABLET ORALLY ONCE A DAY TAKING ESTRADIOL 2 MG TABLET 1 TABLET ORALLY ONCE A DAY TAKING VITAMIN B-12 5000 MCG LOZENGE DIRECTED ORALLY ONCE A DAY TAKING DRISDOL 81786 UNIT CAPSULE 1 CAPSULE ORALLY EVERY OTHER WEEK DISCONTINUED FLUTICASONE PROPIONATE 50 MCG/ACT SUSPENSION 1 SPRAY IN EACH NOSTRIL NASALLY BID NEEDED, NOTES: DUPLICATE DISCONTINUED AZELASTINE HCL 0.15 % SOLUTION 1 DROP IN EACH NOSTRIL NASALLY TWICE A DAY MEDICATION LIST REVIEWED AND RECONCILED WITH THE PATIENT PAST MEDICAL HISTORY SUPRAGLOTTIC LARYNGEAL CANCER, STAGE KIZZY [id number]-- RAD TX X 35 SESSIONS WITH CISPLATIN CHEMOTX CHRONIC LOWER BACK PAIN, DORSAL COLUMN STIMULATOR IN PLACE - [facility] HTN HYPERCHOLESTEROLEMIA GERD/H/O PUD WITH GI BLEED IN PAST SECONDARY TO CELEBREX ENDOMETRIOSIS PREDIABETES TOBACCO ABUSE CHRONIC NARCOTIC DEPENDENCE - WEANING OXYCODONE PER PAIN CLINIC ECHO - 02/28/17 - NORMAL LV SIZE AND WALL THICKNESS EF 70% GRADE 1 DIASTOLIC DYSFUNCTION ANXIETY/DEPRESSION/AGORAPHOBIA WITH PANIC ATTACKS - PSYCHIATRIST IRON DEF - HAD IRON INFUSION 04/2018 ALLERGIES NSAIDS: BLEEDING - CONTRAINDICATION BETADINE: RASH - ALLERGY SKELAXIN: RASH - ALLERGY METFORMIN HCL: DIARRHEA - SIDE EFFECTS SURGICAL HISTORY TONSILLECTOMY TUBAL LIGATION 03/1989 ECTOPIC 09/1989 HYSTERECTOMY D/T PRE-CANCEROUS 1989 BSO 1999 LUMBAR LAMINECTOMY L4-L5 08/1997 TARSAL TUNNEL-BILATERAL FEET 2004 BILATERAL CARPAL TUNNEL RELEASE 2001 LUMBAR STIMULATOR PLACED 2005 CERVICAL STIMULATOR PLACED 2008 RIGHT CARPAL TUNNEL RELEASE 06/2013 GASTRIC BYPASS 2009 COLONOSCOPY WITH POLYP RESECTION, BENIGN 2011 CHOLECYSTECTOMY 12/2010 TOE NAIL SURGERY 08/10/15 TUBE PLACEMENT RIGHT EAR, BIOPSY SINUS CAVITY NODULE 05/2016 LYMPH NODE, THROAT BIOPSY MALIGNANT 05/2017 FEEDING TUBE 06/2017 CHEMO PORT PLACEMENT 06/2017 COLONOSCOPY 07/2016 FAMILY HISTORY FATHER: ALIVE MOTHER: ALIVE, DIAGNOSED WITH DIABETES, HYPERTENSION, CANCER 1 SON(S) , 1 DAUGHTER(S) - HEALTHY. MOM-LEFT BREAST CA. SOCIAL HISTORY GENERAL: TOBACCO USE ARE YOU A:FORMER SMOKER HOW LONG HAS IT BEEN SINCE YOU LAST SMOKED?6-12 MONTHS QUIT 05/19/17 LATEX QUESTIONNAIRE LATEX ALLERGY : HAVE YOU EVER DEVELOPED ANY TYPE OF REACTION AFTER HANDLING LATEX PRODUCTS SUCH RUBBER GLOVES, CONDOMS, DIAPHRAGMS, BALLOONS, SOCKS, OR UNDERWEAR?NO LATEX ALLERGY : HAVE YOU EVER DEVELOPED ANY TYPE OF REACTION DURING OR AFTER DENTAL APPOINTMENT, VAGINAL/RECTAL EXAMINATION, SURGICAL PROCEDURE, OR ANY OTHER EXPOSURE?NO LATEX RISK : HAVE YOU EVER HAD ANY DIFFICULTY BREATHING OR HIVES AFTER EATING OR HANDLING ANY FRUITS, OR VEGETABLES; SUCH KIWI, BANANAS, STONE FRUITS, OR CHESTNUTSNO LATEX RISK : DO YOU HAVE A PREVIOUS PERSONAL HISTORY OF MORE THAN NINE SURGERIES, SPINA BIFIDA, OR REPEATED CATHERTIZATIONS? YES - PLEASE INDICATE : > 9 SURGERIES LATEX RISK : ARE YOU FREQUENTLY EXPOSED TO LATEX PRODUCTS IN YOUR OCCUPATION?NO DATE ASKED : 06/08/2018 BMI CARE GOAL FOLLOW-UP ABOVE NORMAL BMI FOLLOW-UPDIETARY MANAGEMENT EDUCATION, GUIDANCE, AND COUNSELING ALCOHOL SCREENING DID YOU HAVE A DRINK CONTAINING ALCOHOL IN THE PAST YEAR?YES HOW OFTEN DID YOU HAVE SIX OR MORE DRINKS ON ONE OCCASION IN THE PAST YEAR?NEVER (0 POINTS) HOW MANY DRINKS DID YOU HAVE ON A TYPICAL DAY WHEN YOU WERE DRINKING IN THE PAST YEAR?1 OR 2 (0 POINTS) HOW OFTEN DID YOU HAVE A DRINK CONTAINING ALCOHOL IN THE PAST YEAR?MONTHLY OR LESS (1 POINT) POINTS1 INTERPRETATIONNEGATIVE RECREATIONAL DRUG USE DRUG USE?NO CAFFEINE CAFFEINE USE?YES HOW OFTEN AND HOW MUCH? COFFEE 6 CUPS DAILY, 2 SODAS DAILY SEXUAL HX HAD SEX IN THE LAST 12 MONTHS (VAGINAL, ORAL, OR ANAL)?YES WITHMEN ONLY USE PROTECTION?NO LMP:HYSTER HAVE YOU EVER HAD AN STD?NO HIV / HEP-C SCREENING HIV TEST OFFERED TO PATIENT:YES DATE OFFERED:07/29/2017 TEST ACCEPTED:NO REASON:PATIENT DECLINED BROCHURE PROVIDED TO PATIENTNO CONFUCIANIST [id number] YAZIDISM LANGUAGE GERMAN. 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 DIET: REGULAR. EXERCISE: NO REGULAR EXERCISE. MARITAL STATUS: . OTHERS AT HOME: SPOUSE. PAIN CLINIC PFS, CLERGY, PUBLIC HEALTH REFERRALS WAS THE PROVIDER NOTIFIED OF ANY PERTINENT INFO? N/A HAS THE PATIENT BEEN EDUCATED REGARDING HIS/HER PLAN OF CARE?YES HAS THE PATIENT BEEN EDUCATED REGARDING PAIN, THE RISK FOR PAIN, THE IMPORTANCE OF EFFECTIVE PAIN MANAGEMENT, AND THE PAIN ASSESSMENT PROCESS?YES ADVANCE DIRECTIVE ADVANCE DIRECTIVE DISCUSSED WITH PATIENT:YES PT HAS HCP ROYAL MARTINEZ [phone] REVEIWED WITH PT 08/08/17 1344 BVREVIEWED WITH PT 11/10/17 1320 LAS01/29 18 1100 REVIEWED WITH PT. AD. HOSPITALIZATION/MAJOR DIAGNOSTIC PROCEDURE SURG RELATED PLUS 1 G-I BLEED REVIEW OF SYSTEMS REVIEWED BY: PROVIDER: JORGE Lancaster CONSTITUTIONAL: ANY CHANGE IN YOUR MEDICAL CONDITION? NO . CHILLS NO . FEVER NO . INFECTION: DO YOU HAVE NEW INFECTIONS? NO . DO YOU HAVE HISTORY OF MRSA? NO . MUSCULOSKELETAL: ANY NEW PATTERNS OF PAIN OR NUMBNESS? NO . GASTROENTEROLOGY: ANY NEW CHANGE IN BOWEL CONTROL? NO . GENITOURINARY: ANY NEW CHANGE IN BLADDER CONTROL? NO . IS THERE A CHANCE YOU COULD BE ? NO . HEMATOLOGY/LYMPH: DO YOU TAKE ANY BLOOD THINNERS? (FOR EXAMPLE- COUMADIN, PLAVIX, AGGRENOX, PLATEL, PRADAXA, OR XARELTO) NO . WHEN WAS YOUR LAST DOSE? DATE: TIME: . NEUROLOGY: HAVE YOU FALLEN IN THE PAST 12 MONTHS? YES, X 2 NOT EVALUATED AFTER, NO INJURY . ANY NEW EXTREMITY NUMBNESS OR WEAKNESS? NO . CARDIOLOGY: DO YOU HAVE A PACEMAKER OR DEFIBRILLATOR? NO HAS DCS IN NECK AND LUMBAR . RESPIRATORY: HAVE YOU BEEN SICK IN THE PAST WEEK? NO . FEVER NO . FLU LIKE SYMPTOMS? NO . COUGH NO . INTEGUMENTARY: DO YOU HAVE ANY RASHES OR OPEN SORES? NO . ALLERGIC/IMMUNO: ARE YOU ALLERGIC TO IV DYE? NO . ANY NEW ALLERGIES? NO . PSYCHIATRIC: DO YOU HAVE THOUGHTS OF HURTING YOURSELF OR SOMEONE ELSE? NO . ARE YOU ABUSED, NEGLECTED, OR IN AN UNSAFE ENVIRONMENT? NO . ENDOCRINOLOGY: ARE YOU DIABETIC? NO . OTHER: DO YOU NEED ANY PRESCRIPTIONS? YES . IF YES, PLEASE LIST: TRAMADOL, GABAPENTIN, LYRICA . ANY NEW PROBLEMS WITH YOUR MEDICATIONS? NO . WHEN DID YOU LAST EAT? ____ . WHEN DID YOU LAST DRINK? ____ . WHAT DID YOU LAST DRINK? ____ . NAME OF PERSON DRIVING YOU HOME? ____ . DO YOU HAVE ANY OTHER QUESTIONS OR CONCERNS NO . VITAL SIGNS WT 149.6 LBS, HT 66 IN, BMI 24.14 INDEX, BP 129/69 MM HG, HR 107 /MIN, RR 18 /MIN, TEMP 98.2 F, OXYGEN SAT % 98%, SAFE IN ENV? (Y/N) Y, NA INITIALS SC 13:25, REVIEWED BY: AD. EXAMINATION GENERAL EXAMINATION: GENERAL APPEARANCE:NO ACUTE DISTRESS, WELL NOURISHED AND HYDRATED. PSYCHAPPROPRIATE MOOD AND AFFECT . LUNGS:CLEAR TO AUSCULTATION BILATERALLY, NO WHEEZES, RHONCHI, RALES. HEART:NO MURMURS, REGULAR RATE AND RHYTHM. BACK: LIMITED ROM, TENDER TO PALPATION ALONG PARASPINAL MUSCLES POSITIVE SLR, LEFT REFLEXES 2+. ASSESSMENTS SPONDYLOSIS WITHOUT MYELOPATHY OR RADICULOPATHY, LUMBAR REGION - M47.816 (PRIMARY) SPONDYLOSIS WITHOUT MYELOPATHY OR RADICULOPATHY, LUMBOSACRAL REGION - M47.817 INTERVERTEBRAL DISC DISORDERS WITH RADICULOPATHY, LUMBAR REGION - M51.16 TREATMENT SPONDYLOSIS WITHOUT MYELOPATHY OR RADICULOPATHY, LUMBAR REGION CONTINUE GABAPENTIN TABLET, 600 MG, 1 TABLET, P.O., FOUR TIMES DAILY, 30 DAYS, 120, REFILLS 1 CONTINUE TRAMADOL HCL TABLET, 50 MG, 1-2 TAB, ORALLY, Q8H PRN MDD4, 30 DAYS, 120, REFILLS 1 CONTINUE LYRICA CAPSULE, 150 MG, 1 CAPSULE, ORALLY, Q8H MDD3, 30 DAYS, 90, REFILLS 1 CLINICAL NOTES: ISTOP REGISTRY REVIEWED AND DEMONSTRATES COMPLLIANCE. (REF #[id number] ) BRINGS IN MEDICATIONS WHICH IS APPROPRIATE FOR WHAT WAS DISPENSED. RECENT URINE TOXICOLOGY REVIEWED. NO UNAUTHORIZED MEDICATIONS. NO ILLICIT SUBSTANCES AND PRESCRIBED MEDICATIONS WERE PRESENT. , [facility] NARCOTIC AGREEMENT WAS REVIEWED AND SIGNED TODAY BY THE PATIENT. SEE ATTACHED DOCUMENT FOR FULL DETAILS; SPECIFIC ISSUES WERE REVIEWED: 1) KEEP PAIN MEDS IN THEIR ORIGINAL BOTTLES AND ANY WEEKLY PLANNERS ARE TO BE BROUGHT TO THE PAIN CENTER AT EVERY VISIT. 2) THE PATIENT IS NOT TO INCREASE DOSING OR TIMING OF THEIR PAIN MEDICATION WITHOUT SPECIFIC DIRECTION OF THEIR PAIN CENTERPROVIDER (NOT ER OR OTHER PROVIDERS). 3) ALL PAIN MEDS ARE TO BE KEPT SECURED, IN A LOCKED BOX. 4) NO PAIN MEDS ARE TO BE SHARED WITH ANY OTHER PERSON FOR ANY REASON. 5) NO PAIN MEDS MAY BE TAKEN FROM ANY FRIENDS OR RELATIVES FOR ANY REASON 6) NO MEDS OR SUBSTANCES WHICH ARE NOT LEGAL ARE TO BE USED- NO MARIJUANA, NO COCAINE, AMPHETAMINES, HEROIN, OR OTHERS ARE EVER TO BE USED. 7)URINE TESTING IS DONE TO ACCOUNT FOR MEDS AND SUBSTANCES BEING TAKEN AND WILL BE DONE RANDOMLY. PROCEDURE CODES FA211 ESTABILISHED PATIENT LOCATED WITHIN [facility] CHARGE DISPOSITION & COMMUNICATION FOLLOW UP 3 MONTHS ELECTRONICALLY SIGNED BY ALBA MCGILL ON 06/09/2018 AT 03:21 PM EDT DISCLAIMER : THIS IS A VISIT SUMMARY EXTRACTED FROM THE [employer] CHART. IT IS NOT A COPY OF THE [employer] PROGRESS NOTE. RAULITO
== END ==
LOC: M PAIN 13:15
PROVIDERS: ATTEND Nurse Practitioner Family
DX: M47.816 Spondylosis without myelopathy or radiculopathy, lumbar region (principal); M47.817 Spondylosis without myelopathy or radiculopathy, lumbosacral region; M51.16 Intervertebral disc disorders with radiculopathy, lumbar region; I10 Essential (primary) hypertension; E78.00 Pure hypercholesterolemia, unspecified; K21.9 Gastro-esophageal reflux disease without esophagitis; R73.01 Impaired fasting glucose; Z79.891 Long term (current) use of opiate analgesic; Z79.899 Other long term (current) drug therapy; Z88.1 Allergy status to other antibiotic agents; Z88.6 Allergy status to analgesic agent; Z88.8 Allergy status to other drugs, medicaments and biological substances; Z86.2 Personal history of diseases of the blood and blood-forming organs and certain disorders involving the immune mechanism; Z86.59 Personal history of other mental and behavioral disorders; Z85.21 Personal history of malignant neoplasm of larynx; Z92.21 Personal history of antineoplastic chemotherapy; Z87.891 Personal history of nicotine dependence; Z98.84 Bariatric surgery status

== ENCOUNTER 2018-06-18 08:23 | Day surgery (SDC) | payer MEDICARE ==
[~2018-06-18] VITALS: Ht 167.6 cm; Wt 67.6 kg
[~2018-06-18 08:23] MED LIST changes: +LR 1,000 ML IV ONE; +SM N0.65; +dexameTHASONE 4 MG/ML 1ML VIAL (J1100) IV ONE
[2018-06-18] MEDS ORDERED: METHYLENE BLUE 0.5% (5MG/ML) 10 ML AMP (PROVAYBLUE)(Q9968 PER 1MG) As Ordered ONE (09:54)
[2018-06-18] MEDS ORDERED: LIDOCAINE W/EPINEPHRINE 1% 20ML VIAL As Ordered ONE (09:55)
[2018-06-18] MEDS ORDERED: OXYMETAZOLINE NASAL SPRAY (AFRIN) As Ordered ONE (09:55)
[2018-06-18] MEDS ORDERED: LIDOCAINE 2% INJ 100 MG/5 ML SDV (FOR ANES.) As Ordered ONE (10:22)
[2018-06-18] MEDS ORDERED: PROPOFOL 200 MG/20 ML VIAL As Ordered ONE (10:22)
[2018-06-18] MEDS ORDERED: MIDAZOLAM INJ 2 MG/2 ML VIAL (J2250) As Ordered ONE (10:23)
[2018-06-18] MEDS ORDERED: fentaNYL 100 MCG/2 ML INJECTION (J3010) As Ordered ONE (10:23)
[2018-06-18] MEDS ORDERED: ROCURONIUM BROMIDE 50 MG/5 ML VIAL As Ordered ONE (10:44)
[2018-06-18] MEDS ORDERED: ONDANSETRON 4MG/2ML VIAL (J2405) As Ordered ONE (11:09)
[2018-06-18] MEDS ORDERED: SUGAMMADEX SODIUM 500 MG/5 ML VIAL (BRIDION) As Ordered ONE (11:09)
[2018-06-18] MEDS ORDERED: LR 1,000 ML IV SCH ×2 (12:15)
[2018-06-18] MEDS ORDERED: ONDANSETRON 4MG/2ML VIAL (J2405) IV PRN (12:15)
[2018-06-18] MEDS ORDERED: fentaNYL 100 MCG/2 ML INJECTION (J3010) IV PRN (12:15)
[2018-06-18] MEDS ORDERED: ACETAMINOPHEN TAB 650MG DOSE (2X325MG) As Ordered ONE (13:43)
[2018-06-18] MEDS ORDERED: ACETAMINOPHEN TAB 650MG DOSE (2X325MG) PO ONE (14:00)
[2018-06-18 14:10] VITALS: BP 125/82
== END 2018-06-18 14:15 | disposition home or self-care (01) ==
LOC: M SDC 08:23
PROVIDERS: ATTEND Otolaryngology
DX: R13.10 Dysphagia, unspecified (principal); C32.9 Malignant neoplasm of larynx, unspecified; K21.9 Gastro-esophageal reflux disease without esophagitis; E78.49 Other hyperlipidemia; D64.9 Anemia, unspecified; F41.9 Anxiety disorder, unspecified; F32.9 Major depressive disorder, single episode, unspecified; M79.7 Fibromyalgia; Z88.8 Allergy status to other drugs, medicaments and biological substances; K44.9 Diaphragmatic hernia without obstruction or gangrene; Z87.891 Personal history of nicotine dependence; Z92.21 Personal history of antineoplastic chemotherapy; Z92.3 Personal history of irradiation; Z98.84 Bariatric surgery status; Z79.899 Other long term (current) drug therapy
CPT/HCPCS: 31536; 88305; J1100; J2250; J2405; J3010; Q9968

== ENCOUNTER → 2018-09-22 | Outpatient (CLI) | payer OTHER ==
[~2018-09-22] MED LIST changes: -LR 1,000 ML IV ONE; -TRAZ-160 PO; +TRAZ-252 PO; +TRAZ1TAB10 FT; -TRAZO50TA FT; -dexameTHASONE 4 MG/ML 1ML VIAL (J1100) IV ONE
--- NOTE | 2018-10-07 01:08 | ECWPNPC ---
PATIENT NAME: RACHEL MARTINEZ : 1965 GENDER: FEMALE VISIT DATE: 09/22/2018 DISCHARGE DATE: 09/22/18 1223 VISIT LOCKED DATE TIME: PHYSICIAN: RICK GIL RESOURCE: RICK GIL REASON FOR APPOINTMENT 1. W/C BACK HISTORY OF PRESENT ILLNESS HISTORY OF PRESENT ILLNESS: HERE FOR ROUTINE F/U.HISTORY OF CHRONIC GENERALIZED BACK ,NECK AND LEG PAIN. RATING PAIN VAS NECK6/10,LBP 6/10 .CURRENTLY USING TRAMADOL 50MG 1 -2 TAB Q8H MDD6,LYRICA 150MG TID AND GABAPENTIN 600MG QID.REPORTS EFFECTIVENESS OF CURRENT PAIN MEDICATION AND DENIES SIDE EFFECTS.THIS IS A WORK RELATED INJURY DATED FEBRUARY 1998.PAIN HAS ESCALATED IN NECK REGION OVER THE PAST 2 MONTHS.PAIN IS AGGREVATED BY ROJM OF ARMS AND NECK. PAIN THE PATIENT DESCRIBES THE PAIN... THE PATIENT DESCRIBES THE PAIN... THE PATIENT DESCRIBES THE PAIN... THE PATIENT DESCRIBES THE PAIN... THE PATIENT DESCRIBES THE PAIN... THE PATIENT DESCRIBES THE PAIN... THE PATIENT DESCRIBES THE PAIN... THE PATIENT DESCRIBES THE PAIN... THE PATIENT DESCRIBES THE PAIN... THE PATIENT DESCRIBES THE PAIN... THE PATIENT DESCRIBES THE PAIN... FALL RISK SCREENING: SCREENING :NO FALLS REPORTED IN THE LAST YEAR CURRENT MEDICATIONS TAKING SUCRALFATE 1 GM/10ML SUSPENSION 10 ML ORALLY TWICE A DAY NEEDED TAKING EFFEXOR XR 150 MG CAPSULE EXTENDED RELEASE 24 HOUR 3 CAPSULE WITH FOOD ORALLY ONCE A DAY TAKING ABILIFY 15 MG TABLET 1 TABLET ORALLY ONCE A DAY TAKING OMEPRAZOLE 40 MG CAPSULE DELAYED RELEASE 1 CAPSULE ORALLY ONCE A DAY TAKING VENTOLIN HFA 108 (90 BASE) MCG/ACT AEROSOL SOLUTION 2 PUFFS NEEDED INHALATION EVERY 4 HRS NEEDED FOR SHORTNESS OF BREATH TAKING FLONASE 50 MCG/ACT SUSPENSION 1 SPRAY IN EACH NOSTRIL NASALLY ONCE A DAY NEEDED TAKING VITAMIN B-12 5000 MCG LOZENGE DIRECTED ORALLY ONCE A DAY TAKING DRISDOL 03045 UNIT CAPSULE 1 CAPSULE ORALLY EVERY OTHER WEEK TAKING GABAPENTIN 600 MG TABLET 1 TABLET P.O. FOUR TIMES DAILY TAKING ESTRADIOL 2 MG TABLET 1 TABLET ORALLY ONCE A DAY TAKING CRESTOR 10 MG TABLET 1 TABLET ORALLY ONCE A DAY TAKING TRAMADOL HCL 50 MG TABLET 1-2 TAB ORALLY Q8H PRN MDD4 TAKING LYRICA 150 MG CAPSULE 1 CAPSULE ORALLY Q8H MDD3 MEDICATION LIST REVIEWED AND RECONCILED WITH THE PATIENT PAST MEDICAL HISTORY SUPRAGLOTTIC LARYNGEAL CANCER, STAGE KIZZY [id number]-- RAD TX X 35 SESSIONS WITH CISPLATIN CHEMOTX CHRONIC LOWER BACK PAIN, DORSAL COLUMN STIMULATOR IN PLACE - [facility] HTN HYPERCHOLESTEROLEMIA GERD/H/O PUD WITH GI BLEED IN PAST SECONDARY TO CELEBREX ENDOMETRIOSIS PREDIABETES TOBACCO ABUSE CHRONIC NARCOTIC DEPENDENCE - WEANING OXYCODONE PER PAIN CLINIC ECHO - 02/28/17 - NORMAL LV SIZE AND WALL THICKNESS EF 70% GRADE 1 DIASTOLIC DYSFUNCTION ANXIETY/DEPRESSION/AGORAPHOBIA WITH PANIC ATTACKS - PSYCHIATRIST IRON DEF - HAD IRON INFUSION 04/2018 ALLERGIES NSAIDS: BLEEDING - CONTRAINDICATION BETADINE: RASH - ALLERGY SKELAXIN: RASH - ALLERGY METFORMIN HCL: DIARRHEA - SIDE EFFECTS SURGICAL HISTORY TONSILLECTOMY TUBAL LIGATION 03/1989 ECTOPIC 09/1989 HYSTERECTOMY D/T PRE-CANCEROUS 1989 BSO 1999 LUMBAR LAMINECTOMY L4-L5 08/1997 TARSAL TUNNEL-BILATERAL FEET 2003 BILATERAL CARPAL TUNNEL RELEASE 2001 LUMBAR STIMULATOR PLACED 2005 CERVICAL STIMULATOR PLACED 2008 RIGHT CARPAL TUNNEL RELEASE 06/2013 GASTRIC BYPASS 2009 COLONOSCOPY WITH POLYP RESECTION, BENIGN 2011 CHOLECYSTECTOMY 12/2010 TOE NAIL SURGERY 08/10/15 TUBE PLACEMENT RIGHT EAR, BIOPSY SINUS CAVITY NODULE 05/2016 LYMPH NODE, THROAT BIOPSY MALIGNANT 05/2017 FEEDING TUBE 06/2017 CHEMO PORT PLACEMENT 06/2017 COLONOSCOPY 07/2016 FAMILY HISTORY FATHER: ALIVE MOTHER: ALIVE, DIAGNOSED WITH DIABETES, HYPERTENSION, CANCER 1 SON(S) , 1 DAUGHTER(S) - HEALTHY. MOM-LEFT BREAST CA. SOCIAL HISTORY GENERAL: TOBACCO USE ARE YOU A:FORMER SMOKER HOW LONG HAS IT BEEN SINCE YOU LAST SMOKED?6-12 MONTHS QUIT 05/19/17 HIV / HEP-C SCREENING HIV TEST OFFERED TO PATIENT:YES DATE OFFERED:07/29/2017 TEST ACCEPTED:NO REASON:PATIENT DECLINED BROCHURE PROVIDED TO PATIENTNO OTHERS AT HOME: SPOUSE. EDUCATION LEVEL OF EDUCATION:NOT FINISHED COLLEGE DIET: REGULAR. LANGUAGE MAURITANIAN. DOMESTIC VIOLENCE DO YOU FEEL SAFE IN YOUR ENVIRONMENT?YES BMI CARE GOAL FOLLOW-UP ABOVE NORMAL BMI FOLLOW-UPDIETARY MANAGEMENT EDUCATION, GUIDANCE, AND COUNSELING RECREATIONAL DRUG USE DRUG USE?NO EXERCISE: NO REGULAR EXERCISE. 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 N/A HAS THE PATIENT BEEN EDUCATED REGARDING HIS/HER PLAN OF CARE?YES HAS THE PATIENT BEEN EDUCATED REGARDING PAIN, THE RISK FOR PAIN, THE IMPORTANCE OF EFFECTIVE PAIN MANAGEMENT, AND THE PAIN ASSESSMENT PROCESS?YES LATEX QUESTIONNAIRE LATEX ALLERGY : HAVE YOU EVER DEVELOPED ANY TYPE OF REACTION AFTER HANDLING LATEX PRODUCTS SUCH RUBBER GLOVES, CONDOMS, DIAPHRAGMS, BALLOONS, SOCKS, OR UNDERWEAR?NO LATEX ALLERGY : HAVE YOU EVER DEVELOPED ANY TYPE OF REACTION DURING OR AFTER DENTAL APPOINTMENT, VAGINAL/RECTAL EXAMINATION, SURGICAL PROCEDURE, OR ANY OTHER EXPOSURE?NO DATE ASKED : 06/08/2018 LATEX RISK : HAVE YOU EVER HAD ANY DIFFICULTY BREATHING OR HIVES AFTER EATING OR HANDLING ANY FRUITS, OR VEGETABLES; SUCH KIWI, BANANAS, STONE FRUITS, OR CHESTNUTSNO LATEX RISK : DO YOU HAVE A PREVIOUS PERSONAL HISTORY OF MORE THAN NINE SURGERIES, SPINA BIFIDA, OR REPEATED CATHERIZATIONS? YES - PLEASE INDICATE : > 9 SURGERIES LATEX RISK : ARE YOU FREQUENTLY EXPOSED TO LATEX PRODUCTS IN YOUR OCCUPATION?NO CAFFEINE CAFFEINE USE?YES HOW OFTEN AND HOW MUCH? COFFEE 6 CUPS DAILY, 2 SODAS DAILY ADVANCE DIRECTIVE ADVANCE DIRECTIVE DISCUSSED WITH PATIENT:YES PT HAS HCP ROYAL MARTINEZ [phone] WORSHIP [id number] BUDDHIST MARITAL STATUS: . ALCOHOL SCREENING DID YOU HAVE A DRINK CONTAINING ALCOHOL IN THE PAST YEAR?YES HOW OFTEN DID YOU HAVE SIX OR MORE DRINKS ON ONE OCCASION IN THE PAST YEAR?NEVER (0 POINTS) HOW MANY DRINKS DID YOU HAVE ON A TYPICAL DAY WHEN YOU WERE DRINKING IN THE PAST YEAR?1 OR 2 (0 POINTS) HOW OFTEN DID YOU HAVE A DRINK CONTAINING ALCOHOL IN THE PAST YEAR?MONTHLY OR LESS (1 POINT) POINTS1 INTERPRETATIONNEGATIVE OCCUPATION: RETIRED. SEXUAL HX HAD SEX IN THE LAST 12 MONTHS (VAGINAL, ORAL, OR ANAL)?YES WITHMEN ONLY USE PROTECTION?NO LMP:HYSTER HAVE YOU EVER HAD AN STD?NO REVEIWED WITH PT 08/08/17 1344 BVREVIEWED WITH PT 11/10/17 1320 LAS12/13 18 1100 REVIEWED WITH PT. AD REVIEWED WITH PATIENT 09/22/18 1124 NLJ. HOSPITALIZATION/MAJOR DIAGNOSTIC PROCEDURE SURG RELATED PLUS 1 G-I BLEED REVIEW OF SYSTEMS REVIEWED BY: PROVIDER: RICK WILLIS . CONSTITUTIONAL: ANY CHANGE IN YOUR MEDICAL CONDITION? NO . CHILLS NO . FEVER NO . INFECTION: DO YOU HAVE NEW INFECTIONS? NO . DO YOU HAVE HISTORY OF MRSA? NO . MUSCULOSKELETAL: ANY NEW PATTERNS OF PAIN OR NUMBNESS? YES- INCREASED PAIN IN NECK, PATIENT STATES PAIN IS NORMALLY 2-4 ON A DAILY BASIS AN LATELY IT HAS BEEN 5 OR HIGHER DAILY, INCREASED NUMBNESS AND TINGLING IN BILATERAL HANDS . GASTROENTEROLOGY: ANY NEW CHANGE IN BOWEL CONTROL? NO . GENITOURINARY: ANY NEW CHANGE IN BLADDER CONTROL? NO . IS THERE A CHANCE YOU COULD BE ? NO . HEMATOLOGY/LYMPH: DO YOU TAKE ANY BLOOD THINNERS? (FOR EXAMPLE- COUMADIN, PLAVIX, AGGRENOX, PLATEL, PRADAXA, OR XARELTO) NO . WHEN WAS YOUR LAST DOSE? DATE: TIME: . NEUROLOGY: HAVE YOU FALLEN IN THE PAST 12 MONTHS? YES- PREVIOUSLY DOCUMENTED . ANY NEW EXTREMITY NUMBNESS OR WEAKNESS? NO . CARDIOLOGY: DO YOU HAVE A PACEMAKER OR DEFIBRILLATOR? YES- DORSAL COLUMN STIMULATOR IN LOW BACK AND NECK . RESPIRATORY: HAVE YOU BEEN SICK IN THE PAST WEEK? NO . FEVER NO . FLU LIKE SYMPTOMS? NO . COUGH NO . INTEGUMENTARY: DO YOU HAVE ANY RASHES OR OPEN SORES? NO . ALLERGIC/IMMUNO: ARE YOU ALLERGIC TO IV DYE? NO . ANY NEW ALLERGIES? NO . PSYCHIATRIC: DO YOU HAVE THOUGHTS OF HURTING YOURSELF OR SOMEONE ELSE? NO . ARE YOU ABUSED, NEGLECTED, OR IN AN UNSAFE ENVIRONMENT? NO . ENDOCRINOLOGY: ARE YOU DIABETIC? NO . OTHER: DO YOU NEED ANY PRESCRIPTIONS? YES- NEEDS TRAMADOL, GABAPENTIN AND LYRICA REFILLED . IF YES, PLEASE LIST: ____TRAMADOL, GABAPENTIA, LYRCIA . ANY NEW PROBLEMS WITH YOUR MEDICATIONS? NO . WHEN DID YOU LAST EAT? ____ . WHEN DID YOU LAST DRINK? ____ . WHAT DID YOU LAST DRINK? ____ . NAME OF PERSON DRIVING YOU HOME? ____ . DO YOU HAVE ANY OTHER QUESTIONS OR CONCERNS YES- WOULD LIKE TO DISCUSS HAVING MORE INJECTIONS IN LOWER BACK AND NECK . VITAL SIGNS WT 153.0 LBS, HT 66 IN, BMI 24.69 INDEX, BP 121/64 MM HG, HR 102 /MIN, RR 18 /MIN, TEMP 97.6 F, OXYGEN SAT % 96%, SAFE IN ENV? (Y/N) YES, REVIEWED BY: SCOTT. EXAMINATION GENERAL EXAMINATION: LUNGS: LUNG SOUNDS ARE CLEAR . HEART: HEART RATE REGULAR . MUSCULOSKELETAL:*, MUSCLE STRENGTH TESTING 5/5 BILATERAL UPPER EXTREMITIES. . CERVICAL+ FOR PAIN WITH PALPATION OF CERVICAL SPINE. + FOR PAIN WITH PALPATION OF CERVICAL PARASPINALS.SPECIFIC POINT TENDERNESS NOTED OV C4/5-/C5/6 CERVICAL FACETS WITH EXTENSION AND FACET LOADING.. DIAGNOSTIC TESTS REVIEWED CERVICAL MRI . 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 PROCEDURES PN WORKMANS' COMP OPINION IN YOUR OPINION, WAS THE INCIDENT THAT THE PATIENT DESCRIBED THE COMPETENT MEDICAL CAUSE OF THIS INJURY/ILLNESS? YES ARE THE PATIENT'S COMPLAINTS CONSISTENT WITH HIS/HER HISTORY OF THE INJURY/ILLNESS? YES IS THE PATIENT'S HISTORY OF THE INJURY/ILLNESS CONSISTENT WITH YOUR OBJECTIVE FINDING? YES WHAT IS THE PERCENTAGE OF TEMPORARY IMPAIRMENT? MODERATE TO MARKED = 66.7% IS THE PATIENT WORKING? NO DOCTOR ON SITE: JENNIFER STEPHENS MD [facility] TEACHING: PROCEDURE TEACHING PROCEDURE AND PRE PROCEDURE INSTRUCTIONS REVIEWED WITH PATIENT, PATIENT VERBALIZES UNDERSTANDING. LAS. PROCEDURE CODES FA211 ESTABILISHED PATIENT [facility] CHARGE DISPOSITION & COMMUNICATION FOLLOW UP POST (REASON: W/C C4/5-C5/6 CFBT BILAT ) ELECTRONICALLY SIGNED BY ALBA DENNIS ON 10/06/2018 AT 02:54 PM EDT DISCLAIMER : THIS IS A VISIT SUMMARY EXTRACTED FROM THE [facility] CHART. IT IS NOT A COPY OF THE [employer] PROGRESS NOTE. RAULITO
== END ==
LOC: M PAIN 11:15
PROVIDERS: ATTEND Nurse Practitioner Family
DX: M47.813 Spondylosis without myelopathy or radiculopathy, cervicothoracic region (principal); G89.29 Other chronic pain; I10 Essential (primary) hypertension; E78.00 Pure hypercholesterolemia, unspecified; K21.9 Gastro-esophageal reflux disease without esophagitis; R73.09 Other abnormal glucose; Z86.59 Personal history of other mental and behavioral disorders; Z98.84 Bariatric surgery status; Z87.891 Personal history of nicotine dependence; Z88.3 Allergy status to other anti-infective agents; Z88.6 Allergy status to analgesic agent; Z88.8 Allergy status to other drugs, medicaments and biological substances; Z96.9 Presence of functional implant, unspecified; Z79.891 Long term (current) use of opiate analgesic; Z79.899 Other long term (current) drug therapy

== ENCOUNTER → 2018-10-27 | Outpatient (REF) | payer MEDICARE ==
[~2018-10-27] MED LIST changes: +ACET-683 PO; +LEVO50TA5 PO; -OMEP40CA2 PO; +OMEP40CA97 PO; +VITA50005 PO
[2018-10-27 15:31] LABS: FREE T4 0.73 NG/DL (0.76-1.46)
[2018-10-27 15:32] LABS: FOLATE 5.5 NG/ML; VITAMIN B12 LEVEL > 2000 PG/ML
== END ==
LOC: M SFHCADAM 11:42
PROVIDERS: ATTEND Physician Assistant
DX: Z92.3 Personal history of irradiation (principal); Z98.84 Bariatric surgery status

== ENCOUNTER → 2018-11-11 | Outpatient (CLI) | payer OTHER ==
[~2018-11-11] MED LIST changes: -ACET-683 PO; +BUPIVACAINE HCL 0.25% 30 ML VIAL As Ordered ONE; +ISOVUE-M 300 61% 15ML VIAL (Q9967) As Ordered ONE; +LIDOCAINE 1% SDV INJ 30 ML VIAL As Ordered ONE; +OMEP40CA2 PO; -OMEP40CA97 PO; +TRIAMCINOLONE ACETONIDE SUSP 40 MG/ML VIAL (J3301) As Ordered ONE; -VITA50005 PO; +diazePAM 5 MG TAB As Ordered ONE; +oxyCODONE 5MG TAB As Ordered ONE
--- NOTE | 2018-11-11 13:41 | REP ---
C-ARM VIEW CERVICAL SPINE: CLINICAL HISTORY: Pain. A C-arm view of the cervical spine is performed during bilateral facet injection by Dr. Daniels. Bradford are seen along the lower cervical facets bilaterally and a small amount of contrast is injected. 13 seconds fluoroscopy time utilized. Electronically Signed by Dinh Peralta MD 11/11/2018 03:21 P
--- NOTE | 2018-11-23 00:04 | ECWPNPC ---
PATIENT NAME: RACHEL MARTINEZ : 1965 GENDER: FEMALE VISIT DATE: 11/11/2018 DISCHARGE DATE: 11/11/18 1245 VISIT LOCKED DATE TIME: PHYSICIAN: JENNIFER MANUEL MD RESOURCE: JENNIFER MANUEL MD REASON FOR APPOINTMENT 1. W/C C6-C7, C7-T1 CFBT BILAT HISTORY OF PRESENT ILLNESS HISTORY OF PRESENT ILLNESS: PAIN THE PATIENT DESCRIBES THE PAIN... FALL RISK SCREENING: SCREENING :NO FALLS REPORTED IN THE LAST YEAR CURRENT MEDICATIONS TAKING DRISDOL 31511 UNIT CAPSULE 1 CAPSULE ORALLY EVERY OTHER WEEK TAKING CRESTOR 10 MG TABLET 1 TABLET ORALLY ONCE A DAY TAKING SUCRALFATE 1 GM/10ML SUSPENSION 10 ML ORALLY TWICE A DAY NEEDED TAKING EFFEXOR XR 150 MG CAPSULE EXTENDED RELEASE 24 HOUR 3 CAPSULE WITH FOOD ORALLY ONCE A DAY TAKING ABILIFY 15 MG TABLET 1 TABLET ORALLY ONCE A DAY TAKING OMEPRAZOLE 40 MG CAPSULE DELAYED RELEASE 1 CAPSULE ORALLY ONCE A DAY TAKING VENTOLIN HFA 108 (90 BASE) MCG/ACT AEROSOL SOLUTION 2 PUFFS NEEDED INHALATION EVERY 4 HRS NEEDED FOR SHORTNESS OF BREATH TAKING FLONASE 50 MCG/ACT SUSPENSION 1 SPRAY IN EACH NOSTRIL NASALLY ONCE A DAY NEEDED TAKING VITAMIN B-12 5000 MCG LOZENGE DIRECTED ORALLY ONCE A DAY TAKING ESTRADIOL 2 MG TABLET 1 TABLET ORALLY ONCE A DAY TAKING TRAMADOL HCL 50 MG TABLET 1-2 TAB ORALLY Q8H PRN MDD4 TAKING LYRICA 150 MG CAPSULE 1 CAPSULE ORALLY Q8H MDD3 TAKING GABAPENTIN 600 MG TABLET 1 TABLET P.O. FOUR TIMES DAILY TAKING AZELASTINE HCL 0.15 % SOLUTION 1 DROP IN EACH NOSTRIL NASALLY TWICE A DAY TAKING LEVOTHYROXINE SODIUM 50 MCG TABLET 1 TABLET ON AN EMPTY STOMACH IN THE MORNING ORALLY ONCE A DAY MEDICATION LIST REVIEWED AND RECONCILED WITH THE PATIENT PAST MEDICAL HISTORY SUPRAGLOTTIC LARYNGEAL CANCER, STAGE KIZZY [id number]-- RAD TX X 35 SESSIONS WITH CISPLATIN CHEMOTX CHRONIC LOWER BACK PAIN, DORSAL COLUMN STIMULATOR IN PLACE - [facility] HTN HYPERCHOLESTEROLEMIA GERD/H/O PUD WITH GI BLEED IN PAST SECONDARY TO CELEBREX ENDOMETRIOSIS PREDIABETES TOBACCO ABUSE CHRONIC NARCOTIC DEPENDENCE - WEANING OXYCODONE PER PAIN CLINIC ECHO - 02/28/17 - NORMAL LV SIZE AND WALL THICKNESS EF 70% GRADE 1 DIASTOLIC DYSFUNCTION ANXIETY/DEPRESSION/AGORAPHOBIA WITH PANIC ATTACKS - PSYCHIATRIST IRON DEF - HAD IRON INFUSION 04/2018 ALLERGIES NSAIDS: BLEEDING - CONTRAINDICATION BETADINE: RASH - ALLERGY SKELAXIN: RASH - ALLERGY METFORMIN HCL: DIARRHEA - SIDE EFFECTS SURGICAL HISTORY TONSILLECTOMY TUBAL LIGATION 03/1989 ECTOPIC 09/1989 HYSTERECTOMY D/T PRE-CANCEROUS 1989 BSO 1999 LUMBAR LAMINECTOMY L4-L5 08/1997 TARSAL TUNNEL-BILATERAL FEET 2004 BILATERAL CARPAL TUNNEL RELEASE 2001 LUMBAR STIMULATOR PLACED 2005 CERVICAL STIMULATOR PLACED 2008 RIGHT CARPAL TUNNEL RELEASE 06/2013 GASTRIC BYPASS 2009 COLONOSCOPY WITH POLYP RESECTION, BENIGN 2011 CHOLECYSTECTOMY 12/2010 TOE NAIL SURGERY 08/10/15 TUBE PLACEMENT RIGHT EAR, BIOPSY SINUS CAVITY NODULE 05/2016 LYMPH NODE, THROAT BIOPSY MALIGNANT 05/2017 FEEDING TUBE 06/2017 CHEMO PORT PLACEMENT 06/2017 COLONOSCOPY 07/2016 FAMILY HISTORY FATHER: ALIVE MOTHER: ALIVE, DIAGNOSED WITH DIABETES, HYPERTENSION, OTHER MALIGNANT NEOPLASM OF UNSPECIFIED SITE 1 SON(S) , 1 DAUGHTER(S) - HEALTHY. MOM-LEFT BREAST CA. SOCIAL HISTORY GENERAL: TOBACCO USE ARE YOU A:FORMER SMOKER HOW LONG HAS IT BEEN SINCE YOU LAST SMOKED?6-12 MONTHS QUIT 05/19/17 HIV / HEP-C SCREENING HIV TEST OFFERED TO PATIENT:YES DATE OFFERED:07/29/2017 TEST ACCEPTED:NO REASON:PATIENT DECLINED BROCHURE PROVIDED TO PATIENTNO OTHERS AT HOME: SPOUSE. EDUCATION LEVEL OF EDUCATION:NOT FINISHED COLLEGE DIET: REGULAR. LANGUAGE [facility] [place]. DOMESTIC VIOLENCE DO YOU FEEL SAFE IN YOUR ENVIRONMENT?YES BMI CARE GOAL FOLLOW-UP ABOVE NORMAL BMI FOLLOW-UPDIETARY MANAGEMENT EDUCATION, GUIDANCE, AND COUNSELING RECREATIONAL DRUG USE DRUG USE?NO EXERCISE: NO REGULAR EXERCISE. 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 PICKER AND PACKER NEEDED?NO PAIN CLINIC PFS, CLERGY, PUBLIC HEALTH REFERRALS WAS THE PROVIDER NOTIFIED OF ANY PERTINENT INFO?YES N/A HAS THE PATIENT BEEN EDUCATED REGARDING HIS/HER PLAN OF CARE?YES HAS THE PATIENT BEEN EDUCATED REGARDING PAIN, THE RISK FOR PAIN, THE IMPORTANCE OF EFFECTIVE PAIN MANAGEMENT, AND THE PAIN ASSESSMENT PROCESS?YES LATEX QUESTIONNAIRE LATEX ALLERGY : HAVE YOU EVER DEVELOPED ANY TYPE OF REACTION AFTER HANDLING LATEX PRODUCTS SUCH RUBBER GLOVES, CONDOMS, DIAPHRAGMS, BALLOONS, SOCKS, OR UNDERWEAR?NO LATEX ALLERGY : HAVE YOU EVER DEVELOPED ANY TYPE OF REACTION DURING OR AFTER DENTAL APPOINTMENT, VAGINAL/RECTAL EXAMINATION, SURGICAL PROCEDURE, OR ANY OTHER EXPOSURE?NO LATEX RISK : HAVE YOU EVER HAD ANY DIFFICULTY BREATHING OR HIVES AFTER EATING OR HANDLING ANY FRUITS, OR VEGETABLES; SUCH KIWI, BANANAS, STONE FRUITS, OR CHESTNUTSNO LATEX RISK : DO YOU HAVE A PREVIOUS PERSONAL HISTORY OF MORE THAN NINE SURGERIES, SPINA BIFIDA, OR REPEATED CATHERIZATIONS? YES - PLEASE INDICATE : > 9 SURGERIES LATEX RISK : ARE YOU FREQUENTLY EXPOSED TO LATEX PRODUCTS IN YOUR OCCUPATION?NO DATE ASKED : 11/11/2018 CAFFEINE CAFFEINE USE?YES HOW OFTEN AND HOW MUCH? COFFEE 6 CUPS DAILY, 2 SODAS DAILY ADVANCE DIRECTIVE ADVANCE DIRECTIVE DISCUSSED WITH PATIENT:YES PT [phone] M[facility] [id number] [facility] STATUS: . ALCOHOL SCREENING DID YOU HAVE A DRINK CONTAINING ALCOHOL IN THE PAST YEAR?YES HOW OFTEN DID YOU HAVE SIX OR MORE DRINKS ON ONE OCCASION IN THE PAST YEAR?NEVER (0 POINTS) HOW MANY DRINKS DID YOU HAVE ON A TYPICAL DAY WHEN YOU WERE DRINKING IN THE PAST YEAR?1 OR 2 (0 POINTS) HOW OFTEN DID YOU HAVE A DRINK CONTAINING ALCOHOL IN THE PAST YEAR?MONTHLY OR LESS (1 POINT) POINTS1 INTERPRETATIONNEGATIVE OCCUPATION: RETIRED. SEXUAL HX HAD SEX IN THE LAST 12 MONTHS (VAGINAL, ORAL, OR ANAL)?YES WITHMEN ONLY USE PROTECTION?NO LMP:HYSTER HAVE YOU EVER HAD AN STD?NO REVEIWED WITH PT 08/08/17 1344 BVREVIEWED WITH PT 11/10/17 1320 LAS01/29 18 1100 REVIEWED WITH PT. SHARAN REVIEWED WITH PATIENT 09/22/18 1124 NLJ. HOSPITALIZATION/MAJOR DIAGNOSTIC PROCEDURE SURG RELATED PLUS 1 G-I BLEED REVIEW OF SYSTEMS REVIEWED BY: PROVIDER: . CONSTITUTIONAL: ANY CHANGE IN YOUR MEDICAL CONDITION? NO . CHILLS NO . FEVER NO . INFECTION: DO YOU HAVE NEW INFECTIONS? NO . DO YOU HAVE HISTORY OF MRSA? NO . MUSCULOSKELETAL: ANY NEW PATTERNS OF PAIN OR NUMBNESS? NO . GASTROENTEROLOGY: ANY NEW CHANGE IN BOWEL CONTROL? NO . GENITOURINARY: ANY NEW CHANGE IN BLADDER CONTROL? NO . IS THERE A CHANCE YOU COULD BE ? NO . HEMATOLOGY/LYMPH: DO YOU TAKE ANY BLOOD THINNERS? (FOR EXAMPLE- COUMADIN, PLAVIX, AGGRENOX, PLATEL, PRADAXA, OR XARELTO) NO . WHEN WAS YOUR LAST DOSE? DATE: TIME: . NEUROLOGY: HAVE YOU FALLEN IN THE PAST 12 MONTHS? YES, PT STATES THAT SHE FELL WHILE AT HOME, TRIPPED, NO INJURY, NO REPORT TO ED. . ANY NEW EXTREMITY NUMBNESS OR WEAKNESS? NO . CARDIOLOGY: DO YOU HAVE A PACEMAKER OR DEFIBRILLATOR? YES, 2 DCS, CERVICAL AND LUMBAR . RESPIRATORY: HAVE YOU BEEN SICK IN THE PAST WEEK? NO . FEVER NO . FLU LIKE SYMPTOMS? NO . COUGH NO . INTEGUMENTARY: DO YOU HAVE ANY RASHES OR OPEN SORES? NO . ALLERGIC/IMMUNO: ARE YOU ALLERGIC TO IV DYE? NO . ANY NEW ALLERGIES? NO . PSYCHIATRIC: DO YOU HAVE THOUGHTS OF HURTING YOURSELF OR SOMEONE ELSE? NO . ARE YOU ABUSED, NEGLECTED, OR IN AN UNSAFE ENVIRONMENT? NO . ENDOCRINOLOGY: ARE YOU DIABETIC? NO . OTHER: DO YOU NEED ANY PRESCRIPTIONS? NO . IF YES, PLEASE LIST: ____ . ANY NEW PROBLEMS WITH YOUR MEDICATIONS? NO . WHEN DID YOU LAST EAT? 11/10 12 MIDNIGHT . WHEN DID YOU LAST DRINK? 11/11 TAKING SIPS OF WATER DUE TO HX OF THROAT CA, MD MANUEL AWARE . WHAT DID YOU LAST DRINK? WATER . NAME OF PERSON DRIVING YOU HOME? ROYAL PENDING SALE TO [facility] . DO YOU HAVE ANY OTHER QUESTIONS OR CONCERNS 10/27/18 PT RECEIVED PNEUMONIA VACCINATION, MD MANUEL NEEDS TO DISCUSS CERVICAL CT RESULTS WITH PT. DS . VITAL SIGNS WT 161.8 LBS, HT 66 IN, BMI 26.11 INDEX, BP 125/71 MM HG, HR 83 /MIN, RR 18 /MIN, TEMP 98.6 F, OXYGEN SAT % 99%, SAFE IN ENV? (Y/N) Y', NA INITIALS SC 10:02, REVIEWED BY: MODESTO. 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 REED THE CT SCAN OF THE SPINE DONE ON 10/06/2018. UNDER IMPRESSION, ITEM #3 IT SHOULD SAY THERE IS NO RETROPHARYNGEAL ABSCESS INSTEAD OF THERE IS RETROPHARYNGEAL ABSCESS. THEY WILL DO A CORRECTION IN THE REPORT. . PROCEDURES PN CERVICAL FACET BLOCK LOW BILATERAL CERVICAL PRE PROCEDURE DIAGNOSIS CERVICAL SPONDYLOSIS, CERVICOTHORACIC SPONDYLOSIS POST PROCEDURE DIAGNOSIS CERVICAL SPONDYLOSIS, CERVICOTHORACIC SPONDYLOSIS PROCEDURE BILATERAL C6-C7 AND C7-T1 CERVICAL FACET BLOCK THERAPEUTIC SURGEON DR. JENNIFER MANUEL TERMITE CONTROL TECHNICIAN NONE ANESTHESIA LOCAL PRE PROCEDURE NOTE THE PATIENT HAS HISTORY OF CHRONIC CERVICAL PAIN. I EVALUATED THE PATIENT AND REVIEWED THE CHART. I WENT OVER THE RISKS, ALTERNATIVES, AND BENEFITS ASSOCIATED WITH THIS PROCEDURE. THE PATIENT WOULD LIKE TO PROCEED AND GIVES CONSENT TO PERFORM THE PROCEDURE. THE PATIENT DENIES UNEXPLAINABLE WEIGHT LOSS, FEVER, CHILLS, OR NEW CHANGES IN URINARY OR BOWEL CONTROL. DESCRIPTION OF PROCEDURE THE PATIENT WAS BROUGHT TO THE PROCEDURE ROOM AND PLACED IN THE PRONE POSITION. THE CERVICOTHORACIC AREA WAS CLEANED WITH CHLORAPREP SOLUTION AND DRAPED ASEPTICALLY. THE PROCEDURE WAS DONE UNDER STERILE CONDITIONS. I CHECKED LATERALITY AND THE LEVEL WHERE THE PROCEDURE WAS GOING TO BE PERFORMED WITH THE PATIENT AND THE SUPPORTING STAFF AT THE MOMENT OF THE TIME OUT IN THE PROCEDURE ROOM. UNDER FLUOROSCOPIC GUIDANCE, TARGET POINT WAS SELECTED AT THE RIGHT AND LEFT C6-C7 AND RIGHT AND LEFT C7-T1 CERVICAL FACET JOINTS. TARGET POINTS WERE SELECTED AFTER LATERAL ROTATION AND TILT OF THE MAGNIFIER OF THE C-ARM. LIDOCAINE 0.5% WAS USED TO NUMB THE SKIN AND THE SUBCUTANEOUS TISSUE BELOW IT. SPINAL NEEDLES, 22-GAUGE, WERE ADVANCED UNDER FLUOROSCOPIC GUIDANCE AND FOLLOWING PATIENT FEEDBACK UNTIL THE TARGETS WERE TOUCHED. THE POSITION OF THE NEEDLES WAS VERIFIED WITH AP AND LATERAL VIEWS. AFTER PROPER POSITION OF THE NEEDLES WAS ACHIEVED, ISOVUE M DYE 30, 0.1 ML WAS INJECTED SHOWING SPREAD OF THE DYE. THEN A SOLUTION OF 0.9 ML OF BUPIVACAINE 0.125% AND KENALOG 10 MG WAS INJECTED AT EACH SITE. THERE WAS NO EVIDENCE OF BLOOD, PARESTHESIA OR CEREBROSPINAL FLUID DURING THE PROCEDURE. THE PATIENT WAS SENT TO THE RECOVERY ROOM. THE PATIENT WAS MOVING THE EXTREMITIES AND DOING WELL. THERE WAS NO COMPLICATION DURING THE PROCEDURE. FLUOROSCOPY TIME WAS 13 SECONDS POST PROCEDURE NOTE THE PATIENT WILL BE SEEN IN A FOLLOW UP IN THE NEXT FEW WEEKS. INSTRUCTIONS WERE GIVEN, QUESTIONS WERE ANSWERED, AND THE PATIENT EXPRESSED UNDERSTANDING AND AGREES WITH THE PLAN. I, PUNEET [employer]EMRIC, DOCUMENTED THE ABOVE INFORMATION ACTING A SCRIBE FOR DR. MANUEL. I HAVE REVIEWED THE ABOVE DOCUMENT, WRITTEN BY PUNEET DHALIWAL SCRIBE AND I VERIFY THAT IT IS ACCURATE. PN WORKMANS' COMP OPINION IN YOUR OPINION, WAS THE INCIDENT THAT THE PATIENT DESCRIBED THE COMPETENT MEDICAL CAUSE OF THIS INJURY/ILLNESS? YES ARE THE PATIENT'S COMPLAINTS CONSISTENT WITH HIS/HER HISTORY OF THE INJURY/ILLNESS? YES IS THE PATIENT'S HISTORY OF THE INJURY/ILLNESS CONSISTENT WITH YOUR OBJECTIVE FINDING? YES WHAT IS THE PERCENTAGE OF TEMPORARY IMPAIRMENT? MODERATE TO MARKED = 66.7% IS THE PATIENT WORKING? NO DOCTOR ON SITE: JENNIFER STEPHENS MD PROCEDURE CODES 56956 INJ PARAVERT F JNT C/T 1 LEV, MODIFIERS: 50 [id number] INJ PARAVERT F JNT C/T 2 LEV, MODIFIERS: 50 [id number] RADXPS IN END [id number] [id number] DISPOSITION & COMMUNICATION FOLLOW UP 3 WEEKS ELECTRONICALLY SIGNED BY JENNIFER MANUEL MD, MD ON 11/22/2018 AT 12:06 PM EDT DISCLAIMER : THIS IS A VISIT SUMMARY EXTRACTED FROM THE [employer] CHART. IT IS NOT A COPY OF THE [employer] PROGRESS NOTE. MTDD
== END ==
LOC: M PAIN 10:00
PROVIDERS: ATTEND Anesthesiology
DX: M47.812 Spondylosis without myelopathy or radiculopathy, cervical region (principal); M47.813 Spondylosis without myelopathy or radiculopathy, cervicothoracic region; I10 Essential (primary) hypertension; E78.00 Pure hypercholesterolemia, unspecified; K21.9 Gastro-esophageal reflux disease without esophagitis; R73.03 Prediabetes; F41.9 Anxiety disorder, unspecified; F32.9 Major depressive disorder, single episode, unspecified; F40.01 Agoraphobia with panic disorder; C32.0 Malignant neoplasm of glottis; Z87.891 Personal history of nicotine dependence; Z79.891 Long term (current) use of opiate analgesic; Z79.899 Other long term (current) drug therapy; Z90.710 Acquired absence of both cervix and uterus; Z98.84 Bariatric surgery status; Z88.6 Allergy status to analgesic agent; Z88.8 Allergy status to other drugs, medicaments and biological substances; Z93.1 Gastrostomy status
CPT/HCPCS: 64490; 64491; J3301; Q9967

== ENCOUNTER → 2018-11-18 | Outpatient (CLI) | payer MEDICARE ==
[~2018-11-18] MED LIST changes: -BUPIVACAINE HCL 0.25% 30 ML VIAL As Ordered ONE; -ISOVUE-M 300 61% 15ML VIAL (Q9967) As Ordered ONE; -LIDOCAINE 1% SDV INJ 30 ML VIAL As Ordered ONE; -TRIAMCINOLONE ACETONIDE SUSP 40 MG/ML VIAL (J3301) As Ordered ONE; -diazePAM 5 MG TAB As Ordered ONE; -oxyCODONE 5MG TAB As Ordered ONE
--- NOTE | 2018-11-18 12:59 | REPMRS ---
Patient History The patient states she had a clinical breast exam in 11/2018. Patient is postmenopausal, has history of other cancer at age 52, and had previous chemotherapy at age 52. Family history of breast cancer at age 50 or over in mother, prostate cancer and colorectal cancer at age 50 or over in maternal grandfather, breast cancer at age 40 in maternal aunt. Taking estrogen for 18 years 4 months. 3D TOMOSYNTHESIS WAS PERFORMED. [facility] lifetime risk for breast cancer is 14.0%. Digital Woman Screen Mammo: November 18, 2018 - Exam #: [id number] Bilateral CC and MLO view(s) were taken. Technologist: Carleen Corey Technologist Prior study comparison: July 29, 2017, bilateral digital woman screen mammo performed at [facility]. January 09, 2016, digital woman screen mammo performed at [facility]. FINDINGS: The breast tissue is heterogeneously dense. This may lower the sensitivity of mammography. There has been no change in the appearance of the mammogram from the prior studies. There is a moderate amount of residual fibroglandular tissue which is fairly symmetric. There is no interval development of dominant mass, areas of architectural distortion, or clustered microcalcification typical of malignancy. Assessment: BI-RADS/ACR category 1 mammogram. Negative Mammogram. Recommendation Routine screening mammogram in 1 year (for women over age 40). This mammogram was interpreted with the aid of an FDA-approved computer-aided dectection system. Electronically Signed By: Dinh Peralta MD 11/18/18 7861
== END ==
LOC: M WHC 09:43
PROVIDERS: ATTEND Nurse Practitioner Women's Health
DX: Z12.31 Encounter for screening mammogram for malignant neoplasm of breast (principal); Z78.0 Asymptomatic menopausal state; Z85.89 Personal history of malignant neoplasm of other organs and systems; Z92.21 Personal history of antineoplastic chemotherapy; Z80.3 Family history of malignant neoplasm of breast; Z92.23 Personal history of estrogen therapy
CPT/HCPCS: 77063; 77067; G0463

== ENCOUNTER → 2018-12-08 | Outpatient (CLI) | payer OTHER ==
[~2018-12-08] MED LIST changes: -OMEP40CA2 PO; +OMEP40CA97 PO
--- NOTE | 2018-12-22 02:16 | ECWPNPC ---
PATIENT NAME: RACHEL MARITNEZ : 1965 GENDER: FEMALE VISIT DATE: 12/08/2018 DISCHARGE DATE: 12/08/18 1200 VISIT LOCKED DATE TIME: PHYSICIAN: RICK GIL RESOURCE: RICK GIL REASON FOR APPOINTMENT 1. W/C POST C4/5-C5/6 CFBT BILAT HISTORY OF PRESENT ILLNESS HISTORY OF PRESENT ILLNESS: HERE FOR POST PROCEDURE U.HAD BILAT C7/T1 CFB THERAPEUTIC ON 11/11/18.REPORTING SIGNIFICANT REDUCTION IN PAIN THAT CONTINUES TODAY.RATING NECK PAIN TODAY 3 /10.REPORTING IMPROVEMENT WITH ROJM NECK SINCE INJECTION.CHIEF AREA OF PAIN IS LOW BACK WITH RADIATION INTO BILAT.LOWER EXTREMITIES WITH RIGHT LEG PAIN EXTENDED INTO FOOT AND LEFT LEG REPORTED INTERMITTENT IN NATURE.RATING LBP 6/10.THIS IS A WORK RELATED INJURY WITH DOI:JANUARY 1999. PAIN THE PATIENT DESCRIBES THE PAIN... FALL RISK SCREENING: SCREENING :NO FALLS REPORTED IN THE LAST YEAR CURRENT MEDICATIONS TAKING ARIPIPRAZOLE 15 MG TABLET TAKE ONE TABLET BY MOUTH EVERY DAY ORAL TAKING ESOMEPRAZOLE MAGNESIUM 40 MG CAPSULE DELAYED RELEASE TAKE ONE CAPSULE BY MOUTH EVERY DAY ORAL TAKING DRISDOL [id number] UNIT CAPSULE 1 CAPSULE ORALLY EVERY OTHER WEEK TAKING CRESTOR 10 MG TABLET 1 TABLET ORALLY ONCE A DAY TAKING SUCRALFATE 1 GM/10ML SUSPENSION 10 ML ORALLY TWICE A DAY NEEDED TAKING EFFEXOR XR 150 MG CAPSULE EXTENDED RELEASE 24 HOUR 3 CAPSULE WITH FOOD ORALLY ONCE A DAY TAKING ABILIFY 15 MG TABLET 1 TABLET ORALLY ONCE A DAY TAKING VENTOLIN HFA 108 (90 BASE) MCG/ACT AEROSOL SOLUTION 2 PUFFS NEEDED INHALATION EVERY 4 HRS NEEDED FOR SHORTNESS OF BREATH TAKING FLONASE 50 MCG/ACT SUSPENSION 1 SPRAY IN EACH NOSTRIL NASALLY ONCE A DAY NEEDED TAKING VITAMIN B-12 5000 MCG LOZENGE DIRECTED ORALLY ONCE A DAY TAKING TRAMADOL HCL 50 MG TABLET 1-2 TAB ORALLY Q8H PRN MDD4 TAKING LYRICA 150 MG CAPSULE 1 CAPSULE ORALLY Q8H MDD3 TAKING GABAPENTIN 600 MG TABLET 1 TABLET P.O. FOUR TIMES DAILY TAKING AZELASTINE HCL 0.15 % SOLUTION 1 DROP IN EACH NOSTRIL NASALLY TWICE A DAY TAKING LEVOTHYROXINE SODIUM 50 MCG TABLET 1 TABLET ON AN EMPTY STOMACH IN THE MORNING ORALLY ONCE A DAY TAKING ESTRADIOL 2 MG TABLET 1 TABLET ORALLY ONCE A DAY NOT-TAKING OMEPRAZOLE 40 MG CAPSULE DELAYED RELEASE 1 CAPSULE ORALLY ONCE A DAY MEDICATION LIST REVIEWED AND RECONCILED WITH THE PATIENT PAST MEDICAL HISTORY SUPRAGLOTTIC LARYNGEAL CANCER, STAGE KIZZY [id number]-- RAD TX X 35 SESSIONS WITH CISPLATIN CHEMOTX CHRONIC LOWER BACK PAIN, DORSAL COLUMN STIMULATOR IN PLACE - [facility] HTN HYPERCHOLESTEROLEMIA GERD/H/O PUD WITH GI BLEED IN PAST SECONDARY TO CELEBREX ENDOMETRIOSIS PREDIABETES TOBACCO ABUSE CHRONIC NARCOTIC DEPENDENCE - WEANING OXYCODONE PER PAIN CLINIC ECHO - 02/28/17 - NORMAL LV SIZE AND WALL THICKNESS EF 70% GRADE 1 DIASTOLIC DYSFUNCTION ANXIETY/DEPRESSION/AGORAPHOBIA WITH PANIC ATTACKS - PSYCHIATRIST IRON DEF - HAD IRON INFUSION 04/2018 HYPOTHYROID ALLERGIES NSAIDS: BLEEDING - CONTRAINDICATION BETADINE: RASH - ALLERGY SKELAXIN: RASH - ALLERGY METFORMIN HCL: DIARRHEA - SIDE EFFECTS SURGICAL HISTORY TONSILLECTOMY TUBAL LIGATION 03/1989 ECTOPIC 09/1989 HYSTERECTOMY D/T PRE-CANCEROUS 1989 BSO 1999 LUMBAR LAMINECTOMY L4-L5 08/1997 TARSAL TUNNEL-BILATERAL FEET 2003 BILATERAL CARPAL TUNNEL RELEASE 2001 LUMBAR STIMULATOR PLACED 2005 CERVICAL STIMULATOR PLACED 2008 RIGHT CARPAL TUNNEL RELEASE 06/2013 GASTRIC BYPASS 2009 COLONOSCOPY WITH POLYP RESECTION, BENIGN 2011 CHOLECYSTECTOMY 12/2010 TOE NAIL SURGERY 08/10/15 TUBE PLACEMENT RIGHT EAR, BIOPSY SINUS CAVITY NODULE 05/2016 LYMPH NODE, THROAT BIOPSY MALIGNANT 05/2017 FEEDING TUBE 06/2017 CHEMO PORT PLACEMENT 06/2017 COLONOSCOPY 07/2016 FAMILY HISTORY FATHER: ALIVE MOTHER: ALIVE, DIAGNOSED WITH DIABETES, HYPERTENSION, OTHER MALIGNANT NEOPLASM OF UNSPECIFIED SITE 1 SON(S) , 1 DAUGHTER(S) - HEALTHY. MOM-LEFT BREAST CA. SOCIAL HISTORY GENERAL: TOBACCO USE ARE YOU A:FORMER SMOKER HOW LONG HAS IT BEEN SINCE YOU LAST SMOKED?6-12 MONTHS QUIT 05/19/17 HIV / HEP-C SCREENING HIV TEST OFFERED TO PATIENT:YES DATE OFFERED:07/29/2017 TEST ACCEPTED:NO REASON:PATIENT DECLINED BROCHURE PROVIDED TO PATIENTNO OTHERS AT HOME: SPOUSE. EDUCATION LEVEL OF EDUCATION:NOT FINISHED COLLEGE DIET: REGULAR. LANGUAGE DUTCH. DOMESTIC VIOLENCE DO YOU FEEL SAFE IN YOUR ENVIRONMENT?YES BMI CARE GOAL FOLLOW-UP ABOVE NORMAL BMI FOLLOW-UPDIETARY MANAGEMENT EDUCATION, GUIDANCE, AND COUNSELING RECREATIONAL DRUG USE DRUG USE?NO EXERCISE: NO REGULAR EXERCISE. 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 TELLER VAULT NEEDED?NO PAIN CLINIC PFS, CLERGY, PUBLIC HEALTH REFERRALS WAS THE PROVIDER NOTIFIED OF ANY PERTINENT INFO?YES N/A HAS THE PATIENT BEEN EDUCATED REGARDING HIS/HER PLAN OF CARE?YES HAS THE PATIENT BEEN EDUCATED REGARDING PAIN, THE RISK FOR PAIN, THE IMPORTANCE OF EFFECTIVE PAIN MANAGEMENT, AND THE PAIN ASSESSMENT PROCESS?YES LATEX QUESTIONNAIRE LATEX ALLERGY : HAVE YOU EVER DEVELOPED ANY TYPE OF REACTION AFTER HANDLING LATEX PRODUCTS SUCH RUBBER GLOVES, CONDOMS, DIAPHRAGMS, BALLOONS, SOCKS, OR UNDERWEAR?NO LATEX ALLERGY : HAVE YOU EVER DEVELOPED ANY TYPE OF REACTION DURING OR AFTER DENTAL APPOINTMENT, VAGINAL/RECTAL EXAMINATION, SURGICAL PROCEDURE, OR ANY OTHER EXPOSURE?NO LATEX RISK : HAVE YOU EVER HAD ANY DIFFICULTY BREATHING OR HIVES AFTER EATING OR HANDLING ANY FRUITS, OR VEGETABLES; SUCH KIWI, BANANAS, STONE FRUITS, OR CHESTNUTSNO LATEX RISK : DO YOU HAVE A PREVIOUS PERSONAL HISTORY OF MORE THAN NINE SURGERIES, SPINA BIFIDA, OR REPEATED CATHERIZATIONS? YES - PLEASE INDICATE : > 9 SURGERIES LATEX RISK : ARE YOU FREQUENTLY EXPOSED TO LATEX PRODUCTS IN YOUR OCCUPATION?NO DATE ASKED : 11/11/2018 CAFFEINE CAFFEINE USE?YES HOW OFTEN AND HOW MUCH? COFFEE 6 CUPS DAILY, 2 SODAS DAILY ADVANCE DIRECTIVE ADVANCE DIRECTIVE DISCUSSED WITH PATIENT:YES PT HAS HCP ROYAL MARTINEZ [phone] [facility] [id number] JEW MARITAL STATUS: . ALCOHOL SCREENING DID YOU HAVE A DRINK CONTAINING ALCOHOL IN THE PAST YEAR?YES HOW OFTEN DID YOU HAVE SIX OR MORE DRINKS ON ONE OCCASION IN THE PAST YEAR?NEVER (0 POINTS) HOW MANY DRINKS DID YOU HAVE ON A TYPICAL DAY WHEN YOU WERE DRINKING IN THE PAST YEAR?1 OR 2 (0 POINTS) HOW OFTEN DID YOU HAVE A DRINK CONTAINING ALCOHOL IN THE PAST YEAR?MONTHLY OR LESS (1 POINT) POINTS1 INTERPRETATIONNEGATIVE OCCUPATION: RETIRED. SEXUAL HX HAD SEX IN THE LAST 12 MONTHS (VAGINAL, ORAL, OR ANAL)?YES WITHMEN ONLY USE PROTECTION?NO LMP:HYSTER HAVE YOU EVER HAD AN STD?NO REVEIWED WITH PT 08/08/17 1344 BVREVIEWED WITH PT 11/10/17 1320 LAS01/29 18 1100 REVIEWED WITH PT. AD REVIEWED WITH PATIENT 09/22/18 1124 NLJREVIEWED WITH PATIENT 12/08/18 1059 JS. HOSPITALIZATION/MAJOR DIAGNOSTIC PROCEDURE SURG RELATED PLUS 1 G-I BLEED REVIEW OF SYSTEMS REVIEWED BY: PROVIDER: RICK WILLIS . CONSTITUTIONAL: ANY CHANGE IN YOUR MEDICAL CONDITION? NO . CHILLS NO . FEVER NO . INFECTION: DO YOU HAVE NEW INFECTIONS? NO . DO YOU HAVE HISTORY OF MRSA? NO . MUSCULOSKELETAL: ANY NEW PATTERNS OF PAIN OR NUMBNESS? NO . GASTROENTEROLOGY: ANY NEW CHANGE IN BOWEL CONTROL? NO . GENITOURINARY: ANY NEW CHANGE IN BLADDER CONTROL? NO . IS THERE A CHANCE YOU COULD BE ? NO . HEMATOLOGY/LYMPH: DO YOU TAKE ANY BLOOD THINNERS? (FOR EXAMPLE- COUMADIN, PLAVIX, AGGRENOX, PLATEL, PRADAXA, OR XARELTO) NO . WHEN WAS YOUR LAST DOSE? DATE: TIME: . NEUROLOGY: HAVE YOU FALLEN IN THE PAST 12 MONTHS? YES, STATES PRIOR TO LAST VISIT, DISCUSSED AT PREVIOUS VISIT . ANY NEW EXTREMITY NUMBNESS OR WEAKNESS? NO . CARDIOLOGY: DO YOU HAVE A PACEMAKER OR DEFIBRILLATOR? YES, STATES 2 DORSAL COLUMN STIMULATORS . RESPIRATORY: HAVE YOU BEEN SICK IN THE PAST WEEK? NO . FEVER NO . FLU LIKE SYMPTOMS? NO . COUGH NO . INTEGUMENTARY: DO YOU HAVE ANY RASHES OR OPEN SORES? NO . ALLERGIC/IMMUNO: ARE YOU ALLERGIC TO IV DYE? NO . ANY NEW ALLERGIES? NO . PSYCHIATRIC: DO YOU HAVE THOUGHTS OF HURTING YOURSELF OR SOMEONE ELSE? NO . ARE YOU ABUSED, NEGLECTED, OR IN AN UNSAFE ENVIRONMENT? NO . ENDOCRINOLOGY: ARE YOU DIABETIC? NO . OTHER: DO YOU NEED ANY PRESCRIPTIONS? YES . IF YES, PLEASE LIST: ____LYRICA, TRAMADOL, GABAPENTIN . ANY NEW PROBLEMS WITH YOUR MEDICATIONS? NO . WHEN DID YOU LAST EAT? ____ . WHEN DID YOU LAST DRINK? ____ . WHAT DID YOU LAST DRINK? ____ . NAME OF PERSON DRIVING YOU HOME? ____ . DO YOU HAVE ANY OTHER QUESTIONS OR CONCERNS YES, STATES PNEUMONIA VACCINE 10/27/18 AND WILL BE GETTING HER FLU VACCINE WITHIN THE NEXT FEW WEEKS. PATIENT WOULD LIKE TO DISCUSS INJECTIONS FOR HER LOW BACK . VITAL SIGNS WT 164 LBS, HT 66 IN, BMI 26.47 INDEX, BP 138/81 MM HG, HR 113 /MIN, RR 18 /MIN, TEMP 98.1 F, OXYGEN SAT % 98%, SAFE IN ENV? (Y/N) YES, NA INITIALS SC 10:47, REVIEWED BY: CLOTILDE. EXAMINATION GENERAL EXAMINATION: GENERAL AWAKE,ALERT ,APPEARS UNCOMFORTABLE. PSYCH AFFECT NORMAL . LUNGS: LUNG OROZCO ARE CLEAR TO AUSCULTATION BILATERALLY. GOOD MOVEMENT OF AIR . HEART: S1, S2 IN A REGULAR RATE AND RHYTHM. NO SIGNIFICANT MURMURS, RUBS OR GALLOPS NOTED . MUSCULOSKELETAL: WEAK OVER RIGHT LEG. LUMBAR SACRAL SPINE PALPATION: + FOR PAIN OVER L/S SPINE. + FOR PAIN OVER L/S PARASPINALS R>L. NEUROLOGIC EXAM:REPORTING PARATHESIAS TO LIGHT TOUCH OVER RIGHT LEG. DIAGNOSTIC TESTS REVIEWED CT LUMBAR SPINE-2013. ASSESSMENTS POST LAMINECTOMY SYNDROME - M96.1 (PRIMARY) SPONDYLOSIS OF CERVICAL REGION WITHOUT MYELOPATHY OR RADICULOPATHY - M47.812 TREATMENT POST LAMINECTOMY SYNDROME REFILL TRAMADOL HCL TABLET, 50 MG, 1-2 TAB, ORALLY, Q8H PRN MDD4, 30 DAYS, 120, REFILLS 5 REFILL LYRICA CAPSULE, 150 MG, 1 CAPSULE, ORALLY, Q8H MDD3, 30 DAYS, 90, REFILLS 5 REFILL GABAPENTIN TABLET, 600 MG, 1 TABLET, P.O., FOUR TIMES DAILY, 30 DAYS, 120, REFILLS 5 CT SCAN : LUMBAR [id number],MACKENZIE 12/14/2018 11:41:07 AM > PT REQUESTING [facility] KRISHNA CUMMINS 12/14/2018 11:41:42 AM > FRANK STONER 12/09/2018 8:54:59 AM > CT OF LUMBAR SPINE WAS APPROVED NOTES: DUE TO SIGNIFICANT INCREASE IN LOW BACK PAIN OVER THE PAST 3 MONTHS AND INCREASE IN RADICULOPATHY A CT L/S SPINE WILL BE REQUESTED FROM W/C.LAST IMAGING WAS IN 2013.ISTOP REGISTRY REVIEWED AND DEMONSTRATES COMPLLIANCE. BRINGS IN MEDICATIONS WHICH IS APPROPRIATE FOR WHAT WAS DISPENSED. RECENT URINE TOXICOLOGY REVIEWED. NO UNAUTHORIZED MEDICATIONS. NO ILLICIT SUBSTANCES AND PRESCRIBED MEDICATIONS WERE PRESENT. , URINE TOX TODAY. PROCEDURES PN WORKMANS' COMP OPINION IN YOUR OPINION, WAS THE INCIDENT THAT THE PATIENT DESCRIBED THE COMPETENT MEDICAL CAUSE OF THIS INJURY/ILLNESS? YES ARE THE PATIENT'S COMPLAINTS CONSISTENT WITH HIS/HER HISTORY OF THE INJURY/ILLNESS? YES IS THE PATIENT'S HISTORY OF THE INJURY/ILLNESS CONSISTENT WITH YOUR OBJECTIVE FINDING? YES WHAT IS THE PERCENTAGE OF TEMPORARY IMPAIRMENT? MODERATE TO MARKED = 66.7% IS THE PATIENT WORKING? NO DOCTOR ON SITE: JENNIFER SETPHENS MD PROCEDURE CODES FA211 ESTABILISHED PATIENT [facility] CHARGE DISPOSITION & COMMUNICATION FOLLOW UP 6 WEEKS (REASON: W/C CT REVIEW L/S SPINE) ELECTRONICALLY SIGNED BY ALBA DENNIS ON 12/21/2018 AT 10:23 AM EST DISCLAIMER : THIS IS A VISIT SUMMARY EXTRACTED FROM THE [employer] CHART. IT IS NOT A COPY OF THE [employer] PROGRESS NOTE. RAULITO
== END ==
LOC: M PAIN 10:15
PROVIDERS: ATTEND Nurse Practitioner Family
DX: M96.1 Postlaminectomy syndrome, not elsewhere classified (principal); M47.812 Spondylosis without myelopathy or radiculopathy, cervical region; I10 Essential (primary) hypertension; E78.00 Pure hypercholesterolemia, unspecified; K21.9 Gastro-esophageal reflux disease without esophagitis; R73.03 Prediabetes; Z86.59 Personal history of other mental and behavioral disorders; E03.9 Hypothyroidism, unspecified; Z98.84 Bariatric surgery status; Z87.891 Personal history of nicotine dependence; Z88.3 Allergy status to other anti-infective agents; Z88.6 Allergy status to analgesic agent; Z88.8 Allergy status to other drugs, medicaments and biological substances; Z79.891 Long term (current) use of opiate analgesic; Z79.899 Other long term (current) drug therapy

== ENCOUNTER → 2018-12-22 | Outpatient (CLI) | payer SELFPAY ==
--- NOTE | 2018-12-23 07:09 | REP ---
Clinical: Lung screening. History smoking. Comparison: None Technique: Axial low-dose noncontrast images from the thoracic inlet to the upper abdomen using lung screening technique. Findings: Left-sided parenchymal disease with scattered alveolar infiltrates and small areas of nodular density/consolidation are appreciated measuring up to approximately 10 mm. No effusion. No pneumothorax. Tracheobronchial tree is patent. Mediastinum demonstrates relatively normal appearance. Epidural stimulator and evidence of prior gastric bypass surgery noted. Impression: Lung-RADS category IV-B. Given the overall appearance, an acute pneumonitis is favored over mass/neoplasm. 3-month short-term follow-up examination is recommended. Electronically Signed by Reji Hemphill MD 12/23/2018 07:00 A
== END ==
LOC: M RAD 10:55
PROVIDERS: ATTEND Physician Assistant
DX: F17.200 Nicotine dependence, unspecified, uncomplicated (principal)

== ENCOUNTER → 2018-12-24 | Outpatient (REF) | payer OTHER ==
[2018-12-24 17:10] LABS: FREE T4 0.88 NG/DL (0.76-1.46); THYROID STIMULATING HORMONE 3.48 uIU/ML (0.358-3.740)
== END ==
LOC: M SFHCADAM 14:05
PROVIDERS: ATTEND Physician Assistant
DX: E03.2 Hypothyroidism due to medicaments and other exogenous substances (principal)

== ENCOUNTER → 2019-01-25 | Outpatient (CLI) | payer OTHER ==
--- NOTE | 2019-01-25 10:33 | REP ---
CT lumbar spine: O 01/25/2019. Indication: Failed back syndrome. Low back pain. Comparison: None. Technique: Unenhanced axial CT images of the lumbar spine were obtained with coronal and sagittal reconstructions provided. Findings: There is no acute fracture, subluxation or dislocation. Vacuum disc phenomenon is present as well as disc space narrowing at L4/L5. Spinal stimulator is are present one of which enters the canal at T11/T12 and the other at T12/L1. Aortoiliac atherosclerotic disease is present. The patient is status post right-sided hemilaminectomy at L4/L5. No significant disc herniation or spinal canal narrowing are detected. The neural foramina appear patent. Impression: No acute osseous injuries of the lumbar spine. Degenerative and postoperative sequelae as described without severe spinal canal narrowing detected by this technique. Electronically Signed by Alan Hunt DO 01/25/2019 10:25 A
== END ==
LOC: M RAD 08:23
PROVIDERS: ATTEND Nurse Practitioner Family
DX: M96.1 Postlaminectomy syndrome, not elsewhere classified (principal)

== ENCOUNTER → 2019-02-12 | Outpatient (REF) | payer MEDICARE ==
[~2019-02-12] MED LIST changes: +ACET-683 PO; +VITA50005 PO
[2019-02-12 18:37] LABS: BASO % 0.4 % (0.0-1.0); EOS # 0.1 10^3/uL (0.0-0.5); EOS % 2.8 % (0.0-3.0); HEMATOCRIT 41.8 % (36.0-47.0); LYMPH # 1.1 10^3/uL (1.5-5.0); LYMPH % 22.2 % (24.0-44.0); MEAN CORPUSCULAR HEMOGLOBIN 29.8 pg (27.0-33.0); MEAN CORPUSCULAR HGB CONC 31.1 g/dl (32.0-36.5); MEAN CORPUSCULAR VOLUME 95.9 fl (80.0-96.0); MONO # 0.4 10^3/uL (0.0-0.8); MONO % 7.5 % (0.0-5.0); NEUTROPHILS # 3.3 10^3/uL (1.5-8.5); NEUTROPHILS % 66.5 % (36.0-66.0); PLATELET COUNT, AUTOMATED 212 10^3/uL (150-450); RED BLOOD COUNT 4.36 10^6/uL (4.00-5.40)
[2019-02-12 18:42] LABS: BLOOD UREA NITROGEN 8 MG/DL (7-18); CALCIUM LEVEL 8.7 MG/DL (8.5-10.1); CARBON DIOXIDE LEVEL 29 MEQ/L (21-32); CHLORIDE LEVEL 108 MEQ/L (98-107); CREATININE FOR GFR 0.75 MG/DL (0.55-1.30); GLOMERULAR FILTRATION RATE > 60.0 (>51); GLUCOSE, FASTING 65 MG/DL (70-100); POTASSIUM SERUM 4.9 MEQ/L (3.5-5.1); SODIUM LEVEL 141 MEQ/L (136-145)
== END ==
LOC: M SFHCADAM 14:44
PROVIDERS: ATTEND Family Medicine
DX: R06.00 Dyspnea, unspecified (principal); R93.89 Abnormal findings on diagnostic imaging of other specified body structures

== ENCOUNTER → 2019-02-18 | Outpatient (CLI) | payer MEDICARE ==
[~2019-02-18] MED LIST changes: +ISOVUE-370 76% 100ML VIAL (Q9967) As Ordered ONE
--- NOTE | 2019-02-18 16:11 | REP ---
Clinical: Dyspnea. Palpitations. Technique: Axial contrast enhanced images from the thoracic inlet to the upper abdomen with coronal and sagittal re-formations using 100 ml Isovue 370 intravenous contrast material. Comparison: 12/22/2018 Findings: Subtle ground glass and alveolar infiltrates with minimal atelectasis identified primarily within the left lower lobe and lingula suggesting acute bronchitis and forming pneumonia. A 6 mm noncalcified nodule in the left lower lobe (image 74) is also identified. Subcentimeter mediastinal lymph nodes are likely reactive. No effusion. No pneumothorax. Mediastinum demonstrates relatively normal thoracic aorta, pulmonary vasculature and heart/pericardium. Limited upper abdomen demonstrates evidence for prior gastric bypass surgery, cholecystectomy and normal bilateral adrenal glands. Impression: 1. Changes primarily noted in the left base may reflect bronchitis and acute pneumonia. Correlation is recommended. 2. 6 mm noncalcified nodule in the left lower lobe warrants 6 month follow-up. Electronically Signed by Reji Hemphill MD 02/18/2019 04:03 P
== END ==
LOC: M RAD 14:47
PROVIDERS: ATTEND Family Medicine
DX: R91.8 Other nonspecific abnormal finding of lung field (principal); R91.1 Solitary pulmonary nodule; R06.00 Dyspnea, unspecified; R93.89 Abnormal findings on diagnostic imaging of other specified body structures; R68.89 Other general symptoms and signs; R00.2 Palpitations; Z98.84 Bariatric surgery status
CPT/HCPCS: 71260; Q9967

== ENCOUNTER → 2019-02-27 | Outpatient (CLI) | payer MEDICARE ==
[~2019-02-27] MED LIST changes: -ISOVUE-370 76% 100ML VIAL (Q9967) As Ordered ONE
== END ==
LOC: M ADAMS 10:52
PROVIDERS: ATTEND Internal Medicine Cardiovascular Disease
DX: R06.00 Dyspnea, unspecified (principal)

== ENCOUNTER → 2019-03-01 | Outpatient (CLI) | payer OTHER, MEDICARE ==
--- NOTE | 2019-03-10 02:59 | ECWPNPC ---
PATIENT NAME: RACHEL MARTINEZ : 1965 GENDER: FEMALE VISIT DATE: 03/01/2019 DISCHARGE DATE: 03/01/19 1144 VISIT LOCKED DATE TIME: PHYSICIAN: RICK GIL RESOURCE: RICK GIL REASON FOR APPOINTMENT 1. W/C REVIEW CT HISTORY OF PRESENT ILLNESS HISTORY OF PRESENT ILLNESS: HERE FOR FOLLOW-UP OF CHRONIC LOW BACK AND NECK PAIN. CT OF THE LUMBAR SPINE DONE ON 01/25/2019 IS REVIEWED. THIS IS SHOWING LUMBAR DEGENERATIVE SPONDYLITIC CHANGES. DISCUSSED TREATMENT OPTIONS TO INCLUDE LUMBAR FACET THERAPEUTIC BLOCKS. RATING PAIN VAS 7/10. REPORTING GENERALIZED BODY ACHES AND PAINS HAVE INCREASED OVER THE PAST MONTH. THIS IS A WORK-RELATED INJURY WITH DATE OF INJURY:JANUARY 1999. PAIN THE PATIENT DESCRIBES THE PAIN... FALL RISK SCREENING: SCREENING :NO FALLS REPORTED IN THE LAST YEAR CURRENT MEDICATIONS TAKING ARIPIPRAZOLE 15 MG TABLET TAKE ONE TABLET BY MOUTH EVERY DAY ORAL TAKING ESOMEPRAZOLE MAGNESIUM 40 MG CAPSULE DELAYED RELEASE TAKE ONE CAPSULE BY MOUTH EVERY DAY ORAL TAKING DRISDOL 38552 UNIT CAPSULE 1 CAPSULE ORALLY EVERY OTHER WEEK TAKING SUCRALFATE 1 GM/10ML SUSPENSION 10 ML ORALLY TWICE A DAY NEEDED TAKING EFFEXOR XR 150 MG CAPSULE EXTENDED RELEASE 24 HOUR 3 CAPSULE WITH FOOD ORALLY ONCE A DAY TAKING ABILIFY 15 MG TABLET 1 TABLET ORALLY ONCE A DAY TAKING VENTOLIN HFA 108 (90 BASE) MCG/ACT AEROSOL SOLUTION 2 PUFFS NEEDED INHALATION EVERY 4 HRS NEEDED FOR SHORTNESS OF BREATH TAKING FLONASE 50 MCG/ACT SUSPENSION 1 SPRAY IN EACH NOSTRIL NASALLY ONCE A DAY NEEDED TAKING VITAMIN B-12 5000 MCG LOZENGE DIRECTED ORALLY ONCE A DAY TAKING AZELASTINE HCL 0.15 % SOLUTION 1 DROP IN EACH NOSTRIL NASALLY TWICE A DAY TAKING LEVOTHYROXINE SODIUM 50 MCG TABLET 1 TABLET ON AN EMPTY STOMACH IN THE MORNING ORALLY ONCE A DAY TAKING ESTRADIOL 2 MG TABLET 1 TABLET ORALLY ONCE A DAY TAKING TRAMADOL HCL 50 MG TABLET 1-2 TAB ORALLY Q8H PRN MDD4 TAKING LYRICA 150 MG CAPSULE 1 CAPSULE ORALLY Q8H MDD3 TAKING GABAPENTIN 600 MG TABLET 1 TABLET P.O. FOUR TIMES DAILY TAKING CRESTOR 10 MG TABLET 1 TABLET ORALLY ONCE A DAY TAKING AMOXICILLIN-POT CLAVULANATE ER 1000-62.5 MG TABLET EXTENDED RELEASE 12 HOUR 2 TABLETS ORALLY EVERY 12 HRS TAKING AZITHROMYCIN 250 MG TABLET 2 TABS DAY 1 THEN 1 TAB ORALLY DAILY TAKING BACID - CAPSULE 1 CAP ORALLY TID NOT-TAKING OMEPRAZOLE 40 MG CAPSULE DELAYED RELEASE 1 CAPSULE ORALLY ONCE A DAY MEDICATION LIST REVIEWED AND RECONCILED WITH THE PATIENT PAST MEDICAL HISTORY SUPRAGLOTTIC LARYNGEAL CANCER, STAGE KIZZY [id number]-- RAD TX X 35 SESSIONS WITH CISPLATIN CHEMOTX CHRONIC LOWER BACK PAIN, DORSAL COLUMN STIMULATOR IN PLACE - [facility] HTN HYPERCHOLESTEROLEMIA GERD/H/O PUD WITH GI BLEED IN PAST SECONDARY TO CELEBREX ENDOMETRIOSIS PREDIABETES TOBACCO ABUSE CHRONIC NARCOTIC DEPENDENCE - WEANING OXYCODONE PER PAIN CLINIC ECHO - 02/28/17 - NORMAL LV SIZE AND WALL THICKNESS EF 70% GRADE 1 DIASTOLIC DYSFUNCTION ANXIETY/DEPRESSION/AGORAPHOBIA WITH PANIC ATTACKS - PSYCHIATRIST IRON DEF - HAD IRON INFUSION 04/2018 HYPOTHYROID ALLERGIES NSAIDS: BLEEDING - CONTRAINDICATION BETADINE: RASH - ALLERGY SKELAXIN: RASH - ALLERGY METFORMIN HCL: DIARRHEA - SIDE EFFECTS SURGICAL HISTORY TONSILLECTOMY TUBAL LIGATION 03/1989 ECTOPIC 09/1989 HYSTERECTOMY D/T PRE-CANCEROUS 1989 BSO 1999 LUMBAR LAMINECTOMY L4-L5 08/1997 TARSAL TUNNEL-BILATERAL FEET 2004 BILATERAL CARPAL TUNNEL RELEASE 2001 LUMBAR STIMULATOR PLACED 2005 CERVICAL STIMULATOR PLACED 2008 RIGHT CARPAL TUNNEL RELEASE 06/2013 GASTRIC BYPASS 2009 COLONOSCOPY WITH POLYP RESECTION, BENIGN 2011 CHOLECYSTECTOMY 12/2010 TOE NAIL SURGERY 08/10/15 TUBE PLACEMENT RIGHT EAR, BIOPSY SINUS CAVITY NODULE 05/2016 LYMPH NODE, THROAT BIOPSY MALIGNANT 05/2017 FEEDING TUBE 06/2017 CHEMO PORT PLACEMENT 06/2017 COLONOSCOPY 07/2016 FAMILY HISTORY FATHER: ALIVE MOTHER: ALIVE, DIAGNOSED WITH DIABETES, HYPERTENSION, OTHER MALIGNANT NEOPLASM OF UNSPECIFIED SITE 1 SON(S) , 1 DAUGHTER(S) - HEALTHY. MOM-LEFT BREAST CA. SOCIAL HISTORY GENERAL: TOBACCO USE ARE YOU A:FORMER SMOKER HOW LONG HAS IT BEEN SINCE YOU LAST SMOKED?6-12 MONTHS QUIT 05/19/17 HIV / HEP-C SCREENING HIV TEST OFFERED TO PATIENT:YES DATE OFFERED:07/29/2017 TEST ACCEPTED:NO REASON:PATIENT DECLINED BROCHURE PROVIDED TO PATIENTNO OTHERS AT HOME: SPOUSE. EDUCATION LEVEL OF EDUCATION:NOT FINISHED COLLEGE DIET: REGULAR. LANGUAGE ICELANDIC. DOMESTIC VIOLENCE DO YOU FEEL SAFE IN YOUR ENVIRONMENT?YES BMI CARE GOAL FOLLOW-UP ABOVE NORMAL BMI FOLLOW-UPDIETARY MANAGEMENT EDUCATION, GUIDANCE, AND COUNSELING RECREATIONAL DRUG USE DRUG USE?NO EXERCISE: NO REGULAR EXERCISE. 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 NEEDED?NO PAIN CLINIC PFS, CLERGY, PUBLIC HEALTH REFERRALS WAS THE PROVIDER NOTIFIED OF ANY PERTINENT INFO?YES N/A HAS THE PATIENT BEEN EDUCATED REGARDING HIS/HER PLAN OF CARE?YES HAS THE PATIENT BEEN EDUCATED REGARDING PAIN, THE RISK FOR PAIN, THE IMPORTANCE OF EFFECTIVE PAIN MANAGEMENT, AND THE PAIN ASSESSMENT PROCESS?YES LATEX QUESTIONNAIRE LATEX ALLERGY : HAVE YOU EVER DEVELOPED ANY TYPE OF REACTION AFTER HANDLING LATEX PRODUCTS SUCH RUBBER GLOVES, CONDOMS, DIAPHRAGMS, BALLOONS, SOCKS, OR UNDERWEAR?NO LATEX ALLERGY : HAVE YOU EVER DEVELOPED ANY TYPE OF REACTION DURING OR AFTER DENTAL APPOINTMENT, VAGINAL/RECTAL EXAMINATION, SURGICAL PROCEDURE, OR ANY OTHER EXPOSURE?NO LATEX RISK : HAVE YOU EVER HAD ANY DIFFICULTY BREATHING OR HIVES AFTER EATING OR HANDLING ANY FRUITS, OR VEGETABLES; SUCH KIWI, BANANAS, STONE FRUITS, OR CHESTNUTSNO LATEX RISK : DO YOU HAVE A PREVIOUS PERSONAL HISTORY OF MORE THAN NINE SURGERIES, SPINA BIFIDA, OR REPEATED CATHERIZATIONS? YES - PLEASE INDICATE : > 9 SURGERIES LATEX RISK : ARE YOU FREQUENTLY EXPOSED TO LATEX PRODUCTS IN YOUR OCCUPATION?NO DATE ASKED : 03/01/2019 CAFFEINE CAFFEINE USE?YES HOW OFTEN AND HOW MUCH? COFFEE 6 CUPS DAILY, 2 SODAS DAILY ADVANCE DIRECTIVE ADVANCE DIRECTIVE DISCUSSED WITH PATIENT:YES PT HAS HCP [facility] [phone] CHRISTIAN [id number] GNOSTICIST MARITAL STATUS: . ALCOHOL SCREENING DID YOU HAVE A DRINK CONTAINING ALCOHOL IN THE PAST YEAR?YES HOW OFTEN DID YOU HAVE SIX OR MORE DRINKS ON ONE OCCASION IN THE PAST YEAR?NEVER (0 POINTS) HOW MANY DRINKS DID YOU HAVE ON A TYPICAL DAY WHEN YOU WERE DRINKING IN THE PAST YEAR?1 OR 2 (0 POINTS) HOW OFTEN DID YOU HAVE A DRINK CONTAINING ALCOHOL IN THE PAST YEAR?MONTHLY OR LESS (1 POINT) POINTS1 INTERPRETATIONNEGATIVE OCCUPATION: RETIRED. SEXUAL HX HAD SEX IN THE LAST 12 MONTHS (VAGINAL, ORAL, OR ANAL)?YES WITHMEN ONLY USE PROTECTION?NO LMP:HYSTER HAVE YOU EVER HAD AN STD?NO REVEIWED WITH PT 08/08/17 1344 BVREVIEWED WITH PT 11/10/17 1320 [id number] 1100 REVIEWED WITH PT. AD REVIEWED WITH PATIENT 09/22/18 1124 NLJREVIEWED WITH PATIENT 12/08/18 1059 JSREVIEWED WITH PATIENT 03/01/19 DS. HOSPITALIZATION/MAJOR DIAGNOSTIC PROCEDURE SURG RELATED PLUS 1 G-I BLEED REVIEW OF SYSTEMS REVIEWED BY: PROVIDER: RICK WILLIS . CONSTITUTIONAL: ANY CHANGE IN YOUR MEDICAL CONDITION? YES, PNEUMONIA, LAST WEEK, ALL DONE WITH ANTIBIOTICS . CHILLS NO . FEVER NO . INFECTION: DO YOU HAVE NEW INFECTIONS? YES . DO YOU HAVE HISTORY OF MRSA? NO . MUSCULOSKELETAL: ANY NEW PATTERNS OF PAIN OR NUMBNESS? NO . GASTROENTEROLOGY: ANY NEW CHANGE IN BOWEL CONTROL? NO . GENITOURINARY: ANY NEW CHANGE IN BLADDER CONTROL? NO . IS THERE A CHANCE YOU COULD BE ? NO . HEMATOLOGY/LYMPH: DO YOU TAKE ANY BLOOD THINNERS? (FOR EXAMPLE- COUMADIN, PLAVIX, AGGRENOX, PLATEL, PRADAXA, OR XARELTO) NO . WHEN WAS YOUR LAST DOSE? DATE: TIME: . NEUROLOGY: HAVE YOU FALLEN IN THE PAST 12 MONTHS? YES, APRIL 2018 . ANY NEW EXTREMITY NUMBNESS OR WEAKNESS? NO . CARDIOLOGY: DO YOU HAVE A PACEMAKER OR DEFIBRILLATOR? YES, [facility] . RESPIRATORY: HAVE YOU BEEN SICK IN THE PAST WEEK? NO . FEVER NO . FLU LIKE SYMPTOMS? NO . COUGH NO . INTEGUMENTARY: DO YOU HAVE ANY RASHES OR OPEN SORES? NO . ALLERGIC/IMMUNO: ARE YOU ALLERGIC TO IV DYE? NO . ANY NEW ALLERGIES? NO . PSYCHIATRIC: DO YOU HAVE THOUGHTS OF HURTING YOURSELF OR SOMEONE ELSE? NO . ARE YOU ABUSED, NEGLECTED, OR IN AN UNSAFE ENVIRONMENT? NO . ENDOCRINOLOGY: ARE YOU DIABETIC? NO . OTHER: DO YOU NEED ANY PRESCRIPTIONS? YES, 3 MONTHS LEFT FOR REFILLS . IF YES, PLEASE LIST: ____ . ANY NEW PROBLEMS WITH YOUR MEDICATIONS? NO . WHEN DID YOU LAST EAT? ____ . WHEN DID YOU LAST DRINK? ____ . WHAT DID YOU LAST DRINK? ____ . NAME OF PERSON DRIVING YOU HOME? ____ . DO YOU HAVE ANY OTHER QUESTIONS OR CONCERNS NO . VITAL SIGNS WT 172.4 LBS, HT 66 IN, BMI 27.82 INDEX, BP 130/74 MM HG, HR 83 /MIN, RR 18 /MIN, TEMP 97.4 F, OXYGEN SAT % 97, SAFE IN ENV? (Y/N) Y, REVIEWED BY: LAURYN. STEVIE AMOR LPN II @ 6827. EXAMINATION GENERAL EXAMINATION: GENERALAWAKE , ALERT, NO ACUTE DISTRESS . PSYCHAPPROPRIATE MOOD AND AFFECT . LUNGS:CLEAR TO AUSCULTATION BILATERALLY, NO WHEEZES, RHONCHI, RALES. HEART:NO MURMURS, REGULAR RATE AND RHYTHM. MUSCULOSKELETAL:SLIGHTLY WEAK OVER RIGHT LEG COMPARED WITH LEFT. . TENDERNESS OVER LUMBAR FACETS, L4-5, L5-S1 WITH FACET LOADING. ASSESSMENTS LUMBAR DEGENERATIVE DISC DISEASE - M51.36 (PRIMARY) TREATMENT LUMBAR DEGENERATIVE DISC DISEASE NOTES: BILATERAL L4-5, L5-S1 LUMBAR THERAPEUTIC FACET BLOCK WORKMAN'S COMP REQUEST. PROCEDURES PN WORKMANS' COMP OPINION IN YOUR OPINION, WAS THE INCIDENT THAT THE PATIENT DESCRIBED THE COMPETENT MEDICAL CAUSE OF THIS INJURY/ILLNESS? YES ARE THE PATIENT'S COMPLAINTS CONSISTENT WITH HIS/HER HISTORY OF THE INJURY/ILLNESS? YES IS THE PATIENT'S HISTORY OF THE INJURY/ILLNESS CONSISTENT WITH YOUR OBJECTIVE FINDING? YES WHAT IS THE PERCENTAGE OF TEMPORARY IMPAIRMENT? MODERATE TO MARKED = 66.7% IS THE PATIENT WORKING? NO DOCTOR ON SITE: JENNIFER STEPHENS MD PREVENTIVE MEDICINE PAIN CLINIC TEACHING: PROCEDURE TEACHING REVIEWED INFORMATION ON THERAPEUTIC LUMBAR FACET INJECTION PROCEDURE WITH PATIENT. ALSO REVIEWED PRE-PROCEDURE INSTRUCTIONS. PATIENT VERBALIZED AN UNDERSTANDING. NUHA SHIN 03/01/2019 11:42:01 AM > . PROCEDURE CODES FA211 ESTABILISHED PATIENT [facility] FACILITY CHARGE DISPOSITION & COMMUNICATION FOLLOW UP POST (REASON: BILATERAL L4-5, L5-S1 LUMBAR THERAPEUTIC FACET BLOCKWORKMAN'S COMP REQUEST) ELECTRONICALLY SIGNED BY ALBA DENNIS ON 03/09/2019 AT 01:40 PM EST DISCLAIMER : THIS IS A VISIT SUMMARY EXTRACTED FROM THE DIY CHART. IT IS NOT A COPY OF THE DIY PROGRESS NOTE. RAULITO
== END ==
LOC: M PAIN 11:30
PROVIDERS: ATTEND Nurse Practitioner Family
DX: M51.36 Other intervertebral disc degeneration, lumbar region (principal); G89.29 Other chronic pain; I10 Essential (primary) hypertension; E78.00 Pure hypercholesterolemia, unspecified; K21.9 Gastro-esophageal reflux disease without esophagitis; R73.03 Prediabetes; Z86.59 Personal history of other mental and behavioral disorders; E03.9 Hypothyroidism, unspecified; Z98.84 Bariatric surgery status; Z87.891 Personal history of nicotine dependence; Z88.3 Allergy status to other anti-infective agents; Z88.6 Allergy status to analgesic agent; Z88.8 Allergy status to other drugs, medicaments and biological substances; Z96.89 Presence of other specified functional implants; Z79.891 Long term (current) use of opiate analgesic; Z79.899 Other long term (current) drug therapy

== ENCOUNTER → 2019-03-03 | Outpatient (CLI) | payer MEDICARE ==
--- NOTE | 2019-03-03 08:29 | PFTRPT ---
Site: [facility], [address] [place] [address], [id number] ID: [id number] Name: RACHEL MARTINEZ Visit Date: 03/03/2019 Second ID: [id number] Referring Doctor: MD Cox David Reviewing Doctor: Shane Mays MD Addictions Counselor: Valencia Snowden Age: 53 : 1965 Sex: Female Race: Height: 66.00 Inches Weight: 172.00 Lbs BSA: 1.88 Order IDs: [id number] Requested Test(s): <RESP-PFT.DLCO> Diagnosis: R06 test meet the ATS standards for acceptability and repeatability. Review Status: Not Reviewed Pre-Bronch Post-Bronch Pred Actual %Pred Actual %Chng SPIROMETRY FVC (L) 3.73 4.38 117 FEV1 (L) 2.93 3.25 110 FEV1/FVC (%) 80 74 92 FEF 25% (L/sec) 5.36 6.09 113 FEF 50% (L/sec) 3.84 3.53 92 FEF 75% (L/sec) 1.38 0.81 58 FEF 25-75% (L/sec) 2.77 2.53 91 FEF Max (L/sec) 6.95 6.97 100 FIVC (L) 4.14 FIF 50% (L/sec) 3.74 2.89 77 FIF Max (L/sec) 2.90 MVV (L/min) 100 111 110 Expiratory Time (sec) 9.29 Back Extrap Vol (L) 0.11 Time To FEFmax (sec) 0.092 LUNG VOLUMES SVC (L) 3.41 4.30 126 IC (L) 2.33 1.73 74 ERV (L) 1.08 2.57 238 TGV (L) 3.02 3.77 124 RV (Pleth) (L) 1.94 1.20 61 TLC (Pleth) (L) 5.35 5.50 102 RV/TLC (Pleth) (%) 36 22 60 DIFFUSION DLCOunc (ml/min/mmHg) 23.24 16.77 72 DLCOcor (ml/min/mmHg) 23.24 18.13 78 DL/VA (ml/min/mmHg/L) 4.34 3.07 70 VA (L) 5.35 5.91 110 BHT (sec) 10.56 IVC (L) 4.19 TLC (SB) (L) 6.06 AIRWAYS RESISTANCE Raw (cmH2O/L/s) 1.86 1.01 54 Gaw (L/s/cmH2O) 1.03 0.99 96 sRaw (cmH2O*s) 4.76 3.94 82 sGaw (1/cmH2O*s) 0.20 0.25 127 BLOOD GASES Hgb (gm/dL) 11.2
== END ==
LOC: M CARPUL 07:38
PROVIDERS: ATTEND Internal Medicine Cardiovascular Disease
DX: R06.00 Dyspnea, unspecified (principal)

== ENCOUNTER → 2019-03-04 | Outpatient (CLI) | payer MEDICARE ==
[~2019-03-04] MED LIST changes: +ISOVUE-370 76% 100ML VIAL (Q9967) As Ordered ONE
--- NOTE | 2019-03-05 04:03 | REP ---
Clinical: Dyspnea. Technique: Axial contrast enhanced images from the thoracic inlet to the upper abdomen using pulmonary embolus technique. Multiplanar MIP re-formations obtained. 75 ml Isovue 370 intravenous contrast material administered without complication. Comparison: 02/18/2019, 08/27/2012. Findings: The lung valverde demonstrate subtle scattered new areas of ground-glass opacity which may reflect a mild bronchitis with subtle scattered atelectasis/early infiltrates. Small 5 mm noncalcified nodule in the deep posterior left sulcus (image 69) is unchanged compared to 03/04/2019. No effusion. No pneumothorax. Tracheobronchial tree is patent. Mediastinum demonstrates normal thoracic aorta and pulmonary vasculature. No evidence for pulmonary embolus. Heart and pericardium are normal. No adenopathy. Surrounding musculoskeletal structures are relatively normal. Epidural stimulator device noted. Impression: 1. Findings suggest bronchitis with subtle patchy scattered atelectasis/early infiltrates. 2. 5 mm noncalcified nodule in the deep posterior left pulmonary sulcus unchanged compared to 02/18/2019 and 6-month follow-up is again suggested. Electronically Signed by Reji Hemphill MD 03/05/2019 03:55 A
== END ==
LOC: M RAD 17:31
PROVIDERS: ATTEND Internal Medicine Cardiovascular Disease
DX: R06.00 Dyspnea, unspecified (principal); R79.1 Abnormal coagulation profile
CPT/HCPCS: 71275; Q9967

== ENCOUNTER → 2019-04-19 | Outpatient (CLI) | payer OTHER, MEDICARE ==
[~2019-04-19] MED LIST changes: +BUPIVACAINE HCL 0.25% 30 ML VIAL As Ordered ONE; -ISOVUE-370 76% 100ML VIAL (Q9967) As Ordered ONE; +ISOVUE-M 300 61% 15ML VIAL (Q9967) As Ordered ONE; +LIDOCAINE 1% SDV INJ 30 ML VIAL As Ordered ONE; +TRIAMCINOLONE ACETONIDE SUSP 40 MG/ML VIAL (J3301) As Ordered ONE; +diazePAM 5 MG TAB As Ordered ONE; +oxyCODONE 5MG TAB As Ordered ONE
--- NOTE | 2019-04-19 12:12 | REP ---
C-ARM VIEWS LUMBAR SPINE: Two C-arm views of the lumbar spine performed during bilateral facet injection performed by Dr. Daniels. [place] are seen along the lower lumbar spine and a small amount of contrast is injected. 53 seconds of fluoroscopy time is utilized. Electronically Signed by Dinh Peralta MD 04/19/2019 01:36 P
--- NOTE | 2019-04-27 03:47 | ECWPNPC ---
PATIENT NAME: RACHEL MARTINEZ : 1965 GENDER: FEMALE VISIT DATE: 04/19/2019 DISCHARGE DATE: 04/19/19 1200 VISIT LOCKED DATE TIME: PHYSICIAN: JENNIFER MANUEL MD RESOURCE: JENNIFER MANUEL MD REASON FOR APPOINTMENT 1. BILATERAL L4-5, L5-S1 LUMBAR THERAPEUTIC FACET BLOCK HISTORY OF PRESENT ILLNESS HISTORY OF PRESENT ILLNESS: PAIN THE PATIENT DESCRIBES THE PAIN... FALL RISK SCREENING: SCREENING :NO FALLS REPORTED IN THE LAST YEAR CURRENT MEDICATIONS TAKING OMEPRAZOLE 40 MG CAPSULE DELAYED RELEASE 1 CAPSULE 30 MINUTES BEFORE MORNING MEAL ORALLY ONCE A DAY, NOTES: 04/18/191999 TAKING ARIPIPRAZOLE 15 MG TABLET DIRECTED ORALLY , NOTES: 04/19/2019 09 TAKING ABILIFY 15 MG TABLET 1 TABLET ORALLY ONCE A DAY, NOTES: 04/19/2019 09 TAKING AZELASTINE HCL 0.15 % SOLUTION 1 DROP IN EACH NOSTRIL NASALLY TWICE A DAY, NOTES: 1900 TAKING CRESTOR 10 MG TABLET 1 TABLET ORALLY ONCE A DAY, NOTES: 04/18/20191999 TAKING DRISDOL 71110 UNIT CAPSULE 1 CAPSULE ORALLY WEEKLY, NOTES: 04/12/2019 TAKING DRISDOL 52129 UNIT CAPSULE 1 CAPSULE ORALLY EVERY OTHER WEEK, NOTES: 04/12/2019 TAKING EFFEXOR XR 150 MG CAPSULE EXTENDED RELEASE 24 HOUR 3 CAPSULE WITH FOOD ORALLY ONCE A DAY, NOTES: 04/19/2019 09 TAKING ESTRADIOL 2 MG TABLET 1 TABLET ORALLY ONCE A DAY, NOTES: 04/18/2019 0800 TAKING FLONASE 50 MCG/ACT SUSPENSION 1 SPRAY IN EACH NOSTRIL NASALLY ONCE A DAY NEEDED, NOTES: 04/18/2019 1100 TAKING GABAPENTIN 600 MG TABLET 1 TABLET P.O. FOUR TIMES DAILY, NOTES: 04/18/2019 2000 TAKING LEVOTHYROXINE SODIUM 50 MCG TABLET 1 TABLET ON AN EMPTY STOMACH IN THE MORNING ORALLY ONCE A DAY, NOTES: 04/19/2019 0700 TAKING LYRICA 150 MG CAPSULE 1 CAPSULE ORALLY Q8H MDD3, NOTES: 04/19/2019 09 TAKING VITAMIN B-12 5000 MCG LOZENGE DIRECTED ORALLY ONCE A DAY, NOTES: 04/18/2019 1800 TAKING TRAMADOL HCL 50 MG TABLET 1 TABLET NEEDED ORALLY ONCE A DAY, NOTES: 04/19/2019 0800 NOT-TAKING BACID - CAPSULE 1 CAP ORALLY TWICE A DAY NOT-TAKING ESOMEPRAZOLE MAGNESIUM 40 MG CAPSULE DELAYED RELEASE TAKE ONE CAPSULE BY MOUTH EVERY DAY ORAL NOT-TAKING VENTOLIN HFA 108 (90 BASE) MCG/ACT AEROSOL SOLUTION 2 PUFFS NEEDED INHALATION EVERY 4 HRS NEEDED FOR SHORTNESS OF BREATH NOT-TAKING GABAPENTIN 600 MG TABLET 1 TABLET P.O. THREE TIMES A DAY MEDICATION LIST REVIEWED AND RECONCILED WITH THE PATIENT PAST MEDICAL HISTORY SUPRAGLOTTIC LARYNGEAL CANCER, STAGE KIZZY [id number]-- RAD TX X 35 SESSIONS WITH CISPLATIN CHEMOTX CHRONIC LOWER BACK PAIN, DORSAL COLUMN STIMULATOR IN PLACE - [facility] HTN HYPERCHOLESTEROLEMIA GERD/H/O PUD WITH GI BLEED IN PAST SECONDARY TO CELEBREX ENDOMETRIOSIS PREDIABETES TOBACCO ABUSE CHRONIC NARCOTIC DEPENDENCE - WEANING OXYCODONE PER PAIN CLINIC ECHO - 02/28/17 - NORMAL LV SIZE AND WALL THICKNESS EF 70% GRADE 1 DIASTOLIC DYSFUNCTION ANXIETY/DEPRESSION/AGORAPHOBIA WITH PANIC ATTACKS - PSYCHIATRIST DR.SANTANA GLOVER DEF - HAD IRON INFUSION 04/2018 HYPOTHYROID ALLERGIES NSAIDS: BLEEDING - CONTRAINDICATION BETADINE: RASH - ALLERGY SKELAXIN: RASH - ALLERGY METFORMIN HCL: DIARRHEA - SIDE EFFECTS SURGICAL HISTORY TONSILLECTOMY TUBAL LIGATION 03/1989 ECTOPIC 09/1989 HYSTERECTOMY D/T PRE-CANCEROUS 1989 BSO 1999 LUMBAR LAMINECTOMY L4-L5 08/1997 TARSAL TUNNEL-BILATERAL FEET 2004 BILATERAL CARPAL TUNNEL RELEASE 2001 LUMBAR STIMULATOR PLACED 2005 CERVICAL STIMULATOR PLACED 2008 RIGHT CARPAL TUNNEL RELEASE 06/2013 GASTRIC BYPASS 2009 COLONOSCOPY WITH POLYP RESECTION, BENIGN 2011 CHOLECYSTECTOMY 12/2010 TOE NAIL SURGERY 08/10/15 TUBE PLACEMENT RIGHT EAR, BIOPSY SINUS CAVITY NODULE 05/2016 LYMPH NODE, THROAT BIOPSY MALIGNANT 05/2017 FEEDING TUBE 06/2017 CHEMO PORT PLACEMENT 06/2017 COLONOSCOPY 07/2016 FAMILY HISTORY FATHER: ALIVE MOTHER: ALIVE, DIAGNOSED WITH OTHER MALIGNANT NEOPLASM OF UNSPECIFIED SITE, DIABETES, HYPERTENSION 1 SON(S) , 1 DAUGHTER(S) - HEALTHY. MOM-LEFT BREAST CA. SOCIAL HISTORY GENERAL: TOBACCO USE ARE YOU A:FORMER SMOKER HOW LONG HAS IT BEEN SINCE YOU LAST SMOKED?6-12 MONTHS QUIT 05/19/17 HIV / HEP-C SCREENING HIV TEST OFFERED TO PATIENT:YES DATE OFFERED:07/29/2017 TEST ACCEPTED:NO REASON:PATIENT DECLINED BROCHURE PROVIDED TO PATIENTNO OTHERS AT HOME: SPOUSE. EDUCATION LEVEL OF EDUCATION:NOT FINISHED COLLEGE DIET: REGULAR. LANGUAGE SUDANESE. DOMESTIC VIOLENCE DO YOU FEEL SAFE IN YOUR ENVIRONMENT?YES BMI CARE GOAL FOLLOW-UP ABOVE NORMAL BMI FOLLOW-UPDIETARY MANAGEMENT EDUCATION, GUIDANCE, AND COUNSELING RECREATIONAL DRUG USE DRUG USE?NO EXERCISE: NO REGULAR EXERCISE. 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 SUPERVISOR HANGING AND TRIMMING NEEDED?NO PAIN CLINIC PFS, CLERGY, PUBLIC HEALTH REFERRALS WAS THE PROVIDER NOTIFIED OF ANY PERTINENT INFO?YES N/A HAS THE PATIENT BEEN EDUCATED REGARDING HIS/HER PLAN OF CARE?YES HAS THE PATIENT BEEN EDUCATED REGARDING PAIN, THE RISK FOR PAIN, THE IMPORTANCE OF EFFECTIVE PAIN MANAGEMENT, AND THE PAIN ASSESSMENT PROCESS?YES LATEX QUESTIONNAIRE LATEX ALLERGY : HAVE YOU EVER DEVELOPED ANY TYPE OF REACTION AFTER HANDLING LATEX PRODUCTS SUCH RUBBER GLOVES, CONDOMS, DIAPHRAGMS, BALLOONS, SOCKS, OR UNDERWEAR?NO LATEX ALLERGY : HAVE YOU EVER DEVELOPED ANY TYPE OF REACTION DURING OR AFTER DENTAL APPOINTMENT, VAGINAL/RECTAL EXAMINATION, SURGICAL PROCEDURE, OR ANY OTHER EXPOSURE?NO DATE ASKED : 03/01/2019 LATEX RISK : HAVE YOU EVER HAD ANY DIFFICULTY BREATHING OR HIVES AFTER EATING OR HANDLING ANY FRUITS, OR VEGETABLES; SUCH KIWI, BANANAS, STONE FRUITS, OR CHESTNUTSNO LATEX RISK : DO YOU HAVE A PREVIOUS PERSONAL HISTORY OF MORE THAN NINE SURGERIES, SPINA BIFIDA, OR REPEATED CATHERIZATIONS? YES - PLEASE INDICATE : > 9 SURGERIES LATEX RISK : ARE YOU FREQUENTLY EXPOSED TO LATEX PRODUCTS IN YOUR OCCUPATION?NO CAFFEINE CAFFEINE USE?YES HOW OFTEN AND HOW MUCH? COFFEE 6 CUPS DAILY, 2 SODAS DAILY ADVANCE DIRECTIVE ADVANCE DIRECTIVE DISCUSSED WITH PATIENT:YES PT HAS HCP COUNT INCLUDES [facility] [phone] WORSHIP [id number] JEHOVAH'S WITNESS MARITAL STATUS: . ALCOHOL SCREENING DID YOU HAVE A DRINK CONTAINING ALCOHOL IN THE PAST YEAR?YES HOW OFTEN DID YOU HAVE SIX OR MORE DRINKS ON ONE OCCASION IN THE PAST YEAR?NEVER (0 POINTS) HOW MANY DRINKS DID YOU HAVE ON A TYPICAL DAY WHEN YOU WERE DRINKING IN THE PAST YEAR?1 OR 2 (0 POINTS) HOW OFTEN DID YOU HAVE A DRINK CONTAINING ALCOHOL IN THE PAST YEAR?MONTHLY OR LESS (1 POINT) POINTS1 INTERPRETATIONNEGATIVE OCCUPATION: RETIRED. SEXUAL HX HAD SEX IN THE LAST 12 MONTHS (VAGINAL, ORAL, OR ANAL)?YES WITHMEN ONLY USE PROTECTION?NO LMP:HYSTER HAVE YOU EVER HAD AN STD?NO REVEIWED WITH PT 08/08/17 1344 BVREVIEWED WITH PT 11/10/17 1320 LAS01/29 18 1100 REVIEWED WITH PT. AD REVIEWED WITH PATIENT 09/22/18 1124 NLJREVIEWED WITH PATIENT 12/08/18 1059 JSPRE PROCEDURE ADMISSION MEDICATIONS NOT COMPLETEDREVIEWED WITH PATIENT 03/01/19 DS. HOSPITALIZATION/MAJOR DIAGNOSTIC PROCEDURE SURG RELATED PLUS 1 G-I BLEED REVIEW OF SYSTEMS REVIEWED BY: PROVIDER: . CONSTITUTIONAL: ANY CHANGE IN YOUR MEDICAL CONDITION? NO . CHILLS NO . FEVER NO . INFECTION: DO YOU HAVE NEW INFECTIONS? NO . DO YOU HAVE HISTORY OF MRSA? NO . MUSCULOSKELETAL: ANY NEW PATTERNS OF PAIN OR NUMBNESS? NO . GASTROENTEROLOGY: ANY NEW CHANGE IN BOWEL CONTROL? NO . GENITOURINARY: ANY NEW CHANGE IN BLADDER CONTROL? NO . IS THERE A CHANCE YOU COULD BE ? NO . HEMATOLOGY/LYMPH: DO YOU TAKE ANY BLOOD THINNERS? (FOR EXAMPLE- COUMADIN, PLAVIX, AGGRENOX, PLATEL, PRADAXA, OR XARELTO) NO . WHEN WAS YOUR LAST DOSE? DATE: TIME: . NEUROLOGY: HAVE YOU FALLEN IN THE PAST 12 MONTHS? PT REPORTS SHE FELL LAST MAY . ANY NEW EXTREMITY NUMBNESS OR WEAKNESS? NO . CARDIOLOGY: DO YOU HAVE A PACEMAKER OR DEFIBRILLATOR? PT HAS A DORSAL COLUMN STIMULATOR . RESPIRATORY: HAVE YOU BEEN SICK IN THE PAST WEEK? NO . FEVER NO . FLU LIKE SYMPTOMS? NO . COUGH NO . INTEGUMENTARY: DO YOU HAVE ANY RASHES OR OPEN SORES? NO . ALLERGIC/IMMUNO: ARE YOU ALLERGIC TO IV DYE? NO- BETADINE . ANY NEW ALLERGIES? NO . PSYCHIATRIC: DO YOU HAVE THOUGHTS OF HURTING YOURSELF OR SOMEONE ELSE? NO . ARE YOU ABUSED, NEGLECTED, OR IN AN UNSAFE ENVIRONMENT? NO . ENDOCRINOLOGY: ARE YOU DIABETIC? NO . OTHER: DO YOU NEED ANY PRESCRIPTIONS? NO . IF YES, PLEASE LIST: ____ . ANY NEW PROBLEMS WITH YOUR MEDICATIONS? NO . WHEN DID YOU LAST EAT? 04/18/2019 2345 . WHEN DID YOU LAST DRINK? 04/19/2019 SIPPS DUE TO THROAT CANCER NO SALIVA . WHAT DID YOU LAST DRINK? WATER . NAME OF PERSON DRIVING YOU HOME? ROYAL- . DO YOU HAVE ANY OTHER QUESTIONS OR CONCERNS NO . VITAL SIGNS WT 174.0 LBS, HT 66 IN, BMI 28.08 INDEX, BP 143/78 MM HG, HR 82 /MIN, RR 18 /MIN, TEMP 97.1 F, OXYGEN SAT % 98%, SAFE IN ENV? (Y/N) YES, NA INITIALS AW 1032, REVIEWED BY: GHANSHYAM. CHRISTOPHER SPONDYLOSIS WITHOUT MYELOPATHY OR RADICULOPATHY, LUMBAR REGION - M47.816 (PRIMARY) SPONDYLOSIS WITHOUT MYELOPATHY OR RADICULOPATHY, LUMBOSACRAL REGION - M47.817 PROCEDURES PN WORKMANS' COMP OPINION IN YOUR OPINION, WAS THE INCIDENT THAT THE PATIENT DESCRIBED THE COMPETENT MEDICAL CAUSE OF THIS INJURY/ILLNESS? YES ARE THE PATIENT'S COMPLAINTS CONSISTENT WITH HIS/HER HISTORY OF THE INJURY/ILLNESS? YES IS THE PATIENT'S HISTORY OF THE INJURY/ILLNESS CONSISTENT WITH YOUR OBJECTIVE FINDING? YES WHAT IS THE PERCENTAGE OF TEMPORARY IMPAIRMENT? MODERATE TO MARKED = 66.7% IS THE PATIENT WORKING? NO DOCTOR ON SITE: JENNIFER STEPHENS MD PN LUMBAR FACET BLOCK THERAPEUTIC PRE PROCEDURE DIAGNOSIS LUMBAR SPONDYLOSIS, LUMBOSACRAL SPONDYLOSIS POST PROCEDURE DIAGNOSIS LUMBAR SPONDYLOSIS, LUMBOSACRAL SPONDYLOSIS PROCEDURE BILATERAL L4-L5 AND L5-S1 LUMBAR FACET THERAPEUTIC BLOCK SURGEON DR. JENNIFER MANUEL MATERNAL FETAL PHYSICIAN NONE ANESTHESIA LOCAL PRE PROCEDURE NOTE THE PATIENT HAS A HISTORY OF CHRONIC LOW BACK PAIN. I EVALUATED THE PATIENT AND REVIEWED THE CHART. I WENT OVER THE RISKS, ALTERNATIVES, AND BENEFITS ASSOCIATED WITH THIS PROCEDURE. THE PATIENT WOULD LIKE TO PROCEED AND GIVES CONSENT TO PERFORM THE PROCEDURE. THE PATIENT DENIES UNEXPLAINABLE WEIGHT LOSS, FEVER, CHILLS, OR NEW CHANGES IN URINARY OR BOWEL CONTROL DESCRIPTION OF PROCEDURE THE PATIENT WAS BROUGHT TO THE PROCEDURE ROOM AND PLACED IN THE PRONE POSITION. THE LUMBOSACRAL AREA WAS CLEANED WITH CHLORAPREP SOLUTION AND DRAPED ASEPTICALLY. THE PROCEDURE WAS DONE UNDER STERILE CONDITIONS. I CHECKED LATERALITY AND THE LEVEL WHERE THE PROCEDURE WAS GOING TO BE PERFORMED WITH THE PATIENT AND THE SUPPORTING STAFF AT THE MOMENT OF THE TIME OUT IN THE PROCEDURE ROOM. UNDER FLUOROSCOPIC GUIDANCE, THE TARGET POINT WAS SELECTED AT THE RIGHT AND LEFT L4-L5 AND RIGHT AND LEFT L5-S1 FACET JOINTS. TARGET POINT WAS SELECTED AFTER LATERAL ROTATION AND TILT OF THE MAGNIFIER OF THE C-ARM. LIDOCAINE 0.5% WAS USED TO NUMB THE SKIN AND THE SUBCUTANEOUS TISSUE BELOW IT. SPINAL NEEDLES, 22-GAUGE, WERE ADVANCED UNDER FLUOROSCOPIC GUIDANCE AND FOLLOWING PATIENT FEEDBACK UNTIL THE TARGETS WERE TOUCHED. THE POSITION OF THE NEEDLES WAS VERIFIED WITH AP AND LATERAL VIEWS. AFTER PROPER POSITION OF THE NEEDLES WAS ACHIEVED, ISOVUE-M DYE 30% 0.1 ML WAS INJECTED SHOWING ADEQUATE SPREAD OF THE DYE. THEN A SOLUTION OF 1.9 ML OF BUPIVACAINE 0.125% OF KENALOG 10 MG WAS INJECTED AT EACH SITE. THERE WAS NO EVIDENCE OF BLOOD, PARESTHESIA OR CEREBROSPINAL FLUID DURING THE PROCEDURE. THE PATIENT WAS SENT TO THE RECOVERY ROOM. THE PATIENT WAS MOVING THE EXTREMITIES AND DOING WELL. THERE WAS NO COMPLICATION DURING THE PROCEDURE. FLUOROSCOPY TIME WAS 53 SECONDS POST PROCEDURE NOTE THE PATIENT WILL BE SEEN IN A FOLLOW UP IN THE NEXT FEW WEEKS. INSTRUCTIONS WERE GIVEN, QUESTIONS WERE ANSWERED, AND THE PATIENT EXPRESSED UNDERSTANDING AND AGREES WITH THE PLAN. I, PUNEET DHALIWAL, DOCUMENTED THE ABOVE INFORMATION ACTING A SCRIBE FOR DR. MANUEL. I HAVE REVIEWED THE ABOVE DOCUMENT, WRITTEN BY PUNEET RIVERS AND I VERIFY THAT IT IS ACCURATE. DIAGNOSTIC IMAGING [facility] FACET BLOCK (PAIN)[id number] PROCEDURE CODES 99074 INJ PARAVERT F JNT L/S 1 LEV, MODIFIERS: 50 [id number] INJ PARAVERT F JNT L/S 2 LEV, MODIFIERS: 50 [id number] RADXPS IN END [id number] PXD DISPOSITION & COMMUNICATION FOLLOW UP 3 WEEKS ELECTRONICALLY SIGNED BY JENNIFER MANUEL MD, MD ON 04/26/2019 AT 03:30 PM EDT DISCLAIMER : THIS IS A VISIT SUMMARY EXTRACTED FROM THE [employer] CHART. IT IS NOT A COPY OF THE [employer] PROGRESS NOTE. MTDD
== END ==
LOC: M PAIN 10:15
PROVIDERS: ATTEND Anesthesiology
DX: M47.816 Spondylosis without myelopathy or radiculopathy, lumbar region (principal); M47.817 Spondylosis without myelopathy or radiculopathy, lumbosacral region; I10 Essential (primary) hypertension; E78.00 Pure hypercholesterolemia, unspecified; K21.9 Gastro-esophageal reflux disease without esophagitis; R73.03 Prediabetes; Z86.59 Personal history of other mental and behavioral disorders; E03.9 Hypothyroidism, unspecified; Z98.84 Bariatric surgery status; Z87.891 Personal history of nicotine dependence; Z88.3 Allergy status to other anti-infective agents; Z88.6 Allergy status to analgesic agent; Z88.8 Allergy status to other drugs, medicaments and biological substances; Z79.899 Other long term (current) drug therapy
CPT/HCPCS: 64493; 64494; J3301; Q9967

== ENCOUNTER → 2019-04-27 | Outpatient (CLI) | payer MEDICARE ==
[~2019-04-27] MED LIST changes: -BUPIVACAINE HCL 0.25% 30 ML VIAL As Ordered ONE; -ISOVUE-M 300 61% 15ML VIAL (Q9967) As Ordered ONE; -LIDOCAINE 1% SDV INJ 30 ML VIAL As Ordered ONE; +METHACHOLINE KIT (J7674) INH ONE; -TRIAMCINOLONE ACETONIDE SUSP 40 MG/ML VIAL (J3301) As Ordered ONE; -diazePAM 5 MG TAB As Ordered ONE; -oxyCODONE 5MG TAB As Ordered ONE
--- NOTE | 2019-04-27 11:18 | PFTRPT ---
Site: [facility], [address] [place], [address] ID: [id number] Name: RACHEL MARTINEZ Visit Date: 04/27/2019 Second ID: [id number] Referring Doctor: Shane Mays MD Reviewing Doctor: Shane Mays MD Director Of Audiology: Shira MOLINA, JERRI Age: 53 : 1965 Sex: Female Race: Height: 66.00 Inches Weight: 170.00 Lbs BSA: 1.87 Order IDs: [id number] Requested Test(s): <RESP-PFT.METH CHAL> Diagnosis: R06.02 test appear to be valid, although the ATS standard for "end of test" was not met. Pt was given four puffs of albuterol for postbronchodilator. Review Status: Not Reviewed Pre-Bronch Post-Bronch Pred Actual %Pred Actual %Chng SPIROMETRY FVC (L) 3.73 4.24 113 4.29 1 FEV1 (L) 2.93 3.32 113 3.19 -3 FEV1/FVC (%) 80 78 97 74 -4 FEF 25% (L/sec) 5.36 6.50 121 6.08 -6 FEF 50% (L/sec) 3.84 3.69 96 3.49 -5 FEF 75% (L/sec) 1.37 1.08 79 0.93 -13 FEF 25-75% (L/sec) 2.76 2.96 107 2.58 -12 FEF Max (L/sec) 6.94 7.23 104 6.41 -11 FIVC (L) 3.91 4.18 6 FIF 50% (L/sec) 3.72 2.94 79 4.36 48 FIF Max (L/sec) 3.36 4.65 38 Expiratory Time (sec) 7.60 7.98 4 Back Extrap Vol (L) 0.10 0.09 -9 Time To FEFmax (sec) 0.080 0.095 18
== END ==
LOC: M CARPUL 10:19
PROVIDERS: ATTEND Internal Medicine Pulmonary Disease
DX: R06.02 Shortness of breath (principal)
CPT/HCPCS: 94070; 95070; J7674

== ENCOUNTER → 2019-05-05 | Outpatient (REF) | payer MEDICARE ==
[~2019-05-05] MED LIST changes: -METHACHOLINE KIT (J7674) INH ONE
[2019-05-05 13:37] LABS: APPEARANCE, URINE CLEAR (CLEAR); BACTERIA, URINE AUTO 2+ (NEGATIVE); BILIRUBIN, URINE AUTO NEGATIVE (NEGATIVE); BLOOD, URINE BLOOD 1+ (NEGATIVE); COLOR, URINE YELLOW (YELLOW); GLUCOSE, URINE (UA) AUTO NEGATIVE (NEGATIVE); KETONE, URINE AUTO NEGATIVE (NEGATIVE); LEUKOCYTE ESTERASE, URINE AUTO NEGATIVE (NEGATIVE); NITRITE, URINE AUTO NEGATIVE (NEGATIVE); PROTEIN, URINE AUTO NEGATIVE (NEGATIVE); RBC, URINE AUTO 0 /HPF (0-3); SPECIFIC GRAVITY URINE AUTO 1.003 (1.002-1.035); SQUAMOUS EPITHELIAL CELL UR AU 1 /HPF (0-6); UROBILINOGEN, URINE AUTO 0.2 mg/dL (0.0-2.0); WBC, URINE AUTO 2 /HPF (0-3)
== END ==
LOC: M SFHCADAM 13:13
PROVIDERS: ATTEND Physician Assistant
DX: R30.0 Dysuria (principal)

== ENCOUNTER → 2019-05-28 | Outpatient (CLI) | payer OTHER, MEDICARE ==
--- NOTE | 2019-05-31 10:29 | ECWPNPC ---
PATIENT NAME: RACHEL MARTINEZ : 1965 GENDER: FEMALE VISIT DATE: 05/28/2019 DISCHARGE DATE: 05/28/19 1233 VISIT LOCKED DATE TIME: PHYSICIAN: RICK GIL RESOURCE: RICK GIL REASON FOR APPOINTMENT 1. W/C POST PROC [phone] HISTORY OF PRESENT ILLNESS HISTORY OF PRESENT ILLNESS: TODAY'S VISIT WAS VIA [facility] [employer]IC[facility] AND PATIENT IS AGREEABLE TO THIS VISIT TODAY. HAD BILATERAL L4-5, L5-S1, THERAPEUTIC FACET BLOCK ON 04/19/2019. REPORTS MARKED REDUCTION IN LOW BACK PAIN THAT CONTINUES TODAY. SINCE PROCEDURE. WORST AREA OF PAIN IS NECK AND UPPER BACK. HAS NOT BEEN USING DORSAL COLUMN STIMULATOR FOR THE PAST 3 MONTHS PATIENT FEELS SHE NEEDS A NEW BATTERY. PATIENT STATES SHE HAS CALLED FARIDA STUBBS SEVERAL TIMES AND HE HAS NOT HEARD BACK FROM HIM. I WILL HAVE NURSE CONTACT HIM TODAY. I'VE ASKED PATIENT TO CALL US IN ONE WEEK IF SHE HASN'T HEARD FROM HIM. FINDS CURRENT CHRONIC PAIN MEDICINE EFFECTIVE AT REDUCING PAIN AND KEEPING HER FUNCTIONAL. DENIES ADVERSE SIDE EFFECTS. RATING PAIN VAS LOW BACK 4/10. RATING PAIN VAS NECK REGION 5/10. PAIN THE PATIENT DESCRIBES THE PAIN... FALL RISK SCREENING: SCREENING :NO FALLS REPORTED IN THE LAST YEAR CURRENT MEDICATIONS TAKING ABILIFY 15 MG TABLET 1 TABLET ORALLY ONCE A DAY TAKING AZELASTINE HCL 0.15 % SOLUTION 1 DROP IN EACH NOSTRIL NASALLY TWICE A DAY TAKING CRESTOR 10 MG TABLET 1 TABLET ORALLY ONCE A DAY TAKING DRISDOL 37097 UNIT CAPSULE 1 CAPSULE ORALLY EVERY OTHER WEEK TAKING EFFEXOR XR 150 MG CAPSULE EXTENDED RELEASE 24 HOUR 3 CAPSULE WITH FOOD ORALLY ONCE A DAY TAKING ESTRADIOL 2 MG TABLET 1 TABLET ORALLY ONCE A DAY TAKING FLONASE 50 MCG/ACT SUSPENSION 1 SPRAY IN EACH NOSTRIL NASALLY ONCE A DAY NEEDED TAKING GABAPENTIN 600 MG TABLET 1 TABLET P.O. FOUR TIMES DAILY TAKING LYRICA 150 MG CAPSULE 1 CAPSULE ORALLY Q8H MDD3 TAKING VITAMIN B-12 5000 MCG LOZENGE DIRECTED ORALLY ONCE A DAY TAKING TRAMADOL HCL 50 MG TABLET 1 TABLET NEEDED ORALLY ONCE A DAY TAKING LEVOTHYROXINE SODIUM 50 MCG TABLET 1 TABLET ON AN EMPTY STOMACH IN THE MORNING ORALLY ONCE A DAY TAKING OMEPRAZOLE 40 MG CAPSULE DELAYED RELEASE 1 CAPSULE 30 MINUTES BEFORE MORNING MEAL ORALLY ONCE A DAY NOT-TAKING MACROBID 100 MG CAPSULE 1 CAPSULE ORALLY TWICE A DAY NOT-TAKING PYRIDIUM 100 MG TABLET 2 TABLETS AFTER MEALS ORALLY THREE TIMES A DAY NEEDED FOR DYSURIA NOT-TAKING VENTOLIN HFA 108 (90 BASE) MCG/ACT AEROSOL SOLUTION 2 PUFFS NEEDED INHALATION EVERY 4 HRS NEEDED FOR SHORTNESS OF BREATH MEDICATION LIST REVIEWED AND RECONCILED WITH THE PATIENT PAST MEDICAL HISTORY SUPRAGLOTTIC LARYNGEAL CANCER, STAGE KIZZY [id number]-- RAD TX X 35 SESSIONS WITH CISPLATIN CHEMOTX CHRONIC LOWER BACK PAIN, DORSAL COLUMN STIMULATOR IN PLACE - [facility] HTN HYPERCHOLESTEROLEMIA GERD/H/O PUD WITH GI BLEED IN PAST SECONDARY TO CELEBREX ENDOMETRIOSIS PREDIABETES TOBACCO ABUSE CHRONIC NARCOTIC DEPENDENCE - WEANING OXYCODONE PER PAIN CLINIC ECHO - 02/28/17 - NORMAL LV SIZE AND WALL THICKNESS EF 70% GRADE 1 DIASTOLIC DYSFUNCTION ANXIETY/DEPRESSION/AGORAPHOBIA WITH PANIC ATTACKS - PSYCHIATRIST DR.SANTANA GLOVER DEF - HAD IRON INFUSION 04/2018 HYPOTHYROID ALLERGIES NSAIDS: BLEEDING - CONTRAINDICATION BETADINE: RASH - ALLERGY SKELAXIN: RASH - ALLERGY METFORMIN HCL: DIARRHEA - SIDE EFFECTS SURGICAL HISTORY TONSILLECTOMY TUBAL LIGATION 03/1989 ECTOPIC 09/1989 HYSTERECTOMY D/T PRE-CANCEROUS 1989 BSO 1999 LUMBAR LAMINECTOMY L4-L5 08/1997 TARSAL TUNNEL-BILATERAL FEET 2003 BILATERAL CARPAL TUNNEL RELEASE 2001 LUMBAR STIMULATOR PLACED 2005 CERVICAL STIMULATOR PLACED 2008 RIGHT CARPAL TUNNEL RELEASE 06/2013 GASTRIC BYPASS 2009 COLONOSCOPY WITH POLYP RESECTION, BENIGN 2011 CHOLECYSTECTOMY 12/2010 TOE NAIL SURGERY 08/10/15 TUBE PLACEMENT RIGHT EAR, BIOPSY SINUS CAVITY NODULE 05/2016 LYMPH NODE, THROAT BIOPSY MALIGNANT 05/2017 FEEDING TUBE 06/2017 CHEMO PORT PLACEMENT 06/2017 COLONOSCOPY 07/2016 FAMILY HISTORY FATHER: ALIVE MOTHER: ALIVE, DIAGNOSED WITH DIABETES, HYPERTENSION, OTHER MALIGNANT NEOPLASM OF UNSPECIFIED SITE 1 SON(S) , 1 DAUGHTER(S) - HEALTHY. MOM-LEFT BREAST CA. SOCIAL HISTORY GENERAL: TOBACCO USE ARE YOU A:FORMER SMOKER HOW LONG HAS IT BEEN SINCE YOU LAST SMOKED?6-12 MONTHS QUIT 05/19/17 HIV / HEP-C SCREENING HIV TEST OFFERED TO PATIENT:YES DATE OFFERED:07/29/2017 TEST ACCEPTED:NO REASON:PATIENT DECLINED BROCHURE PROVIDED TO PATIENTNO OTHERS AT HOME: SPOUSE. EDUCATION LEVEL OF EDUCATION:NOT FINISHED COLLEGE DIET: REGULAR. LANGUAGE UPPER SORBIAN. DOMESTIC VIOLENCE DO YOU FEEL SAFE IN YOUR ENVIRONMENT?YES NEW PATIENT PAIN DIARY TODAY'S VISITNOTES 05/28/2019 PATIENT DESCRIBES PAIN :ACHING, HAVE IT ALL THE TIME, IT COMES AND GOES, THROBBING, SHOOTING HAS BOTH CONSTANT PAIN AND PAIN THAT COMES AND GOES. FROM 0-10, WHAT LEVEL IS YOUR PAIN TODAY?4 05/27- - LOW BACK; 06/26 - NECK BMI CARE GOAL FOLLOW-UP ABOVE NORMAL BMI FOLLOW-UPDIETARY MANAGEMENT EDUCATION, GUIDANCE, AND COUNSELING RECREATIONAL DRUG USE DRUG USE?NO EXERCISE: NO REGULAR EXERCISE. 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 SOFT METALS ENGRAVER HAND NEEDED?NO PAIN CLINIC PFS, CLERGY, PUBLIC HEALTH REFERRALS WAS THE PROVIDER NOTIFIED OF ANY PERTINENT INFO?YES N/A HAS THE PATIENT BEEN EDUCATED REGARDING HIS/HER PLAN OF CARE?YES HAS THE PATIENT BEEN EDUCATED REGARDING PAIN, THE RISK FOR PAIN, THE IMPORTANCE OF EFFECTIVE PAIN MANAGEMENT, AND THE PAIN ASSESSMENT PROCESS?YES LATEX QUESTIONNAIRE LATEX ALLERGY : HAVE YOU EVER DEVELOPED ANY TYPE OF REACTION AFTER HANDLING LATEX PRODUCTS SUCH RUBBER GLOVES, CONDOMS, DIAPHRAGMS, BALLOONS, SOCKS, OR UNDERWEAR?NO LATEX ALLERGY : HAVE YOU EVER DEVELOPED ANY TYPE OF REACTION DURING OR AFTER DENTAL APPOINTMENT, VAGINAL/RECTAL EXAMINATION, SURGICAL PROCEDURE, OR ANY OTHER EXPOSURE?NO LATEX RISK : HAVE YOU EVER HAD ANY DIFFICULTY BREATHING OR HIVES AFTER EATING OR HANDLING ANY FRUITS, OR VEGETABLES; SUCH KIWI, BANANAS, STONE FRUITS, OR CHESTNUTSNO LATEX RISK : DO YOU HAVE A PREVIOUS PERSONAL HISTORY OF MORE THAN NINE SURGERIES, SPINA BIFIDA, OR REPEATED CATHERIZATIONS? YES - PLEASE INDICATE : > 9 SURGERIES LATEX RISK : ARE YOU FREQUENTLY EXPOSED TO LATEX PRODUCTS IN YOUR OCCUPATION?NO DATE ASKED : 03/01/2019 CAFFEINE CAFFEINE USE?YES HOW OFTEN AND HOW MUCH? COFFEE 6 CUPS DAILY, 2 SODAS DAILY ADVANCE DIRECTIVE ADVANCE DIRECTIVE DISCUSSED WITH PATIENT:YES PT HAS HCP ROYAL MARTINEZ [phone] DRUZE [id number] SCIENTOLOGY MARITAL STATUS: . ALCOHOL SCREENING DID YOU HAVE A DRINK CONTAINING ALCOHOL IN THE PAST YEAR?YES HOW OFTEN DID YOU HAVE SIX OR MORE DRINKS ON ONE OCCASION IN THE PAST YEAR?NEVER (0 POINTS) HOW MANY DRINKS DID YOU HAVE ON A TYPICAL DAY WHEN YOU WERE DRINKING IN THE PAST YEAR?1 OR 2 (0 POINTS) HOW OFTEN DID YOU HAVE A DRINK CONTAINING ALCOHOL IN THE PAST YEAR?MONTHLY OR LESS (1 POINT) POINTS1 INTERPRETATIONNEGATIVE OCCUPATION: RETIRED. SEXUAL HX HAD SEX IN THE LAST 12 MONTHS (VAGINAL, ORAL, OR ANAL)?YES WITHMEN ONLY USE PROTECTION?NO LMP:HYSTER HAVE YOU EVER HAD AN STD?NO HOSPITALIZATION/MAJOR DIAGNOSTIC PROCEDURE SURG RELATED PLUS 1 G-I BLEED REVIEW OF SYSTEMS REVIEWED BY: PROVIDER: RICK WILLIS . CONSTITUTIONAL: ANY CHANGE IN YOUR MEDICAL CONDITION? NO . CHILLS NO . FEVER NO . INFECTION: DO YOU HAVE NEW INFECTIONS? NO . DO YOU HAVE HISTORY OF MRSA? NO . MUSCULOSKELETAL: ANY NEW PATTERNS OF PAIN OR NUMBNESS? NO . GASTROENTEROLOGY: ANY NEW CHANGE IN BOWEL CONTROL? NO . GENITOURINARY: ANY NEW CHANGE IN BLADDER CONTROL? NO . IS THERE A CHANCE YOU COULD BE ? NO . HEMATOLOGY/LYMPH: DO YOU TAKE ANY BLOOD THINNERS? (FOR EXAMPLE- COUMADIN, PLAVIX, AGGRENOX, PLATEL, PRADAXA, OR XARELTO) NO . WHEN WAS YOUR LAST DOSE? DATE: TIME: . NEUROLOGY: HAVE YOU FALLEN IN THE PAST 12 MONTHS? NO . ANY NEW EXTREMITY NUMBNESS OR WEAKNESS? NO . CARDIOLOGY: DO YOU HAVE A PACEMAKER OR DEFIBRILLATOR? NO - 2 DCS'S . RESPIRATORY: HAVE YOU BEEN SICK IN THE PAST WEEK? NO . FEVER NO . FLU LIKE SYMPTOMS? NO . COUGH NO . INTEGUMENTARY: DO YOU HAVE ANY RASHES OR OPEN SORES? NO . ALLERGIC/IMMUNO: ARE YOU ALLERGIC TO IV DYE? NO . ANY NEW ALLERGIES? NO . PSYCHIATRIC: DO YOU HAVE THOUGHTS OF HURTING YOURSELF OR SOMEONE ELSE? NO . ARE YOU ABUSED, NEGLECTED, OR IN AN UNSAFE ENVIRONMENT? NO . ENDOCRINOLOGY: ARE YOU DIABETIC? NO . OTHER: DO YOU NEED ANY PRESCRIPTIONS? YES . IF YES, PLEASE LIST: ____LYRICA, GABAPENTIN, TRAMADOL . ANY NEW PROBLEMS WITH YOUR MEDICATIONS? NO . WHEN DID YOU LAST EAT? ____ . WHEN DID YOU LAST DRINK? ____ . WHAT DID YOU LAST DRINK? ____ . NAME OF PERSON DRIVING YOU HOME? ____ . DO YOU HAVE ANY OTHER QUESTIONS OR CONCERNS NO . EXAMINATION GENERAL EXAMINATION: GENERALNO ACUTE DISTRESS, WELL NOURISHED AND HYDRATED. PSYCHAPPROPRIATE MOOD AND AFFECT . FACE:UNREMARKABLE. ASSESSMENTS POST LAMINECTOMY SYNDROME - M96.1 (PRIMARY) SPONDYLOSIS OF CERVICAL REGION WITHOUT MYELOPATHY OR RADICULOPATHY - M47.812 TREATMENT OTHERS NOTES: VITALS NOT OBTAINED DUE TO VIRTUAL VISIT. PROCEDURES PN WORKMANS' COMP OPINION IN YOUR OPINION, WAS THE INCIDENT THAT THE PATIENT DESCRIBED THE COMPETENT MEDICAL CAUSE OF THIS INJURY/ILLNESS? YES ARE THE PATIENT'S COMPLAINTS CONSISTENT WITH HIS/HER HISTORY OF THE INJURY/ILLNESS? YES IS THE PATIENT'S HISTORY OF THE INJURY/ILLNESS CONSISTENT WITH YOUR OBJECTIVE FINDING? YES WHAT IS THE PERCENTAGE OF TEMPORARY IMPAIRMENT? MODERATE TO MARKED = 66.7% IS THE PATIENT WORKING? NO DOCTOR ON SITE: JENNIFER STEPHENS MD DISPOSITION & COMMUNICATION FOLLOW UP 2 MONTHS (REASON: W/C NECK LOW BACK) ELECTRONICALLY SIGNED BY ALBA DENNIS ON 05/28/2019 AT 01:37 PM EDT DISCLAIMER : THIS IS A VISIT SUMMARY EXTRACTED FROM THE [employer] CHART. IT IS NOT A COPY OF THE [employer] PROGRESS NOTE. RAULITO
== END ==
LOC: M TMPAIN 10:15 → M PAIN 10:15
PROVIDERS: ATTEND Nurse Practitioner Family
DX: M96.1 Postlaminectomy syndrome, not elsewhere classified (principal); M47.812 Spondylosis without myelopathy or radiculopathy, cervical region; I10 Essential (primary) hypertension; E78.00 Pure hypercholesterolemia, unspecified; K21.9 Gastro-esophageal reflux disease without esophagitis; R73.03 Prediabetes; Z86.59 Personal history of other mental and behavioral disorders; E03.9 Hypothyroidism, unspecified; Z98.84 Bariatric surgery status; Z87.891 Personal history of nicotine dependence; Z88.3 Allergy status to other anti-infective agents; Z88.6 Allergy status to analgesic agent; Z88.8 Allergy status to other drugs, medicaments and biological substances; Z96.89 Presence of other specified functional implants; Z79.899 Other long term (current) drug therapy

== ENCOUNTER → 2019-06-10 | Outpatient (REF) | payer MEDICARE, OTHER ==
[2019-06-10 12:55] LABS: BASO % 0.4 % (0.0-1.0); EOS # 0.2 10^3/uL (0.0-0.5); EOS % 2.2 % (0.0-3.0); HEMATOCRIT 41.1 % (36.0-47.0); HEMOGLOBIN 13.3 g/dl (12.0-15.5); LYMPH # 1.1 10^3/uL (1.5-5.0); LYMPH % 15.7 % (24.0-44.0); MEAN CORPUSCULAR HEMOGLOBIN 29.3 pg (27.0-33.0); MEAN CORPUSCULAR HGB CONC 32.4 g/dl (32.0-36.5); MEAN CORPUSCULAR VOLUME 90.5 fl (80.0-96.0); MONO # 0.4 10^3/uL (0.0-0.8); MONO % 6.2 % (0.0-5.0); NEUTROPHILS # 5.3 10^3/uL (1.5-8.5); NEUTROPHILS % 74.7 % (36.0-66.0); PLATELET COUNT, AUTOMATED 269 10^3/uL (150-450); RED BLOOD COUNT 4.54 10^6/uL (4.00-5.40); WHITE BLOOD COUNT 7.1 10^3/uL (4.0-10.0)
[2019-06-10 13:22] LABS: ALBUMIN 3.1 GM/DL (3.2-5.2); ALT/SGPT 16 U/L (12-78); BILIRUBIN,TOTAL 0.1 MG/DL (0.2-1.0); BLOOD UREA NITROGEN 13 MG/DL (7-18); CARBON DIOXIDE LEVEL 26 MEQ/L (21-32); CHLORIDE LEVEL 106 MEQ/L (98-107); CREATININE FOR GFR 0.81 MG/DL (0.55-1.30); GLOMERULAR FILTRATION RATE > 60.0 (>51); GLUCOSE, FASTING 130 MG/DL (70-100); POTASSIUM SERUM 4.3 MEQ/L (3.5-5.1); SODIUM LEVEL 139 MEQ/L (136-145); TOTAL PROTEIN 6.9 GM/DL (6.4-8.2)
== END ==
LOC: M LABDRWAD 12:31
PROVIDERS: ATTEND Internal Medicine Hematology
DX: C32.9 Malignant neoplasm of larynx, unspecified (principal)

== ENCOUNTER → 2019-07-28 | Outpatient (CLI) | payer OTHER, MEDICARE ==
--- NOTE | 2019-07-30 04:15 | ECWPNPC ---
PATIENT NAME: RACHEL MARTINEZ : 1965 GENDER: FEMALE VISIT DATE: 07/28/2019 DISCHARGE DATE: 07/28/19 1300 VISIT LOCKED DATE TIME: PHYSICIAN: RICK GIL RESOURCE: RICK GIL REASON FOR APPOINTMENT 1. W/C BACK; [phone] PAT DONE HISTORY OF PRESENT ILLNESS GENERAL: PATIENT IS AGREEABLE TO TELEPHONE VISIT TODAY. THIS IS A ROUTINE FOLLOW-UP FOR A WORK RELATED INJURY WITH DATE OF INJURY IN 1998. SUFFERS FROM PERSISTENT NECK AND LOW BACK PAIN. FINDS CURRENT CHRONIC PAIN MEDICATION EFFECTIVE AT REDUCING PAIN AND KEEPING HER FUNCTIONAL. DENIES ADVERSE SIDE EFFECTS. CONTINUES WITH USE OF DORSAL COLUMN STIMULATOR.-. FALL RISK SCREENING: SCREENING :NO FALLS REPORTED IN THE LAST YEAR PAIN SCREENING: PATIENT HAS A COMPLAINT OF ACUTE OR CHRONIC PAIN :YES LOCATION OF PAIN:LOW BACK INTENSITY OF PAIN (SCALE OF 1 TO 10):5 WHAT DOES YOUR PAIN FEEL LIKE:ACHING, CONTINOUS, SHARP, STABBING, TENDER, THROBBING, SORE, SHOOTING DURATION:CONSTANT PAIN IS INCREASED BY:ACTIVITIES PAIN IS DECREASED BY:OTHERS HEAT, LAYING DOWN NURSING NOTE: -. PAIN CENTER INTAKE QUESTIONS: DO YOU HAVE A HISTORY OF MRSA? :NO DO YOU TAKE A BLOOD THINNERS? :NO DO YOU HAVE ANY BLEEDING DISORDERS? :NO ANY NEW NUMBNESS OR WEAKNESS IN YOUR LEGS OR ARMS? :NO ANY PACEMAKER,DEFIBRILLATOR, OR DORSAL COLUMN STIMULATOR? :YES PT STATES THAT SHE HAS TWO DCS IN PLACE DO YOU HAVE ANY RASHES OR OPEN SORES? :NO ARE YOU ALLERGIC TO IV DYE? :NO ARE YOU DIABETIC? :NO ANY NEW PROBLEMS WITH YOUR MEDICATIONS? :NO HAVE YOU RECEIVED A VACCINE IN THE PAST 30 DAYS? :NO DO YOU PLAN TO RECEIVE A VACCINE IN THE NEXT 21 DAYS? :NO DO YOU NEED ANY PRESCRIPTION? :NO DO YOU TAKE ANY IMMUNOSUPPRESSIVE MEDICATIONS? :NO IS THERE A CHANCE YOU COULD BE ? :NO ARE YOU BREAST FEEDING? :NO CURRENT MEDICATIONS TAKING ABILIFY 15 MG TABLET 1 TABLET ORALLY ONCE A DAY TAKING CRESTOR 10 MG TABLET 1 TABLET ORALLY ONCE A DAY TAKING DRISDOL 34734 UNIT CAPSULE 1 CAPSULE ORALLY EVERY OTHER WEEK TAKING EFFEXOR XR 150 MG CAPSULE EXTENDED RELEASE 24 HOUR 3 CAPSULE WITH FOOD ORALLY ONCE A DAY TAKING ESTRADIOL 2 MG TABLET 1 TABLET ORALLY ONCE A DAY TAKING FLONASE 50 MCG/ACT SUSPENSION 1 SPRAY IN EACH NOSTRIL NASALLY ONCE A DAY NEEDED TAKING GABAPENTIN 600 MG TABLET 1 TABLET P.O. FOUR TIMES DAILY TAKING VITAMIN B-12 5000 MCG LOZENGE DIRECTED ORALLY ONCE A DAY TAKING LEVOTHYROXINE SODIUM 50 MCG TABLET 1 TABLET ON AN EMPTY STOMACH IN THE MORNING ORALLY ONCE A DAY TAKING OMEPRAZOLE 40 MG CAPSULE DELAYED RELEASE 1 CAPSULE 30 MINUTES BEFORE MORNING MEAL ORALLY ONCE A DAY TAKING AZELASTINE HCL 0.15 % SOLUTION 1 DROP IN EACH NOSTRIL NASALLY TWICE A DAY TAKING TRAMADOL HCL 50 MG TABLET 1 TABLET NEEDED ORALLY ONCE A DAY TAKING LYRICA 150 MG CAPSULE 1 CAPSULE ORALLY Q8H MDD3 NOT-TAKING MACROBID 100 MG CAPSULE 1 CAPSULE ORALLY TWICE A DAY NOT-TAKING PYRIDIUM 100 MG TABLET 2 TABLETS AFTER MEALS ORALLY THREE TIMES A DAY NEEDED FOR DYSURIA NOT-TAKING VENTOLIN HFA 108 (90 BASE) MCG/ACT AEROSOL SOLUTION 2 PUFFS NEEDED INHALATION EVERY 4 HRS NEEDED FOR SHORTNESS OF BREATH MEDICATION LIST REVIEWED AND RECONCILED WITH THE PATIENT PAST MEDICAL HISTORY SUPRAGLOTTIC LARYNGEAL CANCER, STAGE KIZZY [id number]-- RAD TX X 35 SESSIONS WITH CISPLATIN CHEMOTX CHRONIC LOWER BACK PAIN, DORSAL COLUMN STIMULATOR IN PLACE - [facility] HTN HYPERCHOLESTEROLEMIA GERD/H/O PUD WITH GI BLEED IN PAST SECONDARY TO CELEBREX ENDOMETRIOSIS PREDIABETES TOBACCO ABUSE CHRONIC NARCOTIC DEPENDENCE - WEANING OXYCODONE PER PAIN CLINIC ECHO - 02/28/17 - NORMAL LV SIZE AND WALL THICKNESS EF 70% GRADE 1 DIASTOLIC DYSFUNCTION ANXIETY/DEPRESSION/AGORAPHOBIA WITH PANIC ATTACKS - PSYCHIATRIST IRON DEF - HAD IRON INFUSION 04/2018 HYPOTHYROID ALLERGIES NSAIDS: BLEEDING - CONTRAINDICATION BETADINE: RASH - ALLERGY SKELAXIN: RASH - ALLERGY METFORMIN HCL: DIARRHEA - SIDE EFFECTS SURGICAL HISTORY TONSILLECTOMY TUBAL LIGATION 03/1989 ECTOPIC 09/1989 HYSTERECTOMY D/T PRE-CANCEROUS 1989 BSO 1999 LUMBAR LAMINECTOMY L4-L5 08/1997 TARSAL TUNNEL-BILATERAL FEET 2004 BILATERAL CARPAL TUNNEL RELEASE 2001 LUMBAR STIMULATOR PLACED 2005 CERVICAL STIMULATOR PLACED 2008 RIGHT CARPAL TUNNEL RELEASE 06/2013 GASTRIC BYPASS 2010 COLONOSCOPY WITH POLYP RESECTION, BENIGN 2011 CHOLECYSTECTOMY 12/2010 TOE NAIL SURGERY 08/10/15 TUBE PLACEMENT RIGHT EAR, BIOPSY SINUS CAVITY NODULE 05/2016 LYMPH NODE, THROAT BIOPSY MALIGNANT 05/2017 FEEDING TUBE 06/2017 CHEMO PORT PLACEMENT 06/2017 COLONOSCOPY 07/2016 FAMILY HISTORY FATHER: ALIVE MOTHER: ALIVE, DIAGNOSED WITH DIABETES, HYPERTENSION, OTHER MALIGNANT NEOPLASM OF UNSPECIFIED SITE 1 SON(S) , 1 DAUGHTER(S) - HEALTHY. MOM-LEFT BREAST CA. SOCIAL HISTORY GENERAL: TOBACCO USE ARE YOU A:FORMER SMOKER HOW LONG HAS IT BEEN SINCE YOU LAST SMOKED?6-12 MONTHS QUIT 05/19/17 LATEX QUESTIONNAIRE LATEX ALLERGY : HAVE YOU EVER DEVELOPED ANY TYPE OF REACTION AFTER HANDLING LATEX PRODUCTS SUCH RUBBER GLOVES, CONDOMS, DIAPHRAGMS, BALLOONS, SOCKS, OR UNDERWEAR?NO LATEX ALLERGY : HAVE YOU EVER DEVELOPED ANY TYPE OF REACTION DURING OR AFTER DENTAL APPOINTMENT, VAGINAL/RECTAL EXAMINATION, SURGICAL PROCEDURE, OR ANY OTHER EXPOSURE?NO LATEX RISK : HAVE YOU EVER HAD ANY DIFFICULTY BREATHING OR HIVES AFTER EATING OR HANDLING ANY FRUITS, OR VEGETABLES; SUCH KIWI, BANANAS, STONE FRUITS, OR CHESTNUTSNO LATEX RISK : DO YOU HAVE A PREVIOUS PERSONAL HISTORY OF MORE THAN NINE SURGERIES, SPINA BIFIDA, OR REPEATED CATHERIZATIONS? YES - PLEASE INDICATE : > 9 SURGERIES LATEX RISK : ARE YOU FREQUENTLY EXPOSED TO LATEX PRODUCTS IN YOUR OCCUPATION?NO DATE ASKED : 07/27/2019 BMI CARE GOAL FOLLOW-UP ABOVE NORMAL BMI FOLLOW-UPDIETARY MANAGEMENT EDUCATION, GUIDANCE, AND COUNSELING ALCOHOL SCREENING DID YOU HAVE A DRINK CONTAINING ALCOHOL IN THE PAST YEAR?YES HOW OFTEN DID YOU HAVE SIX OR MORE DRINKS ON ONE OCCASION IN THE PAST YEAR?NEVER (0 POINTS) HOW MANY DRINKS DID YOU HAVE ON A TYPICAL DAY WHEN YOU WERE DRINKING IN THE PAST YEAR?1 OR 2 (0 POINTS) HOW OFTEN DID YOU HAVE A DRINK CONTAINING ALCOHOL IN THE PAST YEAR?MONTHLY OR LESS (1 POINT) POINTS1 INTERPRETATIONNEGATIVE RECREATIONAL DRUG USE DRUG USE?NO CAFFEINE CAFFEINE USE?YES HOW OFTEN AND HOW MUCH? COFFEE 6 CUPS DAILY, 2 SODAS DAILY SEXUAL HX HAD SEX IN THE LAST 12 MONTHS (VAGINAL, ORAL, OR ANAL)?YES WITHMEN ONLY USE PROTECTION?NO LMP:HYSTER HAVE YOU EVER HAD AN STD?NO HIV / HEP-C SCREENING HIV TEST OFFERED TO PATIENT:YES DATE OFFERED:07/29/2017 TEST ACCEPTED:NO REASON:PATIENT DECLINED BROCHURE PROVIDED TO PATIENTNO TAOIST [id number] SCIENTOLOGIST LANGUAGE EQUATORIAL GUINEAN. 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 DIET: REGULAR. EXERCISE: NO REGULAR EXERCISE. MARITAL STATUS: . OTHERS AT HOME: SPOUSE. NEW PATIENT PAIN DIARY TODAY'S VISITNOTES PATIENT DESCRIBES PAIN :ACHING, HAVE IT ALL THE TIME, IT COMES AND GOES, THROBBING, SHOOTING HAS BOTH CONSTANT PAIN AND PAIN THAT COMES AND GOES. FROM 0-10, WHAT LEVEL IS YOUR PAIN TODAY?4 05/27- - LOW BACK; 06/26 - NECK PAIN CLINIC PFS, CLERGY, PUBLIC HEALTH REFERRALS WAS THE PROVIDER NOTIFIED OF ANY PERTINENT INFO?YES N/A HAS THE PATIENT BEEN EDUCATED REGARDING HIS/HER PLAN OF CARE?YES HAS THE PATIENT BEEN EDUCATED REGARDING PAIN, THE RISK FOR PAIN, THE IMPORTANCE OF EFFECTIVE PAIN MANAGEMENT, AND THE PAIN ASSESSMENT PROCESS?YES ADVANCE DIRECTIVE ADVANCE DIRECTIVE DISCUSSED WITH PATIENT:YES PT HAS HCP [facility] [phone] HOSPITALIZATION/MAJOR DIAGNOSTIC PROCEDURE SURG RELATED PLUS 1 G-I BLEED REVIEW OF SYSTEMS CONSTITUTIONAL: ANY RECENT FEVER OR ILLNESS NO, NO . CHILLS NO, NO . GASTROENTEROLOGY: BOWEL INCONTINENCE NO, NO . ANY NEW CHANGE IN BOWEL CONTROL? NO, NO . ABDOMINAL PAIN NO, NO . CONSTIPATION NO, NO . GENITOURINARY: ANY NEW CHANGE IN BLADDER CONTROL? NO, NO . IS THERE A CHANCE YOU COULD BE ? NO, NO . URINARY INCONTINENCE NO, NO . CARDIOLOGY: CHEST PRESSURE NO, NO . CHEST PAIN NO, NO . RESPIRATORY: COUGH NO, NO . SHORTNESS OF BREATH NO, NO . ASSESSMENTS POST LAMINECTOMY SYNDROME - M96.1 (PRIMARY) TREATMENT POST LAMINECTOMY SYNDROME CONTINUE TRAMADOL HCL TABLET, 50 MG, 1 TABLET NEEDED, ORALLY, ONCE A DAY CONTINUE LYRICA CAPSULE, 150 MG, 1 CAPSULE, ORALLY, Q8H MDD3 NOTES: ISTOP REGISTRY REVIEWED AND DEMONSTRATES COMPLLIANCE. RECENT URINE TOXICOLOGY REVIEWED. NO UNAUTHORIZED MEDICATIONS. NO ILLICIT SUBSTANCES AND PRESCRIBED MEDICATIONS WERE PRESENT. TOTAL TIME SPENT DURING TELEPHONE VISIT WAS APPROXIMATELY 12 MINUTES. PROCEDURES PN WORKMANS' COMP OPINION IN YOUR OPINION, WAS THE INCIDENT THAT THE PATIENT DESCRIBED THE COMPETENT MEDICAL CAUSE OF THIS INJURY/ILLNESS? YES ARE THE PATIENT'S COMPLAINTS CONSISTENT WITH HIS/HER HISTORY OF THE INJURY/ILLNESS? YES IS THE PATIENT'S HISTORY OF THE INJURY/ILLNESS CONSISTENT WITH YOUR OBJECTIVE FINDING? YES WHAT IS THE PERCENTAGE OF TEMPORARY IMPAIRMENT? MODERATE TO MARKED = 66.7% IS THE PATIENT WORKING? NO DOCTOR ON SITE: JENNIFER STEPHENS MD DISPOSITION & COMMUNICATION FOLLOW UP WORKMEN'S COMP 3 MONTHS IN CLINIC MED MANAGEMENT TOXICOLOGY (REASON: LOW BACK PAIN, NECK PAIN) ELECTRONICALLY SIGNED BY ALBA DENNIS ON 07/29/2019 AT 12:23 PM EDT DISCLAIMER : THIS IS A VISIT SUMMARY EXTRACTED FROM THE [employer] CHART. IT IS NOT A COPY OF THE [employer] PROGRESS NOTE. RAULITO
== END ==
LOC: M PAIN 10:00
PROVIDERS: ATTEND Nurse Practitioner Family
DX: M96.1 Postlaminectomy syndrome, not elsewhere classified (principal)

== ENCOUNTER → 2019-09-02 | Outpatient (REF) | payer MEDICARE ==
[~2019-09-02] MED LIST changes: +ARIP1TAB10 PO; +B-122500 PO; +ESTR2TAB2 PO; -FLON1SPR; +FLON1SPR NARES; +OMEP-221 PO; +VENL75CA47 PO
[2019-09-02 13:40] LABS: BASO % 0.5 % (0.0-1.0); EOS # 0.2 10^3/uL (0.0-0.5); EOS % 2.2 % (0.0-3.0); HEMOGLOBIN 12.7 g/dl (12.0-15.5); LYMPH # 1.1 10^3/uL (1.5-5.0); MEAN CORPUSCULAR HEMOGLOBIN 28.5 pg (27.0-33.0); MEAN CORPUSCULAR HGB CONC 31.8 g/dl (32.0-36.5); MEAN CORPUSCULAR VOLUME 89.9 fl (80.0-96.0); MONO # 0.6 10^3/uL (0.0-0.8); MONO % 8.2 % (0.0-5.0); NEUTROPHILS # 5.4 10^3/uL (1.5-8.5); NEUTROPHILS % 73.4 % (36.0-66.0); PLATELET COUNT, AUTOMATED 254 10^3/uL (150-450); RED BLOOD COUNT 4.45 10^6/uL (4.00-5.40); WHITE BLOOD COUNT 7.3 10^3/uL (4.0-10.0)
[2019-09-02 14:09] LABS: ALBUMIN 3.2 GM/DL (3.2-5.2); ALT/SGPT 10 U/L (12-78); BILIRUBIN,TOTAL 0.3 MG/DL (0.2-1.0); BLOOD UREA NITROGEN 8 MG/DL (7-18); CALCIUM LEVEL 8.9 MG/DL (8.5-10.1); CARBON DIOXIDE LEVEL 28 MEQ/L (21-32); CHLORIDE LEVEL 107 MEQ/L (98-107); CREATININE FOR GFR 0.88 MG/DL (0.55-1.30); GLOMERULAR FILTRATION RATE > 60.0 (>51); GLUCOSE, FASTING 70 MG/DL (70-100); LDH LACTATE DEHYDROGENASE 171 U/L (84-246); POTASSIUM SERUM 4.8 MEQ/L (3.5-5.1); SODIUM LEVEL 141 MEQ/L (136-145); TOTAL PROTEIN 7.1 GM/DL (6.4-8.2)
== END ==
LOC: M LAB REF 12:41
PROVIDERS: ATTEND Internal Medicine Medical Oncology
DX: C32.1 Malignant neoplasm of supraglottis (principal)

== ENCOUNTER → 2019-09-22 | Outpatient (CLI) | payer MEDICARE ==
--- NOTE | 2019-11-09 09:23 | REP ---
CT CHEST WITHOUT CONTRAST HISTORY: Other nonspecific abnormal finding of lung field. COMPARISON: Chest CT study 03/04/2019 and 02/18/2019. There is a low-dose screening chest CT study from 12/22/2018. CT FINDINGS: Todays CT study demonstrates hyperinflation as before. There are multifactorial patchy scattered areas of ground-glass opacification in the lung valverde bilaterally involving the lower lobes and right middle and bilateral upper lobes. This pattern is seen previously, but appears to be waxing and waning and different in distribution today. The findings are most compatible with inflammatory lung disease. No solid nodule is appreciated. No mass lesion is observation. No pleural or pericardial effusion is observed. There are scattered normal size precarinal lymph nodes. No adenopathy. Normal adrenal glands are observed. Patient is status post gastric bypass. There are clips in the gallbladder fossa. There are several small hepatic cysts. No significant bony abnormality. IMPRESSION: Patchy areas of scattered ground-glass opacification in the lungs bilaterally involving all lobes. Waxing and waning distribution compared to prior studies. Most compatible with inflammatory lung disease. No solid nodule or mass. No evidence of adenopathy or effusion. MTDD
== END ==
LOC: M RAD 09:30
PROVIDERS: ATTEND Internal Medicine Pulmonary Disease
DX: R91.8 Other nonspecific abnormal finding of lung field (principal)

== ENCOUNTER → 2019-09-29 | Outpatient (REF) | payer MEDICARE ==
[2019-10-30 11:55] LABS: BASO % 0.1 % (0.0-1.0); EOS # 0.1 10^3/uL (0.0-0.5); EOS % 1.2 % (0.0-3.0); ERYTHROCYTE SEDIMENTATION RATE 32 mm/hr (0-30); HEMATOCRIT 42.6 % (36.0-47.0); HEMOGLOBIN 13.5 g/dl (12.0-15.5); LYMPH # 1.2 10^3/uL (1.5-5.0); LYMPH % 12.7 % (24.0-44.0); MEAN CORPUSCULAR HEMOGLOBIN 28.7 pg (27.0-33.0); MEAN CORPUSCULAR HGB CONC 31.7 g/dl (32.0-36.5); MEAN CORPUSCULAR VOLUME 90.6 fl (80.0-96.0); MONO # 0.4 10^3/uL (0.0-0.8); MONO % 4.2 % (0.0-5.0); NEUTROPHILS # 7.4 10^3/uL (1.5-8.5); NEUTROPHILS % 81.5 % (36.0-66.0); PLATELET COUNT, AUTOMATED 240 10^3/uL (150-450); WHITE BLOOD COUNT 9.1 10^3/uL (4.0-10.0)
[2019-10-31 11:46] LABS: ASPERGILLUS FUMIGATUS AB SEE SEPARATE REPORT
[2019-11-13 11:16] LABS: ALBUMIN 3.6 GM/DL (3.2-5.2); ALT/SGPT 13 U/L (12-78); BILIRUBIN,DIRECT < 0.1 MG/DL (0.0-0.2); BILIRUBIN,TOTAL 0.3 MG/DL (0.2-1.0); CALCIUM LEVEL 9.2 MG/DL (8.5-10.1); CREATININE FOR GFR 0.93 MG/DL (0.55-1.30); GLOMERULAR FILTRATION RATE > 60.0 (>51); TOTAL PROTEIN 7.4 GM/DL (6.4-8.2)
[2019-11-22 11:05] LABS: ANCA-ATYPICAL SEE SEPARATE REPORT; ANTINUCLEAR ANTIBODIES DIRECT See Separate Report; PERINUCLEAR AB ANCA-P SEE SEPARATE REPORT
[2019-11-22 11:06] LABS: ANGIOTENSIN 1 CONVERTING ENZYM See Separate Report U/L; ANTI DS-DNA AB SEE SEPARATE REPORT; ASPERGILLUS FLAVUS ABY SEE SEPARATE REPORT; ASPERGILLUS FUMIGATUS ABY SEE SEPARATE REPORT; ASPERGILLUS NIGER ABY SEE SEPARATE REPORT; CRYPTOCOCCUS ANTIGEN SER SEE SEPARATE REPORT; HISTOPLASMOSIS ANTIBODY SEE SEPARATE REPORT; RNP ANTIBODY SEE SEPARATE REPORT UNITS; SMITHS ANTIBODY SEE SEPARATE REPORT UNITS; SSA SJOGRENS A SEE SEPARATE REPORT; SSB SJOGRENS B SEE SEPARATE REPORT
[2019-11-22 11:07] LABS: CYTOPLASMIC NEUTROP AB ANCA-C SEE SEPARATE REPORT
[2019-11-24 10:38] LABS: BLASTOMYCES ANTIBODY LEVEL SEE SEPARATE REPORT
== END ==
LOC: M PLALAB 09:01
PROVIDERS: ATTEND Internal Medicine Pulmonary Disease
DX: R91.8 Other nonspecific abnormal finding of lung field (principal)

== ENCOUNTER 2019-09-30 07:20 | Day surgery (SDC) | payer MEDICARE ==
[~2019-09-30 07:20] MED LIST changes: -ARIP1TAB10 PO; -B-122500 PO; -ESTR2TAB2 PO; +LIDOCAINE 2% 100MG/5ML SDV (FOR ANES.) As Ordered ONE; -OMEP-221 PO; -VENL75CA47 PO; +propofoL 200 MG/20 ML VIAL As Ordered ONE
[2019-09-30] MEDS ORDERED: fentaNYL 100 MCG/2 ML INJECTION (J3010) As Ordered ONE (07:35)
[2019-09-30] MEDS ORDERED: ONDANSETRON 4MG/2ML VIAL As Ordered ONE (07:37)
--- NOTE | 2019-10-27 11:34 | ROOR ---
Patient Name: Nathalie Fernández Procedure Date: 09/30/2019 7:37 AM Date of : 1965 Age: 54 Room: [facility] Gender: Female Note Status: Finalized Procedure: Colonoscopy Indications: High risk colon cancer surveillance: Personal history of colonic polyps Providers: Johnathan SILVER MD Referring MD: Robbie Grey MD Requesting Provider: Medicines: Monitored Anesthesia Care Complications: No immediate complications. Procedure: Pre-Anesthesia Assessment: - The heart rate, respiratory rate, oxygen saturations, blood pressure, adequacy of pulmonary ventilation, and response to care were monitored throughout the procedure. The Colonoscope was introduced through the anus and advanced to the cecum, identified by appendiceal orifice and ileocecal valve. The colonoscopy was performed with difficulty due to inadequate bowel prep. The patient tolerated the procedure well. The quality of the bowel preparation was inadequate. The bowel preparation used was SUPREP via split dose instruction. The bowel preparation used was Milk of magnesia via single dose instruction. Findings: The perianal and digital rectal examinations were normal. Three sessile polyps were found in the sigmoid colon and splenic flexure. The polyps were 6 to 10 mm in size. These polyps were removed with a cold snare. Resection and retrieval were complete. The exam was otherwise without abnormality on direct and retroflexion views. Impression: - Preparation of the colon was inadequate. - Three 6 to 10 mm polyps in the sigmoid colon and at the splenic flexure, removed with a cold snare. Resected and retrieved. - The examination was otherwise normal on direct and retroflexion views. Recommendation: - Repeat colonoscopy in 2 years because the bowel preparation was suboptimal. - (Rec alternate colon preparation for next colonoscopy) Johnathan Silver MD Johnathan SILVER MD 09/30/2019 7:59:06 AM Electronically signed by Johnathan SILVER MD Number of Addenda: 0 Note Initiated On: 09/30/2019 7:37 AM Estimated Blood Loss: Estimated blood loss: none.
== END 2019-09-30 08:30 | disposition home or self-care (01) ==
LOC: M SDC 07:20
PROVIDERS: ATTEND Internal Medicine Gastroenterology
DX: K63.5 Polyp of colon (principal); Z86.010 Personal history of colon polyps; Z80.0 Family history of malignant neoplasm of digestive organs; Z85.01 Personal history of malignant neoplasm of esophagus; Z79.891 Long term (current) use of opiate analgesic; Z79.899 Other long term (current) drug therapy; Z88.4 Allergy status to anesthetic agent; Z88.8 Allergy status to other drugs, medicaments and biological substances
CPT/HCPCS: 45385; 88305; J2405; J3010

== ENCOUNTER 2019-10-10 11:28 | Inpatient (IN) | payer MEDICARE ==
[~2019-10-10] VITALS: Ht 167.6 cm; Wt 78.0 kg
[~2019-10-10 11:28] MED LIST changes: -LIDOCAINE 2% 100MG/5ML SDV (FOR ANES.) As Ordered ONE; -propofoL 200 MG/20 ML VIAL As Ordered ONE
[2019-10-10 12:17] LABS: HEMATOCRIT 27.3 % (36.0-47.0); HEMOGLOBIN 8.8 g/dl (12.0-15.5); MEAN CORPUSCULAR HGB CONC 32.2 g/dl (32.0-36.5); MEAN CORPUSCULAR VOLUME 90.1 fl (80.0-96.0); PLATELET COUNT, AUTOMATED 251 10^3/uL (150-450); RED BLOOD COUNT 3.03 10^6/uL (4.00-5.40); WHITE BLOOD COUNT 7.5 10^3/uL (4.0-10.0)
[2019-10-10 12:33] LABS: BLOOD UREA NITROGEN 21 MG/DL (7-18); CALCIUM LEVEL 8.6 MG/DL (8.5-10.1); CARBON DIOXIDE LEVEL 28 MEQ/L (21-32); CHLORIDE LEVEL 106 MEQ/L (98-107); CREATININE FOR GFR 0.88 MG/DL (0.55-1.30); GLOMERULAR FILTRATION RATE > 60.0 (>51); GLUCOSE, FASTING 94 MG/DL (70-100); POTASSIUM SERUM 3.7 MEQ/L (3.5-5.1); SODIUM LEVEL 139 MEQ/L (136-145)
[2019-10-10 14:02] VITALS: BP 108/77
[2019-10-10] MEDS ORDERED: ARIP1TAB10 PO (14:41)
[2019-10-10] MEDS ORDERED: VENL75CA47 PO (14:41)
[2019-10-10] MEDS ORDERED: ESTR2TAB2 PO (14:41)
[2019-10-10] MEDS ORDERED: TRAZ-252 PO (14:47)
[2019-10-10] MEDS ORDERED: B-122500 PO (14:47)
[2019-10-10] MEDS ORDERED: OMEP-221 PO (14:47)
[2019-10-10 15:00] VITALS: BP 114/79
[2019-10-10 16:15] VITALS: BP 136/74
[2019-10-10 17:15] VITALS: BP 125/64
[2019-10-10] MEDS: GABAPENTIN 300 MG CAP PO SCH ×2 (17:23→20:11)
[2019-10-10 17:48] LABS: HEMATOCRIT 28.2 % (36.0-47.0); HEMOGLOBIN 9.4 g/dl (12.0-15.5)
--- NOTE | 2019-10-10 17:48 | HPEPDOC ---
General Date of Admission Oct 10, 2019 at 13:39 Date of Service: Oct 10, 2019 Chief Complaint The patient is a 54-year-old female admitted with a reason for visit of Lower Gi Bleed. She had a colonoscopy with polypectomy 10 days ago. She noted some dark stools a few days ago and she started having weakness and lightheadedness. Earlier this AM she noted bright red bllod per rectum. she denied any history of cancer but does get colonscopies every 3 years for the number of polyps present. Currently she notes some improvement in weakness but contoinues to be fatigued. last bloody BM at around 9AM today. no BM in ED Source: Patient Exam Limitations: No limitations Timing/Duration: Day(s) Severity: Moderate Associated Symptoms: Loss of appetite, Malaise, Nausea, Weakness Home Medications Scheduled Aripiprazole (Aripiprazole) 15 Mg Tablet, 15 MG PO DAILY, (Reported) Cyanocobalamin (Vitamin B-12) (Vitamin B12) 2,500 Mcg Tablet, 2,500 MCG PO DAILY, (Reported) Ergocalciferol (Vitamin D2) (Vitamin D2) 50,000 Units Cap, 50,000 UNITS PO Q2WK, (Reported) SUNDAYS Estradiol (Estradiol) 2 Mg Tablet, 2 MG PO QHS, (Reported) Fluticasone Propionate (Flonase Allergy Relief) 50 Mcg/Act Spr, 2 PUFFS NARES DAILY, (Reported) Gabapentin (Gabapentin) 600 Mg Tab, 600 MG PO QID, (Reported) Levothyroxine Sodium (Levothyroxine Sodium) 50 Mcg Tablet, 50 MCG PO DAILY, (R eported) Omeprazole (Omeprazole) 40 Mg Capsule.dr, 40 MG PO DAILY, (Reported) Pregabalin (Lyrica) 150 Mg Cap, 150 MG PO TID, (Reported) Trazodone HCl (Trazodone HCl) 50 Mg Tablet, 50 MG PO QHS, (Reported) Venlafaxine HCl (Venlafaxine HCl ER) 150 Mg Cap, 300 MG PO DAILY, (Reported) TOTAL OF 45OMG DAILY Venlafaxine HCl (Venlafaxine HCl ER) 75 Mg Cap.er.24h, 150 MG PO DAILY, (Reported) IN ADDITION TO 300MG. TOTAL OF 450MG Scheduled PRN Tramadol HCl (Tramadol HCl) 50 Mg Tab, 50 MG PO Q6H PRN for PAIN, (Reported) Allergies Coded Allergies: iodine (Verified Allergy, Intermediate, rash, 05/21/18) metaxalone (Verified Allergy, Intermediate, rash, 06/17/18) povidone (Verified Allergy, Intermediate, rash, 06/17/18) NSAIDS (Non-Steroidal Anti-Inflamma (Verified Adverse Reaction, Intermediate, bleeding in stomach, 05/21/18) aspirin (Verified Adverse Reaction, Intermediate, bleeding stomach, 05/21/18) duloxetine (Verified Adverse Reaction, Mild, nausea, abdominal pain, 05/21/18) metformin (Verified Adverse Reaction, Mild, upset stomach, 05/21/18) Family History Significant Family History: Noncontributory Social History * Smoker: former Smoker Alcohol: Denies Drugs: denies A-FIB/CHADSVASC A-FIB History Current/History of A-Fib/PAF?: No Current PO Anticoag Therapy: No Review of Systems Constitutional: Reports: Malaise, Weakness, Fatigue; Denies: Chills, Fever, Night Sweats Eyes: Denies: Pain, Vision change ENT: Denies: Head Aches, Ear Pain, Dysphagia Skin: Denies: Rash, Lesions, Breakdown Pulmonary: Denies: Dyspnea, Cough Cardiovascular: Denies: Chest Pain, Palpitations, Orthopnea, Paroxysmal Noc. Dyspnea, Lt Headedness Gastrointestinal: Reports: Nausea, Hematochezia; Denies: Vomiting, Abdominal Pain, Diarrhea Genitourinary: Denies: Dysuria, Frequency, Incontinence, Retention Hematologic: Denies: Bruising, Bleeding Excessively Musculoskeletal: Denies: Neck Pain, Back Pain, Joint Pain, Muscle Pain, Spasms Neurological: Denies: Weakness, Numbness, Change in speech, Confusion Psych: Reports: Mood Normal; Denies: Depression, Memory Issues Physical Examination General Exam: Positive: Alert, No Acute Distress Eye Exam: Positive: PERRLA, Conjunctiva & lids normal, EOMI; Negative: Sclera icteric ENT Exam: Positive: Atraumatic, Mucous membr. moist/pink, Pharynx Normal Neck Exam: Positive: Supple; Negative: JVD, thyromegaly Chest Exam: Positive: Clear to auscultation, Normal air movement Heart Exam: Positive: Rate Normal, Regular Rhythm, Normal S1, Normal S2; Negative: Murmurs, Rubs Telemetry: Positive: No significant arrhythmia Abdomen Exam: Positive: Normal bowel sounds, Soft; Negative: Tenderness, Hepatospenomegaly Extremity Exam: Positive: Normal pulses; Negative: Clubbing, Cyanosis, Edema Skin Exam: Positive: Nl turgor and temperature; Negative: Breakdown, Lesion Neuro Exam: Positive: Normal Gait, Normal Speech, Cranial Nerves 3-12 NL, Reflexes 2+ Psych Exam: Positive: Mental status NL, Mood NL, Oriented x 3 Vital Signs Vital Signs Date Time Temp Pulse Resp B/P (MAP) Pulse Ox O2 Delivery O2 Flow Rate FiO2 10/10/19 15:00 97.1 90 16 114/79 100 Room Air Laboratory Data Labs 24H Laboratory Tests 2 10/10/19 11:50: Nucleated Red Blood Cells % (auto) 0.0, Anion Gap 5L, Glomerular Filtration Rate > 60.0, Calcium Level 8.6 CBC/BMP Laboratory Tests 10/10/19 11:50 Assessment/Plan 1. Post colonoscopy delayed lower GI bleed -will monitor for now as she is not having active stools -if she has another bloody BM in the next 24hours, she will need urgent colonoscopy -plan reviewed with surgery. Dr. Domínguez notified of consult and plan - will follow up on post transfusion h&h, hgb goal above 8 2. Hx of anxiety -continue homemeds 3. hx of hypothyroidism -continue synthroid full code vte: subQ heparin BID Plan / VTE VTE Prophylaxis Ordered?: Yes DIANA DRAPER DO Oct 10, 2019 16:15
[2019-10-10] MEDS ORDERED: GOLYTELY SOLN 4000 ML BTL PO ONE (20:00)
[2019-10-10] MEDS: PREGABALIN 75 MG CAP(LYRICA) PO SCH (20:11)
[2019-10-10] MEDS: traMADol 50 MG TAB PO PRN (20:19)
[2019-10-10] MEDS ORDERED: estradioL 1 MG TAB PO SCH (21:00)
[2019-10-10] MEDS ORDERED: traZODone 50 MG TAB PO SCH (21:00)
[2019-10-10] MEDS ORDERED: HEPARIN SOD (PORCINE) 5000UNITS/ML 1ML VIAL/SYRINGE SC SCH (21:00)
[2019-10-10 22:00] VITALS: BP 132/75
[2019-10-10] MEDS ORDERED: ACETAMINOPHEN TAB 650MG DOSE (2X325MG) PO PRN (23:45)
[2019-10-11 06:00] VITALS: BP 115/70
[2019-10-11] MEDS ORDERED: LEVOTHYROXINE 50MCG TABLET (0.05MG) PO SCH (06:00)
[2019-10-11 08:11] LABS: HEMOGLOBIN 9.1 g/dl (12.0-15.5); MEAN CORPUSCULAR HEMOGLOBIN 29.2 pg (27.0-33.0); MEAN CORPUSCULAR HGB CONC 32.5 g/dl (32.0-36.5); MEAN CORPUSCULAR VOLUME 89.7 fl (80.0-96.0); PLATELET COUNT, AUTOMATED 203 10^3/uL (150-450); RED BLOOD COUNT 3.12 10^6/uL (4.00-5.40); WHITE BLOOD COUNT 4.7 10^3/uL (4.0-10.0)
[2019-10-11 08:39] LABS: ALBUMIN 2.7 GM/DL (3.2-5.2); ALT/SGPT 8 U/L (12-78); BILIRUBIN,TOTAL 0.3 MG/DL (0.2-1.0); BLOOD UREA NITROGEN 13 MG/DL (7-18); CARBON DIOXIDE LEVEL 29 MEQ/L (21-32); CHLORIDE LEVEL 108 MEQ/L (98-107); CREATININE FOR GFR 0.69 MG/DL (0.55-1.30); GLOMERULAR FILTRATION RATE > 60.0 (>51); GLUCOSE, FASTING 81 MG/DL (70-100); POTASSIUM SERUM 3.5 MEQ/L (3.5-5.1); SODIUM LEVEL 144 MEQ/L (136-145); TOTAL PROTEIN 5.7 GM/DL (6.4-8.2)
[2019-10-11] MEDS ORDERED: VENLAFAXINE **XR** 75MG CAPSULE PO SCH ×2 (09:00)
[2019-10-11] MEDS ORDERED: CYANOCOBALAMIN 500 MCG TAB PO SCH (09:00)
[2019-10-11] MEDS ORDERED: FLUTICASONE PROP 0.05% NASAL SPRAY 16 GM (FLONASE) NARES SCH (09:00)
[2019-10-11] MEDS ORDERED: ARIPiprazole 15 MG TAB (AbiLIFY) PO SCH (09:00)
[2019-10-11] MEDS ORDERED: MAGNESIUM CITRATE 300 ML BTL PO ONE (09:15)
[2019-10-11] MEDS: GABAPENTIN 300 MG CAP PO SCH ×3 (09:25→16:43)
[2019-10-11] MEDS: PREGABALIN 75 MG CAP(LYRICA) PO SCH ×2 (09:26→16:43)
[2019-10-11] MEDS: traMADol 50 MG TAB PO PRN (09:28)
[2019-10-11 14:30] VITALS: BP 126/74
[2019-10-11] MEDS ORDERED: propofoL 500 MG/50 ML VIAL As Ordered ONE (15:41)
[2019-10-11] MEDS ORDERED: fentaNYL 100 MCG/2 ML INJECTION (J3010) As Ordered ONE (15:41)
[2019-10-11] MEDS ORDERED: PHENYLephrine HCL 500 MCG/5 ML (100MCG/ML) SYRINGE (J2370) As Ordered ONE (15:44)
[2019-10-11] MEDS ORDERED: ePHEDrine SULFATE 25 MG/5 ML(5MG/ML) SYRINGE As Ordered ONE (15:52)
[2019-10-11] MEDS ORDERED: GLUCAGON INJ 1MG VIAL As Ordered ONE (15:59)
[2019-10-11 16:46] VITALS: BP 128/76
[2019-10-11] MEDS ORDERED: SUCRALFATE 1 GM TAB PO SCH (17:00)
[2019-10-11] MEDS ORDERED: SUCR1TA PO (17:13)
--- NOTE | 2019-10-11 23:21 | DS.PDOC ---
Discharge Summary General Date of Admission Oct 10, 2019 at 13:39 Date of Discharge 10/11/19 Discharge Summary PROCEDURES PERFORMED DURING STAY: colonoscopy. ADMITTING DIAGNOSES: 1. lower GI bleed DISCHARGE DIAGNOSES: 1. delayed bleeding 2/2 colonoscopy COMPLICATIONS/CHIEF COMPLAINT: Lower Gi Bleed. HISTORY OF PRESENT ILLNESS: started bleeding 10 days after routine colonsocpy HOSPITAL COURSE: colonoscopy on 10/10 - d/c home after scope DISCHARGE MEDICATIONS: Please see below. ALLERGIES: Please see below. PHYSICAL EXAMINATION ON DISCHARGE: VITAL SIGNS: Please see below. GENERAL: no acute distress HEENT: normocephalic NECK: no masses CARDIOVASCULAR EXAMINATION: rrr RESPIRATORY EXAMINATION: exam normal ABDOMINAL EXAMINATION: soft, nontender EXTREMITIES: grossly normal SKIN:warm NEUROLOGICAL EXAMINATION: no focal defecits PSYCHIATRIC EXAMINATION: normal mood LABORATORY DATA: Please see below. IMAGING: f/u colonoscopy report PROGNOSIS: good ACTIVITY: as tolerated DIET: as tolerated DISCHARGE PLAN: d/c home DISPOSITION: 01 Home, Self-Care. DISCHARGE INSTRUCTIONS: 1. f/u GI as needed. pcp in 1 - 2 week ITEMS TO FOLLOWUP ON ON OUTPATIENT: 1. colonoscopy report DISCHARGE CONDITION: stable TIME SPENT ON DISCHARGE: less than 30min Vital Signs/I&Os Vital Signs Date Time Temp Pulse Resp B/P (MAP) Pulse Ox O2 Delivery O2 Flow Rate FiO2 10/11/19 16:46 97.1 89 18 128/76 (93) 99 Room Air I&O- Last 24 Hours up to 6 AM 10/11/19 06:00 Intake Total 400 ml Balance 400 ml Laboratory Data Labs 24H Laboratory Tests 2 10/11/19 02:07: Coronavirus (COVID-19)(PCR) NEGATIVE 10/11/19 06:38: Nucleated Red Blood Cells % (auto) 0.4H, Anion Gap 7L, Glomerular Filtration Rate > 60.0, Calcium Level 8.0L, Total Bilirubin 0.3, Aspartate Amino Transf (AST/SGOT) 13, Alanine Aminotransferase (ALT/SGPT) 8L, Alkaline Phosphatase 72, Total Protein 5.7L, Albumin 2.7L, Albumin/Globulin Ratio 0.9L CBC/BMP Laboratory Tests 10/11/19 06:38 Discharge Medications Scheduled Aripiprazole (Aripiprazole) 15 Mg Tablet, 15 MG PO DAILY, (Reported) Cyanocobalamin (Vitamin B-12) (Vitamin B12) 2,500 Mcg Tablet, 2,500 MCG PO DAILY, (Reported) Ergocalciferol (Vitamin D2) (Vitamin D2) 50,000 Units Cap, 50,000 UNITS PO Q2WK, (Reported) SUNDAYS Estradiol (Estradiol) 2 Mg Tablet, 2 MG PO QHS, (Reported) Fluticasone Propionate (Flonase Allergy Relief) 50 Mcg/Act Spr, 2 PUFFS NARES DAILY, (Reported) Gabapentin (Gabapentin) 600 Mg Tab, 600 MG PO QID, (Reported) Levothyroxine Sodium (Levothyroxine Sodium) 50 Mcg Tablet, 50 MCG PO DAILY, (Reported) Omeprazole (Omeprazole) 40 Mg Capsule.dr, 40 MG PO DAILY, (Reported) Pregabalin (Lyrica) 150 Mg Cap, 150 MG PO TID, (Reported) Trazodone HCl (Trazodone HCl) 50 Mg Tablet, 50 MG PO QHS, (Reported) Venlafaxine HCl (Venlafaxine HCl ER) 150 Mg Cap, 300 MG PO DAILY, (Reported) TOTAL OF 45OMG DAILY Venlafaxine HCl (Venlafaxine HCl ER) 75 Mg Cap.er.24h, 150 MG PO DAILY, (Re ported) IN ADDITION TO 300MG. TOTAL OF 450MG Scheduled PRN Tramadol HCl (Tramadol HCl) 50 Mg Tab, 50 MG PO Q6H PRN for PAIN, (Reported) Allergies Coded Allergies: iodine (Verified Allergy, Intermediate, rash, 05/21/18) metaxalone (Verified Allergy, Intermediate, rash, 06/17/18) povidone (Verified Allergy, Intermediate, rash, 06/17/18) NSAIDS (Non-Steroidal Anti-Inflamma (Verified Adverse Reaction, Intermediate, bleeding in stomach, 05/21/18) aspirin (Verified Adverse Reaction, Intermediate, bleeding stomach, 05/21/18) duloxetine (Verified Adverse Reaction, Mild, nausea, abdominal pain, 05/21/18) metformin (Verified Adverse Reaction, Mild, upset stomach, 05/21/18) DIANA DRAPER DO Oct 11, 2019 23:21
--- NOTE | 2019-10-20 14:36 | CR ---
DATE OF CONSULTATION: 10/10/2019 REASON FOR CONSULTATION: Rectal bleeding. HISTORY OF PRESENT ILLNESS: The patient is a 54-year-old woman who had undergone a colonoscopy on the 29 of September for a history of colonic polyps. Her most recent prior colonoscopy had been in July of 2016 at which time several small polyps were found in the cecum and sigmoid colon. Her pathology had confirmed adenomatous tissue from the descending colon. At her colonoscopy on the , there were three small polyps that were removed from the sigmoid and splenic flexure area. She reported no problems following the procedure. Her pathology from these revealed adenomatous tissue from the region of the splenic flexure but a hyperplastic polyp from the sigmoid. She did well until the evening of the , nine days post procedure, when she noted the passage of some red rectal blood. She subsequently noted several more passages of red blood. She presented to the emergency department at 11:28 on the morning of the . She developed some lightheadedness. She reported the bleeding on the morning of the was heavy. She has had a prior episode of gastrointestinal bleeding some years ago that required transfusions. On that occasion, the bleeding was found to be from ulcers in her gastric bypass. She denies any abdominal pain. She was admitted by the hospitalist service and has received one unit of packed red blood cells. She last had passage of any blood about 4 hours ago. She has been started on a bowel prep by the hospitalist in anticipation of an endoscopy tomorrow. ALLERGIES AND ADVERSE REACTIONS: Reported to IODINE, METAXALONE, POVIDONE, NON-STEROIDAL ANTIINFLAMMTORY DRUGS including ASPIRIN which have caused gastric bleeding; DULOXETINE and METFORMIN. MEDICATIONS AT THE TIME OF ADMISSION: - aripiprazole - vitamin B12 - vitamin D2 - Estradiol - fluticasone - gabapentin - levothyroxine - omeprazole - Pregabalin - tramadol - Trazodone - venlafaxine - Norvenlafaxine SURGICAL HISTORY: Significant for bilateral carpal tunnel releases. She reports having had surgery on both shoulders previously. She had a gastric bypass approximately 10 years ago. She has had dorsal column stimulators inserted twice for chronic back discomfort. She had a hysterectomy and has had bilateral oophorectomies. She had a laminectomy in 1997. She has had an appendectomy and cholecystectomy I might note as well. MEDICAL HISTORY: Medical history is significant for a past history of obesity which led to her gastric bypass in 2007. She did have hypertension previously but this is now controlled without the need of any medications. She has a history of some gastroesophageal reflux. She had ulcers with bleeding some years ago. She was treated for throat cancer two years ago with chemotherapy and radiation. She reports a history of fibromyalgia and arthritis. She does have some chronic back pain still. She reports a history of panic disorder. FAMILY HISTORY: Noncontributory. SOCIAL HISTORY: She is a former smoker but denies any alcohol use. REVIEW OF SYSTEMS: Review of systems reveals no history of chest pain or palpitations. She denies any history of DVT or pulmonary embolus. She has no dysuria or hematuria. She reports no prior rectal bleeding other than when she had her prior GI bleed. She is not having any abdominal pain. She denies any renal issues. She has no history of severe headaches, seizure or stroke. PHYSICAL EXAMINATION: Physical exam reveals a pleasant woman sitting up quietly in the hospital bed. Her current vital signs show her to be afebrile with a pulse of 92, respirations of 17, and a blood pressure of 132/75. Skin is warm and dry. Sclerae are anicteric. The neck is supple. Heart exam shows a regular rate and rhythm. The lungs are clear. The abdomen is soft. She has several small scars present. The abdomen is nontender to palpation and there is no palpable mass. LABORATORY STUDIES: In the emergency department, her white count was 8 with a hemoglobin of 9, hematocrit of 27 and a platelet count of 251,000. Her chemistry profile showed sodium of 139, potassium 3.7, chloride 106, CO2 of 28, BUN of 21, creatinine 0.88, and a glucose of 94. IMPRESSION: The patient is now 10 days postop from a colonoscopy at which she had three small polyps removed by cold snare. She reported the onset of some bleeding last night and through the night and into this morning. She presented to the emergency department with some lightheadedness and was found to be anemic. Her most recent labs were on September 01 of this year when her hemoglobin was 13 and her hematocrit was 40 indicating a significant drop to her current levels. Though it is a little later than usual, I think it is most likely that she is bleeding from one of her polypectomy sites. She does have a history of a prior upper GI bleed from her gastric bypass but apparently has had no symptoms and has remained on pantoprazole so I think this is less likely. RECOMMENDATIONS: I do believe it is appropriate to proceed with a colonoscopy. She will be prepped tonight. I have added her to the OPP schedule for tomorrow. I will try to contact Dr. Silver in the morning to see if he would be able to squeeze her into his schedule and, if not, I can perform a colonoscopy on her tomorrow to try to identify the source of the bleed. It may be that this will stop spontaneously in the interim. She should have her hematocrit checked periodically and receive transfusion as necessary. RAULITO
--- NOTE | 2019-10-27 11:35 | ROOR ---
Patient Name: Nathalie Fernández Procedure Date: 10/11/2019 3:32 PM Date of : 1965 Age: 54 Room: [facility] Gender: Female Note Status: Finalized Procedure: Upper GI endoscopy Indications: Acute post hemorrhagic anemia, Hematochezia, Melena Providers: Johnathan LUND MD Referring MD: JOSE Salvador Requesting Provider: Medicines: Monitored Anesthesia Care Complications: No immediate complications. Procedure: Pre-Anesthesia Assessment: - The heart rate, respiratory rate, oxygen saturations, blood pressure, adequacy of pulmonary ventilation, and response to care were monitored throughout the procedure. The Endoscope was introduced through the mouth, and advanced to the jejunum. The upper GI endoscopy was accomplished without difficulty. The patient tolerated the procedure well. Findings: The examined esophagus was normal. Evidence of a Taye-en-Y gastrojejunostomy was found. The gastrojejunal anastomosis was characterized by ulceration. One non-bleeding cratered gastric ulcer with pigmented material was found at the anastomosis. The lesion was 8 mm in largest dimension. The examined jejunum was normal. Impression: - Normal esophagus. - Taye-en-Y gastrojejunostomy with gastrojejunal anastomosis characterized by an 8 mm ulceration with pigmented material. - Normal examined jejunum. - No specimens collected. Recommendation: - Use Prilosec (omeprazole) 40 mg PO daily. - Use sucralfate tablets 1 gram PO QID for 3 months. - Observe patient's clinical course. Johnathan Lund MD Johnathan LUND MD 10/11/2019 4:18:46 PM Electronically signed by Johnathan LUND MD Number of Addenda: 0 Note Initiated On: 10/11/2019 3:32 PM Estimated Blood Loss: Estimated blood loss: none.
--- NOTE | 2019-10-27 14:52 | ECGEPIP ---
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
--- NOTE | 2019-11-09 09:21 | REP ---
SITTING PORTABLE CHEST X-RAY: SINGLE VIEW HISTORY: Anemia. COMPARISON: Chest x-ray 01/16/2018. FINDINGS: There is a mild zone of linear fibrosis in the left base. A dorsal column stimulator lead is noted overlying the thoracic spinal canal. A power plant for a neurostimulator device is seen projecting over the right mid chest with two leads ascending into the soft tissues of the neck. Monitoring electrodes are noted. The lungs are otherwise well-inflated and clear. Pleural angles are sharp. Heart is not enlarged. Pulmonary vasculature is not increased. IMPRESSION: No active cardiopulmonary disease. Mild linear fibrosis, left base. Dorsal column stimulator and neurostimulator leads ascending into the neck. MTDD
== END 2019-10-11 17:39 | disposition home or self-care (01) | DRG 921 ==
LOC: M ED 11:28 → M ED INP 13:39 → ENRESERV 14:00 → M MSPAV 15:14
PROVIDERS: ADMIT Internal Medicine; ATTEND Internal Medicine
PROC: 30233N1 Transfusion of Nonautologous Red Blood Cells into Peripheral Vein, Percutaneous Approach (ICD-10-PCS; principal; 2019-10-10)
PROC: 0DJ08ZZ Inspection of Upper Intestinal Tract, Via Natural or Artificial Opening Endoscopic (ICD-10-PCS; 2019-10-11)
DX: K91.840 Postprocedural hemorrhage of a digestive system organ or structure following a digestive system procedure (principal); F41.9 Anxiety disorder, unspecified; E03.9 Hypothyroidism, unspecified; Y83.8 Other surgical procedures as the cause of abnormal reaction of the patient, or of later complication, without mention of misadventure at the time of the procedure; K21.9 Gastro-esophageal reflux disease without esophagitis; M79.7 Fibromyalgia; Z79.891 Long term (current) use of opiate analgesic; Z79.899 Other long term (current) drug therapy; Z88.6 Allergy status to analgesic agent; Z88.8 Allergy status to other drugs, medicaments and biological substances; Z98.84 Bariatric surgery status; Z85.819 Personal history of malignant neoplasm of unspecified site of lip, oral cavity, and pharynx; Z92.21 Personal history of antineoplastic chemotherapy; Z92.3 Personal history of irradiation; Z86.010 Personal history of colon polyps; Z87.891 Personal history of nicotine dependence

== ENCOUNTER → 2019-10-28 | Outpatient (CLI) | payer OTHER, MEDICARE ==
[~2019-10-28] MED LIST changes: +ARIP1TAB10 PO; +B-122500 PO; +ESTR2TAB2 PO; +OMEP-221 PO; +VENL75CA47 PO
== END ==
LOC: M PAIN 11:01
PROVIDERS: ATTEND Nurse Practitioner Family
DX: M79.18 Myalgia, other site (principal)

== ENCOUNTER → 2019-10-29 | Outpatient (REF) | payer MEDICARE, OTHER ==
[2019-10-29 18:06] LABS: HEMATOCRIT 31.9 % (36.0-47.0); HEMOGLOBIN 9.8 g/dl (12.0-15.5); MEAN CORPUSCULAR HEMOGLOBIN 28.4 pg (27.0-33.0); MEAN CORPUSCULAR HGB CONC 30.7 g/dl (32.0-36.5); MEAN CORPUSCULAR VOLUME 92.5 fl (80.0-96.0); PLATELET COUNT, AUTOMATED 241 10^3/uL (150-450); RED BLOOD COUNT 3.45 10^6/uL (4.00-5.40); WHITE BLOOD COUNT 4.9 10^3/uL (4.0-10.0)
[2019-10-29 20:16] LABS: ALBUMIN 3.2 GM/DL (3.2-5.2); ALT/SGPT 17 U/L (12-78); BILIRUBIN,TOTAL 0.2 MG/DL (0.2-1.0); BLOOD UREA NITROGEN 8 MG/DL (7-18); CALCIUM LEVEL 8.8 MG/DL (8.5-10.1); CARBON DIOXIDE LEVEL 27 MEQ/L (21-32); CHLORIDE LEVEL 110 MEQ/L (98-107); CHOLESTEROL LEVEL 190 MG/DL (<200); CHOLESTEROL RISK RATIO 1.557 (<5); CREATININE FOR GFR 0.85 MG/DL (0.55-1.30); FERRITIN 57 NG/ML (8-252); GLOMERULAR FILTRATION RATE > 60.0 (>51); GLUCOSE, FASTING 68 MG/DL (70-100); HDL CHOLESTEROL 122 MG/DL (>40); IRON (FE) 36 UG/DL (50-170); LDL CHOLESTEROL 50 MG/DL (<100); NON-HDL-C 68 MG/DL; PERCENT SATURATION 7.9 % (13.2-45.0); SODIUM LEVEL 143 MEQ/L (136-145); TOTAL IRON BINDING CAPACITY 453 UG/DL (250-450); TOTAL PROTEIN 6.8 GM/DL (6.4-8.2); TRIGLYCERIDES LEVEL 91 MG/DL (<150); VITAMIN B12 LEVEL > 2000 PG/ML (247-911)
== END ==
LOC: M SFHCADAM 17:13
PROVIDERS: ATTEND Physician Assistant
DX: I11.9 Hypertensive heart disease without heart failure (principal); E78.5 Hyperlipidemia, unspecified; R73.01 Impaired fasting glucose; D50.9 Iron deficiency anemia, unspecified

== ENCOUNTER → 2019-11-04 | Outpatient (CLI) | payer MEDICARE, OTHER | LOC: M LABSMTC 11:07 | PROVIDERS: ATTEND Anesthesiology | DX: Z20.828 Contact with and (suspected) exposure to other viral communicable diseases (principal) | CPT/HCPCS: C9803; U0003 ==

== ENCOUNTER → 2019-11-09 | Outpatient (CLI) | payer OTHER, MEDICARE ==
[~2019-11-09] MED LIST changes: +BUPIVACAINE HCL 0.25% 10ML VIAL As Ordered ONE; +BUPIVACAINE HCL 0.25% 30ML VIAL As Ordered ONE; +TRIAMCINOLONE ACETONIDE SUSP 40 MG/ML VIAL (J3301) As Ordered ONE; +diazePAM 5 MG TAB As Ordered ONE; +oxyCODONE 5MG TAB As Ordered ONE
== END ==
LOC: M PAIN 08:04
PROVIDERS: ATTEND Anesthesiology
DX: M79.18 Myalgia, other site (principal)

== ENCOUNTER → 2019-11-26 | Outpatient (CLI) | payer OTHER, MEDICARE ==
[~2019-11-26] MED LIST changes: -BUPIVACAINE HCL 0.25% 10ML VIAL As Ordered ONE; -BUPIVACAINE HCL 0.25% 30ML VIAL As Ordered ONE; -TRIAMCINOLONE ACETONIDE SUSP 40 MG/ML VIAL (J3301) As Ordered ONE; -diazePAM 5 MG TAB As Ordered ONE; -oxyCODONE 5MG TAB As Ordered ONE
--- NOTE | 2019-11-29 10:29 | ECWPNPC ---
PATIENT NAME: RACHEL MARTINEZ : 1965 GENDER: FEMALE VISIT DATE: 11/26/2019 DISCHARGE DATE: 11/26/19 1018 VISIT LOCKED DATE TIME: PHYSICIAN: RICK GIL PHYSICIAN PAGER NO: ACTIVE RESOURCE: RICK GIL REASON FOR APPOINTMENT 1. POST VA TPI NECK HISTORY OF PRESENT ILLNESS GENERAL: HERE FOR POST PROCEDURE F/U.HAD TPI BILAT. NECK ON 11/09/2019.REPORTING MARKED REDUCTION IN PAIN THAT CONTINUES TODAY.REPORTS SEVERE INCREASE IN LOW BACK PAIN OVER THE PAST 2 WEEKS.RATING PAIN VAS 8/10.HAS BENEFITED FROM LUMBAR FACET BLOCKS IN PAST.THIS IS A WORK RELATED INJURY WITH DOI:1998. -. FALL RISK SCREENING: SCREENING :ONE FALL WITHOUT INJURY IN THE PAST YEAR MAR 2019 NO INJURY DIDNT SEEK MEDICAL ATTENTION PAIN SCREENING: PATIENT HAS A COMPLAINT OF ACUTE OR CHRONIC PAIN :YES LOCATION OF PAIN: LOW BACK, NECK INTENSITY OF PAIN (SCALE OF 1 TO 10): 7 WHAT DOES YOUR PAIN FEEL LIKE:CONTINOUS, SHOOTING, ACHING NURSING NOTE: -. PAIN CENTER INTAKE QUESTIONS: DO YOU HAVE A HISTORY OF MRSA? :NO DO YOU TAKE A BLOOD THINNERS? :NO DO YOU HAVE ANY BLEEDING DISORDERS? :NO ANY NEW NUMBNESS OR WEAKNESS IN YOUR LEGS OR ARMS? :NO ANY PACEMAKER,DEFIBRILLATOR, OR DORSAL COLUMN STIMULATOR? :YES DCS ONE IN NECK ONE IN BACK DO YOU HAVE ANY RASHES OR OPEN SORES? :NO ARE YOU ALLERGIC TO IV DYE? :NO ARE YOU DIABETIC? :NO ANY NEW PROBLEMS WITH YOUR MEDICATIONS? :NO HAVE YOU RECEIVED A VACCINE IN THE PAST 30 DAYS? :YES 11/22 FLU IF SO WHAT VACCINE AND WHEN? JOSE NICHOLS DO YOU PLAN TO RECEIVE A VACCINE IN THE NEXT 21 DAYS? :NO DO YOU NEED ANY PRESCRIPTION? :NO DO YOU TAKE ANY IMMUNOSUPPRESSIVE MEDICATIONS? :NO IS THERE A CHANCE YOU COULD BE ? :NO ARE YOU BREAST FEEDING? :NO CURRENT MEDICATIONS TAKING ABILIFY 15 MG TABLET 1 TABLET ORALLY ONCE A DAY TAKING DRISDOL 19834 UNIT CAPSULE 1 CAPSULE ORALLY EVERY OTHER WEEK TAKING EFFEXOR XR 150 MG CAPSULE EXTENDED RELEASE 24 HOUR 3 CAPSULE WITH FOOD ORALLY ONCE A DAY TAKING ESTRADIOL 2 MG TABLET 1 TABLET ORALLY ONCE A DAY TAKING FLONASE 50 MCG/ACT SUSPENSION 1 SPRAY IN EACH NOSTRIL NASALLY ONCE A DAY NEEDED TAKING GABAPENTIN 600 MG TABLET 1 TABLET P.O. FOUR TIMES DAILY TAKING VITAMIN B-12 5000 MCG LOZENGE DIRECTED ORALLY ONCE A DAY TAKING LEVOTHYROXINE SODIUM 50 MCG TABLET 1 TABLET ON AN EMPTY STOMACH IN THE MORNING ORALLY ONCE A DAY TAKING OMEPRAZOLE 40 MG CAPSULE DELAYED RELEASE 1 CAPSULE 30 MINUTES BEFORE MORNING MEAL ORALLY ONCE A DAY TAKING TRAMADOL HCL 50 MG TABLET 1 TABLET NEEDED ORALLY ONCE A DAY TAKING LYRICA 150 MG CAPSULE 1 CAPSULE ORALLY Q8H MDD3 TAKING CRESTOR 10 MG TABLET 1 TABLET ORALLY ONCE A DAY TAKING SUCRALFATE 1 GM TABLET 1 TABLET ON AN EMPTY STOMACH ORALLY TWICE A DAY NOT-TAKING AZELASTINE HCL 0.15 % SOLUTION 1 DROP IN EACH NOSTRIL NASALLY TWICE A DAY NOT-TAKING MACROBID 100 MG CAPSULE 1 CAPSULE ORALLY TWICE A DAY NOT-TAKING PYRIDIUM 100 MG TABLET 2 TABLETS AFTER MEALS ORALLY THREE TIMES A DAY NEEDED FOR DYSURIA NOT-TAKING VENTOLIN HFA 108 (90 BASE) MCG/ACT AEROSOL SOLUTION 2 PUFFS NEEDED INHALATION EVERY 4 HRS NEEDED FOR SHORTNESS OF BREATH MEDICATION LIST REVIEWED AND RECONCILED WITH THE PATIENT PAST MEDICAL HISTORY SUPRAGLOTTIC LARYNGEAL CANCER, STAGE KIZZY [id number]-- RAD TX X 35 SESSIONS WITH CISPLATIN CHEMOTX CHRONIC LOWER BACK PAIN, DORSAL COLUMN STIMULATOR IN PLACE - [facility] HTN HYPERCHOLESTEROLEMIA GERD/H/O PUD WITH GI BLEED IN PAST SECONDARY TO CELEBREX ENDOMETRIOSIS PREDIABETES TOBACCO ABUSE CHRONIC NARCOTIC DEPENDENCE - WEANING OXYCODONE PER PAIN CLINIC ECHO - 02/28/17 - NORMAL LV SIZE AND WALL THICKNESS EF 70% GRADE 1 DIASTOLIC DYSFUNCTION ANXIETY/DEPRESSION/AGORAPHOBIA WITH PANIC ATTACKS - PSYCHIATRIST IRON DEF - HAD IRON INFUSION 04/2018 HYPOTHYROID ALLERGIES NSAIDS: BLEEDING - CONTRAINDICATION BETADINE: RASH - ALLERGY SKELAXIN: RASH - ALLERGY METFORMIN HCL: DIARRHEA - SIDE EFFECTS SURGICAL HISTORY TONSILLECTOMY TUBAL LIGATION 03/1989 ECTOPIC 09/1989 HYSTERECTOMY D/T PRE-CANCEROUS 1989 BSO 1999 LUMBAR LAMINECTOMY L4-L5 08/1997 TARSAL TUNNEL-BILATERAL FEET 2004 BILATERAL CARPAL TUNNEL RELEASE 2001 LUMBAR STIMULATOR PLACED 2005 CERVICAL STIMULATOR PLACED 2008 RIGHT CARPAL TUNNEL RELEASE 06/2013 GASTRIC BYPASS 2010 COLONOSCOPY WITH POLYP RESECTION, BENIGN 2012 CHOLECYSTECTOMY 12/2010 TOE NAIL SURGERY 08/10/15 TUBE PLACEMENT RIGHT EAR, BIOPSY SINUS CAVITY NODULE 05/2016 LYMPH NODE, THROAT BIOPSY MALIGNANT 05/2017 FEEDING TUBE 06/2017 CHEMO PORT PLACEMENT 06/2017 COLONOSCOPY 07/2016 FAMILY HISTORY FATHER: ALIVE MOTHER: ALIVE, DIAGNOSED WITH HYPERTENSION, DIABETES, OTHER MALIGNANT NEOPLASM OF UNSPECIFIED SITE 1 SON(S) , 1 DAUGHTER(S) - HEALTHY. MOM-LEFT BREAST CA. SOCIAL HISTORY GENERAL: TOBACCO USE ARE YOU A:FORMER SMOKER HOW LONG HAS IT BEEN SINCE YOU LAST SMOKED?6-12 MONTHS QUIT 05/19/17 LATEX QUESTIONNAIRE LATEX ALLERGY : HAVE YOU EVER DEVELOPED ANY TYPE OF REACTION AFTER HANDLING LATEX PRODUCTS SUCH RUBBER GLOVES, CONDOMS, DIAPHRAGMS, BALLOONS, SOCKS, OR UNDERWEAR?NO LATEX ALLERGY : HAVE YOU EVER DEVELOPED ANY TYPE OF REACTION DURING OR AFTER DENTAL APPOINTMENT, VAGINAL/RECTAL EXAMINATION, SURGICAL PROCEDURE, OR ANY OTHER EXPOSURE?NO DATE ASKED : 07/27/2019 LATEX RISK : HAVE YOU EVER HAD ANY DIFFICULTY BREATHING OR HIVES AFTER EATING OR HANDLING ANY FRUITS, OR VEGETABLES; SUCH KIWI, BANANAS, STONE FRUITS, OR CHESTNUTSNO LATEX RISK : DO YOU HAVE A PREVIOUS PERSONAL HISTORY OF MORE THAN NINE SURGERIES, SPINA BIFIDA, OR REPEATED CATHERIZATIONS? YES - PLEASE INDICATE : > 9 SURGERIES LATEX RISK : ARE YOU FREQUENTLY EXPOSED TO LATEX PRODUCTS IN YOUR OCCUPATION?NO BMI CARE GOAL FOLLOW-UP ABOVE NORMAL BMI FOLLOW-UPDIETARY MANAGEMENT EDUCATION, GUIDANCE, AND COUNSELING ALCOHOL SCREENING DID YOU HAVE A DRINK CONTAINING ALCOHOL IN THE PAST YEAR?YES HOW OFTEN DID YOU HAVE SIX OR MORE DRINKS ON ONE OCCASION IN THE PAST YEAR?NEVER (0 POINTS) HOW MANY DRINKS DID YOU HAVE ON A TYPICAL DAY WHEN YOU WERE DRINKING IN THE PAST YEAR?1 OR 2 (0 POINTS) HOW OFTEN DID YOU HAVE A DRINK CONTAINING ALCOHOL IN THE PAST YEAR?MONTHLY OR LESS (1 POINT) POINTS1 INTERPRETATIONNEGATIVE RECREATIONAL DRUG USE DRUG USE?NO CAFFEINE CAFFEINE USE?YES HOW OFTEN AND HOW MUCH? COFFEE 6 CUPS DAILY, 2 SODAS DAILY SEXUAL HX HAD SEX IN THE LAST 12 MONTHS (VAGINAL, ORAL, OR ANAL)?YES WITHMEN ONLY USE PROTECTION?NO LMP:HYSTER HAVE YOU EVER HAD AN STD?NO HIV / HEP-C SCREENING HIV TEST OFFERED TO PATIENT:YES DATE OFFERED:07/29/2017 TEST ACCEPTED:NO REASON:PATIENT DECLINED BROCHURE PROVIDED TO PATIENTNO ORIENTAL ORTHODOX [id number] YARSANISM LANGUAGE MALTESE. EDUCATION LEVEL OF EDUCATION:NOT FINISHED COLLEGE 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 LETTER CARRIER NEEDED?NO DOMESTIC VIOLENCE DO YOU FEEL SAFE IN YOUR ENVIRONMENT?YES OCCUPATION: RETIRED. DIET: REGULAR. EXERCISE: NO REGULAR EXERCISE. MARITAL STATUS: . OTHERS AT HOME: SPOUSE. NEW PATIENT PAIN DIARY TODAY'S VISITNOTES PATIENT DESCRIBES PAIN :ACHING, HAVE IT ALL THE TIME, IT COMES AND GOES, THROBBING, SHOOTING HAS BOTH CONSTANT PAIN AND PAIN THAT COMES AND GOES. FROM 0-10, WHAT LEVEL IS YOUR PAIN TODAY?4 05/27- - LOW BACK; 06/26 - NECK PAIN CLINIC PFS, CLERGY, PUBLIC HEALTH REFERRALS WAS THE PROVIDER NOTIFIED OF ANY PERTINENT INFO?YES N/A HAS THE PATIENT BEEN EDUCATED REGARDING HIS/HER PLAN OF CARE?YES HAS THE PATIENT BEEN EDUCATED REGARDING PAIN, THE RISK FOR PAIN, THE IMPORTANCE OF EFFECTIVE PAIN MANAGEMENT, AND THE PAIN ASSESSMENT PROCESS?YES ADVANCE DIRECTIVE ADVANCE DIRECTIVE DISCUSSED WITH PATIENT:YES PT HAS HCP [facility] [phone] HOSPITALIZATION/MAJOR DIAGNOSTIC PROCEDURE SURG RELATED PLUS 1 G-I BLEED REVIEW OF SYSTEMS CONSTITUTIONAL: ANY RECENT FEVER NO, NO . CHILLS NO, NO . GASTROENTEROLOGY: BOWEL INCONTINENCE NO, NO . ANY NEW CHANGE IN BOWEL CONTROL? NO, NO . HISTORY OF UNUSUAL ABDOMINAL PAIN OR CRAMPING NOT MENTIONED NO, NO . CONSTIPATION NO, NO . GENITOURINARY: ANY NEW CHANGE IN BLADDER CONTROL? NO, NO . IS THERE A CHANCE YOU COULD BE ? NO, NO . URINARY INCONTINENCE NO, NO . CARDIOLOGY: NEW CHEST PRESSURE NO, NO . HISTORY OF CHEST PAIN,IRREGULAR HEART BEAT NOT MENTIONED NO, NO . RESPIRATORY: COUGH NO, NO . SHORTNESS OF BREATH NO, NO . VITAL SIGNS WT 172.6 LBS, HT 66 IN, BMI 27.86 INDEX, BP 145/76 MM HG, HR 90 /MIN, RR 18 /MIN, TEMP 98.2 F, OXYGEN SAT % 97%, NA INITIALS AW 0950. EXAMINATION GENERAL EXAMINATION: GENERALAWAKE,ALERT ,PLEAASANT . PSYCHAFFECT NORMAL . LUNGS:LUNG OROZCO ARE CLEAR TO AUSCULTATION BILATERALLY. GOOD MOVEMENT OF AIR . HEART:S1, S2 IN A REGULAR RATE AND RHYTHM. NO SIGNIFICANT MURMURS, RUBS OR GALLOPS NOTED . LUMBAR:PALPATION:TENDER OVER BILAT. L4/5-L5/S1 LUMBAR FACETS WITH FACET LOADING.. ASSESSMENTS SPONDYLOSIS OF LUMBOSACRAL JOINT - M47.817 (PRIMARY) TREATMENT SPONDYLOSIS OF LUMBOSACRAL JOINT NOTES: L4/5-L5/S1 BILAT. LFBT-W/C REQUEST. PROCEDURES PN WORKMANS' COMP OPINION IN YOUR OPINION, WAS THE INCIDENT THAT THE PATIENT DESCRIBED THE COMPETENT MEDICAL CAUSE OF THIS INJURY/ILLNESS? YES ARE THE PATIENT'S COMPLAINTS CONSISTENT WITH HIS/HER HISTORY OF THE INJURY/ILLNESS? YES IS THE PATIENT'S HISTORY OF THE INJURY/ILLNESS CONSISTENT WITH YOUR OBJECTIVE FINDING? YES WHAT IS THE PERCENTAGE OF TEMPORARY IMPAIRMENT? MODERATE TO MARKED = 66.7% IS THE PATIENT WORKING? NO DOCTOR ON SITE: JENNIFER STEPHENS MD [facility] PAIN CLINIC TEACHING: THE PATIENT HAS BEEN EDUCATED REGARDING PAIN, THE RISK FOR PAIN, THE IMPORTANCE OF EFFECTIVE PAIN MANAGEMENT, AND THE PAIN ASSESSMENT PROCESS. : DISCUSSED PRE PROCEDURE INSTRUCTIONS WITH PATIENT FOR LUMBAR FACET BLOCK THERAPEUTIC. PATIENT VERBALIZES UNDERSTANDING. PROCEDURE CODES [id number] ESTABILISHED PATIENT [facility] CHARGE DISPOSITION & COMMUNICATION FOLLOW UP POST PROC (REASON: L4/5-L5/S1 BILAT. LFBT-W/C REQUEST) ELECTRONICALLY SIGNED BY ALBA DENNIS ON 11/29/2019 AT 10:14 AM EDT DISCLAIMER : THIS IS A VISIT SUMMARY EXTRACTED FROM THE [employer] CHART. IT IS NOT A COPY OF THE [employer] PROGRESS NOTE. RAULITO
== END ==
LOC: M PAIN 09:15
PROVIDERS: ATTEND Nurse Practitioner Family
DX: M47.817 Spondylosis without myelopathy or radiculopathy, lumbosacral region (principal); I10 Essential (primary) hypertension; K21.9 Gastro-esophageal reflux disease without esophagitis; R73.03 Prediabetes; E03.9 Hypothyroidism, unspecified; Z86.59 Personal history of other mental and behavioral disorders; Z96.89 Presence of other specified functional implants; Z87.891 Personal history of nicotine dependence; Z88.3 Allergy status to other anti-infective agents; Z88.6 Allergy status to analgesic agent; Z88.8 Allergy status to other drugs, medicaments and biological substances; Z79.899 Other long term (current) drug therapy

== ENCOUNTER → 2019-12-10 | Outpatient (REF) | payer MEDICARE, OTHER ==
[2019-12-10 18:51] LABS: HEMATOCRIT 38.2 % (36.0-47.0); HEMOGLOBIN 11.5 g/dl (12.0-15.5); MEAN CORPUSCULAR HEMOGLOBIN 26.9 pg (27.0-33.0); MEAN CORPUSCULAR HGB CONC 30.1 g/dl (32.0-36.5); MEAN CORPUSCULAR VOLUME 89.5 fl (80.0-96.0); PLATELET COUNT, AUTOMATED 260 10^3/uL (150-450); RED BLOOD COUNT 4.27 10^6/uL (4.00-5.40); WHITE BLOOD COUNT 5.7 10^3/uL (4.0-10.0)
== END ==
LOC: M SFHCADAM 11:35
PROVIDERS: ATTEND Physician Assistant
DX: D50.0 Iron deficiency anemia secondary to blood loss (chronic) (principal)

== ENCOUNTER → 2019-12-10 | Outpatient (CLI) | payer OTHER, MEDICARE | LOC: M LABSMTC 11:01 | PROVIDERS: ATTEND Anesthesiology | DX: Z11.59 Encounter for screening for other viral diseases (principal) ==

== ENCOUNTER → 2019-12-15 | Outpatient (CLI) | payer OTHER, MEDICARE ==
[~2019-12-15] MED LIST changes: +BUPIVACAINE HCL 0.25% 30ML VIAL As Ordered ONE; +ISOVUE-M 300 61% 15ML VIAL As Ordered ONE; +LIDOCAINE 1% SDV 30ML VIAL As Ordered ONE; +TRIAMCINOLONE ACETONIDE SUSP 40 MG/ML VIAL (J3301) As Ordered ONE; +diazePAM 5 MG TAB As Ordered ONE; +oxyCODONE 5MG TAB As Ordered ONE
--- NOTE | 2019-12-15 16:10 | REP ---
INDICATION: BILATERAL LUMBAR FACET BLOCK. Pain COMPARISON: 04/19/2019. TECHNIQUE: Two C-arm views lower lumbar spine performed during bilateral lower lumbar facet block. FINDINGS: Ovid are seen along the lower lumbar spine and a small amount of contrast is injected. IMPRESSION: 26 seconds fluoroscopy time utilized. <Electronically signed by Dinh Peralta > 12/15/19 0711
--- NOTE | 2019-12-18 01:04 | ECWPNPC ---
PATIENT NAME: RACHEL MARTINEZ : 1965 GENDER: FEMALE VISIT DATE: 12/15/2019 DISCHARGE DATE: 12/15/19 1520 VISIT LOCKED DATE TIME: PHYSICIAN: JENNIFER MANUEL MD PHYSICIAN PAGER NO: ACTIVE RESOURCE: JENNIFER MANUEL MD REASON FOR APPOINTMENT 1. BILATERAL THERAPEUTIC LUMBAR FACET BLOCK L4/L5, L5/S1 HISTORY OF PRESENT ILLNESS GENERAL: -. FALL RISK SCREENING: SCREENING :ONE FALL WITHOUT INJURY IN THE PAST YEAR PAIN SCREENING: PATIENT HAS A COMPLAINT OF ACUTE OR CHRONIC PAIN :YES LOCATION OF PAIN:LOW BACK INTENSITY OF PAIN (SCALE OF 1 TO 10):7 WHAT DOES YOUR PAIN FEEL LIKE:ACHING, SHARP, STABBING, THROBBING, SHOOTING DURATION:CONTINOUS, CONSTANT, AWAKENS FROM SLEEP PAIN IS INCREASED BY:ACTIVITIES PAIN IS DECREASED BY:OTHERS REST, HEAT TREATMENT/MEDICATIONS USED TO MANAGE PAIN:OPIOIDS LEVEL OF RELIEF FROM PAIN TREATMENTS IN THE PAST:50% PAIN HAS INTERFERED WITH THE FOLLOWING:BATHING/DRESSING, WALKING ABILITY, HOUSEWORK, SLEEP, TRANSPORTATION, TOILETING PLAN/GOALS/TREATMENT/INTERVENTION/FOLLOW UP:SEE PLAN NURSING NOTE: -. PAIN CENTER INTAKE QUESTIONS: DO YOU HAVE A HISTORY OF MRSA? :NO DO YOU TAKE A BLOOD THINNERS? :NO DO YOU HAVE ANY BLEEDING DISORDERS? :NO ANY NEW NUMBNESS OR WEAKNESS IN YOUR LEGS OR ARMS? :NO ANY PACEMAKER,DEFIBRILLATOR, OR DORSAL COLUMN STIMULATOR? :YES UPPER AND LOWER DCS DO YOU HAVE ANY RASHES OR OPEN SORES? :NO ARE YOU ALLERGIC TO IV DYE? :NO ARE YOU DIABETIC? :NO ANY NEW PROBLEMS WITH YOUR MEDICATIONS? :NO HAVE YOU RECEIVED A VACCINE IN THE PAST 30 DAYS? :NO DO YOU PLAN TO RECEIVE A VACCINE IN THE NEXT 21 DAYS? :NO DO YOU TAKE ANY IMMUNOSUPPRESSIVE MEDICATIONS? :NO ANY HISTORY OF SEIZURES? :NO ANY HISTORY OF CARDIAC ISSUES OR EVENTS? :NO DO YOU HAVE SLEEP APNEA? :NO ANY RECENT HEAD INJURY? :NO DO YOU HAVE ANY NEW INFECTIONS? :NO IS THERE A CHANCE YOU COULD BE ? :NO ARE YOU BREAST FEEDING? :NO WHEN DID YOU LAST EAT? : 12/15/19 0800 WHEN DID YOU LAST DRINK? : 12/15/19 1030 WHAT DID YOU LAST DRINK? : SIPS NAME OF PERSON DRIVING YOU HOME? : (ROYAL) [phone] DO YOU HAVE ANY OTHER QUESTIONS OR CONCERNS? : NO CURRENT MEDICATIONS TAKING ABILIFY 15 MG TABLET 1 TABLET ORALLY ONCE A DAY, NOTES: 12/14 899 TAKING EFFEXOR XR 150 MG CAPSULE EXTENDED RELEASE 24 HOUR 3 CAPSULE WITH FOOD ORALLY ONCE A DAY, NOTES: 12/14 899 TAKING FLONASE 50 MCG/ACT SUSPENSION 1 SPRAY IN EACH NOSTRIL NASALLY ONCE A DAY NEEDED, NOTES: 12/13 1099 TAKING GABAPENTIN 600 MG TABLET 1 TABLET P.O. FOUR TIMES DAILY, NOTES: 12/14 999 TAKING VITAMIN B-12 5000 MCG LOZENGE DIRECTED ORALLY ONCE A DAY, NOTES: 12/14 1999 TAKING TRAMADOL HCL 50 MG TABLET 1 TABLET NEEDED ORALLY ONCE A DAY, NOTES: 12/14 999 TAKING LYRICA 150 MG CAPSULE 1 CAPSULE ORALLY Q8H MDD3, NOTES: 12/14 999 TAKING ESTRADIOL 2 MG TABLET 1 TABLET ORALLY ONCE A DAY, NOTES: 12/14 1999 TAKING DRISDOL 65486 UNIT CAPSULE 1 CAPSULE ORALLY EVERY OTHER WEEK, NOTES: 12/04 TAKING LEVOTHYROXINE SODIUM 50 MCG TABLET 1 TABLET ON AN EMPTY STOMACH IN THE MORNING ORALLY ONCE A DAY, NOTES: 12/14 899 TAKING OMEPRAZOLE 40 MG CAPSULE DELAYED RELEASE 1 CAPSULE 30 MINUTES BEFORE MORNING MEAL ORALLY ONCE A DAY, NOTES: 12/14 1999 TAKING CRESTOR 10 MG TABLET 1 TABLET ORALLY ONCE A DAY, NOTES: 12/14 1999 TAKING SUCRALFATE 1 GM TABLET 1 TABLET ON AN EMPTY STOMACH ORALLY TWICE A DAY, NOTES: 12/13 2029 NOT-TAKING AZELASTINE HCL 0.15 % SOLUTION 1 DROP IN EACH NOSTRIL NASALLY TWICE A DAY NOT-TAKING MACROBID 100 MG CAPSULE 1 CAPSULE ORALLY TWICE A DAY NOT-TAKING PYRIDIUM 100 MG TABLET 2 TABLETS AFTER MEALS ORALLY THREE TIMES A DAY NEEDED FOR DYSURIA NOT-TAKING VENTOLIN HFA 108 (90 BASE) MCG/ACT AEROSOL SOLUTION 2 PUFFS NEEDED INHALATION EVERY 4 HRS NEEDED FOR SHORTNESS OF BREATH MEDICATION LIST REVIEWED AND RECONCILED WITH THE PATIENT PAST MEDICAL HISTORY SUPRAGLOTTIC LARYNGEAL CANCER, STAGE KIZZY [id number]-- RAD TX X 35 SESSIONS WITH CISPLATIN CHEMOTX CHRONIC LOWER BACK PAIN, DORSAL COLUMN STIMULATOR IN PLACE - [facility] HTN HYPERCHOLESTEROLEMIA GERD/H/O PUD WITH GI BLEED IN PAST SECONDARY TO CELEBREX ENDOMETRIOSIS PREDIABETES TOBACCO ABUSE CHRONIC NARCOTIC DEPENDENCE - WEANING OXYCODONE PER PAIN CLINIC ECHO - 02/28/17 - NORMAL LV SIZE AND WALL THICKNESS EF 70% GRADE 1 DIASTOLIC DYSFUNCTION ANXIETY/DEPRESSION/AGORAPHOBIA WITH PANIC ATTACKS - PSYCHIATRIST IRON DEF - HAD IRON INFUSION 04/2018 HYPOTHYROID ALLERGIES NSAIDS: BLEEDING - CONTRAINDICATION BETADINE: RASH - ALLERGY SKELAXIN: RASH - ALLERGY METFORMIN HCL: DIARRHEA - SIDE EFFECTS SURGICAL HISTORY TONSILLECTOMY TUBAL LIGATION 03/1989 ECTOPIC 09/1989 HYSTERECTOMY D/T PRE-CANCEROUS 1989 BSO 1999 LUMBAR LAMINECTOMY L4-L5 08/1997 TARSAL TUNNEL-BILATERAL FEET 2004 BILATERAL CARPAL TUNNEL RELEASE 2001 LUMBAR STIMULATOR PLACED 2005 CERVICAL STIMULATOR PLACED 2008 RIGHT CARPAL TUNNEL RELEASE 06/2013 GASTRIC BYPASS 2009 COLONOSCOPY WITH POLYP RESECTION, BENIGN 2011 CHOLECYSTECTOMY 12/2010 TOE NAIL SURGERY 08/10/15 TUBE PLACEMENT RIGHT EAR, BIOPSY SINUS CAVITY NODULE 05/2016 LYMPH NODE, THROAT BIOPSY MALIGNANT 05/2017 FEEDING TUBE 06/2017 CHEMO PORT PLACEMENT 06/2017 COLONOSCOPY 07/2016 FAMILY HISTORY FATHER: ALIVE MOTHER: ALIVE, DIAGNOSED WITH HYPERTENSION, DIABETES, OTHER MALIGNANT NEOPLASM OF UNSPECIFIED SITE 2 BROTHER(S) , 1 SISTER(S) . 1 SON(S) , 1 DAUGHTER(S) - HEALTHY. MOM-LEFT BREAST CA. SOCIAL HISTORY GENERAL: TOBACCO USE ARE YOU A:FORMER SMOKER HOW LONG HAS IT BEEN SINCE YOU LAST SMOKED?1-5 YEARS QUIT 05/19/17 LATEX QUESTIONNAIRE LATEX ALLERGY : HAVE YOU EVER DEVELOPED ANY TYPE OF REACTION AFTER HANDLING LATEX PRODUCTS SUCH RUBBER GLOVES, CONDOMS, DIAPHRAGMS, BALLOONS, SOCKS, OR UNDERWEAR?NO LATEX ALLERGY : HAVE YOU EVER DEVELOPED ANY TYPE OF REACTION DURING OR AFTER DENTAL APPOINTMENT, VAGINAL/RECTAL EXAMINATION, SURGICAL PROCEDURE, OR ANY OTHER EXPOSURE?NO LATEX RISK : HAVE YOU EVER HAD ANY DIFFICULTY BREATHING OR HIVES AFTER EATING OR HANDLING ANY FRUITS, OR VEGETABLES; SUCH KIWI, BANANAS, STONE FRUITS, OR CHESTNUTSNO LATEX RISK : DO YOU HAVE A PREVIOUS PERSONAL HISTORY OF MORE THAN NINE SURGERIES, SPINA BIFIDA, OR REPEATED CATHERIZATIONS? YES - PLEASE INDICATE : > 9 SURGERIES LATEX RISK : ARE YOU FREQUENTLY EXPOSED TO LATEX PRODUCTS IN YOUR OCCUPATION?NO DATE ASKED : 07/27/2019 BMI CARE GOAL FOLLOW-UP ABOVE NORMAL BMI FOLLOW-UPDIETARY MANAGEMENT EDUCATION, GUIDANCE, AND COUNSELING ALCOHOL SCREENING DID YOU HAVE A DRINK CONTAINING ALCOHOL IN THE PAST YEAR?YES HOW OFTEN DID YOU HAVE A DRINK CONTAINING ALCOHOL IN THE PAST YEAR?MONTHLY OR LESS (1 POINT) HOW MANY DRINKS DID YOU HAVE ON A TYPICAL DAY WHEN YOU WERE DRINKING IN THE PAST YEAR?1 OR 2 (0 POINTS) HOW OFTEN DID YOU HAVE SIX OR MORE DRINKS ON ONE OCCASION IN THE PAST YEAR?NEVER (0 POINTS) POINTS1 INTERPRETATIONNEGATIVE RECREATIONAL DRUG USE DRUG USE?NO CAFFEINE CAFFEINE USE?YES HOW OFTEN AND HOW MUCH? COFFEE 6 CUPS DAILY, 2 SODAS DAILY SEXUAL HX HAD SEX IN THE LAST 12 MONTHS (VAGINAL, ORAL, OR ANAL)?YES WITHMEN ONLY USE PROTECTION?NO LMP:HYSTER HAVE YOU EVER HAD AN STD?NO HIV / HEP-C SCREENING HIV TEST OFFERED TO PATIENT:YES DATE OFFERED:07/29/2017 TEST ACCEPTED:NO REASON:PATIENT DECLINED BROCHURE PROVIDED TO PATIENTNO YARSANISM [id number] CHRISTIAN LANGUAGE [place]SIAN. EDUCATION LEVEL OF EDUCATION:NOT FINISHED COLLEGE 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 CAFETERIA ASSISTANT NEEDED?NO DOMESTIC VIOLENCE DO YOU FEEL SAFE IN YOUR ENVIRONMENT?YES OCCUPATION: RETIRED. DIET: REGULAR. EXERCISE: NO REGULAR EXERCISE. MARITAL STATUS: . OTHERS AT HOME: SPOUSE. PAIN CLINIC PFS, CLERGY, PUBLIC HEALTH REFERRALS WAS THE PROVIDER NOTIFIED OF ANY PERTINENT INFO?YES N/A HAS THE PATIENT BEEN EDUCATED REGARDING HIS/HER PLAN OF CARE?YES HAS THE PATIENT BEEN EDUCATED REGARDING PAIN, THE RISK FOR PAIN, THE IMPORTANCE OF EFFECTIVE PAIN MANAGEMENT, AND THE PAIN ASSESSMENT PROCESS?YES ADVANCE DIRECTIVE ADVANCE DIRECTIVE DISCUSSED WITH PATIENT:YES PT HAS HCP [facility] [phone] HOSPITALIZATION/MAJOR DIAGNOSTIC PROCEDURE SURG RELATED PLUS 1 G-I BLEED VITAL SIGNS WT 171.0 LBS, HT 66 IN, BMI 27.60 INDEX, BP 148/81 MM HG, HR 94 /MIN, RR 18 /MIN, TEMP 98.8 F, OXYGEN SAT % 97%, NA INITIALS AW 1402, REVIEWED BY: NARCISO SIMON RN BSN. EXAMINATION GENERAL EXAMINATION: THE PATIENT IS ALERT, ORIENTED TIMES THREE AND COOPERATIVE. HEART SHOWS REGULAR RHYTHM, NO MURMURS AND NO GALLOPS. LUNGS ARE CLEAR TO AUSCULTATION. ASSESSMENTS SPONDYLOSIS WITHOUT MYELOPATHY OR RADICULOPATHY, LUMBAR REGION - M47.816 (PRIMARY) SPONDYLOSIS WITHOUT MYELOPATHY OR RADICULOPATHY, LUMBOSACRAL REGION - M47.817 TREATMENT SPONDYLOSIS WITHOUT MYELOPATHY OR RADICULOPATHY, LUMBAR REGION SMC FACET BLOCK (PAIN)[id number] MEDICATION: VALIUM TAB 5MG ORALLY (DIAZEPAM)FRANK EVANS 12/15/2019 2:22:25 PM > VERIFIED LOT # [id number] EXP 06/07 KAMI SIMON 12/15/2019 2:24:40 PM > ADMINISTERED. MEDICATION: OXYCODONE HCL TAB 5MG ORALLY FRANK EVANS 12/15/2019 2:23:24 PM > VERIFIED LOT # [id number] EXP 03/2021 KAMI SIMON 12/15/2019 2:24:56 PM > ADMINISTERED. SPONDYLOSIS WITHOUT MYELOPATHY OR RADICULOPATHY, LUMBOSACRAL REGION SMC FACET BLOCK (PAIN)[id number] OTHERS NOTES: 12/14/19 SUN LOPEZ RN BSN. PROCEDURES PAIN NURSING RECORD PRE-PROCEDURE IV SITE N/A PROCEDURE IN ROOM 1435, PHYSICIAN IN ROOM 1450, START 1455, FINISH 1501, PHYSICIAN OUT OF ROOM 1503, OUT OF ROOM 1510, STEROID KENALOG, O2 RA, ECG NORMAL SINUS, PATIENT SHIELDED YES, SAFETY STRAP YES, PREP CHLOROPREP Adithya LOZADA RN, IV INFUSED N/A, DRESSING TEGADERM DR. MANUEL LOC: KAMI SIMON 12/15/2019 2:35:50 PM > 1. ALERT, ORIENTED RESP: KAMI SIMON 12/15/2019 2:35:50 PM > 1. REGULAR, NO DYSPNEA COLOR: KAMI SIMON 12/15/2019 2:35:50 PM > 1. PINK SKIN: KAMI SIMON 12/15/2019 2:35:50 PM > 1. WARM, DRY POSITION: KAMI SIMON 12/15/2019 2:35:50 PM > 1. PRONE VITALS: KAMI SIMON 12/15/2019 2:35:50 PM > 136/77, 87, 97% RA, 16. KAMI SIMON 12/15/2019 2:59:02 PM > 123/71, 86, 98% RA, 16. KAMI SIMON 12/15/2019 3:08:22 PM > 142/82, 99, 98%, 16. KAMI SIMON 12/15/2019 3:15:11 PM > POST PROCDURE 136/70, 105, 96% RA, 16. DISCHARGE: POST PAIN 06/26, DRESSING SITE DRY AND INTACT, IV N/A, GAIT STEADY CANE AT BASELINE., TEACHING COMPLETED, PATIENT ACKNOWLEDGES UNDERSTANDING YES, PATIENT DISCHARGED AT 1520 PN LUMBAR FACET BLOCK THERAPEUTIC PRE PROCEDURE DIAGNOSIS LUMBAR SPONDYLOSIS, LUMBOSACRAL SPONDYLOSIS POST PROCEDURE DIAGNOSIS LUMBAR SPONDYLOSIS, LUMBOSACRAL SPONDYLOSIS PROCEDURE BILATERAL L4-L5 AND BILATERAL L5-S1 LUMBAR FACET THERAPEUTIC BLOCK SURGEON DR. JENNIFER MANUEL CHIEF NURSE ANESTHETIST NONE ANESTHESIA LOCAL PRE PROCEDURE NOTE THE PATIENT HAS A HISTORY OF CHRONIC LOW BACK PAIN. I EVALUATED THE PATIENT AND REVIEWED THE CHART. I WENT OVER THE RISKS, ALTERNATIVES, AND BENEFITS ASSOCIATED WITH THIS PROCEDURE. I DISCUSSED THAT THE USE OF STEROIDS MAY CONTRIBUTE TO IMMUNOSUPPRESSION OF THE PATIENT'S BODY AGAINST INFECTIONS SUCH COVID-19. THE PATIENT IS AWARE OF THE POTENTIAL COMPLICATIONS ASSOCIATED WITH THIS VIRUS, INCLUDING, BUT NOT LIMITED TO, . THE PATIENT WOULD LIKE TO PROCEED AND GIVES CONSENT TO PERFORM THE PROCEDURE. THE PATIENT DENIES UNEXPLAINABLE WEIGHT LOSS, FEVER, CHILLS, OR NEW CHANGES IN URINARY OR BOWEL CONTROL. THE PATIENT IS COVID-19 NEGATIVE DESCRIPTION OF PROCEDURE THE PATIENT WAS BROUGHT TO THE PROCEDURE ROOM AND PLACED IN THE PRONE POSITION. THE LUMBOSACRAL AREA WAS CLEANED WITH CHLORAPREP SOLUTION AND DRAPED ASEPTICALLY. THE PROCEDURE WAS DONE UNDER STERILE CONDITIONS. A TIMEOUT WAS PERFORMED WHERE LATERALITY AND THE SITE OF THE PROCEDURE WERE CHECKED AND CONFIRMED WITH EVERYONE IN THE ROOM. UNDER FLUOROSCOPIC GUIDANCE, THE TARGET POINT WAS SELECTED AT THE RIGHT AND LEFT L4-L5 AND RIGHT AND LEFT L5-S1 FACET JOINTS. TARGET POINT WAS SELECTED AFTER LATERAL ROTATION AND TILT OF THE MAGNIFIER OF THE C-ARM. I CONFIRMED AGAIN WITH EVERYONE IN THE ROOM THE LATERALITY OF THE TARGET AT 1456 ON THE LEFT AND 1459 ON THE RIGHT. LIDOCAINE 0.5% WAS USED TO NUMB THE SKIN AND THE SUBCUTANEOUS TISSUE BELOW IT. SPINAL NEEDLES, 22-GAUGE, WERE ADVANCED UNDER FLUOROSCOPIC GUIDANCE AND FOLLOWING PATIENT FEEDBACK UNTIL THE TARGETS WERE TOUCHED. THE POSITION OF THE NEEDLES WAS VERIFIED WITH AP AND LATERAL VIEWS. AFTER PROPER POSITION OF THE NEEDLES WAS ACHIEVED, ISOVUE-M DYE 30%, 0.1 ML, WAS INJECTED SHOWING ADEQUATE SPREAD OF THE DYE. KENALOG 20 MG WAS INJECTED AT EACH SITE. THEN, A SOLUTION OF 1.0 ML OF BUPIVACAINE 0.125% OF WAS USED TO FLUSH EACH SITE. THE MEDICATION WAS VERIFIED WITH THE NURSE. THERE WAS NO EVIDENCE OF BLOOD, PARESTHESIA OR CEREBROSPINAL FLUID DURING THE PROCEDURE. THE PATIENT WAS SENT TO THE RECOVERY ROOM. THE PATIENT WAS MOVING THE EXTREMITIES AND DOING WELL. THERE WERE NO COMPLICATIONS DURING THE PROCEDURE. ESTIMATED BLOOD LOSS WAS LESS THAN 5 ML. FLUOROSCOPY TIME WAS 26 SECONDS POST PROCEDURE NOTE THE PATIENT WILL BE SEEN IN A FOLLOW UP IN THE NEXT FEW WEEKS. I AM LOOKING FOR LONG LASTING RELIEF FOR THE PATIENT WITH THIS INTERVENTION. INSTRUCTIONS WERE GIVEN, QUESTIONS WERE ANSWERED, AND THE PATIENT EXPRESSED UNDERSTANDING AND AGREES WITH THE PLAN. I, MARIA E BURK, DOCUMENTED THE ABOVE INFORMATION ACTING A SCRIBE FOR DR. MANUEL. I HAVE REVIEWED THE ABOVE DOCUMENT, WRITTEN BY MARIA E BURK, PLASTIC MAKER, AND I VERIFY THAT IT IS ACCURATE PROCEDURE CODES 14906 INJ PARAVERT F JNT L/S 1 LEV, MODIFIERS: 50 [id number] INJ PARAVERT F JNT L/S 2 LEV, MODIFIERS: 50 DISPOSITION & COMMUNICATION FOLLOW UP FOLLOW UP WITH BUSINESS MAIL ENTRY CLERK (REASON: POST THERAPEUTIC FACET BLOCK BILATERAL L4-L5, L5-S1) ELECTRONICALLY SIGNED BY JENNIFER MANUEL MD, MD ON 12/17/2019 AT 04:43 PM EDT DISCLAIMER : THIS IS A VISIT SUMMARY EXTRACTED FROM THE [employer] CHART. IT IS NOT A COPY OF THE [employer] PROGRESS NOTE. [email or web address]
== END ==
LOC: M PAIN 14:00
PROVIDERS: ATTEND Anesthesiology
DX: M47.816 Spondylosis without myelopathy or radiculopathy, lumbar region (principal); M47.817 Spondylosis without myelopathy or radiculopathy, lumbosacral region; I10 Essential (primary) hypertension; E78.00 Pure hypercholesterolemia, unspecified; K21.9 Gastro-esophageal reflux disease without esophagitis; R73.03 Prediabetes; F40.01 Agoraphobia with panic disorder; F32.9 Major depressive disorder, single episode, unspecified; D50.9 Iron deficiency anemia, unspecified; E03.9 Hypothyroidism, unspecified; Z87.891 Personal history of nicotine dependence; Z79.891 Long term (current) use of opiate analgesic; Z79.899 Other long term (current) drug therapy
CPT/HCPCS: 64493; 64494; J3301; Q9967

== ENCOUNTER → 2020-01-03 | Outpatient (CLI) | payer MEDICARE ==
[~2020-01-03] MED LIST changes: -BUPIVACAINE HCL 0.25% 30ML VIAL As Ordered ONE; -ISOVUE-M 300 61% 15ML VIAL As Ordered ONE; -LIDOCAINE 1% SDV 30ML VIAL As Ordered ONE; -TRIAMCINOLONE ACETONIDE SUSP 40 MG/ML VIAL (J3301) As Ordered ONE; -diazePAM 5 MG TAB As Ordered ONE; -oxyCODONE 5MG TAB As Ordered ONE
--- NOTE | 2020-01-03 11:40 | REPMRS ---
Patient History The patient states she had a clinical breast exam in October 2019. Family history of breast cancer at age 50 or over in mother, prostate cancer and colorectal cancer at age 50 or over in maternal grandfather, breast cancer at age 40 in maternal aunt. Taking estrogen for 18 years 4 months. 3D TOMOSYNTHESIS WAS PERFORMED. [facility] lifetime risk for breast cancer is 13.7%. Volpara breast density c. Digital Woman Screen Mammo: January 03, 2020 - Exam #: [id number] Bilateral CC and MLO view(s) were taken. Technologist: RT Abbie Prior study comparison: November 18, 2018, bilateral digital woman screen mammo performed at [facility]. July 29, 2017, bilateral digital woman screen mammo performed at [facility]. FINDINGS: The breast tissue is heterogeneously dense. This may lower the sensitivity of mammography. There has been no change in the appearance of the mammogram from the prior studies. There is a moderate amount of residual fibroglandular tissue which is fairly symmetric. There is no interval development of dominant mass, areas of architectural distortion, or clustered microcalcification typical of malignancy. Assessment: BI-RADS/ACR category 1 mammogram. Negative Mammogram. Recommendation Routine screening mammogram in 1 year (for women over age 40). This mammogram was interpreted with the aid of an FDA-approved computer-aided dectection system. Electronically Signed By: Dinh Peralta MD 01/03/20 [id number]
== END ==
LOC: M WHC 09:54
PROVIDERS: ATTEND Nurse Practitioner Women's Health
DX: Z12.31 Encounter for screening mammogram for malignant neoplasm of breast (principal); Z80.3 Family history of malignant neoplasm of breast; Z92.23 Personal history of estrogen therapy

== ENCOUNTER → 2020-01-03 | Outpatient (REF) | payer MEDICARE ==
[2020-01-03 13:44] LABS: BASO % 0.3 % (0.0-1.0); EOS # 0.1 10^3/uL (0.0-0.5); EOS % 1.5 % (0.0-3.0); HEMATOCRIT 39.5 % (36.0-47.0); HEMOGLOBIN 11.4 g/dl (12.0-15.5); LYMPH # 1.2 10^3/uL (1.5-5.0); LYMPH % 18.8 % (24.0-44.0); MEAN CORPUSCULAR HEMOGLOBIN 25.4 pg (27.0-33.0); MEAN CORPUSCULAR HGB CONC 28.9 g/dl (32.0-36.5); MONO # 0.5 10^3/uL (0.0-0.8); MONO % 8.3 % (0.0-5.0); NEUTROPHILS # 4.3 10^3/uL (1.5-8.5); NEUTROPHILS % 70.4 % (36.0-66.0); PLATELET COUNT, AUTOMATED 242 10^3/uL (150-450); RED BLOOD COUNT 4.49 10^6/uL (4.00-5.40); WHITE BLOOD COUNT 6.1 10^3/uL (4.0-10.0)
[2020-01-03 14:21] LABS: ALBUMIN 3.5 GM/DL (3.2-5.2); ALT/SGPT 14 U/L (12-78); BILIRUBIN,TOTAL 0.3 MG/DL (0.2-1.0); BLOOD UREA NITROGEN 9 MG/DL (7-18); CALCIUM LEVEL 9.4 MG/DL (8.5-10.1); CARBON DIOXIDE LEVEL 28 MEQ/L (21-32); CHLORIDE LEVEL 108 MEQ/L (98-107); CREATININE FOR GFR 0.86 MG/DL (0.55-1.30); GLOMERULAR FILTRATION RATE > 60.0 (>51); GLUCOSE, FASTING 77 MG/DL (70-100); SODIUM LEVEL 141 MEQ/L (136-145); TOTAL PROTEIN 6.9 GM/DL (6.4-8.2)
[2020-01-03 14:23] LABS: VITAMIN B12 LEVEL 1556 PG/ML (247-911)
== END ==
LOC: M LABDRWAD 12:51
PROVIDERS: ATTEND Internal Medicine Hematology & Oncology
DX: C32.9 Malignant neoplasm of larynx, unspecified (principal); Z12.31 Encounter for screening mammogram for malignant neoplasm of breast; Z80.3 Family history of malignant neoplasm of breast; Z92.23 Personal history of estrogen therapy

== ENCOUNTER → 2020-01-19 | Outpatient (CLI) | payer MEDICARE ==
--- NOTE | 2020-01-20 05:00 | REP ---
INDICATION: ABNORMAL FINDING OF LUNG FIELD COMPARISON: Multiple examinations between 09/22/2019 and 08/27/2012 TECHNIQUE: Axial noncontrast images from the thoracic inlet to the upper abdomen with coronal and sagittal reformations. This CT examination was performed using the following dose reduction techniques: Automated exposure control, adjustment of mA and/or kv according to the patient's size, and use of iterative reconstruction technique. FINDINGS: Patchy scattered alveolar infiltrates are again noted primarily identified in the right upper lobe and left lower lobe which have a similar appearance but different distribution pattern as compared to prior examinations. Findings suggest an underlying chronic inflammatory disease. Few mediastinal lymph nodes are again identified measuring up to approximately 12 mm short axis in the subcarinal region. No pleural effusion. No pneumothorax. Tracheobronchial tree is patent. Further evaluation of the mediastinum demonstrates mild atherosclerotic changes to the thoracic aorta and coronary arteries. No aortic aneurysm. No cardiomegaly or pericardial effusion. Musculoskeletal structures are stable. Neural stimulator device again identified in the thoracic level. IMPRESSION: Waxing and waning appearance to scattered alveolar infiltrates with few mediastinal lymph nodes again noted. Findings suggest an underlying chronic inflammatory process and correlation is recommended. <Electronically signed by Reji Hemphill > 01/20/20 [id number]
== END ==
LOC: M RAD 12:38
PROVIDERS: ATTEND Internal Medicine Pulmonary Disease
DX: R91.8 Other nonspecific abnormal finding of lung field (principal)

== ENCOUNTER → 2020-02-04 | Outpatient (CLI) | payer OTHER, MEDICARE ==
--- NOTE | 2020-02-08 00:28 | ECWPNPC ---
PATIENT NAME: RACHEL MARTINEZ : 1965 GENDER: FEMALE VISIT DATE: 02/04/2020 DISCHARGE DATE: 02/04/20 1230 VISIT LOCKED DATE TIME: PHYSICIAN: RICK GIL PHYSICIAN PAGER NO: ACTIVE RESOURCE: RICK GIL REASON FOR APPOINTMENT 1. POST THERAPEUTIC FACET BLOCK BILATERAL L4-L5, L5-S1 HISTORY OF PRESENT ILLNESS GENERAL: HERE FOR POST PROCEDURE FOLLOW-UP. THIS IS A WORK RELATED INJURY. HAD BILATERAL L4-5, L5-S1 LUMBAR THERAPEUTIC FACET BLOCK ON 12/15/2019. REPORTING IMPROVEMENT IN LOW BACK PAIN THAT CONTINUES TODAY SINCE PROCEDURE. CHIEF COMPLAINT IS INTERMITTENT BURNING PAIN IN THE NECK AND UPPER BACK AREA OVER DORSAL COLUMN STIMULATOR LEADS. THIS BEGAN TO HAPPEN A FEW WEEKS AGO. DENIES ANY INJURY. -. FALL RISK SCREENING: SCREENING :ONE FALL WITHOUT INJURY IN THE PAST YEAR PAIN SCREENING: PATIENT HAS A COMPLAINT OF ACUTE OR CHRONIC PAIN :YES LOCATION OF PAIN:NECK, RIGHT SHOULDER, LOW BACK, LEG(S) INTENSITY OF PAIN (SCALE OF 1 TO 10):6 WHAT DOES YOUR PAIN FEEL LIKE:ACHING, INTERMITTENT, SHARP, STABBING, THROBBING, SORE, SHOOTING DURATION:CONTINOUS, CONSTANT PAIN IS INCREASED BY:ACTIVITIES PAIN IS DECREASED BY:USE OF PAIN MEDICATIONS LAYING DOWN WITH HEAT TREATMENT/MEDICATIONS USED TO MANAGE PAIN:OPIOIDS LEVEL OF RELIEF FROM PAIN TREATMENTS IN THE PAST:25% PAIN HAS INTERFERED WITH THE FOLLOWING:BATHING/DRESSING, WALKING ABILITY, HOUSEWORK, SLEEP, TRANSPORTATION, TOILETING NURSING NOTE: -. PAIN CENTER INTAKE QUESTIONS: DO YOU HAVE A HISTORY OF MRSA? :NO DO YOU TAKE A BLOOD THINNERS? :NO DO YOU HAVE ANY BLEEDING DISORDERS? :YES HX OF STOMACH ULCER BLEEDING ANY NEW NUMBNESS OR WEAKNESS IN YOUR LEGS OR ARMS? :NO ANY PACEMAKER,DEFIBRILLATOR, OR DORSAL COLUMN STIMULATOR? :YES DCS CS AND LS DO YOU HAVE ANY RASHES OR OPEN SORES? :NO ARE YOU ALLERGIC TO IV DYE? :NO ARE YOU DIABETIC? :NO ANY NEW PROBLEMS WITH YOUR MEDICATIONS? :NO HAVE YOU RECEIVED A VACCINE IN THE PAST 30 DAYS? :NO DO YOU PLAN TO RECEIVE A VACCINE IN THE NEXT 21 DAYS? :NO DO YOU NEED ANY PRESCRIPTION? :NO NOT SURE DO YOU TAKE ANY IMMUNOSUPPRESSIVE MEDICATIONS? :NO IS THERE A CHANCE YOU COULD BE ? :NO ARE YOU BREAST FEEDING? :NO CURRENT MEDICATIONS TAKING ABILIFY 15 MG TABLET 1 TABLET ORALLY ONCE A DAY TAKING EFFEXOR XR 150 MG CAPSULE EXTENDED RELEASE 24 HOUR 3 CAPSULE WITH FOOD ORALLY ONCE A DAY TAKING FLONASE 50 MCG/ACT SUSPENSION 1 SPRAY IN EACH NOSTRIL NASALLY ONCE A DAY NEEDED TAKING GABAPENTIN 600 MG TABLET 1 TABLET P.O. FOUR TIMES DAILY TAKING VITAMIN B-12 5000 MCG LOZENGE DIRECTED ORALLY ONCE A DAY TAKING TRAMADOL HCL 50 MG TABLET 1 TABLET NEEDED ORALLY ONCE A DAY TAKING LYRICA 150 MG CAPSULE 1 CAPSULE ORALLY Q8H MDD3 TAKING ESTRADIOL 2 MG TABLET 1 TABLET ORALLY ONCE A DAY TAKING DRISDOL 74534 UNIT CAPSULE 1 CAPSULE ORALLY EVERY OTHER WEEK TAKING LEVOTHYROXINE SODIUM 50 MCG TABLET 1 TABLET ON AN EMPTY STOMACH IN THE MORNING ORALLY ONCE A DAY TAKING OMEPRAZOLE 40 MG CAPSULE DELAYED RELEASE 1 CAPSULE 30 MINUTES BEFORE MORNING MEAL ORALLY ONCE A DAY TAKING CRESTOR 10 MG TABLET 1 TABLET ORALLY ONCE A DAY TAKING SUCRALFATE 1 GM TABLET 1 TABLET ON AN EMPTY STOMACH ORALLY TWICE A DAY NOT-TAKING AZELASTINE HCL 0.15 % SOLUTION 1 DROP IN EACH NOSTRIL NASALLY TWICE A DAY NOT-TAKING MACROBID 100 MG CAPSULE 1 CAPSULE ORALLY TWICE A DAY NOT-TAKING PYRIDIUM 100 MG TABLET 2 TABLETS AFTER MEALS ORALLY THREE TIMES A DAY NEEDED FOR DYSURIA NOT-TAKING VENTOLIN HFA 108 (90 BASE) MCG/ACT AEROSOL SOLUTION 2 PUFFS NEEDED INHALATION EVERY 4 HRS NEEDED FOR SHORTNESS OF BREATH MEDICATION LIST REVIEWED AND RECONCILED WITH THE PATIENT PAST MEDICAL HISTORY SUPRAGLOTTIC LARYNGEAL CANCER, STAGE KIZZY [id number]-- RAD TX X 35 SESSIONS WITH CISPLATIN CHEMOTX CHRONIC LOWER BACK PAIN, DORSAL COLUMN STIMULATOR IN PLACE - [facility] HTN HYPERCHOLESTEROLEMIA GERD/H/O PUD WITH GI BLEED IN PAST SECONDARY TO CELEBREX ENDOMETRIOSIS PREDIABETES TOBACCO ABUSE CHRONIC NARCOTIC DEPENDENCE - WEANING OXYCODONE PER PAIN CLINIC ECHO - 02/28/17 - NORMAL LV SIZE AND WALL THICKNESS EF 70% GRADE 1 DIASTOLIC DYSFUNCTION ANXIETY/DEPRESSION/AGORAPHOBIA WITH PANIC ATTACKS - PSYCHIATRIST IRON DEF - HAD IRON INFUSION 04/2018 HYPOTHYROID BLEEDING 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 ALLERGIES NSAIDS: BLEEDING - CONTRAINDICATION BETADINE: RASH - ALLERGY SKELAXIN: RASH - ALLERGY METFORMIN HCL: DIARRHEA - SIDE EFFECTS SURGICAL HISTORY TONSILLECTOMY TUBAL LIGATION 03/1989 ECTOPIC 09/1989 HYSTERECTOMY D/T PRE-CANCEROUS 1989 BSO 1999 LUMBAR LAMINECTOMY L4-L5 08/1997 TARSAL TUNNEL-BILATERAL FEET 2004 BILATERAL CARPAL TUNNEL RELEASE 2001 LUMBAR STIMULATOR PLACED 2005 CERVICAL STIMULATOR PLACED 2008 RIGHT CARPAL TUNNEL RELEASE 06/2013 GASTRIC BYPASS 2010 COLONOSCOPY WITH POLYP RESECTION, BENIGN 2012 CHOLECYSTECTOMY 12/2010 TOE NAIL SURGERY 08/10/15 TUBE PLACEMENT RIGHT EAR, BIOPSY SINUS CAVITY NODULE 05/2016 LYMPH NODE, THROAT BIOPSY MALIGNANT 05/2017 FEEDING TUBE 06/2017 CHEMO PORT PLACEMENT 06/2017 COLONOSCOPY 07/2016 FAMILY HISTORY FATHER: ALIVE MOTHER: ALIVE, DIAGNOSED WITH HYPERTENSION, DIABETES, OTHER MALIGNANT NEOPLASM OF UNSPECIFIED SITE 2 BROTHER(S) , 1 SISTER(S) . 1 SON(S) , 1 DAUGHTER(S) - HEALTHY. MOM-LEFT BREAST CA. SOCIAL HISTORY GENERAL: TOBACCO USE ARE YOU A:FORMER SMOKER HOW LONG HAS IT BEEN SINCE YOU LAST SMOKED?1-5 YEARS QUIT 05/19/17 LATEX QUESTIONNAIRE LATEX ALLERGY : HAVE YOU EVER DEVELOPED ANY TYPE OF REACTION AFTER HANDLING LATEX PRODUCTS SUCH RUBBER GLOVES, CONDOMS, DIAPHRAGMS, BALLOONS, SOCKS, OR UNDERWEAR?NO LATEX ALLERGY : HAVE YOU EVER DEVELOPED ANY TYPE OF REACTION DURING OR AFTER DENTAL APPOINTMENT, VAGINAL/RECTAL EXAMINATION, SURGICAL PROCEDURE, OR ANY OTHER EXPOSURE?NO DATE ASKED : 07/27/2019 LATEX RISK : HAVE YOU EVER HAD ANY DIFFICULTY BREATHING OR HIVES AFTER EATING OR HANDLING ANY FRUITS, OR VEGETABLES; SUCH KIWI, BANANAS, STONE FRUITS, OR CHESTNUTSNO LATEX RISK : DO YOU HAVE A PREVIOUS PERSONAL HISTORY OF MORE THAN NINE SURGERIES, SPINA BIFIDA, OR REPEATED CATHERIZATIONS? YES - PLEASE INDICATE : > 9 SURGERIES LATEX RISK : ARE YOU FREQUENTLY EXPOSED TO LATEX PRODUCTS IN YOUR OCCUPATION?NO BMI CARE GOAL FOLLOW-UP ABOVE NORMAL BMI FOLLOW-UPDIETARY MANAGEMENT EDUCATION, GUIDANCE, AND COUNSELING ALCOHOL SCREENING DID YOU HAVE A DRINK CONTAINING ALCOHOL IN THE PAST YEAR?YES HOW OFTEN DID YOU HAVE SIX OR MORE DRINKS ON ONE OCCASION IN THE PAST YEAR?NEVER (0 POINTS) HOW MANY DRINKS DID YOU HAVE ON A TYPICAL DAY WHEN YOU WERE DRINKING IN THE PAST YEAR?1 OR 2 (0 POINTS) HOW OFTEN DID YOU HAVE A DRINK CONTAINING ALCOHOL IN THE PAST YEAR?MONTHLY OR LESS (1 POINT) POINTS1 INTERPRETATIONNEGATIVE RECREATIONAL DRUG USE DRUG USE?NO CAFFEINE CAFFEINE USE?YES HOW OFTEN AND HOW MUCH? COFFEE 6 CUPS DAILY, 2 SODAS DAILY SEXUAL HX HAD SEX IN THE LAST 12 MONTHS (VAGINAL, ORAL, OR ANAL)?YES WITHMEN ONLY USE PROTECTION?NO LMP:HYSTER HAVE YOU EVER HAD AN STD?NO HIV / HEP-C SCREENING HIV TEST OFFERED TO PATIENT:YES DATE OFFERED:07/29/2017 TEST ACCEPTED:NO REASON:PATIENT DECLINED BROCHURE PROVIDED TO PATIENTNO NONDENOMINATIONAL [id number] RASTAFARI LANGUAGE MONGOLIAN. 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 DIET: REGULAR. EXERCISE: NO REGULAR EXERCISE. MARITAL STATUS: . OTHERS AT HOME: SPOUSE. PAIN CLINIC PFS, CLERGY, PUBLIC HEALTH REFERRALS WAS THE PROVIDER NOTIFIED OF ANY PERTINENT INFO?YES N/A HAS THE PATIENT BEEN EDUCATED REGARDING HIS/HER PLAN OF CARE?YES HAS THE PATIENT BEEN EDUCATED REGARDING PAIN, THE RISK FOR PAIN, THE IMPORTANCE OF EFFECTIVE PAIN MANAGEMENT, AND THE PAIN ASSESSMENT PROCESS?YES ADVANCE DIRECTIVE ADVANCE DIRECTIVE DISCUSSED WITH PATIENT:YES PT HAS HCP [facility] [phone] HOSPITALIZATION/MAJOR DIAGNOSTIC PROCEDURE SURG RELATED PLUS 1 G-I BLEED BLEEDING ULCER TX'D W BLOOD TRANSFUSIONS 10/2019 REVIEW OF SYSTEMS CONSTITUTIONAL: ANY RECENT FEVER NO . CHILLS NO . WEIGHT CHANGE OF UNKNOWN REASONS NO . GASTROENTEROLOGY: NEW UNEXPLAINABLE CHANGES IN BOWEL CONTROL NO . CONSTIPATION NO . GENITOURINARY: ANY NEW CHANGE IN BLADDER CONTROL? NO . NEUROLOGY: NEW ONSET DIZZINESS OR NEUROLOGICAL CHANGES NOT MENTIONED NO . NEW NUMBNESS OR PAIN PATTERNS NOT MENTIONED AND PERTINENT TO TODAY'S VISIT NO . CARDIOLOGY: NEW CHEST PRESSURE NO . NEW CHEST PAIN NO . RESPIRATORY: UNEXPLAINABLE COUGH NO . NEW SHORTNESS OF BREATH NO . VITAL SIGNS WT 171.8 LBS, HT 66 IN, BMI 27.73 INDEX, BP 133/76 MM HG, HR 107 /MIN, RR 18 /MIN, TEMP 97.4 F, OXYGEN SAT % 98%, SAFE IN ENV? (Y/N) Y, NA INITIALS SC 11:43, REVIEWED BY: EM. EXAMINATION GENERAL EXAMINATION: LUNGS: LUNG SOUNDS ARE CLEAR . HEART: HEART RATE REGULAR . MUSCULOSKELETAL:*, MUSCLE STRENGTH TESTING 5/5 BILATERAL UPPER EXTREMITIES. . CERVICAL:TENDERNESS NOTED OVER RIGHT UPPER THORACIC/SCAPULAR AREA WITH PALPATION. NO REDNESS OR SWELLING NOTED.. ASSESSMENTS OTHER CHRONIC PAIN - G89.29 (PRIMARY) TREATMENT OTHER CHRONIC PAIN PAIN PROCEDURE LOGDATE OF [id number]/28/20PROCEDURE:BILATERAL LUMBAR FACET BLOCK L4/5-L5/[id number] OF PRE SEDATEVALIUM 5MG, OXYCODONE 5MGRESULT:CONTINUES TO BENEFIT FROM PROCEDURE TODAY PROCEDURES PN WORKMANS' COMP OPINION IN YOUR OPINION, WAS THE INCIDENT THAT THE PATIENT DESCRIBED THE COMPETENT MEDICAL CAUSE OF THIS INJURY/ILLNESS? YES ARE THE PATIENT'S COMPLAINTS CONSISTENT WITH HIS/HER HISTORY OF THE INJURY/ILLNESS? YES IS THE PATIENT'S HISTORY OF THE INJURY/ILLNESS CONSISTENT WITH YOUR OBJECTIVE FINDING? YES WHAT IS THE PERCENTAGE OF TEMPORARY IMPAIRMENT? MODERATE TO MARKED = 66.7% IS THE PATIENT WORKING? NO DOCTOR ON SITE: JENNIFER STEPHENS MD PROCEDURE CODES FA211 ESTABILISHED PATIENT [facility] CHARGE DISPOSITION & COMMUNICATION FOLLOW UP 6 WEEKS (REASON: CHECK ON DORSAL COLUMN STIMULATOR PROBLEM) ELECTRONICALLY SIGNED BY ALBA DENNIS ON 02/07/2020 AT 02:21 PM EST DISCLAIMER : THIS IS A VISIT SUMMARY EXTRACTED FROM THE [employer] CHART. IT IS NOT A COPY OF THE [employer] PROGRESS NOTE. RAULITO
== END ==
LOC: M PAIN 11:30
PROVIDERS: ATTEND Nurse Practitioner Family
DX: G89.29 Other chronic pain (principal); K21.9 Gastro-esophageal reflux disease without esophagitis; R73.03 Prediabetes; E03.9 Hypothyroidism, unspecified; Z96.89 Presence of other specified functional implants; Z86.59 Personal history of other mental and behavioral disorders; Z98.84 Bariatric surgery status; Z87.891 Personal history of nicotine dependence; Z88.3 Allergy status to other anti-infective agents; Z88.6 Allergy status to analgesic agent; Z88.8 Allergy status to other drugs, medicaments and biological substances; Z79.899 Other long term (current) drug therapy

== ENCOUNTER → 2020-03-28 | Outpatient (CLI) | payer OTHER, MEDICARE ==
--- NOTE | 2020-03-31 04:36 | ECWPNPC ---
PATIENT NAME: RACHEL MARTINEZ : 1965 GENDER: FEMALE VISIT DATE: 03/28/2020 DISCHARGE DATE: 03/28/20 1133 VISIT LOCKED DATE TIME: PHYSICIAN: RICK GIL PHYSICIAN PAGER NO: ACTIVE RESOURCE: RICK GIL REASON FOR APPOINTMENT 1. CHECK ON DORSAL COLUMN STIMULATOR PROBLEM HISTORY OF PRESENT ILLNESS DEPRESSION SCREENING: PHQ-9 LITTLE INTEREST OR PLEASURE IN DOING THINGSNOT AT ALL FEELING DOWN, DEPRESSED, OR HOPELESSNEARLY EVERY DAY TROUBLE FALLING OR STAYING ASLEEP, OR SLEEPING TOO MUCHSEVERAL DAYS FEELING TIRED OR HAVING LITTLE ENERGYSEVERAL DAYS POOR APPETITE OR OVEREATING MORE THAN HALF THE DAYS FEELING BAD ABOUT YOURSELF-OR THAT YOU ARE A FAILURE OR HAVE LET YOURSELF OR YOUR FAMILY DOWN SEVERAL DAYS TROUBLE CONCENTRATING ON THINGS, SUCH READING THE NEWSPAPER OR WATCHING TELEVISION SEVERAL DAYS MOVING OR SPEAKING SO SLOWLY THAT OTHER PEOPLE COULD HAVE NOTICED. 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 -. FALL RISK SCREENING: SCREENING :ONE FALL WITHOUT INJURY IN THE PAST YEAR PAIN SCREENING: PATIENT HAS A COMPLAINT OF ACUTE OR CHRONIC PAIN :YES LOCATION OF PAIN:NECK, LOW BACK INTENSITY OF PAIN (SCALE OF 1 TO 10):7 WHAT DOES YOUR PAIN FEEL LIKE:ACHING PAIN BEHIND THE RIGHT LEG GOING ALL THE WAY DWON DURATION:CONTINOUS, CONSTANT, ALL DAY PAIN IS INCREASED BY:ACTIVITIES PAIN IS DECREASED BY:USE OF PAIN MEDICATIONS NURSING NOTE: -. PAIN CENTER INTAKE QUESTIONS: DO YOU HAVE A HISTORY OF MRSA? :NO DO YOU TAKE A BLOOD THINNERS? :NO DO YOU HAVE ANY BLEEDING DISORDERS? :YES HX OF STOMACH ULCER BLEEDING ANY NEW NUMBNESS OR WEAKNESS IN YOUR LEGS OR ARMS? :NO ANY PACEMAKER,DEFIBRILLATOR, OR DORSAL COLUMN STIMULATOR? :YES DCS CS AND LS DO YOU HAVE ANY RASHES OR OPEN SORES? :NO ARE YOU ALLERGIC TO IV DYE? :NO ARE YOU DIABETIC? :NO ANY NEW PROBLEMS WITH YOUR MEDICATIONS? :NO HAVE YOU RECEIVED A VACCINE IN THE PAST 30 DAYS? :NO DO YOU PLAN TO RECEIVE A VACCINE IN THE NEXT 21 DAYS? :NO DO YOU NEED ANY PRESCRIPTION? :NO NOT SURE DO YOU TAKE ANY IMMUNOSUPPRESSIVE MEDICATIONS? :NO IS THERE A CHANCE YOU COULD BE ? :NO ARE YOU BREAST FEEDING? :NO CURRENT MEDICATIONS TAKING ABILIFY 15 MG TABLET 1 TABLET ORALLY ONCE A DAY TAKING EFFEXOR XR 150 MG CAPSULE EXTENDED RELEASE 24 HOUR 3 CAPSULE WITH FOOD ORALLY ONCE A DAY TAKING FLONASE 50 MCG/ACT SUSPENSION 1 SPRAY IN EACH NOSTRIL NASALLY ONCE A DAY NEEDED TAKING GABAPENTIN 600 MG TABLET 1 TABLET P.O. FOUR TIMES DAILY TAKING VITAMIN B-12 5000 MCG LOZENGE DIRECTED ORALLY ONCE A DAY TAKING TRAMADOL HCL 50 MG TABLET 1 TABLET NEEDED ORALLY ONCE A DAY TAKING LYRICA 150 MG CAPSULE 1 CAPSULE ORALLY Q8H MDD3 TAKING DRISDOL 87082 UNIT CAPSULE 1 CAPSULE ORALLY EVERY OTHER WEEK TAKING LEVOTHYROXINE SODIUM 50 MCG TABLET 1 TABLET ON AN EMPTY STOMACH IN THE MORNING ORALLY ONCE A DAY TAKING OMEPRAZOLE 40 MG CAPSULE DELAYED RELEASE 1 CAPSULE 30 MINUTES BEFORE MORNING MEAL ORALLY ONCE A DAY TAKING SUCRALFATE 1 GM TABLET 1 TABLET ON AN EMPTY STOMACH ORALLY TWICE A DAY TAKING ESTRADIOL 2 MG TABLET 1 TABLET ORALLY ONCE A DAY NOT-TAKING CRESTOR 10 MG TABLET 1 TABLET ORALLY ONCE A DAY NOT-TAKING AZELASTINE HCL 0.15 % SOLUTION 1 DROP IN EACH NOSTRIL NASALLY TWICE A DAY NOT-TAKING MACROBID 100 MG CAPSULE 1 CAPSULE ORALLY TWICE A DAY NOT-TAKING PYRIDIUM 100 MG TABLET 2 TABLETS AFTER MEALS ORALLY THREE TIMES A DAY NEEDED FOR DYSURIA NOT-TAKING VENTOLIN HFA 108 (90 BASE) MCG/ACT AEROSOL SOLUTION 2 PUFFS NEEDED INHALATION EVERY 4 HRS NEEDED FOR SHORTNESS OF BREATH MEDICATION LIST REVIEWED AND RECONCILED WITH THE PATIENT PAST MEDICAL HISTORY SUPRAGLOTTIC LARYNGEAL CANCER, STAGE KIZZY [id number]-- RAD TX X 35 SESSIONS WITH CISPLATIN CHEMOTX CHRONIC LOWER BACK PAIN, DORSAL COLUMN STIMULATOR IN PLACE - [facility] HTN HYPERCHOLESTEROLEMIA GERD/H/O PUD WITH GI BLEED IN PAST SECONDARY TO CELEBREX ENDOMETRIOSIS PREDIABETES TOBACCO ABUSE CHRONIC NARCOTIC DEPENDENCE - WEANING OXYCODONE PER PAIN CLINIC ECHO - 02/28/17 - NORMAL LV SIZE AND WALL THICKNESS EF 70% GRADE 1 DIASTOLIC DYSFUNCTION ANXIETY/DEPRESSION/AGORAPHOBIA WITH PANIC ATTACKS - PSYCHIATRIST IRON DEF - HAD IRON INFUSION 04/2018 HYPOTHYROID BLEEDING 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 ALLERGIES NSAIDS: BLEEDING - CONTRAINDICATION BETADINE: RASH - ALLERGY SKELAXIN: RASH - ALLERGY METFORMIN HCL: DIARRHEA - SIDE EFFECTS SOCIAL HISTORY GENERAL: TOBACCO USE ARE YOU A:FORMER SMOKER HOW LONG HAS IT BEEN SINCE YOU LAST SMOKED?1-5 YEARS QUIT 05/19/17 LATEX QUESTIONNAIRE LATEX ALLERGY : HAVE YOU EVER DEVELOPED ANY TYPE OF REACTION AFTER HANDLING LATEX PRODUCTS SUCH RUBBER GLOVES, CONDOMS, DIAPHRAGMS, BALLOONS, SOCKS, OR UNDERWEAR?NO LATEX ALLERGY : HAVE YOU EVER DEVELOPED ANY TYPE OF REACTION DURING OR AFTER DENTAL APPOINTMENT, VAGINAL/RECTAL EXAMINATION, SURGICAL PROCEDURE, OR ANY OTHER EXPOSURE?NO LATEX RISK : HAVE YOU EVER HAD ANY DIFFICULTY BREATHING OR HIVES AFTER EATING OR HANDLING ANY FRUITS, OR VEGETABLES; SUCH KIWI, BANANAS, STONE FRUITS, OR CHESTNUTSNO LATEX RISK : DO YOU HAVE A PREVIOUS PERSONAL HISTORY OF MORE THAN NINE SURGERIES, SPINA BIFIDA, OR REPEATED CATHERIZATIONS? YES - PLEASE INDICATE : > 9 SURGERIES LATEX RISK : ARE YOU FREQUENTLY EXPOSED TO LATEX PRODUCTS IN YOUR OCCUPATION?NO DATE ASKED : 03/28/2020 ALCOHOL USE: NO. BMI CARE GOAL FOLLOW-UP ABOVE NORMAL BMI FOLLOW-UPDIETARY MANAGEMENT EDUCATION, GUIDANCE, AND COUNSELING ALCOHOL SCREENING DID YOU HAVE A DRINK CONTAINING ALCOHOL IN THE PAST YEAR?YES HOW OFTEN DID YOU HAVE SIX OR MORE DRINKS ON ONE OCCASION IN THE PAST YEAR?NEVER (0 POINTS) HOW MANY DRINKS DID YOU HAVE ON A TYPICAL DAY WHEN YOU WERE DRINKING IN THE PAST YEAR?1 OR 2 (0 POINTS) HOW OFTEN DID YOU HAVE A DRINK CONTAINING ALCOHOL IN THE PAST YEAR?MONTHLY OR LESS (1 POINT) POINTS1 INTERPRETATIONNEGATIVE RECREATIONAL DRUG USE DRUG USE?NO CAFFEINE CAFFEINE USE?YES HOW OFTEN AND HOW MUCH? COFFEE 6 CUPS DAILY, 2 SODAS DAILY SEXUAL HX HAD SEX IN THE LAST 12 MONTHS (VAGINAL, ORAL, OR ANAL)?YES WITHMEN ONLY USE PROTECTION?NO LMP:HYSTER HAVE YOU EVER HAD AN STD?NO HIV / HEP-C SCREENING HIV TEST OFFERED TO PATIENT:YES DATE OFFERED:07/29/2017 TEST ACCEPTED:NO REASON:PATIENT DECLINED BROCHURE PROVIDED TO PATIENTNO [id number] LANGUAGE HEBREW. 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 DIET: REGULAR. EXERCISE: NO REGULAR EXERCISE. MARITAL STATUS: . OTHERS AT HOME: SPOUSE. - WAS THE PROVIDER NOTIFIED OF ANY PERTINENT INFO?YES N/A HAS THE PATIENT BEEN EDUCATED REGARDING HIS/HER PLAN OF CARE?YES HAS THE PATIENT BEEN EDUCATED REGARDING PAIN, THE RISK FOR PAIN, THE IMPORTANCE OF EFFECTIVE PAIN MANAGEMENT, AND THE PAIN ASSESSMENT PROCESS?YES ADVANCE DIRECTIVE ADVANCE DIRECTIVE DISCUSSED WITH PATIENT:YES PT HAS HCP [facility] [phone] REVIEW OF SYSTEMS CONSTITUTIONAL: ANY RECENT FEVER NO . CHILLS NO . WEIGHT CHANGE OF UNKNOWN REASONS NO . GASTROENTEROLOGY: NEW UNEXPLAINABLE CHANGES IN BOWEL CONTROL NO . CONSTIPATION NO . GENITOURINARY: ANY NEW CHANGE IN BLADDER CONTROL? NO . NEUROLOGY: NEW ONSET DIZZINESS OR NEUROLOGICAL CHANGES NOT MENTIONED NO . NEW NUMBNESS OR PAIN PATTERNS NOT MENTIONED AND PERTINENT TO TODAY'S VISIT NO . CARDIOLOGY: NEW CHEST PRESSURE NO . NEW CHEST PAIN NO . RESPIRATORY: UNEXPLAINABLE COUGH NO . NEW SHORTNESS OF BREATH NO . VITAL SIGNS WT 165 LBS, HT 66 IN, BMI 26.63 INDEX, BP 141/82 MM HG, HR 111 /MIN, RR 18 /MIN, TEMP 98.3 F, OXYGEN SAT % 96%, SAFE IN ENV? (Y/N) YEST.MISHEL SINGH. EXAMINATION GENERAL EXAMINATION: GENERALAWAKE,ALERT ,PLEASANT . PSYCHAFFECT NORMAL . LUNGS:LUNG OROZCO ARE CLEAR TO AUSCULTATION BILATERALLY. GOOD MOVEMENT OF AIR . HEART:S1, S2 IN A REGULAR RATE AND RHYTHM. NO SIGNIFICANT MURMURS, RUBS OR GALLOPS NOTED . 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 RECENT URINE TOXICOLOGY REVIEWED. NO UNAUTHORIZED MEDICATIONS. NO ILLICIT SUBSTANCES AND PRESCRIBED MEDICATIONS WERE PRESENT. PROCEDURE CODES FA211 ESTABILISHED PATIENT [facility] CHARGE DISPOSITION & COMMUNICATION FOLLOW UP 3 MONTHS (REASON: ED MGNT /DCS ISSUES) ELECTRONICALLY SIGNED BY ALBA DENNIS ON 03/30/2020 AT 09:31 PM EST DISCLAIMER : THIS IS A VISIT SUMMARY EXTRACTED FROM THE [employer] CHART. IT IS NOT A COPY OF THE [employer] PROGRESS NOTE. RAULITO
== END ==
LOC: M PAIN 11:00
PROVIDERS: ATTEND Nurse Practitioner Family
DX: M47.817 Spondylosis without myelopathy or radiculopathy, lumbosacral region (principal); M47.812 Spondylosis without myelopathy or radiculopathy, cervical region; I10 Essential (primary) hypertension; E78.00 Pure hypercholesterolemia, unspecified; K21.9 Gastro-esophageal reflux disease without esophagitis; R73.03 Prediabetes; F40.01 Agoraphobia with panic disorder; D50.9 Iron deficiency anemia, unspecified; E03.9 Hypothyroidism, unspecified; Z87.891 Personal history of nicotine dependence; Z79.891 Long term (current) use of opiate analgesic; Z79.899 Other long term (current) drug therapy; Z85.21 Personal history of malignant neoplasm of larynx; Z92.3 Personal history of irradiation; Z92.21 Personal history of antineoplastic chemotherapy; Z88.6 Allergy status to analgesic agent; Z88.8 Allergy status to other drugs, medicaments and biological substances

== ENCOUNTER → 2020-05-08 | Outpatient (CLI) | payer MEDICARE ==
--- NOTE | 2020-05-08 12:06 | REP ---
INDICATION: F/U RIGHT SHOULDER PAIN. COMPARISON: 03/05/2012. TECHNIQUE: There are four views including an axillary view. FINDINGS: There is a 6 mm round lucency in the proximal humeral shaft as an interval change, possibly a bone cyst. However, if this still is the location of the patient's pain I would recommend MRI follow-up for further evaluation of this new finding. Mineralization is otherwise normal. The acromioclavicular and glenohumeral articulations are unremarkable. There are no calcifications or foreign bodies. No fracture or dislocation. IMPRESSION: New 6 mm lucency in the proximal humeral shaft as discussed above. If this is the location of the patient's pain consider MRI follow-up. Otherwise, negative left shoulder. <Electronically signed by Dinh Colvin > 05/08/20 [id number]
== END ==
LOC: M SOG 10:36
PROVIDERS: ATTEND Orthopaedic Surgery Sports Medicine
DX: M75.42 Impingement syndrome of left shoulder (principal)

== ENCOUNTER → 2020-05-30 | Outpatient (REF) | payer MEDICARE ==
[2020-05-30 18:31] LABS: BASO % 0.3 % (0.0-1.0); EOS # 0.1 10^3/uL (0.0-0.5); EOS % 1.2 % (0.0-3.0); HEMATOCRIT 42.6 % (36.0-47.0); HEMOGLOBIN 13.4 g/dl (12.0-15.5); LYMPH % 15.7 % (24.0-44.0); MEAN CORPUSCULAR HEMOGLOBIN 29.2 pg (27.0-33.0); MEAN CORPUSCULAR HGB CONC 31.5 g/dl (32.0-36.5); MEAN CORPUSCULAR VOLUME 92.8 fl (80.0-96.0); MONO # 0.5 10^3/uL (0.0-0.8); MONO % 7.6 % (2.0-8.0); NEUTROPHILS # 4.9 10^3/uL (1.5-8.5); NEUTROPHILS % 74.4 % (36.0-66.0); PLATELET COUNT, AUTOMATED 239 10^3/uL (150-450); RED BLOOD COUNT 4.59 10^6/uL (4.00-5.40); WHITE BLOOD COUNT 6.6 10^3/uL (4.0-10.0)
[2020-05-30 18:45] LABS: BLOOD UREA NITROGEN 10 MG/DL (7-18); CALCIUM LEVEL 9.4 MG/DL (8.5-10.1); CARBON DIOXIDE LEVEL 29 MEQ/L (21-32); CHLORIDE LEVEL 104 MEQ/L (98-107); GLOMERULAR FILTRATION RATE > 60.0 (>51); GLUCOSE, FASTING 69 MG/DL (70-100); POTASSIUM SERUM 4.6 MEQ/L (3.5-5.1); SODIUM LEVEL 138 MEQ/L (136-145)
== END ==
LOC: M LABDRWAD 16:24
DX: Z01.818 Encounter for other preprocedural examination (principal); G89.4 Chronic pain syndrome

== ENCOUNTER → 2020-06-07 | Outpatient (REF) | payer MEDICARE ==
[2020-06-07 13:15] LABS: APPEARANCE, URINE CLEAR (CLEAR); BACTERIA, URINE AUTO NEGATIVE (NEGATIVE); BILIRUBIN, URINE AUTO NEGATIVE (NEGATIVE); BLOOD, URINE BLOOD NEGATIVE (NEGATIVE); COLOR, URINE STRAW (YELLOW); GLUCOSE, URINE (UA) AUTO NEGATIVE (NEGATIVE); KETONE, URINE AUTO NEGATIVE (NEGATIVE); LEUKOCYTE ESTERASE, URINE AUTO NEGATIVE (NEGATIVE); NITRITE, URINE AUTO NEGATIVE (NEGATIVE); PROTEIN, URINE AUTO NEGATIVE (NEGATIVE); RBC, URINE AUTO 1 /HPF (0-3); SPECIFIC GRAVITY URINE AUTO 1.005 (1.002-1.035); SQUAMOUS EPITHELIAL CELL UR AU 0 /HPF (0-6); UROBILINOGEN, URINE AUTO 0.2 mg/dL (0.0-2.0); WBC, URINE AUTO 0 /HPF (0-3)
[2020-06-07 13:21] LABS: INR 0.88; PARTIAL THROMBOPLASTIN TIME 28.5 SECONDS (24.2-38.5); PROTHROMBIN TIME 12.1 SECONDS (12.5-14.3)
== END ==
LOC: M SFHCADAM 11:13
PROVIDERS: ATTEND Physician Assistant
DX: Z01.818 Encounter for other preprocedural examination (principal); Z79.899 Other long term (current) drug therapy

== ENCOUNTER → 2020-06-08 | Outpatient (REF) | payer MEDICARE | LOC: M LAB REF 12:14 | PROVIDERS: ATTEND Nurse Practitioner Family | DX: Z01.818 Encounter for other preprocedural examination (principal); G89.4 Chronic pain syndrome ==

== ENCOUNTER → 2020-06-30 | Outpatient (REF) | payer MEDICARE, OTHER ==
[2020-06-30 14:07] LABS: ALBUMIN 3.6 GM/DL (3.2-5.2); ALT/SGPT 18 U/L (12-78); BILIRUBIN,TOTAL 0.3 MG/DL (0.2-1.0); BLOOD UREA NITROGEN 10 MG/DL (7-18); CALCIUM LEVEL 9.4 MG/DL (8.5-10.1); CARBON DIOXIDE LEVEL 30 MEQ/L (21-32); CHLORIDE LEVEL 104 MEQ/L (98-107); CREATININE FOR GFR 0.82 MG/DL (0.55-1.30); GLOMERULAR FILTRATION RATE > 60.0 (>51); GLUCOSE, FASTING 88 MG/DL (70-100); POTASSIUM SERUM 4.4 MEQ/L (3.5-5.1); SODIUM LEVEL 138 MEQ/L (136-145); TOTAL PROTEIN 6.9 GM/DL (6.4-8.2)
== END ==
LOC: M LABDRWAD 12:35
PROVIDERS: ATTEND Internal Medicine Hematology & Oncology
DX: D50.9 Iron deficiency anemia, unspecified (principal); Z85.21 Personal history of malignant neoplasm of larynx

== ENCOUNTER → 2020-06-30 | Outpatient (REF) | payer MEDICARE, OTHER ==
[2020-06-30 13:52] LABS: BASO % 0.3 % (0.0-1.0); EOS # 0.1 10^3/uL (0.0-0.5); HEMATOCRIT 42.1 % (36.0-47.0); HEMOGLOBIN 13.1 g/dl (12.0-15.5); LYMPH # 0.6 10^3/uL (1.5-5.0); LYMPH % 9.7 % (24.0-44.0); MEAN CORPUSCULAR HEMOGLOBIN 28.9 pg (27.0-33.0); MEAN CORPUSCULAR HGB CONC 31.1 g/dl (32.0-36.5); MEAN CORPUSCULAR VOLUME 92.7 fl (80.0-96.0); MONO # 0.3 10^3/uL (0.0-0.8); MONO % 4.3 % (2.0-8.0); NEUTROPHILS # 5.3 10^3/uL (1.5-8.5); NEUTROPHILS % 83.9 % (36.0-66.0); PLATELET COUNT, AUTOMATED 246 10^3/uL (150-450); RED BLOOD COUNT 4.54 10^6/uL (4.00-5.40); WHITE BLOOD COUNT 6.3 10^3/uL (4.0-10.0)
[2020-06-30 14:36] LABS: BLOOD UREA NITROGEN 10 MG/DL (7-18); CALCIUM LEVEL 9.5 MG/DL (8.5-10.1); CARBON DIOXIDE LEVEL 28 MEQ/L (21-32); CHLORIDE LEVEL 105 MEQ/L (98-107); CREATININE FOR GFR 0.84 MG/DL (0.55-1.30); GLOMERULAR FILTRATION RATE > 60.0 (>51); GLUCOSE, FASTING 87 MG/DL (70-100); POTASSIUM SERUM 4.4 MEQ/L (3.5-5.1); SODIUM LEVEL 139 MEQ/L (136-145)
== END ==
LOC: M LABDRWAD 12:28
PROVIDERS: ATTEND Nurse Practitioner Family
DX: Z01.818 Encounter for other preprocedural examination (principal); G89.4 Chronic pain syndrome

== ENCOUNTER → 2020-07-06 | Outpatient (CLI) | payer OTHER ==
--- NOTE | 2020-07-09 23:09 | ECWPNPC ---
PATIENT NAME: RACHEL MARTINEZ : 1965 GENDER: FEMALE VISIT DATE: 07/06/2020 DISCHARGE DATE: 07/06/20 1140 VISIT LOCKED DATE TIME: PHYSICIAN: RICK GIL PHYSICIAN PAGER NO: ACTIVE RESOURCE: RICK GIL REASON FOR APPOINTMENT 1. MED MANAGEMENT/DCS ISSUES HISTORY OF PRESENT ILLNESS GENERAL: HERE FOR F/U AND MANGAEMENT OF CHRONIC BACK PAIN.HAS HAD CERVICAL DCS REPLACED AND IS DOING WELL.WILL BE HAVING ANOTHER DCS REVISION FOR HER LOW BACK IN NEAR FUTURE. -. FALL RISK SCREENING: SCREENING : NO FALLS REPORTED IN THE LAST YEAR. PAIN SCREENING: PATIENT HAS A COMPLAINT OF ACUTE OR CHRONIC PAIN :YES LOCATION OF PAIN:LOW BACK INTENSITY OF PAIN (SCALE OF 1 TO 10):6 WHAT DOES YOUR PAIN FEEL LIKE:ACHING, TENDER, THROBBING, SORE, SHOOTING DURATION:CONTINOUS, CONSTANT, ALL DAY PAIN IS INCREASED BY:ACTIVITIES, PROLONGED STANDING PAIN IS DECREASED BY:USE OF PAIN MEDICATIONS NURSING NOTE: -. PAIN CENTER INTAKE QUESTIONS: DO YOU HAVE A HISTORY OF MRSA? :NO DO YOU TAKE A BLOOD THINNERS? :NO DO YOU HAVE ANY BLEEDING DISORDERS? :YES HX OF STOMACH ULCER BLEEDING ANY NEW NUMBNESS OR WEAKNESS IN YOUR LEGS OR ARMS? :NO ANY PACEMAKER,DEFIBRILLATOR, OR DORSAL COLUMN STIMULATOR? :YES DCS CS AND LS DO YOU HAVE ANY RASHES OR OPEN SORES? :NO ARE YOU ALLERGIC TO IV DYE? :NO ARE YOU DIABETIC? :NO ANY NEW PROBLEMS WITH YOUR MEDICATIONS? :NO HAVE YOU RECEIVED A VACCINE IN THE PAST 30 DAYS? :NO DO YOU PLAN TO RECEIVE A VACCINE IN THE NEXT 21 DAYS? :NO DO YOU NEED ANY PRESCRIPTION? :NO LYRICA 150 MG, TRAMADOL HCL 50 ,GABAPENTIN 600 MG DO YOU TAKE ANY IMMUNOSUPPRESSIVE MEDICATIONS? :NO IS THERE A CHANCE YOU COULD BE ? :NO ARE YOU BREAST FEEDING? :NO CURRENT MEDICATIONS TAKING ABILIFY 15 MG TABLET 1 TABLET ORALLY ONCE A DAY TAKING EFFEXOR XR 150 MG CAPSULE EXTENDED RELEASE 24 HOUR 3 CAPSULE WITH FOOD ORALLY ONCE A DAY TAKING FLONASE 50 MCG/ACT SUSPENSION 1 SPRAY IN EACH NOSTRIL NASALLY ONCE A DAY NEEDED TAKING VITAMIN B-12 5000 MCG LOZENGE DIRECTED ORALLY ONCE A DAY TAKING OMEPRAZOLE 40 MG CAPSULE DELAYED RELEASE 1 CAPSULE 30 MINUTES BEFORE MORNING MEAL ORALLY TWICE A DAY TAKING SUCRALFATE 1 GM TABLET 1 TABLET ON AN EMPTY STOMACH ORALLY TWICE A DAY TAKING ESTRADIOL 2 MG TABLET 1 TABLET ORALLY ONCE A DAY TAKING GABAPENTIN 600 MG TABLET 1 TABLET P.O. FOUR TIMES DAILY TAKING LYRICA 150 MG CAPSULE 1 CAPSULE ORALLY Q8H MDD3 TAKING TRAMADOL HCL 50 MG TABLET 1 TABLET NEEDED ORALLY Q6H PRN MDD4 TAKING LEVOTHYROXINE SODIUM 50 MCG TABLET 1 TABLET ON AN EMPTY STOMACH IN THE MORNING ORALLY ONCE A DAY TAKING DRISDOL 71038 UNIT CAPSULE 1 CAPSULE ORALLY EVERY OTHER WEEK TAKING TRAZODONE HCL 50 MG TABLET TAKE ONE TABLET BY MOUTH AT BEDTIME ORAL TAKING CRESTOR 10 MG TABLET 1 TABLET ORALLY ONCE A DAY NOT-TAKING VENTOLIN HFA 108 (90 BASE) MCG/ACT AEROSOL SOLUTION 2 PUFFS NEEDED INHALATION EVERY 4 HRS NEEDED FOR SHORTNESS OF BREATH MEDICATION LIST REVIEWED AND RECONCILED WITH THE PATIENT PAST MEDICAL HISTORY SUPRAGLOTTIC LARYNGEAL CANCER, STAGE KIZZY [id number]-- RAD TX X 35 SESSIONS WITH CISPLATIN CHEMOTX CHRONIC LOWER BACK PAIN, DORSAL COLUMN STIMULATOR IN PLACE - [facility] HTN HYPERCHOLESTEROLEMIA GERD/H/O PUD WITH GI BLEED IN PAST SECONDARY TO CELEBREX ENDOMETRIOSIS PREDIABETES TOBACCO ABUSE CHRONIC NARCOTIC DEPENDENCE - WEANING OXYCODONE PER PAIN CLINIC ECHO - 02/28/17 - NORMAL LV SIZE AND WALL THICKNESS EF 70% GRADE 1 DIASTOLIC DYSFUNCTION ANXIETY/DEPRESSION/AGORAPHOBIA WITH PANIC ATTACKS - PSYCHIATRIST IRON DEF - HAD IRON INFUSION 04/2018 HYPOTHYROID BLEEDING 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 COVID 01/[address] CHEST - FOLLOWED BY PULMONARY (DR. HARDING) - CT01/18 - WAXING AND WANING SCATTERED ALVEOLAR INFILTRATES WITH MEDIASTINAL LYMPHNODES SUGGESTING CHONIC INFLAMMATORY PROCESS NORMAL METHACHOLINE CHALLENGE 04/2019 FALL NO INJURIES ALLERGIES NSAIDS: BLEEDING - CONTRAINDICATION BETADINE: RASH - ALLERGY SKELAXIN: RASH - ALLERGY METFORMIN HCL: DIARRHEA - SIDE EFFECTS SURGICAL HISTORY TONSILLECTOMY TUBAL LIGATION 03/1989 ECTOPIC 09/1989 HYSTERECTOMY D/T PRE-CANCEROUS 1989 BSO 1999 LUMBAR LAMINECTOMY L4-L5 08/1997 TARSAL TUNNEL-BILATERAL FEET 2004 BILATERAL CARPAL TUNNEL RELEASE 2001 LUMBAR STIMULATOR PLACED 2005 CERVICAL STIMULATOR PLACED 2008 RIGHT CARPAL TUNNEL RELEASE 06/2013 GASTRIC BYPASS 2009 COLONOSCOPY WITH POLYP RESECTION, BENIGN 2012 CHOLECYSTECTOMY 12/2010 TOE NAIL SURGERY 08/10/15 TUBE PLACEMENT RIGHT EAR, BIOPSY SINUS CAVITY NODULE 05/2016 LYMPH NODE, THROAT BIOPSY MALIGNANT 05/2017 FEEDING TUBE 06/2017 CHEMO PORT PLACEMENT 06/2017 COLONOSCOPY 07/2016 DCS REMOVED ( CHANGED ) 05/2020 SOCIAL HISTORY GENERAL: TOBACCO USE ARE YOU A:FORMER SMOKER HOW LONG HAS IT BEEN SINCE YOU LAST SMOKED?1-5 YEARS QUIT 05/19/17 LATEX QUESTIONNAIRE LATEX ALLERGY : HAVE YOU EVER DEVELOPED ANY TYPE OF REACTION AFTER HANDLING LATEX PRODUCTS SUCH RUBBER GLOVES, CONDOMS, DIAPHRAGMS, BALLOONS, SOCKS, OR UNDERWEAR?NO LATEX ALLERGY : HAVE YOU EVER DEVELOPED ANY TYPE OF REACTION DURING OR AFTER DENTAL APPOINTMENT, VAGINAL/RECTAL EXAMINATION, SURGICAL PROCEDURE, OR ANY OTHER EXPOSURE?NO LATEX RISK : HAVE YOU EVER HAD ANY DIFFICULTY BREATHING OR HIVES AFTER EATING OR HANDLING ANY FRUITS, OR VEGETABLES; SUCH KIWI, BANANAS, STONE FRUITS, OR CHESTNUTSNO LATEX RISK : DO YOU HAVE A PREVIOUS PERSONAL HISTORY OF MORE THAN NINE SURGERIES, SPINA BIFIDA, OR REPEATED CATHERIZATIONS? YES - PLEASE INDICATE : > 9 SURGERIES LATEX RISK : ARE YOU FREQUENTLY EXPOSED TO LATEX PRODUCTS IN YOUR OCCUPATION?NO DATE ASKED : 07/06/2020 ALCOHOL USE: NO. BMI CARE GOAL FOLLOW-UP ABOVE NORMAL BMI FOLLOW-UPDIETARY MANAGEMENT EDUCATION, GUIDANCE, AND COUNSELING ALCOHOL SCREENING DID YOU HAVE A DRINK CONTAINING ALCOHOL IN THE PAST YEAR?YES HOW OFTEN DID YOU HAVE SIX OR MORE DRINKS ON ONE OCCASION IN THE PAST YEAR?NEVER (0 POINTS) HOW MANY DRINKS DID YOU HAVE ON A TYPICAL DAY WHEN YOU WERE DRINKING IN THE PAST YEAR?1 OR 2 (0 POINTS) HOW OFTEN DID YOU HAVE A DRINK CONTAINING ALCOHOL IN THE PAST YEAR?MONTHLY OR LESS (1 POINT) POINTS1 INTERPRETATIONNEGATIVE RECREATIONAL DRUG USE DRUG USE?NO CAFFEINE CAFFEINE USE?YES HOW OFTEN AND HOW MUCH? COFFEE 6 CUPS DAILY, 2 SODAS DAILY SEXUAL HX HAD SEX IN THE LAST 12 MONTHS (VAGINAL, ORAL, OR ANAL)?YES WITHMEN ONLY USE PROTECTION?NO LMP:HYSTER HAVE YOU EVER HAD AN STD?NO HIV / HEP-C SCREENING HIV TEST OFFERED TO PATIENT:YES DATE OFFERED:07/29/2017 TEST ACCEPTED:NO REASON:PATIENT DECLINED BROCHURE PROVIDED TO PATIENTNO SIKH [id number] [employer]. EDUCATION LEVEL OF EDUCATION:NOT FINISHED COLLEGE LEARNING BARRIERS / SPECIAL NEEDS CHANGE FROM LAST VISIT?NO BARRIERS TO LEARNING?NO HEARING IMPAIRED?NO VISION IMPAIRED?YES :CORRECTIVE LENSES COGNITIVELY IMPAIRED?NO READINESS TO LEARN?YES LEARNING PREFERENCES?NO LEARNING CAPABILITIES PRESENT?YES EMOTIONAL BARRIERS?NO SPECIAL DEVICES?YES :CANE POLICY SERVICE COORDINATOR NEEDED?NO DOMESTIC VIOLENCE DO YOU FEEL SAFE IN YOUR ENVIRONMENT?YES OCCUPATION: RETIRED. DIET: REGULAR. EXERCISE: NO REGULAR EXERCISE. MARITAL STATUS: . OTHERS AT HOME: SPOUSE. - WAS THE PROVIDER NOTIFIED OF ANY PERTINENT INFO?YES N/A HAS THE PATIENT BEEN EDUCATED REGARDING HIS/HER PLAN OF CARE?YES HAS THE PATIENT BEEN EDUCATED REGARDING PAIN, THE RISK FOR PAIN, THE IMPORTANCE OF EFFECTIVE PAIN MANAGEMENT, AND THE PAIN ASSESSMENT PROCESS?YES ADVANCE DIRECTIVE ADVANCE DIRECTIVE DISCUSSED WITH PATIENT:YES PT HAS HCP [facility] [phone] HOSPITALIZATION/MAJOR DIAGNOSTIC PROCEDURE SURG RELATED PLUS 1 G-I BLEED BLEEDING ULCER TX'D W BLOOD TRANSFUSIONS 10/2019 REVIEW OF SYSTEMS CONSTITUTIONAL: ANY RECENT FEVER NO . CHILLS NO . WEIGHT CHANGE OF UNKNOWN REASONS NO . GASTROENTEROLOGY: NEW UNEXPLAINABLE CHANGES IN BOWEL CONTROL NO . CONSTIPATION NO . GENITOURINARY: ANY NEW CHANGE IN BLADDER CONTROL? NO . NEUROLOGY: NEW ONSET DIZZINESS OR NEUROLOGICAL CHANGES NOT MENTIONED NO . NEW NUMBNESS OR PAIN PATTERNS NOT MENTIONED AND PERTINENT TO TODAY'S VISIT NO . CARDIOLOGY: NEW CHEST PRESSURE NO . PATIENT DENIES NO . RESPIRATORY: UNEXPLAINABLE COUGH NO . NEW SHORTNESS OF BREATH NO . VITAL SIGNS WT 171.2 LBS, HT 66 IN, BMI 27.63 INDEX, BP 123/72 MM HG, HR 83 /MIN, RR 18 /MIN, TEMP 97.0 F, OXYGEN SAT % 95%, SAFE IN ENV? (Y/N) YES, NA INITIALS [place] 11:06T.MISHEL SINGH. EXAMINATION GENERAL EXAMINATION: GENERALAWAKE,ALERT ,PLEASANT . PSYCHAFFECT NORMAL . LUNGS:LUNG OROZCO ARE CLEAR TO AUSCULTATION BILATERALLY. GOOD MOVEMENT OF AIR . HEART:S1, S2 IN A REGULAR RATE AND RHYTHM. NO SIGNIFICANT MURMURS, RUBS OR GALLOPS NOTED . 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 IT IS NOT A COPY OF THE [employer] PROGRESS NOTE. RAULITO
== END ==
LOC: M PAIN 11:00
PROVIDERS: ATTEND Nurse Practitioner Family
DX: M47.812 Spondylosis without myelopathy or radiculopathy, cervical region (principal); M47.817 Spondylosis without myelopathy or radiculopathy, lumbosacral region; I10 Essential (primary) hypertension; E78.00 Pure hypercholesterolemia, unspecified; K21.9 Gastro-esophageal reflux disease without esophagitis; R73.03 Prediabetes; F40.01 Agoraphobia with panic disorder; F32.9 Major depressive disorder, single episode, unspecified; D50.9 Iron deficiency anemia, unspecified; E03.9 Hypothyroidism, unspecified; Z86.16 Personal history of COVID-19; Z79.891 Long term (current) use of opiate analgesic; Z79.899 Other long term (current) drug therapy; Z88.6 Allergy status to analgesic agent; Z88.8 Allergy status to other drugs, medicaments and biological substances; Z87.891 Personal history of nicotine dependence

== ENCOUNTER → 2020-07-21 | Outpatient (CLI) | payer MEDICARE ==
--- NOTE | 2020-07-21 12:16 | REP ---
INDICATION: ABN FINDING LUNG COMPARISON: 01/19/2020 TECHNIQUE: Axial noncontrast images from the thoracic inlet to the upper abdomen with coronal and sagittal reformations. This CT examination was performed using the following dose reduction techniques: Automated exposure control, adjustment of mA and/or kv according to the patient's size, and use of iterative reconstruction technique. FINDINGS: Current examination demonstrates increased predominately perihilar and basilar scattered small alveolar infiltrates along with bronchiectasis and new moderate areas of consolidation involving the lingula and right middle lobe. Presumed reactive mediastinal and hilar adenopathy is noted. These findings have progressed since the prior examination. Differential diagnosis includes an underlying acute on chronic pulmonary process and less likely reflecting malignancy which cannot be excluded. No effusion. No pneumothorax. Tracheobronchial tree is patent. Further evaluation of the mediastinum demonstrates stable appearance to the thoracic aorta, pulmonary vasculature, and heart/pericardium. Surrounding musculoskeletal structures are intact. Epidural stimulator identified to the thoracic level. IMPRESSION: 1. Scattered waxing and waning small alveolar infiltrates in a perihilar and predominately lower lung zone distribution along with bronchiectasis and reactive adenopathy. These findings are similar to prior examinations and may represent an acute on chronic pulmonary process for which further investigation is warranted. 2. New moderate areas of consolidation involving the lingula and right middle lobe. Follow-up to resolution is warranted. <Electronically signed by Reji Hemphill > 07/21/20 [id number]
== END ==
LOC: M RAD 10:39
PROVIDERS: ATTEND Internal Medicine Pulmonary Disease
DX: J47.9 Bronchiectasis, uncomplicated (principal); R59.9 Enlarged lymph nodes, unspecified; R91.8 Other nonspecific abnormal finding of lung field

== ENCOUNTER → 2020-10-04 | Outpatient (CLI) | payer MEDICARE ==
[~2020-10-04] MED LIST changes: +ERGO500029 PO; +OMEP40CA4 PO; -OMEP40CA97 PO; -PREV15CA18 PO; +PREV15CA24 PO; -VITA50005 PO
--- NOTE | 2020-10-04 13:22 | REP ---
INDICATION: ABN FINDING OF LUNG COMPARISON: Multiple the latest 07/21/2020 TECHNIQUE: Standard helical technique without intravenous contrast FINDINGS: The mediastinum and pulmonary karrie are unchanged. There is no new mass or new adenopathy. There are no pleural or pericardial effusions. There is no change in the imaged upper abdomen or imaged osseous structures. Evaluation of the lung valverde shows slight improvement in the inferior right middle lobe opacity with notable improvement in the inferior lingular opacity. The left lower lobe reticulonodular and airspace opacities seen on the prior exam have improved. The right lower lobe reticulonodular density seen on the prior exam now taken a more airspace opacity appearance. No frankly new abnormal nodules or masses have developed. There is stable cylindrical bronchiectasis. IMPRESSION: Chronic lung field changes as described above. Continued follow-up is suggested. There is no revised Fleischner society criteria on the recommendation for follow-up of such abnormalities. Follow-up should be based on clinical assessment. <Electronically signed by Inderjit Ward > 10/04/20 1559
== END ==
LOC: M PLAIMG 11:13
PROVIDERS: ATTEND Internal Medicine Pulmonary Disease
DX: R91.8 Other nonspecific abnormal finding of lung field (principal); J47.9 Bronchiectasis, uncomplicated

== ENCOUNTER → 2020-10-06 | Outpatient (CLI) | payer OTHER, MEDICARE | LOC: M PAIN 11:00 | PROVIDERS: ATTEND Anesthesiology | DX: M51.17 Intervertebral disc disorders with radiculopathy, lumbosacral region (principal); Z79.899 Other long term (current) drug therapy; M96.1 Postlaminectomy syndrome, not elsewhere classified; I10 Essential (primary) hypertension; E78.00 Pure hypercholesterolemia, unspecified; K21.9 Gastro-esophageal reflux disease without esophagitis; R73.03 Prediabetes; F41.9 Anxiety disorder, unspecified; F32.9 Major depressive disorder, single episode, unspecified; D50.9 Iron deficiency anemia, unspecified; E03.9 Hypothyroidism, unspecified; Z86.16 Personal history of COVID-19; Z87.891 Personal history of nicotine dependence; Z79.891 Long term (current) use of opiate analgesic; Z88.6 Allergy status to analgesic agent; Z88.8 Allergy status to other drugs, medicaments and biological substances ==

== ENCOUNTER → 2020-11-01 | Outpatient (CLI) | payer OTHER, MEDICARE | LOC: M PAIN 11:00 | PROVIDERS: ATTEND Anesthesiology | DX: M96.1 Postlaminectomy syndrome, not elsewhere classified (principal); I10 Essential (primary) hypertension; E78.00 Pure hypercholesterolemia, unspecified; K21.9 Gastro-esophageal reflux disease without esophagitis; R73.03 Prediabetes; F41.9 Anxiety disorder, unspecified; F32.9 Major depressive disorder, single episode, unspecified; D50.9 Iron deficiency anemia, unspecified; E03.9 Hypothyroidism, unspecified; Z85.818 Personal history of malignant neoplasm of other sites of lip, oral cavity, and pharynx; Z92.3 Personal history of irradiation; Z87.891 Personal history of nicotine dependence; Z79.891 Long term (current) use of opiate analgesic; Z79.899 Other long term (current) drug therapy; Z88.6 Allergy status to analgesic agent; Z88.8 Allergy status to other drugs, medicaments and biological substances ==

== ENCOUNTER → 2020-12-28 | Outpatient (CLI) | payer OTHER, MEDICARE ==
[~2020-12-28] MED LIST changes: -ESTR2TAB2 PO; +ESTR2TAB3 PO
== END ==
LOC: M LABSMTC 10:04
PROVIDERS: ATTEND Anesthesiology
DX: Z01.818 Encounter for other preprocedural examination (principal); Z11.52 Encounter for screening for COVID-19

== ENCOUNTER → 2021-01-02 | Outpatient (CLI) | payer OTHER, MEDICARE ==
[~2021-01-02] MED LIST changes: +ISOVUE-M 300 61% 15ML VIAL As Ordered ONE; +LIDOCAINE 1% SDV 30ML VIAL As Ordered ONE; +diazePAM 5MG TABLET As Ordered ONE; +methylPREDNISolone SUSP 40MG/ML 1ML VIAL (DEPO MEDROL) As Ordered ONE; +oxyCODONE 5MG TAB As Ordered ONE
--- NOTE | 2021-01-02 12:31 | REP ---
INDICATION: W/C LUMBAR EPIDURAL STEROID INJECTION VS CAUDAL EPIDURAL. COMPARISON: None. TECHNIQUE: Intraoperative fluoroscopic imaging using portable C-arm technique FINDINGS: Images demonstrate catheter overlying the lower lumbar spine consistent with lumbar epidural steroid injection. Total fluoroscopic time 8.5 seconds. IMPRESSION: Findings consistent with lumbar epidural injection. <Electronically signed by Reji Hemphill > 01/02/21 0390
== END ==
LOC: M PAIN 08:30
PROVIDERS: ATTEND Anesthesiology
DX: M51.17 Intervertebral disc disorders with radiculopathy, lumbosacral region (principal); K21.9 Gastro-esophageal reflux disease without esophagitis; E03.9 Hypothyroidism, unspecified; Z96.89 Presence of other specified functional implants; Z86.59 Personal history of other mental and behavioral disorders; Z87.891 Personal history of nicotine dependence; Z88.6 Allergy status to analgesic agent; Z88.8 Allergy status to other drugs, medicaments and biological substances; Z79.899 Other long term (current) drug therapy
CPT/HCPCS: 62323; J1030; Q9967

== ENCOUNTER → 2021-04-09 | Outpatient (CLI) | payer MEDICARE ==
[~2021-04-09] MED LIST changes: -ISOVUE-M 300 61% 15ML VIAL As Ordered ONE; -LIDOCAINE 1% SDV 30ML VIAL As Ordered ONE; +LOSA50TA28 PO; -LOSA50TA88 PO; -OMEP-221 PO; +OMEP40CA5 PO; -diazePAM 5MG TABLET As Ordered ONE; -methylPREDNISolone SUSP 40MG/ML 1ML VIAL (DEPO MEDROL) As Ordered ONE; -oxyCODONE 5MG TAB As Ordered ONE
== END ==
LOC: M RAD 13:00
PROVIDERS: ATTEND Internal Medicine Pulmonary Disease
DX: R91.8 Other nonspecific abnormal finding of lung field (principal)

== ENCOUNTER → 2021-05-02 | Outpatient (CLI) | payer OTHER | LOC: M RAD 11:00 | PROVIDERS: ATTEND Anesthesiology | DX: M46.01 Spinal enthesopathy, occipito-atlanto-axial region (principal) ==

== ENCOUNTER → 2021-07-04 | Outpatient (CLI) | payer MEDICARE | LOC: M WHC 12:49 | PROVIDERS: ATTEND Physician Assistant | DX: Z12.31 Encounter for screening mammogram for malignant neoplasm of breast (principal); Z78.0 Asymptomatic menopausal state; Z80.3 Family history of malignant neoplasm of breast; Z80.0 Family history of malignant neoplasm of digestive organs; Z80.42 Family history of malignant neoplasm of prostate; Z85.01 Personal history of malignant neoplasm of esophagus; Z92.21 Personal history of antineoplastic chemotherapy; Z92.23 Personal history of estrogen therapy ==

== ENCOUNTER → 2021-07-31 | Outpatient (REF) | payer MEDICARE ==
[2021-07-31 18:22] LABS: HEMATOCRIT 40.2 % (36.0-47.0); MEAN CORPUSCULAR HEMOGLOBIN 29.1 pg (27.0-33.0); MEAN CORPUSCULAR HGB CONC 32.3 g/dl (32.0-36.5); MEAN CORPUSCULAR VOLUME 89.9 fl (80.0-96.0); PLATELET COUNT, AUTOMATED 276 10^3/uL (150-450); RED BLOOD COUNT 4.47 10^6/uL (4.00-5.40)
[2021-07-31 19:01] LABS: ALBUMIN 3.2 GM/DL (3.2-5.2); ALT/SGPT 17 U/L (12-78); BILIRUBIN,TOTAL 0.1 MG/DL (0.2-1.0); BLOOD UREA NITROGEN 10 MG/DL (7-18); CALCIUM LEVEL 8.6 MG/DL (8.5-10.1); CARBON DIOXIDE LEVEL 25 MEQ/L (21-32); CHLORIDE LEVEL 108 MEQ/L (98-107); CHOLESTEROL LEVEL 257 MG/DL (<200); CHOLESTEROL RISK RATIO 2.141 (<5); CREATININE FOR GFR 0.83 MG/DL (0.55-1.30); FOLATE 8.8 NG/ML; GLOMERULAR FILTRATION RATE > 60.0 (>51); GLUCOSE, FASTING 69 MG/DL (70-100); HDL CHOLESTEROL 120 MG/DL (>40); LDL CHOLESTEROL 107 MG/DL (<100); NON-HDL-C 137 MG/DL; POTASSIUM SERUM 4.1 MEQ/L (3.5-5.1); SODIUM LEVEL 140 MEQ/L (136-145); TOTAL 25(OH) VITAMIN D 27.7 NG/ML (30.0-100.0); TRIGLYCERIDES LEVEL 152 MG/DL (<150); VITAMIN B12 LEVEL 1931 PG/ML
== END ==
LOC: M SFHCADAM 15:19
PROVIDERS: ATTEND Physician Assistant
DX: E55.9 Vitamin D deficiency, unspecified (principal); I10 Essential (primary) hypertension; E03.9 Hypothyroidism, unspecified; E78.00 Pure hypercholesterolemia, unspecified; Z98.84 Bariatric surgery status

== ENCOUNTER → 2021-08-08 | Outpatient (CLI) | payer OTHER | LOC: M PAIN 10:45 | PROVIDERS: ATTEND Nurse Practitioner Family | DX: M47.812 Spondylosis without myelopathy or radiculopathy, cervical region (principal); G89.29 Other chronic pain; K21.9 Gastro-esophageal reflux disease without esophagitis; E03.9 Hypothyroidism, unspecified; Z86.59 Personal history of other mental and behavioral disorders; Z98.84 Bariatric surgery status; Z87.891 Personal history of nicotine dependence; Z88.3 Allergy status to other anti-infective agents; Z88.6 Allergy status to analgesic agent; Z88.8 Allergy status to other drugs, medicaments and biological substances; Z79.899 Other long term (current) drug therapy ==

== ENCOUNTER → 2021-08-09 | Outpatient (CLI) | payer OTHER | LOC: M SOG 08:29 | PROVIDERS: ATTEND Orthopaedic Surgery | DX: M25.512 Pain in left shoulder (principal) ==

== ENCOUNTER → 2021-09-12 | Outpatient (CLI) | payer OTHER | LOC: M PAIN 11:00 | PROVIDERS: ATTEND Nurse Practitioner Family | DX: M53.3 Sacrococcygeal disorders, not elsewhere classified (principal); M46.08 Spinal enthesopathy, sacral and sacrococcygeal region; M54.50 Low back pain, unspecified; I10 Essential (primary) hypertension; E78.5 Hyperlipidemia, unspecified; K21.9 Gastro-esophageal reflux disease without esophagitis; K27.9 Peptic ulcer, site unspecified, unspecified as acute or chronic, without hemorrhage or perforation; N80.9 Endometriosis, unspecified; R73.03 Prediabetes; F40.01 Agoraphobia with panic disorder; F32.A Depression, unspecified; E61.1 Iron deficiency; E03.9 Hypothyroidism, unspecified; Z86.16 Personal history of COVID-19; Z87.891 Personal history of nicotine dependence; Z79.891 Long term (current) use of opiate analgesic; Z79.890 Hormone replacement therapy; Z79.899 Other long term (current) drug therapy; Z88.6 Allergy status to analgesic agent; Z88.8 Allergy status to other drugs, medicaments and biological substances ==

== ENCOUNTER → 2021-10-02 | Outpatient (CLI) | payer OTHER | LOC: M RAD 13:57 | PROVIDERS: ATTEND Nurse Practitioner Family | DX: M47.812 Spondylosis without myelopathy or radiculopathy, cervical region (principal) ==

== ENCOUNTER → 2021-10-19 | Outpatient (REF) | payer MEDICARE, OTHER | LOC: M PLALAB 16:12 | PROVIDERS: ATTEND Nurse Practitioner Family | DX: Z12.4 Encounter for screening for malignant neoplasm of cervix (principal) | CPT/HCPCS: 87624; G0123 ==

== ENCOUNTER → 2021-10-26 | Outpatient (REF) | payer MEDICARE, OTHER | LOC: M LAB REF 18:04 | PROVIDERS: ATTEND Physician Assistant | DX: N30.00 Acute cystitis without hematuria (principal) ==

== ENCOUNTER → 2021-11-08 | Outpatient (REF) | payer MEDICARE, OTHER | LOC: M SFHCPLAZ 14:13 | PROVIDERS: ATTEND Physician Assistant | DX: R52 Pain, unspecified (principal); R05.1 Acute cough ==

== ENCOUNTER → 2021-11-22 | Outpatient (REF) | payer MEDICARE, OTHER | LOC: M SFHCWAGY 17:42 | PROVIDERS: ATTEND Nurse Practitioner Family | DX: Z12.4 Encounter for screening for malignant neoplasm of cervix (principal) | CPT/HCPCS: 87624; G0123 ==

== ENCOUNTER → 2021-11-29 | Outpatient (CLI) | payer OTHER | LOC: M LABSMTC 10:10 | PROVIDERS: ATTEND Anesthesiology | DX: Z01.812 Encounter for preprocedural laboratory examination (principal); Z11.52 Encounter for screening for COVID-19 ==

== ENCOUNTER → 2021-12-04 | Outpatient (CLI) | payer OTHER ==
[~2021-12-04] MED LIST changes: +BUPIVACAINE HCL 0.25% 30ML VIAL As Ordered ONE; +ISOVUE-M 300 61% 15ML VIAL As Ordered ONE; +LIDOCAINE 1% SDV 30ML VIAL As Ordered ONE; +TRIAMCINOLONE ACETONIDE SUSP 40 MG/ML VIAL (J3301) As Ordered ONE; +diazePAM 5MG TABLET As Ordered ONE; +oxyCODONE 5MG TAB As Ordered ONE
== END ==
LOC: M PAIN 09:15
PROVIDERS: ATTEND Anesthesiology
DX: M46.08 Spinal enthesopathy, sacral and sacrococcygeal region (principal); M53.3 Sacrococcygeal disorders, not elsewhere classified; I10 Essential (primary) hypertension; K21.9 Gastro-esophageal reflux disease without esophagitis; E03.9 Hypothyroidism, unspecified; Z96.89 Presence of other specified functional implants; Z98.84 Bariatric surgery status; Z87.891 Personal history of nicotine dependence; Z88.3 Allergy status to other anti-infective agents; Z88.6 Allergy status to analgesic agent; Z88.8 Allergy status to other drugs, medicaments and biological substances; Z79.890 Hormone replacement therapy; Z79.899 Other long term (current) drug therapy
CPT/HCPCS: 20550; 77002; J3301; Q9967

== ENCOUNTER → 2021-12-19 | Outpatient (CLI) | payer OTHER ==
[~2021-12-19] MED LIST changes: -BUPIVACAINE HCL 0.25% 30ML VIAL As Ordered ONE; -ISOVUE-M 300 61% 15ML VIAL As Ordered ONE; -LIDOCAINE 1% SDV 30ML VIAL As Ordered ONE; -TRIAMCINOLONE ACETONIDE SUSP 40 MG/ML VIAL (J3301) As Ordered ONE; -diazePAM 5MG TABLET As Ordered ONE; -oxyCODONE 5MG TAB As Ordered ONE
== END ==
LOC: M PAIN 11:00
PROVIDERS: ATTEND Anesthesiology
DX: G89.29 Other chronic pain (principal); M46.08 Spinal enthesopathy, sacral and sacrococcygeal region; M54.50 Low back pain, unspecified; I10 Essential (primary) hypertension; E78.00 Pure hypercholesterolemia, unspecified; K21.9 Gastro-esophageal reflux disease without esophagitis; Z87.11 Personal history of peptic ulcer disease; F11.20 Opioid dependence, uncomplicated; F40.01 Agoraphobia with panic disorder; F32.A Depression, unspecified; D50.9 Iron deficiency anemia, unspecified; E03.9 Hypothyroidism, unspecified; Z86.16 Personal history of COVID-19; R91.8 Other nonspecific abnormal finding of lung field; Z79.890 Hormone replacement therapy; Z79.899 Other long term (current) drug therapy; Z79.891 Long term (current) use of opiate analgesic; Z88.6 Allergy status to analgesic agent; Z88.8 Allergy status to other drugs, medicaments and biological substances; Z85.21 Personal history of malignant neoplasm of larynx

== ENCOUNTER → 2022-02-08 | Outpatient (CLI) | payer MEDICARE ==
[2022-02-08 14:54] LABS: RSV AMPLIFICATION NEGATIVE (NEGATIVE)
== END ==
LOC: M PLAIMG 10:46
PROVIDERS: ATTEND Physician Assistant
DX: J18.9 Pneumonia, unspecified organism (principal); R05.1 Acute cough; R68.89 Other general symptoms and signs; R06.02 Shortness of breath

== ENCOUNTER → 2022-02-27 | Outpatient (REF) | payer MEDICARE ==
[2022-02-27 16:25] LABS: BASO % 0.5 % (0.0-1.0); EOS # 0.1 10^3/uL (0.0-0.5); HEMATOCRIT 41.5 % (36.0-47.0); LYMPH # 1.3 10^3/uL (1.5-5.0); MEAN CORPUSCULAR HEMOGLOBIN 28.8 pg (27.0-33.0); MEAN CORPUSCULAR HGB CONC 31.3 g/dl (32.0-36.5); MEAN CORPUSCULAR VOLUME 91.8 fl (80.0-96.0); MONO # 0.5 10^3/uL (0.0-0.8); MONO % 8.2 % (2.0-8.0); NEUTROPHILS # 4.5 10^3/uL (1.5-8.5); NEUTROPHILS % 68.7 % (36.0-66.0); PLATELET COUNT, AUTOMATED 300 10^3/uL (150-450); RED BLOOD COUNT 4.52 10^6/uL (4.00-5.40); WHITE BLOOD COUNT 6.6 10^3/uL (4.0-10.0)
== END ==
LOC: M SFHCADAM 14:14
PROVIDERS: ATTEND Physician Assistant
DX: D72.828 Other elevated white blood cell count (principal)

== ENCOUNTER → 2022-03-06 | Outpatient (CLI) | payer MEDICARE | LOC: M PAIN 08:15 | PROVIDERS: ATTEND Anesthesiology | DX: M96.1 Postlaminectomy syndrome, not elsewhere classified (principal); G89.29 Other chronic pain; M46.08 Spinal enthesopathy, sacral and sacrococcygeal region; M54.50 Low back pain, unspecified; I10 Essential (primary) hypertension; E78.00 Pure hypercholesterolemia, unspecified; K21.9 Gastro-esophageal reflux disease without esophagitis; Z87.11 Personal history of peptic ulcer disease; F11.20 Opioid dependence, uncomplicated; F40.01 Agoraphobia with panic disorder; F32.A Depression, unspecified; D50.9 Iron deficiency anemia, unspecified; E03.9 Hypothyroidism, unspecified; Z86.16 Personal history of COVID-19; R91.8 Other nonspecific abnormal finding of lung field; Z79.890 Hormone replacement therapy; Z79.899 Other long term (current) drug therapy; Z79.891 Long term (current) use of opiate analgesic; Z88.6 Allergy status to analgesic agent; Z88.8 Allergy status to other drugs, medicaments and biological substances; Z85.21 Personal history of malignant neoplasm of larynx ==

== ENCOUNTER → 2022-03-28 | Outpatient (CLI) | payer MEDICARE ==
[~2022-03-28] MED LIST changes: +BARIUM SULFATE 700 MG TABLET (E-Z-DISK) As Ordered ONE; +E-Z-PAQUE 96% w/w SUSP 176GM BTL As Ordered ONE; +VARIBAR NECTAR 40% w/v 240ML SUSP BTL As Ordered ONE; +VARIBAR PUDDING 40% w/v 230ML TUBE As Ordered ONE
== END ==
LOC: M RAD 10:29
PROVIDERS: ATTEND Otolaryngology
DX: R13.10 Dysphagia, unspecified (principal); Z85.21 Personal history of malignant neoplasm of larynx

== ENCOUNTER → 2022-04-10 | Outpatient (CLI) | payer MEDICARE ==
[~2022-04-10] MED LIST changes: -BARIUM SULFATE 700 MG TABLET (E-Z-DISK) As Ordered ONE; -E-Z-PAQUE 96% w/w SUSP 176GM BTL As Ordered ONE; -VARIBAR NECTAR 40% w/v 240ML SUSP BTL As Ordered ONE; -VARIBAR PUDDING 40% w/v 230ML TUBE As Ordered ONE
== END ==
LOC: M ADAMS 08:35
PROVIDERS: ATTEND Physician Assistant
DX: R91.8 Other nonspecific abnormal finding of lung field (principal); J90 Pleural effusion, not elsewhere classified; J40 Bronchitis, not specified as acute or chronic; Z87.01 Personal history of pneumonia (recurrent)

== ENCOUNTER → 2022-05-06 | Outpatient (CLI) | payer MEDICARE | LOC: M PLAIMG 08:01 | PROVIDERS: ATTEND Physician Assistant | DX: C32.9 Malignant neoplasm of larynx, unspecified (principal); J69.0 Pneumonitis due to inhalation of food and vomit; F17.211 Nicotine dependence, cigarettes, in remission; R91.8 Other nonspecific abnormal finding of lung field ==

== ENCOUNTER → 2022-05-08 | Outpatient (CLI) | payer OTHER | LOC: M PAIN 10:30 | PROVIDERS: ATTEND Anesthesiology | DX: M54.2 Cervicalgia (principal); M79.10 Myalgia, unspecified site; M79.18 Myalgia, other site; E78.00 Pure hypercholesterolemia, unspecified; K21.9 Gastro-esophageal reflux disease without esophagitis; F32.A Depression, unspecified; F40.01 Agoraphobia with panic disorder; E03.9 Hypothyroidism, unspecified; Z86.16 Personal history of COVID-19; Z87.891 Personal history of nicotine dependence; Z79.891 Long term (current) use of opiate analgesic; Z79.899 Other long term (current) drug therapy; Z88.6 Allergy status to analgesic agent; Z88.8 Allergy status to other drugs, medicaments and biological substances ==

== ENCOUNTER 2022-05-13 10:26 | Outpatient (RCR) | payer MEDICARE | END 2022-05-17 | LOC: M ST 10:26 | PROVIDERS: ATTEND Otolaryngology | DX: R13.10 Dysphagia, unspecified (principal) ==

== ENCOUNTER 2022-06-11 11:00 | Outpatient (RCR) | payer MEDICARE ==
[~2022-06-11 11:00] MED LIST changes: -COZA50TA PO; +LOSA-528 PO
== END 2022-06-16 ==
LOC: M ST 11:00
PROVIDERS: ATTEND Otolaryngology
DX: R13.10 Dysphagia, unspecified (principal)

== ENCOUNTER → 2022-06-25 | Outpatient (CLI) | payer OTHER ==
[~2022-06-25] MED LIST changes: +BUPIVACAINE HCL 0.25% 10ML VIAL As Ordered ONE; +BUPIVACAINE HCL 0.25% 30ML VIAL As Ordered ONE; +TRIAMCINOLONE ACETONIDE SUSP 40MG/ML 1ML VIAL As Ordered ONE; +oxyCODONE 5MG TAB As Ordered ONE
== END ==
LOC: M PAIN 07:45
PROVIDERS: ATTEND Anesthesiology
DX: M79.12 Myalgia of auxiliary muscles, head and neck (principal); M79.18 Myalgia, other site; I10 Essential (primary) hypertension; E78.00 Pure hypercholesterolemia, unspecified; K21.9 Gastro-esophageal reflux disease without esophagitis; F41.9 Anxiety disorder, unspecified; F32.A Depression, unspecified; E03.9 Hypothyroidism, unspecified; Z79.890 Hormone replacement therapy; Z79.899 Other long term (current) drug therapy; Z79.891 Long term (current) use of opiate analgesic; Z87.891 Personal history of nicotine dependence; Z88.6 Allergy status to analgesic agent; Z88.8 Allergy status to other drugs, medicaments and biological substances
CPT/HCPCS: 20553; J3301; S0020

== ENCOUNTER → 2022-06-25 | Outpatient (CLI) | payer MEDICARE ==
[~2022-06-25] MED LIST changes: +BARIUM SULFATE 700 MG TABLET (E-Z-DISK) As Ordered ONE; -BUPIVACAINE HCL 0.25% 10ML VIAL As Ordered ONE; -BUPIVACAINE HCL 0.25% 30ML VIAL As Ordered ONE; +E-Z-PAQUE 96% w/w SUSP 176GM BTL As Ordered ONE; -TRIAMCINOLONE ACETONIDE SUSP 40MG/ML 1ML VIAL As Ordered ONE; +VARIBAR NECTAR 40% w/v 240ML SUSP BTL As Ordered ONE; +VARIBAR PUDDING 40% w/v 230ML TUBE As Ordered ONE; -oxyCODONE 5MG TAB As Ordered ONE
== END ==
LOC: M RAD 10:43
PROVIDERS: ATTEND Physician Assistant
DX: R13.14 Dysphagia, pharyngoesophageal phase (principal)

== ENCOUNTER 2022-07-03 14:19 | Emergency (ER) | payer OTHER ==
[~2022-07-03] VITALS: Ht 167.6 cm; Wt 79.6 kg
[~2022-07-03 14:19] MED LIST changes: -SIMV10TA21 PO
[2022-07-03] MEDS ORDERED: ISOVUE-370 76% 100ML VIAL As Ordered ONE (18:19)
[2022-07-03] MEDS ORDERED: traMADol 50 MG TAB PO ONE (18:20)
[2022-07-03] MEDS ORDERED: ACETAMINOPHEN 500 MG TAB PO ONE (18:20)
[2022-07-03 18:43] LABS: BASO % 0.5 % (0.0-1.0); EOS # 0.1 10^3/uL (0.0-0.5); EOS % 1.2 % (0.0-3.0); HEMATOCRIT 41.5 % (36.0-47.0); HEMOGLOBIN 13.4 g/dl (12.0-15.5); LYMPH # 1.3 10^3/uL (1.5-5.0); LYMPH % 15.3 % (24.0-44.0); MEAN CORPUSCULAR HEMOGLOBIN 28.9 pg (27.0-33.0); MEAN CORPUSCULAR HGB CONC 32.3 g/dl (32.0-36.5); MEAN CORPUSCULAR VOLUME 89.6 fl (80.0-96.0); MONO # 0.5 10^3/uL (0.0-0.8); MONO % 5.4 % (2.0-8.0); NEUTROPHILS # 6.4 10^3/uL (1.5-8.5); NEUTROPHILS % 76.9 % (36.0-66.0); PLATELET COUNT, AUTOMATED 231 10^3/uL (150-450); RED BLOOD COUNT 4.63 10^6/uL (4.00-5.40); WHITE BLOOD COUNT 8.4 10^3/uL (4.0-10.0)
[2022-07-03] MEDS ORDERED: diphenhydrAMINE 50MG/ML VIAL IV ONE (18:50)
[2022-07-03] MEDS ORDERED: methylPREDNISolone 125MG 2ML VIAL IV ONE (18:50)
[2022-07-03 20:49] VITALS: BP 137/63
== END 2022-07-03 20:56 | disposition home or self-care (01) ==
LOC: M ED 14:19
DX: S10.93XA Contusion of unspecified part of neck, initial encounter (principal); X58.XXXA Exposure to other specified factors, initial encounter; Y92.89 Other specified places as the place of occurrence of the external cause; Y93.89 Activity, other specified; Y99.8 Other external cause status; E78.5 Hyperlipidemia, unspecified; Z85.21 Personal history of malignant neoplasm of larynx; Z98.84 Bariatric surgery status
CPT/HCPCS: 36415; 70491; 80047; 85025; 99284; Q9967

== ENCOUNTER → 2022-07-03 | Outpatient (CLI) | payer OTHER ==
[~2022-07-03] MED LIST changes: -BARIUM SULFATE 700 MG TABLET (E-Z-DISK) As Ordered ONE; -E-Z-PAQUE 96% w/w SUSP 176GM BTL As Ordered ONE; +SIMV10TA21 PO; -VARIBAR NECTAR 40% w/v 240ML SUSP BTL As Ordered ONE; -VARIBAR PUDDING 40% w/v 230ML TUBE As Ordered ONE
== END ==
LOC: M PAIN 13:00
PROVIDERS: ATTEND Anesthesiology
DX: M54.2 Cervicalgia (principal); M79.18 Myalgia, other site; G89.29 Other chronic pain; I10 Essential (primary) hypertension; K21.9 Gastro-esophageal reflux disease without esophagitis; E03.9 Hypothyroidism, unspecified; Z98.84 Bariatric surgery status; Z87.891 Personal history of nicotine dependence; Z88.3 Allergy status to other anti-infective agents; Z88.6 Allergy status to analgesic agent; Z88.8 Allergy status to other drugs, medicaments and biological substances; Z79.890 Hormone replacement therapy; Z79.899 Other long term (current) drug therapy

== ENCOUNTER 2022-07-08 11:00 | Outpatient (RCR) | payer MEDICARE ==
[2022-07-19] MEDS ORDERED: SIMV10TA21 PO (14:09)
== END 2022-07-17 ==
LOC: M ST 11:00
PROVIDERS: ATTEND Otolaryngology
DX: R13.10 Dysphagia, unspecified (principal)

== ENCOUNTER → 2022-07-11 | Outpatient (CLI) | payer OTHER ==
[~2022-07-11] MED LIST changes: +SIMV10TA21 PO
== END ==
LOC: M PAIN 14:45
PROVIDERS: ATTEND Nurse Practitioner Family
DX: M79.10 Myalgia, unspecified site (principal); G89.29 Other chronic pain; I10 Essential (primary) hypertension; K21.9 Gastro-esophageal reflux disease without esophagitis; E03.9 Hypothyroidism, unspecified; Z96.89 Presence of other specified functional implants; Z86.59 Personal history of other mental and behavioral disorders; Z98.84 Bariatric surgery status; Z87.891 Personal history of nicotine dependence; Z88.3 Allergy status to other anti-infective agents; Z88.6 Allergy status to analgesic agent; Z88.8 Allergy status to other drugs, medicaments and biological substances; Z79.890 Hormone replacement therapy; Z79.899 Other long term (current) drug therapy

== ENCOUNTER → 2022-07-12 | Outpatient (CLI) | payer MEDICARE ==
[~2022-07-12] MED LIST changes: +ISOVUE-370 76% 100ML VIAL As Ordered ONE
== END ==
LOC: M RAD 07:59
PROVIDERS: ATTEND Otolaryngology
DX: Z85.21 Personal history of malignant neoplasm of larynx (principal)
CPT/HCPCS: 70491; Q9967

== ENCOUNTER → 2022-07-16 | Outpatient (POV) | payer MEDICARE ==
[~2022-07-16] VITALS: Ht 167.6 cm; Wt 79.5 kg
[~2022-07-16] MED LIST changes: -ISOVUE-370 76% 100ML VIAL As Ordered ONE
[2022-07-16 08:30] VITALS: BP 132/83
== END ==
LOC: M IRPOV 08:03
PROVIDERS: ATTEND Radiology Diagnostic Radiology
DX: R13.12 Dysphagia, oropharyngeal phase (principal); Z85.21 Personal history of malignant neoplasm of larynx; Z98.84 Bariatric surgery status; Z87.891 Personal history of nicotine dependence; Z88.1 Allergy status to other antibiotic agents; Z88.6 Allergy status to analgesic agent; Z88.8 Allergy status to other drugs, medicaments and biological substances

== ENCOUNTER → 2022-07-18 | Outpatient (CLI) | payer OTHER | LOC: M PAIN 11:45 | PROVIDERS: ATTEND Nurse Practitioner Family | DX: M79.10 Myalgia, unspecified site (principal); G89.29 Other chronic pain; I10 Essential (primary) hypertension; K21.9 Gastro-esophageal reflux disease without esophagitis; E03.9 Hypothyroidism, unspecified; Z96.89 Presence of other specified functional implants; Z86.59 Personal history of other mental and behavioral disorders; Z98.84 Bariatric surgery status; Z87.891 Personal history of nicotine dependence; Z88.3 Allergy status to other anti-infective agents; Z88.6 Allergy status to analgesic agent; Z88.8 Allergy status to other drugs, medicaments and biological substances; Z79.890 Hormone replacement therapy; Z79.899 Other long term (current) drug therapy ==

== ENCOUNTER → 2022-07-22 | Outpatient (CLI) | payer MEDICARE ==
[~2022-07-22] MED LIST changes: +GLUCAGON INJ 1MG VIAL As Ordered ONE; +ISOVUE-300 61% 100ML VIAL As Ordered ONE; +LIDOCAINE 1% MDV 20ML VIAL As Ordered ONE; +LIDOCAINE 2% JELLY 6ML SYRINGE As Ordered ONE; +MIDAZOLAM INJ 2MG/2ML VIAL As Ordered ONE; +NS 1,000 ML IV SCH; +ceFAZolin 2 GM/D5W 50 ML IV BAG As Ordered ONE; +ceFAZolin SOD 2 GM in IV 1 EA IV ONE; +diphenhydrAMINE 50MG/ML VIAL As Ordered ONE; +fentaNYL 100 MCG/2 ML INJECTION As Ordered ONE
[2022-07-22 12:00] VITALS: TEMP 98.2
[2022-07-22 14:50] VITALS: BP 149/93; O2SAT 96
== END ==
LOC: M IRPRO 11:23
PROVIDERS: ATTEND Radiology Diagnostic Radiology
DX: C32.9 Malignant neoplasm of larynx, unspecified (principal); R13.10 Dysphagia, unspecified; Z98.84 Bariatric surgery status; Z88.1 Allergy status to other antibiotic agents; Z88.6 Allergy status to analgesic agent; Z88.8 Allergy status to other drugs, medicaments and biological substances
CPT/HCPCS: 49440; 99152; 99153; C1769; C1887; C1894; J0690; J1610; J2250; J3010; Q9967

== ENCOUNTER → 2022-07-26 | Outpatient (CLI) | payer OTHER ==
[~2022-07-26] MED LIST changes: -GLUCAGON INJ 1MG VIAL As Ordered ONE; -ISOVUE-300 61% 100ML VIAL As Ordered ONE; -LIDOCAINE 1% MDV 20ML VIAL As Ordered ONE; -LIDOCAINE 2% JELLY 6ML SYRINGE As Ordered ONE; -MIDAZOLAM INJ 2MG/2ML VIAL As Ordered ONE; -NS 1,000 ML IV SCH; -ceFAZolin 2 GM/D5W 50 ML IV BAG As Ordered ONE; -ceFAZolin SOD 2 GM in IV 1 EA IV ONE; -diphenhydrAMINE 50MG/ML VIAL As Ordered ONE; -fentaNYL 100 MCG/2 ML INJECTION As Ordered ONE
== END ==
LOC: M PAIN 08:45
PROVIDERS: ATTEND Nurse Practitioner Family
DX: M79.12 Myalgia of auxiliary muscles, head and neck (principal); Z79.891 Long term (current) use of opiate analgesic; M79.18 Myalgia, other site; M54.50 Low back pain, unspecified; I10 Essential (primary) hypertension; E78.00 Pure hypercholesterolemia, unspecified; K21.9 Gastro-esophageal reflux disease without esophagitis; F41.9 Anxiety disorder, unspecified; F32.A Depression, unspecified; E03.9 Hypothyroidism, unspecified; D50.9 Iron deficiency anemia, unspecified; Z87.891 Personal history of nicotine dependence; Z98.84 Bariatric surgery status; Z79.899 Other long term (current) drug therapy; Z79.890 Hormone replacement therapy; Z88.6 Allergy status to analgesic agent; Z88.8 Allergy status to other drugs, medicaments and biological substances

== ENCOUNTER → 2022-07-30 | Outpatient (REF) | payer OTHER ==
[2022-07-30 17:31] LABS: APPEARANCE, URINE HAZY (CLEAR); BACTERIA, URINE AUTO NEGATIVE (NEGATIVE); BILIRUBIN, URINE AUTO NEGATIVE (NEGATIVE); BLOOD, URINE BLOOD 1+ (NEGATIVE); CALCIUM OXALATE CRYSTALS LARGE; COLOR, URINE YELLOW (YELLOW); GLUCOSE, URINE (UA) AUTO NEGATIVE (NEGATIVE); KETONE, URINE AUTO NEGATIVE (NEGATIVE); LEUKOCYTE ESTERASE, URINE AUTO NEGATIVE (NEGATIVE); NITRITE, URINE AUTO NEGATIVE (NEGATIVE); PROTEIN, URINE AUTO NEGATIVE (NEGATIVE); RBC, URINE AUTO 0 /HPF (0-3); SQUAMOUS EPITHELIAL CELL UR AU 1 /HPF (0-6); UROBILINOGEN, URINE AUTO 0.2 mg/dL (0.0-2.0); WBC, URINE AUTO 0 /HPF (0-3)
== END ==
LOC: M SFHCADAM 16:08
PROVIDERS: ATTEND Physician Assistant Medical
DX: N30.00 Acute cystitis without hematuria (principal)

== ENCOUNTER → 2022-09-03 | Outpatient (CLI) | payer MEDICARE ==
[~2022-09-03] MED LIST changes: +LEVO75TA4 PO; +PROA1AER2 INH
== END ==
LOC: M ADAMS 11:08
PROVIDERS: ATTEND Physician Assistant
DX: Z01.818 Encounter for other preprocedural examination (principal); J98.4 Other disorders of lung

== ENCOUNTER 2022-09-09 10:12 | Day surgery (SDC) | payer MEDICARE ==
[~2022-09-09] VITALS: Ht 167.6 cm; Wt 81.1 kg
[2022-09-09] MEDS ORDERED: LIDOCAINE 2% 100MG/5ML SDV (FOR ANES.) As Ordered ONE (12:14)
[2022-09-09] MEDS ORDERED: SUGAMMADEX SODIUM 500 MG/5 ML VIAL (BRIDION) As Ordered ONE (12:14)
[2022-09-09] MEDS ORDERED: ROCURONIUM BROMIDE 50MG/5ML VIAL As Ordered ONE (12:14)
[2022-09-09] MEDS ORDERED: ONDANSETRON 4MG 2ML VIAL As Ordered ONE (12:14)
[2022-09-09] MEDS ORDERED: propofoL 200 MG/20 ML VIAL As Ordered ONE (12:14)
[2022-09-09] MEDS ORDERED: METHYLENE BLUE 0.5% (5MG/ML) 10 ML AMP (PROVAYBLUE) As Ordered ONE (12:18)
[2022-09-09] MEDS ORDERED: OXYMETAZOLINE 0.05% NASAL SPRAY (AFRIN) As Ordered ONE (12:18)
[2022-09-09] MEDS ORDERED: LIDOCAINE W/EPINEPHRINE 1% 20ML VIAL As Ordered ONE (12:18)
[2022-09-09] MEDS ORDERED: fentaNYL 100 MCG/2 ML INJECTION As Ordered ONE (12:19)
[2022-09-09] MEDS ORDERED: MIDAZOLAM INJ 2MG/2ML VIAL As Ordered ONE (12:19)
[2022-09-09] MEDS ORDERED: ACETAMINOPHEN 1000MG 100ML IV BAG As Ordered ONE (12:45)
[2022-09-09] MEDS ORDERED: fentaNYL 100 MCG/2 ML INJECTION IV PRN (13:25)
[2022-09-09] MEDS ORDERED: oxyCODONE 5MG TAB PO PRN (13:25)
[2022-09-09] MEDS ORDERED: LR 1,000 ML IV SCH (13:25)
[2022-09-09] MEDS ORDERED: ONDANSETRON 4MG 2ML VIAL IV PRN (13:25)
[2022-09-09] MEDS ORDERED: HYDROMORPHONE HCL 0.5 MG/ 0.5 ML SYRINGE IV PRN (13:25)
[2022-09-09 14:58] VITALS: BP 152/73; TEMP 96.9; O2SAT 94
== END 2022-09-09 15:00 | disposition home or self-care (01) ==
LOC: M SDC 10:12
PROVIDERS: ATTEND Otolaryngology
DX: J38.4 Edema of larynx (principal); J39.8 Other specified diseases of upper respiratory tract; R49.0 Dysphonia; R13.10 Dysphagia, unspecified; Z85.21 Personal history of malignant neoplasm of larynx; Z92.21 Personal history of antineoplastic chemotherapy; Z92.3 Personal history of irradiation; K21.9 Gastro-esophageal reflux disease without esophagitis; E03.9 Hypothyroidism, unspecified; K44.9 Diaphragmatic hernia without obstruction or gangrene; M54.9 Dorsalgia, unspecified; Z96.82 Presence of neurostimulator; F32.A Depression, unspecified; I10 Essential (primary) hypertension; E78.00 Pure hypercholesterolemia, unspecified; R00.8 Other abnormalities of heart beat; R91.8 Other nonspecific abnormal finding of lung field; M79.7 Fibromyalgia; Z87.891 Personal history of nicotine dependence; Z98.84 Bariatric surgery status; Z88.8 Allergy status to other drugs, medicaments and biological substances; Z79.899 Other long term (current) drug therapy; Z79.890 Hormone replacement therapy; Z79.891 Long term (current) use of opiate analgesic
CPT/HCPCS: 31536; 88305; J0131; J1100; J2250; J2405; J3010; Q9968

== ENCOUNTER 2022-09-13 07:40 | Day surgery (SDC) | payer MEDICARE ==
[~2022-09-13] VITALS: Ht 167.6 cm; Wt 80.7 kg
[2022-09-13] MEDS ORDERED: propofoL 200 MG/20 ML VIAL As Ordered ONE ×2 (09:03→09:06)
[2022-09-13] MEDS ORDERED: LIDOCAINE 2% 100MG/5ML SDV (FOR ANES.) As Ordered ONE (09:05)
[2022-09-13] MEDS ORDERED: ROCURONIUM BROMIDE 50MG/5ML VIAL As Ordered ONE ×2 (09:08→09:57)
[2022-09-13] MEDS ORDERED: fentaNYL 250 MCG/5 ML INJECTION As Ordered ONE (09:28)
[2022-09-13] MEDS ORDERED: ePHEDrine SULFATE 25 MG/5 ML(5MG/ML) SYRINGE As Ordered ONE (10:01)
[2022-09-13] MEDS ORDERED: ONDANSETRON 4MG 2ML VIAL As Ordered ONE (10:07)
[2022-09-13] MEDS ORDERED: SUGAMMADEX SODIUM 500 MG/5 ML VIAL (BRIDION) As Ordered ONE (10:09)
[2022-09-13] MEDS ORDERED: GLYCOPYRROLATE INJ 0.2 MG/ML 2 ML VIAL As Ordered ONE (10:23)
[2022-09-13] MEDS ORDERED: fentaNYL 100 MCG/2 ML INJECTION IV PRN (11:40)
[2022-09-13] MEDS ORDERED: ONDANSETRON 4MG 2ML VIAL IV PRN (11:40)
[2022-09-13] MEDS ORDERED: HYDROMORPHONE HCL 0.5 MG/ 0.5 ML SYRINGE IV PRN (11:40)
[2022-09-13] MEDS ORDERED: LR 1,000 ML IV SCH (11:40)
[2022-09-13] MEDS ORDERED: oxyCODONE 5MG TAB PO PRN (11:40)
[2022-09-13 12:27] VITALS: BP 122/78; TEMP 97.9; O2SAT 92
== END 2022-09-13 13:00 | disposition home or self-care (01) ==
LOC: M SDC 07:40
PROVIDERS: ATTEND Surgery
DX: J69.0 Pneumonitis due to inhalation of food and vomit (principal); R13.10 Dysphagia, unspecified; Z79.899 Other long term (current) drug therapy; Z88.6 Allergy status to analgesic agent; Z88.8 Allergy status to other drugs, medicaments and biological substances; Z91.048 Other nonmedicinal substance allergy status; Z96.82 Presence of neurostimulator; Z98.84 Bariatric surgery status
CPT/HCPCS: 43653; C1769; J0665; J1100; J1170; J2405; J3010

== ENCOUNTER → 2022-09-30 | Outpatient (CLI) | payer OTHER | LOC: M PAIN 10:00 | PROVIDERS: ATTEND Nurse Practitioner Family | DX: M96.1 Postlaminectomy syndrome, not elsewhere classified (principal); M79.10 Myalgia, unspecified site; G89.29 Other chronic pain; M54.50 Low back pain, unspecified; E78.00 Pure hypercholesterolemia, unspecified; I10 Essential (primary) hypertension; F11.20 Opioid dependence, uncomplicated; F41.9 Anxiety disorder, unspecified; F32.A Depression, unspecified; F40.01 Agoraphobia with panic disorder; K21.9 Gastro-esophageal reflux disease without esophagitis; E03.9 Hypothyroidism, unspecified; Z98.84 Bariatric surgery status; Z86.16 Personal history of COVID-19; Z87.891 Personal history of nicotine dependence; Z79.890 Hormone replacement therapy; Z79.899 Other long term (current) drug therapy; Z88.6 Allergy status to analgesic agent; Z88.8 Allergy status to other drugs, medicaments and biological substances ==

== ENCOUNTER → 2022-10-07 | Outpatient (REF) | payer OTHER, MEDICARE | LOC: M SFHCADAM 16:44 | PROVIDERS: ATTEND Physician Assistant | DX: J06.9 Acute upper respiratory infection, unspecified (principal) ==

== ENCOUNTER → 2022-10-23 | Outpatient (CLI) | payer MEDICARE | LOC: M WHC 10:24 | PROVIDERS: ATTEND Physician Assistant | DX: Z12.31 Encounter for screening mammogram for malignant neoplasm of breast (principal) ==

== ENCOUNTER → 2022-11-05 | Outpatient (CLI) | payer MEDICARE | LOC: M ADAMS 11:29 | PROVIDERS: ATTEND Family Medicine | DX: R91.8 Other nonspecific abnormal finding of lung field (principal) ==

== ENCOUNTER → 2022-12-17 | Day surgery (SDC) | payer MEDICARE ==
[~2022-12-17] VITALS: Ht 167.6 cm; Wt 78.5 kg
[~2022-12-17] MED LIST changes: +ARIP1TAB10 PEG; -ARIP1TAB10 PO; +B-122500 PEG; -B-122500 PO; +ERGO500029 PEG; -ERGO500029 PO; +ESTR2TAB3 PEG; -ESTR2TAB3 PO; +GABA600T4 PEG; -GABA600T4 PO; +LANS30CA93 PEG; +LEVO75TA4 PEG; -LEVO75TA4 PO; +LIDOCAINE 2% INJ 100 MG/5 ML SYRINGE As Ordered ONE; +LYRI150C PEG; -LYRI150C PO; +SIMV10TA21 PEG; -SIMV10TA21 PO; +TRAM50TA2 PEG; -TRAM50TA2 PO; +TRAZ-252 PEG; +VENL150C43 PEG; -VENL150C43 PO; +VENL75CA47 PEG; -VENL75CA47 PO; +fentaNYL 100 MCG/2 ML INJECTION As Ordered ONE; +propofoL 200 MG/20 ML VIAL As Ordered ONE
[2022-12-17 13:54] VITALS: BP 130/65; TEMP 98.7; O2SAT 97
== END | disposition home or self-care (01) ==
LOC: M OPP 11:01
PROVIDERS: ATTEND Internal Medicine Gastroenterology
DX: Z86.010 Personal history of colon polyps (principal); D12.5 Benign neoplasm of sigmoid colon; K57.30 Diverticulosis of large intestine without perforation or abscess without bleeding; K64.8 Other hemorrhoids; K22.2 Esophageal obstruction; K25.9 Gastric ulcer, unspecified as acute or chronic, without hemorrhage or perforation; Z98.0 Intestinal bypass and anastomosis status; Z79.51 Long term (current) use of inhaled steroids; Z79.52 Long term (current) use of systemic steroids; Z79.890 Hormone replacement therapy; Z79.891 Long term (current) use of opiate analgesic; Z79.899 Other long term (current) drug therapy; Z88.6 Allergy status to analgesic agent; Z88.8 Allergy status to other drugs, medicaments and biological substances
CPT/HCPCS: 43239; 45385; 88305; J3010

== ENCOUNTER → 2022-12-31 | Outpatient (CLI) | payer OTHER ==
[~2022-12-31] MED LIST changes: -LIDOCAINE 2% INJ 100 MG/5 ML SYRINGE As Ordered ONE; -fentaNYL 100 MCG/2 ML INJECTION As Ordered ONE; -propofoL 200 MG/20 ML VIAL As Ordered ONE
== END ==
LOC: M PAIN 10:00
PROVIDERS: ATTEND Nurse Practitioner Family
DX: M46.08 Spinal enthesopathy, sacral and sacrococcygeal region (principal); G89.29 Other chronic pain; Z96.89 Presence of other specified functional implants; Z86.16 Personal history of COVID-19; Z98.84 Bariatric surgery status; Z85.21 Personal history of malignant neoplasm of larynx; Z80.3 Family history of malignant neoplasm of breast; Z87.891 Personal history of nicotine dependence; Z88.3 Allergy status to other anti-infective agents; Z88.6 Allergy status to analgesic agent; Z88.8 Allergy status to other drugs, medicaments and biological substances; Z79.899 Other long term (current) drug therapy

== ENCOUNTER → 2023-01-31 | Outpatient (REF) | payer MEDICARE ==
[2023-02-11 12:07] LABS: FATS NEUTRAL Normal (.); FATS TOTAL Normal (.); PANCREATIC ELASTASE STOOL <50 (>200)
== END ==
LOC: M LAB REF 12:48
PROVIDERS: ATTEND Physician Assistant Medical
DX: R19.7 Diarrhea, unspecified (principal)

== ENCOUNTER → 2023-03-10 | Outpatient (CLI) | payer OTHER | LOC: M PAIN 11:30 | PROVIDERS: ATTEND Nurse Practitioner Family | DX: M46.08 Spinal enthesopathy, sacral and sacrococcygeal region (principal); M51.16 Intervertebral disc disorders with radiculopathy, lumbar region; G89.29 Other chronic pain; M54.2 Cervicalgia; I10 Essential (primary) hypertension; E78.00 Pure hypercholesterolemia, unspecified; K21.9 Gastro-esophageal reflux disease without esophagitis; E03.9 Hypothyroidism, unspecified; Z87.891 Personal history of nicotine dependence; Z79.890 Hormone replacement therapy; Z79.899 Other long term (current) drug therapy; F32.A Depression, unspecified; F40.01 Agoraphobia with panic disorder; Z88.6 Allergy status to analgesic agent; Z88.8 Allergy status to other drugs, medicaments and biological substances ==

== ENCOUNTER 2023-04-05 12:53 | Emergency (ER) | payer MEDICARE, OTHER ==
[~2023-04-05] VITALS: Ht 167.6 cm; Wt 74.1 kg
[2023-04-05] MEDS ORDERED: ACET-683 PO (15:36)
[2023-04-05] MEDS: BACLOFEN 10 MG TAB PO ONE (17:25)
[2023-04-05] MEDS: LIDOCAINE 5% (LIDODERM) PATCH TD ONE (17:26)
[2023-04-05] MEDS: PERCOCET 5MG/325MG TAB PO ONE (17:26)
[2023-04-05] MEDS ORDERED: BACL10TA2 PO (18:37)
[2023-04-05] MEDS ORDERED: LIDO5DIS41 TD (18:37)
[2023-04-05 19:00] VITALS: BP 129/74; TEMP 99.5; O2SAT 94
== END 2023-04-05 19:06 | disposition home or self-care (01) ==
LOC: M ED 12:53
DX: M54.6 Pain in thoracic spine (principal); M25.512 Pain in left shoulder; K21.9 Gastro-esophageal reflux disease without esophagitis; E78.5 Hyperlipidemia, unspecified; E03.9 Hypothyroidism, unspecified; F41.9 Anxiety disorder, unspecified; F32.A Depression, unspecified; Z98.84 Bariatric surgery status; Z88.5 Allergy status to narcotic agent; Z88.6 Allergy status to analgesic agent; Z88.8 Allergy status to other drugs, medicaments and biological substances; Z79.1 Long term (current) use of non-steroidal anti-inflammatories (NSAID); Z79.52 Long term (current) use of systemic steroids; Z79.891 Long term (current) use of opiate analgesic; Z79.899 Other long term (current) drug therapy

== ENCOUNTER → 2023-04-16 | Outpatient (REF) | payer MEDICARE ==
[~2023-04-16] MED LIST changes: +BACL10TA2 PO; +LIDO5DIS41 TD
[2023-04-16 16:40] LABS: THYROID STIMULATING HORMONE 2.416 uIU/ML (0.55-4.78); TOTAL 25(OH) VITAMIN D 64.7 NG/ML (20.0-100.0)
[2023-04-16 16:42] LABS: CHOLESTEROL RISK RATIO 2.06 (<5); HDL CHOLESTEROL 88.9 MG/DL (>40); LDL CHOLESTEROL 60.7 MG/DL (<100); NON-HDL-C 95.1 MG/DL
[2023-04-16 16:43] LABS: FOLATE 12.9 NG/ML (>5.4)
[2023-04-16 16:45] LABS: FREE T4 0.87 NG/DL (0.89-1.76)
[2023-04-16 16:52] LABS: HEMOGLOBIN A1c 5.4 % (4.0-6.0)
== END ==
LOC: M SFHCADAM 15:16
PROVIDERS: ATTEND Physician Assistant
DX: E03.9 Hypothyroidism, unspecified (principal); R73.03 Prediabetes; E78.00 Pure hypercholesterolemia, unspecified; Z79.899 Other long term (current) drug therapy

== ENCOUNTER → 2023-04-29 | Outpatient (CLI) | payer MEDICARE | LOC: M PLAIMG 09:27 | PROVIDERS: ATTEND Physician Assistant | DX: J47.9 Bronchiectasis, uncomplicated (principal); Z93.1 Gastrostomy status; F17.211 Nicotine dependence, cigarettes, in remission ==

== ENCOUNTER → 2023-05-12 | Outpatient (CLI) | payer OTHER | LOC: M PLAIMG 11:16 | PROVIDERS: ATTEND Nurse Practitioner Family | DX: M51.16 Intervertebral disc disorders with radiculopathy, lumbar region (principal) ==

== ENCOUNTER → 2023-05-19 | Outpatient (CLI) | payer OTHER, MEDICARE | LOC: M PAIN 11:15 | PROVIDERS: ATTEND Nurse Practitioner Family | DX: M51.16 Intervertebral disc disorders with radiculopathy, lumbar region (principal); M96.1 Postlaminectomy syndrome, not elsewhere classified; Z79.891 Long term (current) use of opiate analgesic; Z88.6 Allergy status to analgesic agent; Z88.8 Allergy status to other drugs, medicaments and biological substances; Z91.041 Radiographic dye allergy status; Z87.891 Personal history of nicotine dependence ==

== ENCOUNTER → 2023-05-20 | Outpatient (CLI) | payer MEDICARE ==
[~2023-05-20] MED LIST changes: +ISOVUE-370 76% 100ML VIAL As Ordered ONE
== END ==
LOC: M RAD 11:06
PROVIDERS: ATTEND Physician Assistant Medical
DX: K86.81 Exocrine pancreatic insufficiency (principal); R19.7 Diarrhea, unspecified; Z90.49 Acquired absence of other specified parts of digestive tract
CPT/HCPCS: 74170; Q9967

== ENCOUNTER → 2023-05-28 | Outpatient (CLI) | payer MEDICARE ==
[~2023-05-28] MED LIST changes: -ISOVUE-370 76% 100ML VIAL As Ordered ONE
== END ==
LOC: M ADAMS 10:03 → M WUC 10:03
PROVIDERS: ATTEND Physician Assistant
DX: J18.1 Lobar pneumonia, unspecified organism (principal); J47.1 Bronchiectasis with (acute) exacerbation; Z93.1 Gastrostomy status; Z91.89 Other specified personal risk factors, not elsewhere classified

== ENCOUNTER → 2023-06-17 | Outpatient (CLI) | payer OTHER | LOC: M PAIN 17:30 | PROVIDERS: ATTEND Nurse Practitioner Family | DX: M51.16 Intervertebral disc disorders with radiculopathy, lumbar region (principal); M96.1 Postlaminectomy syndrome, not elsewhere classified; G89.29 Other chronic pain; I10 Essential (primary) hypertension; E78.00 Pure hypercholesterolemia, unspecified; K21.9 Gastro-esophageal reflux disease without esophagitis; F40.01 Agoraphobia with panic disorder; F32.A Depression, unspecified; E03.9 Hypothyroidism, unspecified; Z98.84 Bariatric surgery status; Z87.891 Personal history of nicotine dependence; Z88.6 Allergy status to analgesic agent; Z88.8 Allergy status to other drugs, medicaments and biological substances ==

== ENCOUNTER → 2023-07-28 | Outpatient (CLI) | payer OTHER ==
[~2023-07-28] MED LIST changes: +ESOM1CAP20 PO; -ESOM1CAP5 PO
== END ==
LOC: M PAIN 11:00
PROVIDERS: ATTEND Nurse Practitioner Family
DX: M51.16 Intervertebral disc disorders with radiculopathy, lumbar region (principal); M96.1 Postlaminectomy syndrome, not elsewhere classified; G89.29 Other chronic pain; M54.2 Cervicalgia; I10 Essential (primary) hypertension; E78.00 Pure hypercholesterolemia, unspecified; K21.9 Gastro-esophageal reflux disease without esophagitis; F40.01 Agoraphobia with panic disorder; F32.A Depression, unspecified; E03.9 Hypothyroidism, unspecified; I25.10 Atherosclerotic heart disease of native coronary artery without angina pectoris; Z87.891 Personal history of nicotine dependence; Z79.890 Hormone replacement therapy; Z79.899 Other long term (current) drug therapy; Z88.6 Allergy status to analgesic agent; Z88.8 Allergy status to other drugs, medicaments and biological substances

== ENCOUNTER → 2023-07-29 | Outpatient (CLI) | payer MEDICARE | LOC: M WHC 09:54 | PROVIDERS: ATTEND Physician Assistant | DX: M85.88 Other specified disorders of bone density and structure, other site (principal) ==

== ENCOUNTER 2023-08-30 10:40 | Emergency (ER) | payer MEDICARE ==
[~2023-08-30] VITALS: Ht 167.6 cm; Wt 82.7 kg
[2023-08-30] MEDS ORDERED: ATOR1TAB21 (10:55)
[2023-08-30 13:35] VITALS: BP 138/82; TEMP 96; O2SAT 97
== END 2023-08-30 13:41 | disposition home or self-care (01) ==
LOC: M ED 10:40
DX: K94.23 Gastrostomy malfunction (principal); Z88.8 Allergy status to other drugs, medicaments and biological substances; Z79.1 Long term (current) use of non-steroidal anti-inflammatories (NSAID); Z79.51 Long term (current) use of inhaled steroids; Z79.899 Other long term (current) drug therapy

== ENCOUNTER → 2023-09-22 | Outpatient (CLI) | payer MEDICARE ==
[~2023-09-22] MED LIST changes: +ATOR1TAB21
== END ==
LOC: M ADAMS 08:56
PROVIDERS: ATTEND Physician Assistant
DX: M25.521 Pain in right elbow (principal)

== ENCOUNTER → 2023-10-10 | Outpatient (CLI) | payer OTHER ==
[~2023-10-10] MED LIST changes: +ISOVUE-M 300 61% 15ML VIAL As Ordered ONE; +LIDOCAINE 1% SDV 30ML VIAL As Ordered ONE; +dexAMETHasone 10MG/1ML VIAL PRES.FREE As Ordered ONE; +diazePAM 5MG TABLET As Ordered ONE; +oxyCODONE 5MG TAB As Ordered ONE
== END ==
LOC: M PAIN 10:00
PROVIDERS: ATTEND Anesthesiology
DX: M96.1 Postlaminectomy syndrome, not elsewhere classified (principal); G89.29 Other chronic pain; I10 Essential (primary) hypertension; M54.50 Low back pain, unspecified; E78.00 Pure hypercholesterolemia, unspecified; K21.9 Gastro-esophageal reflux disease without esophagitis; F40.01 Agoraphobia with panic disorder; F32.A Depression, unspecified; E03.9 Hypothyroidism, unspecified; I25.10 Atherosclerotic heart disease of native coronary artery without angina pectoris; Z87.891 Personal history of nicotine dependence; Z79.890 Hormone replacement therapy; Z79.891 Long term (current) use of opiate analgesic; Z79.899 Other long term (current) drug therapy; Z88.6 Allergy status to analgesic agent; Z88.8 Allergy status to other drugs, medicaments and biological substances
CPT/HCPCS: 62323; J1100; Q9967

== ENCOUNTER → 2023-10-15 | Outpatient (CLI) | payer MEDICARE, OTHER ==
[~2023-10-15] MED LIST changes: +AMOX875T2; +GABA-1490 PEG; -GABA600T4 PEG; -ISOVUE-M 300 61% 15ML VIAL As Ordered ONE; -LIDOCAINE 1% SDV 30ML VIAL As Ordered ONE; +MIRA3350 PO; -dexAMETHasone 10MG/1ML VIAL PRES.FREE As Ordered ONE; -diazePAM 5MG TABLET As Ordered ONE; -oxyCODONE 5MG TAB As Ordered ONE
== END ==
LOC: M PLAIMG 11:52
PROVIDERS: ATTEND Student in an Organized Health Care Education/Training Program
DX: R06.02 Shortness of breath (principal); J06.9 Acute upper respiratory infection, unspecified

== ENCOUNTER → 2023-10-16 | Outpatient (REF) | payer MEDICARE | LOC: M SFHCPLAZ 09:06 | PROVIDERS: ATTEND Student in an Organized Health Care Education/Training Program | DX: J06.9 Acute upper respiratory infection, unspecified (principal); R06.02 Shortness of breath; Z53.9 Procedure and treatment not carried out, unspecified reason ==

== ENCOUNTER 2023-10-18 15:33 | Emergency (ER) | payer MEDICARE ==
[~2023-10-18] VITALS: Ht 167.6 cm; Wt 81.8 kg
[~2023-10-18 15:33] MED LIST changes: -AMOX875T2; -MIRA3350 PO
[2023-10-18] MEDS ORDERED: AMOX875T2 (15:41)
[2023-10-18 17:18] LABS: BASO % 0.3 % (0.0-1.0); EOS # 0.2 10^3/uL (0.0-0.5); EOS % 2.1 % (0.0-3.0); HEMOGLOBIN 12.7 g/dl (12.0-15.5); LYMPH # 0.8 10^3/uL (1.5-5.0); LYMPH % 9.3 % (24.0-44.0); MEAN CORPUSCULAR HEMOGLOBIN 28.6 pg (27.0-33.0); MEAN CORPUSCULAR HGB CONC 32.6 g/dl (32.0-36.5); MEAN CORPUSCULAR VOLUME 87.8 fl (80.0-96.0); MONO # 0.8 10^3/uL (0.0-0.8); MONO % 8.6 % (2.0-8.0); NEUTROPHILS # 6.8 10^3/uL (1.5-8.5); NEUTROPHILS % 78.6 % (36.0-66.0); PLATELET COUNT, AUTOMATED 236 10^3/uL (150-450); RED BLOOD COUNT 4.44 10^6/uL (4.00-5.40); WHITE BLOOD COUNT 8.7 10^3/uL (4.0-10.0)
[2023-10-18 17:23] LABS: LIPASE 21 U/L (12-53)
[2023-10-18 17:26] LABS: ALBUMIN 3.2 G/DL (3.2-5.2); ALKALINE PHOSPHATASE 142 U/L (46-116); ALT/SGPT 16 U/L (7.0-40); AST/SGOT 13 U/L (<34); BILIRUBIN,DIRECT < 0.1 MG/DL (<0.4); BILIRUBIN,TOTAL 0.2 MG/DL (0.3-1.2); BLOOD UREA NITROGEN 10 MG/DL (9-23); CALCIUM LEVEL 8.6 MG/DL (8.5-10.1); CARBON DIOXIDE LEVEL 26 MMOL/L (20-31); CHLORIDE LEVEL 106 MMOL/L (98-107); CREATININE FOR GFR 0.81 MG/DL (0.55-1.30); GLOMERULAR FILTRATION RATE > 60.0 (>51); GLUCOSE, FASTING 82 MG/DL (60-100); POTASSIUM SERUM 3.9 MMOL/L (3.5-5.1); SODIUM LEVEL 138 MMOL/L (136-145); TOTAL PROTEIN 6.7 G/DL (5.7-8.2)
[2023-10-18] MEDS ORDERED: ISOVUE-370 76% 100ML VIAL As Ordered ONE (17:37)
[2023-10-18] MEDS: ACETAMINOPHEN *IV* 1,000 MG in IV 1 EA IV ONE (18:26)
[2023-10-18] MEDS ORDERED: MIRA3350 PO (19:34)
[2023-10-18 19:44] VITALS: BP 124/74; TEMP 98; O2SAT 96
== END 2023-10-18 19:48 | disposition home or self-care (01) ==
LOC: M ED 15:33
DX: K59.00 Constipation, unspecified (principal); K76.0 Fatty (change of) liver, not elsewhere classified; K76.89 Other specified diseases of liver; E03.9 Hypothyroidism, unspecified; K21.9 Gastro-esophageal reflux disease without esophagitis; Z85.818 Personal history of malignant neoplasm of other sites of lip, oral cavity, and pharynx
CPT/HCPCS: 74177; 80048; 80076; 81001; 83690; 85025; 96374; 99284; J0131; Q9967

== ENCOUNTER → 2023-10-21 | Outpatient (REF) | payer MEDICARE ==
[~2023-10-21] MED LIST changes: +AMOX875T2; +MIRA3350 PO
[2023-10-21 14:04] LABS: FREE T4 1.09 NG/DL (0.89-1.76); THYROID STIMULATING HORMONE 2.952 uIU/ML (0.55-4.78)
== END ==
LOC: M SFHCADAM 09:56
PROVIDERS: ATTEND Physician Assistant
DX: E03.9 Hypothyroidism, unspecified (principal)

== ENCOUNTER → 2023-10-28 | Outpatient (CLI) | payer MEDICARE | LOC: M WHC 10:18 | PROVIDERS: ATTEND Physician Assistant | DX: Z12.31 Encounter for screening mammogram for malignant neoplasm of breast (principal); R92.333 Mammographic heterogeneous density, bilateral breasts ==

== ENCOUNTER → 2023-11-20 | Outpatient (CLI) | payer MEDICARE | LOC: M ADAMS 09:35 | PROVIDERS: ATTEND Physician Assistant | DX: J15.211 Pneumonia due to Methicillin susceptible Staphylococcus aureus (principal); J98.11 Atelectasis ==

== ENCOUNTER → 2023-12-02 | Outpatient (CLI) | payer OTHER ==
[~2023-12-02] MED LIST changes: +ATOR1TAB21 PO
== END ==
LOC: M PAIN 14:30
PROVIDERS: ATTEND Nurse Practitioner Family
DX: M96.1 Postlaminectomy syndrome, not elsewhere classified (principal); Z79.891 Long term (current) use of opiate analgesic; M51.16 Intervertebral disc disorders with radiculopathy, lumbar region; G89.29 Other chronic pain; I10 Essential (primary) hypertension; E78.00 Pure hypercholesterolemia, unspecified; K21.9 Gastro-esophageal reflux disease without esophagitis; F40.01 Agoraphobia with panic disorder; F32.A Depression, unspecified; E03.9 Hypothyroidism, unspecified; Z87.891 Personal history of nicotine dependence; Z79.890 Hormone replacement therapy; Z79.899 Other long term (current) drug therapy

== ENCOUNTER → 2024-01-27 | Outpatient (CLI) | payer MEDICARE | LOC: M SOG 08:00 | PROVIDERS: ATTEND Physician Assistant | DX: M25.511 Pain in right shoulder (principal) ==

== ENCOUNTER → 2024-02-02 | Outpatient (CLI) | payer MEDICARE | LOC: M SOG 08:03 | PROVIDERS: ATTEND Physician Assistant | DX: M25.512 Pain in left shoulder (principal) ==

== ENCOUNTER 2024-02-14 09:54 | Emergency (ER) | payer MEDICARE ==
[~2024-02-14] VITALS: Ht 167.6 cm; Wt 80.9 kg
[2024-02-14 09:56] VITALS: BP 129/81; TEMP 97.2; O2SAT 97
== END 2024-02-14 13:30 | disposition home or self-care (01) ==
LOC: M ED 09:54
DX: K94.23 Gastrostomy malfunction (principal); Z85.819 Personal history of malignant neoplasm of unspecified site of lip, oral cavity, and pharynx; M54.2 Cervicalgia; M54.50 Low back pain, unspecified; Z79.899 Other long term (current) drug therapy; Z88.6 Allergy status to analgesic agent; Z88.8 Allergy status to other drugs, medicaments and biological substances; Z88.3 Allergy status to other anti-infective agents

== ENCOUNTER → 2024-03-05 | Outpatient (CLI) | payer OTHER | LOC: M PAIN 11:00 | PROVIDERS: ATTEND Nurse Practitioner Family | DX: M79.18 Myalgia, other site (principal); G89.29 Other chronic pain; M96.1 Postlaminectomy syndrome, not elsewhere classified; Z79.891 Long term (current) use of opiate analgesic; M51.16 Intervertebral disc disorders with radiculopathy, lumbar region; I10 Essential (primary) hypertension; E78.00 Pure hypercholesterolemia, unspecified; K21.9 Gastro-esophageal reflux disease without esophagitis; F40.01 Agoraphobia with panic disorder; F32.A Depression, unspecified; E03.9 Hypothyroidism, unspecified; Z87.891 Personal history of nicotine dependence; Z79.890 Hormone replacement therapy; Z79.899 Other long term (current) drug therapy; Z88.6 Allergy status to analgesic agent; Z88.8 Allergy status to other drugs, medicaments and biological substances ==

== ENCOUNTER → 2024-03-19 | Outpatient (REF) | payer MEDICARE ==
[2024-03-19 17:39] LABS: TOTAL 25(OH) VITAMIN D 64.5 NG/ML (20.0-100.0)
[2024-03-19 17:40] LABS: FOLATE 11.9 NG/ML (>5.4)
[2024-03-19 17:41] LABS: THYROID STIMULATING HORMONE 2.891 uIU/ML (0.55-4.78)
[2024-03-19 17:42] LABS: ALBUMIN 3.2 G/DL (3.2-5.2); ALKALINE PHOSPHATASE 112 U/L (35-104); ALT/SGPT 21 U/L (7.0-40); AST/SGOT 17 U/L (<34); BILIRUBIN,TOTAL 0.3 MG/DL (0.3-1.2); BLOOD UREA NITROGEN 12 MG/DL (9-23); CALCIUM LEVEL 9.3 MG/DL (8.5-10.1); CARBON DIOXIDE LEVEL 26 MMOL/L (20-31); CHLORIDE LEVEL 109 MMOL/L (98-107); CHOLESTEROL LEVEL 246 MG/DL (<200); CHOLESTEROL RISK RATIO 1.77 (<5); CREATININE FOR GFR 0.83 MG/DL (0.55-1.30); FERRITIN 18.9 NG/ML (7.3-270.7); GLOMERULAR FILTRATION RATE > 60.0 (>51); GLUCOSE, FASTING 76 MG/DL (60-100); HDL CHOLESTEROL 138.8 MG/DL (>40); NON-HDL-C 107.2 MG/DL; POTASSIUM SERUM 4.4 MMOL/L (3.5-5.1); SODIUM LEVEL 142 MMOL/L (136-145); TOTAL PROTEIN 6.9 G/DL (5.7-8.2); TRIGLYCERIDES LEVEL 111 MG/DL (<150)
[2024-03-19 17:44] LABS: VITAMIN B12 LEVEL > 2000 PG/ML (211-911)
[2024-03-19 17:48] LABS: BASO % 0.3 % (0.0-1.0); EOS # 0.1 10^3/uL (0.0-0.5); EOS % 1.2 % (0.0-3.0); HEMATOCRIT 43.1 % (36.0-47.0); HEMOGLOBIN 13.3 g/dl (12.0-15.5); LYMPH % 15.3 % (24.0-44.0); MEAN CORPUSCULAR HEMOGLOBIN 27.6 pg (27.0-33.0); MEAN CORPUSCULAR HGB CONC 30.9 g/dl (32.0-36.5); MEAN CORPUSCULAR VOLUME 89.4 fl (80.0-96.0); MONO # 0.6 10^3/uL (0.0-0.8); MONO % 8.4 % (2.0-8.0); NEUTROPHILS # 4.8 10^3/uL (1.5-8.5); NEUTROPHILS % 74.2 % (36.0-66.0); PLATELET COUNT, AUTOMATED 281 10^3/uL (150-450); RED BLOOD COUNT 4.82 10^6/uL (4.00-5.40); WHITE BLOOD COUNT 6.5 10^3/uL (4.0-10.0)
[2024-03-19 17:57] LABS: HEMOGLOBIN A1c 5.6 % (4.0-6.0)
== END ==
LOC: M SFHCADAM 11:27
PROVIDERS: ATTEND Physician Assistant
DX: Z98.84 Bariatric surgery status (principal); Z68.30 Body mass index [BMI] 30.0-30.9, adult; E66.811 Obesity, class 1; Z93.1 Gastrostomy status; F17.211 Nicotine dependence, cigarettes, in remission; E78.00 Pure hypercholesterolemia, unspecified; F32.1 Major depressive disorder, single episode, moderate; E03.9 Hypothyroidism, unspecified; Z13.1 Encounter for screening for diabetes mellitus

== ENCOUNTER → 2024-06-01 | Outpatient (CLI) | payer MEDICARE | LOC: M PLAIMG 12:55 | PROVIDERS: ATTEND Physician Assistant | DX: K76.89 Other specified diseases of liver (principal); R06.09 Other forms of dyspnea; Z91.89 Other specified personal risk factors, not elsewhere classified; R13.10 Dysphagia, unspecified; Z93.1 Gastrostomy status; R93.89 Abnormal findings on diagnostic imaging of other specified body structures; F17.211 Nicotine dependence, cigarettes, in remission ==

== ENCOUNTER → 2024-06-02 | Outpatient (REF) | payer MEDICARE | LOC: M SFHCADAM 16:55 | PROVIDERS: ATTEND Physician Assistant | DX: R05.1 Acute cough (principal); J47.1 Bronchiectasis with (acute) exacerbation; K94.23 Gastrostomy malfunction; R93.89 Abnormal findings on diagnostic imaging of other specified body structures ==

== ENCOUNTER → 2024-06-14 | Outpatient (CLI) | payer MEDICARE ==
[2024-06-14 13:41] LABS: BASO % 0.3 % (0.0-1.0); EOS # 0.2 10^3/uL (0.0-0.5); EOS % 3.5 % (0.0-3.0); HEMATOCRIT 42.4 % (36.0-47.0); HEMOGLOBIN 13.3 g/dl (12.0-15.5); LYMPH # 1.3 10^3/uL (1.5-5.0); LYMPH % 21.7 % (24.0-44.0); MEAN CORPUSCULAR HEMOGLOBIN 28.1 pg (27.0-33.0); MEAN CORPUSCULAR HGB CONC 31.4 g/dl (32.0-36.5); MEAN CORPUSCULAR VOLUME 89.6 fl (80.0-96.0); MONO # 0.5 10^3/uL (0.0-0.8); MONO % 7.9 % (2.0-8.0); NEUTROPHILS % 66.1 % (36.0-66.0); PLATELET COUNT, AUTOMATED 253 10^3/uL (150-450); RED BLOOD COUNT 4.73 10^6/uL (4.00-5.40); WHITE BLOOD COUNT 6.1 10^3/uL (4.0-10.0)
[2024-06-14 14:33] LABS: ALBUMIN 3.3 G/DL (3.2-5.2); BILIRUBIN,TOTAL 0.3 MG/DL (0.3-1.2); CREATININE FOR GFR 0.89 MG/DL (0.55-1.30); GLOMERULAR FILTRATION RATE 75.1 (>51); PERCENT SATURATION 18.4 % (13.2-45.0); POTASSIUM SERUM 3.9 MMOL/L (3.5-5.1); TOTAL PROTEIN 6.6 G/DL (5.7-8.2)
[2024-06-14 14:35] LABS: FERRITIN 19.2 NG/ML (7.3-270.7); FOLATE 12.86 NG/ML (>5.4)
== END ==
LOC: M ADAMS 08:59
PROVIDERS: ATTEND Internal Medicine Hematology & Oncology
DX: D50.9 Iron deficiency anemia, unspecified (principal)

== ENCOUNTER 2024-06-29 19:31 | Emergency (ER) | payer MEDICARE ==
[~2024-06-29] VITALS: Ht 167.6 cm; Wt 86.3 kg
[~2024-06-29 19:31] MED LIST changes: +LIDO1ADH93 TD; -LIDO5DIS41 TD
[2024-06-29 19:34] VITALS: TEMP 99.1
[2024-06-29 21:31] LABS: HEMOGLOBIN 12.5 g/dl (12.0-15.5); MEAN CORPUSCULAR HEMOGLOBIN 28.1 pg (27.0-33.0); MEAN CORPUSCULAR HGB CONC 32.1 g/dl (32.0-36.5); MEAN CORPUSCULAR VOLUME 87.6 fl (80.0-96.0); PLATELET COUNT, AUTOMATED 242 10^3/uL (150-450); RED BLOOD COUNT 4.45 10^6/uL (4.00-5.40); WHITE BLOOD COUNT 8.1 10^3/uL (4.0-10.0)
[2024-06-29] MEDS: GASTROGRAFIN SOLUTION 30ML JT ONE (21:43)
[2024-06-29 22:00] VITALS: BP 143/77; O2SAT 95
== END 2024-06-29 22:32 | disposition home or self-care (01) ==
LOC: M ED 19:31
DX: K94.23 Gastrostomy malfunction (principal); Z79.899 Other long term (current) drug therapy; Z88.6 Allergy status to analgesic agent; Z88.8 Allergy status to other drugs, medicaments and biological substances; Z88.3 Allergy status to other anti-infective agents
CPT/HCPCS: 74021; 85027; 99284; Q9963

== ENCOUNTER → 2024-08-31 | Outpatient (CLI) | payer MEDICARE ==
[~2024-08-31] MED LIST changes: +BRIN1TAB3
== END ==
LOC: M ADAMS 11:11
PROVIDERS: ATTEND Family Medicine
DX: J18.9 Pneumonia, unspecified organism (principal); J47.9 Bronchiectasis, uncomplicated

== ENCOUNTER → 2024-09-07 | Outpatient (CLI) | payer MEDICARE | LOC: M PLAIMG 11:57 | PROVIDERS: ATTEND Nurse Practitioner Family | DX: J18.9 Pneumonia, unspecified organism (principal) ==

== ENCOUNTER 2024-10-14 10:27 | Outpatient (RCR) | payer MEDICARE | END 2024-10-17 | LOC: M ST 10:27 | PROVIDERS: ATTEND Otolaryngology | DX: R49.0 Dysphonia (principal); Z92.21 Personal history of antineoplastic chemotherapy; Z92.3 Personal history of irradiation; Z85.818 Personal history of malignant neoplasm of other sites of lip, oral cavity, and pharynx ==

== ENCOUNTER → 2024-11-04 | Outpatient (CLI) | payer MEDICARE ==
[~2024-11-04] MED LIST changes: +ISOVUE-370 76% 100 ML VIAL ONE
== END ==
LOC: M PLAIMG 12:25
PROVIDERS: ATTEND Surgery
DX: R10.13 Epigastric pain (principal)
CPT/HCPCS: 74177; Q9967

== ENCOUNTER 2024-11-10 10:49 | Outpatient (RCR) | payer MEDICARE ==
[~2024-11-10 10:49] MED LIST changes: -BRIN1TAB3; +BRIN1TAB3 PO; -ISOVUE-370 76% 100 ML VIAL ONE
[2024-11-15] MEDS ORDERED: GABA-1172 PO (13:09)
[2024-11-15] MEDS ORDERED: TREL1AER IN (13:09)
[2024-11-15] MEDS ORDERED: PREG100C2 PO (13:09)
[2024-11-15] MEDS ORDERED: KLON1TAB13 PO (13:09)
== END 2024-11-16 ==
LOC: M ST 10:49
PROVIDERS: ATTEND Otolaryngology
DX: R49.0 Dysphonia (principal); Z85.818 Personal history of malignant neoplasm of other sites of lip, oral cavity, and pharynx; Z92.21 Personal history of antineoplastic chemotherapy; Z92.3 Personal history of irradiation

== ENCOUNTER → 2024-11-16 | Outpatient (CLI) | payer MEDICARE ==
[~2024-11-16] MED LIST changes: +GABA-1172 PO; +KLON1TAB13 PO; +PREG100C2 PO; +TREL1AER IN
[2024-11-16 12:54] LABS: PLATELET COUNT, AUTOMATED 258 10^3/uL (150-450)
[2024-11-16 13:05] LABS: CALCIUM LEVEL 9.1 MG/DL (8.5-10.1); CARBON DIOXIDE LEVEL 26.0 MMOL/L (20-31); CHLORIDE LEVEL 105.0 MMOL/L (98-107); CREATININE FOR GFR 0.95 MG/DL (0.55-1.30); GLOMERULAR FILTRATION RATE 69.5 (>51); POTASSIUM SERUM 4.1 MMOL/L (3.5-5.1); SODIUM LEVEL 139.0 MMOL/L (136-145)
[2024-11-16 13:08] LABS: INR 0.97
== END ==
LOC: M LABDRWAD 09:21
PROVIDERS: ATTEND Registered Nurse School
DX: R13.10 Dysphagia, unspecified (principal)

== ENCOUNTER 2024-11-17 11:51 | Inpatient (IN) | payer MEDICARE ==
[~2024-11-17] VITALS: Ht 167.6 cm; Wt 83.9 kg
[~2024-11-17 11:51] MED LIST changes: -ARIP1TAB10 PEG; +ARIP1TAB10 PO; -ESTR2TAB3 PEG; +ESTR2TAB3 PO; -LANS30CA93 PEG; +LANS30CA93 PO; -TRAM50TA2 PEG; +TRAM50TA2 PO; -TRAZ-252 PEG
[2024-11-17] MEDS ORDERED: LIDOCAINE 2% JELLY 6 ML SYRINGE TOP SCH (12:40)
[2024-11-17] MEDS ORDERED: GLUCAGON INJ 1 MG VIAL IV SCH (12:40)
[2024-11-17] MEDS ORDERED: SODIUM CHLORIDE 0.9% 1000 ML XX SCH (12:40)
[2024-11-17] MEDS ORDERED: ISOVUE-300 61% 100 ML VIAL IV SCH (12:40)
[2024-11-17] MEDS ORDERED: LIDOCAINE 1% MDV 20 ML VIAL SC SCH (12:40)
[2024-11-17] MEDS ORDERED: MIDAZOLAM INJ 2 MG/2 ML VIAL As Ordered ONE (16:46)
[2024-11-17] MEDS ORDERED: LIDOCAINE 2% 100 MG/5 ML SDV (FOR ANES.) As Ordered ONE (16:48)
[2024-11-17] MEDS ORDERED: KETAMINE HCL 200 MG/20 ML VIAL As Ordered ONE (16:50)
[2024-11-17] MEDS: ceFAZolin SODIUM 2 GM in DEXTROSE 5% (D5W) ADV/MINI-BAG 50 ML IV ONE (17:00)
[2024-11-17] MEDS: LIDOCAINE 2% JELLY 6 ML SYRINGE TOP SCH (18:00)
[2024-11-17] MEDS: SODIUM CHLORIDE 0.9% 1000 ML XX SCH (18:08)
[2024-11-17] MEDS: GLUCAGON INJ 1 MG VIAL IV SCH (18:09)
[2024-11-17] MEDS: LR 1,000 ML IV SCH (18:10)
[2024-11-17] MEDS: ISOVUE-300 61% 100 ML VIAL IV SCH (18:14)
[2024-11-17] MEDS: LIDOCAINE 1% MDV 20 ML VIAL SC SCH (18:14)
[2024-11-17] MEDS ORDERED: ROCURONIUM BROMIDE 50MG/5ML VIAL As Ordered ONE (19:17)
[2024-11-17 19:33] LABS: PLATELET COUNT, AUTOMATED 211 10^3/uL (150-450)
[2024-11-17 19:59] LABS: ALT/SGPT 14.0 U/L (7.0-40); AST/SGOT 16.0 U/L (<34); CALCIUM LEVEL 9.1 MG/DL (8.5-10.1); CARBON DIOXIDE LEVEL 27.0 MMOL/L (20-31); CHLORIDE LEVEL 106.0 MMOL/L (98-107); CREATININE FOR GFR 0.88 MG/DL (0.55-1.30); GLOMERULAR FILTRATION RATE 76.1 (>51); POTASSIUM SERUM 3.8 MMOL/L (3.5-5.1); SODIUM LEVEL 142.0 MMOL/L (136-145)
[2024-11-17] MEDS: PANTOPRAZOLE 40MG VIAL IV SCH (20:00)
[2024-11-17] MEDS: PIPERACILLIN/TAZOBACTAM SOD 4.5 GM in DEXTROSE 5% (D5W) ADV/MINI-BAG 50 ML IV SCH (20:00)
[2024-11-17] MEDS ORDERED: dexAMETHasone 4 MG/ML 1 ML VIAL As Ordered ONE (20:34)
[2024-11-17] MEDS: ZOSYN 4.5GM VIAL As Ordered ONE (20:45)
[2024-11-17] MEDS ORDERED: PHENYLephrine 500MCG 5ML (100MCG/ML) SYRINGE As Ordered ONE (20:52)
[2024-11-17] MEDS ORDERED: GLYCOPYRROLATE INJ 0.2 MG/ML 2 ML VIAL As Ordered ONE (20:57)
[2024-11-17] MEDS ORDERED: ESMOLOL 100 MG/10 ML VIAL As Ordered ONE (21:40)
[2024-11-17] MEDS ORDERED: ONDANSETRON 4MG 2ML VIAL As Ordered ONE (21:46)
[2024-11-17] MEDS ORDERED: SUGAMMADEX SODIUM 200 MG/2 ML VIAL As Ordered ONE (22:03)
[2024-11-17] MEDS ORDERED: ACETAMINOPHEN 1000MG/100ML IV BAG As Ordered ONE (22:31)
[2024-11-17] MEDS ORDERED: ONDANSETRON 4MG 2ML VIAL IV PRN (22:50)
[2024-11-17 23:59] VITALS: BP 123/79; TEMP 97.3; O2SAT 95
[2024-11-18] VITALS (19 sets, daily range): BP systolic 102–139; BP diastolic 54–83; TEMP 96.6–97.5; O2SAT 91–96
[2024-11-18] MEDS: MORPHINE 4 MG/ML 1 ML VIAL IV PRN ×2 (00:31→11:31)
[2024-11-18] MEDS: FLUCONAZOLE 400 MG in IV 1 EA IV SCH (01:23)
[2024-11-18] MEDS ORDERED: ALBUTEROL SULFATE 2.5 MG/0.5 ML INH CONCENTRATE NEB SOLN NEB PRN (03:20)
[2024-11-18] MEDS: D5W/LR 1,000 ML IV SCH (05:48)
[2024-11-18] MEDS: SYMBICORT 160/4.5MCG INHALER 6GM INH SCH (07:53)
[2024-11-18] MEDS: TIOTROPIUM BROM 2.5MCG/ACTUATION 4GM INH INH SCH (07:53)
[2024-11-18 07:56] LABS: PLATELET COUNT, AUTOMATED 209 10^3/uL (150-450)
[2024-11-18 08:19] LABS: ERYTHROCYTE SEDIMENTATION RATE 59 mm/hr (0-30)
[2024-11-18 08:24] LABS: C REACTIVE PROTEIN QUANTITATIV 2.46 MG/DL (<1.0)
[2024-11-18 08:30] LABS: ESTIMATED AVERAGE GLUCOSE 123.0 MG/DL (60-110)
[2024-11-18 08:31] LABS: PLATELET ESTIMATE NORMAL (NORMAL)
[2024-11-18 08:34] LABS: ALT/SGPT 14.0 U/L (7.0-40); AST/SGOT 16.0 U/L (<34); CALCIUM LEVEL 8.5 MG/DL (8.5-10.1); CARBON DIOXIDE LEVEL 24.0 MMOL/L (20-31); CHLORIDE LEVEL 107.0 MMOL/L (98-107); CREATININE FOR GFR 0.88 MG/DL (0.55-1.30); GLOMERULAR FILTRATION RATE 76.1 (>51); POTASSIUM SERUM 4.3 MMOL/L (3.5-5.1); SODIUM LEVEL 136.0 MMOL/L (136-145)
[2024-11-18] MEDS: ACETAMINOPHEN *IV* 1,000 MG in IV 1 EA IV PRN (08:55)
[2024-11-19 00:31] VITALS: BP 111/60; TEMP 97.5; O2SAT 95
[2024-11-19 05:40] VITALS: BP 110/65; TEMP 97.3; O2SAT 93
[2024-11-19 07:05] LABS: BASO # 0.0 10^3/uL (0.0-0.2); BASO % 0.1 % (0.0-1.0); EOS # 0.0 10^3/uL (0.0-0.5); EOS % 0.1 % (0.0-3.0); LYMPH # 0.9 10^3/uL (1.5-5.0); LYMPH % 12.8 % (24.0-44.0); MONO # 0.4 10^3/uL (0.0-0.8); MONO % 6.0 % (2.0-8.0); NEUTROPHILS # 5.6 10^3/uL (1.5-8.5); NEUTROPHILS % 80.6 % (36.0-66.0); PLATELET COUNT, AUTOMATED 207 10^3/uL (150-450)
[2024-11-19 07:27] LABS: CALCIUM LEVEL 8.6 MG/DL (8.5-10.1); CARBON DIOXIDE LEVEL 26.0 MMOL/L (20-31); CHLORIDE LEVEL 108.0 MMOL/L (98-107); CREATININE FOR GFR 0.97 MG/DL (0.55-1.30); GLOMERULAR FILTRATION RATE 67.7 (>51); POTASSIUM SERUM 4.1 MMOL/L (3.5-5.1); SODIUM LEVEL 143.0 MMOL/L (136-145)
[2024-11-19 08:17] VITALS: BP 131/56; TEMP 97.5; O2SAT 92
[2024-11-19 12:17] VITALS: BP 134/71; TEMP 97.3; O2SAT 96
[2024-11-19 22:45] VITALS: BP 122/59; TEMP 97.3; O2SAT 90
[2024-11-20 06:13] VITALS: BP 121/60; TEMP 97.5; O2SAT 93
[2024-11-20 06:40] LABS: BASO # 0.0 10^3/uL (0.0-0.2); BASO % 0.4 % (0.0-1.0); EOS # 0.1 10^3/uL (0.0-0.5); EOS % 2.0 % (0.0-3.0); LYMPH # 1.1 10^3/uL (1.5-5.0); LYMPH % 22.0 % (24.0-44.0); MONO # 0.4 10^3/uL (0.0-0.8); MONO % 8.3 % (2.0-8.0); NEUTROPHILS # 3.4 10^3/uL (1.5-8.5); NEUTROPHILS % 66.7 % (36.0-66.0); PLATELET COUNT, AUTOMATED 211 10^3/uL (150-450)
[2024-11-20 07:12] LABS: CALCIUM LEVEL 8.6 MG/DL (8.5-10.1); CARBON DIOXIDE LEVEL 27.0 MMOL/L (20-31); CHLORIDE LEVEL 108.0 MMOL/L (98-107); CREATININE FOR GFR 1.04 MG/DL (0.55-1.30); GLOMERULAR FILTRATION RATE 62.3 (>51); POTASSIUM SERUM 3.6 MMOL/L (3.5-5.1); SODIUM LEVEL 145.0 MMOL/L (136-145)
[2024-11-20 10:00] VITALS: BP 143/70; TEMP 97.5; O2SAT 93
[2024-11-20 14:00] VITALS: BP 143/72; TEMP 97.3; O2SAT 94
[2024-11-20 18:00] VITALS: BP 143/71; TEMP 97.7; O2SAT 93
[2024-11-20 20:38] VITALS: BP 141/79; TEMP 97.7; O2SAT 93
[2024-11-21 00:04] VITALS: BP 131/71; TEMP 97.5; O2SAT 99
[2024-11-21 06:00] VITALS: BP 141/75; TEMP 97.7; O2SAT 99
[2024-11-21 07:11] LABS: BASO # 0.0 10^3/uL (0.0-0.2); BASO % 0.6 % (0.0-1.0); EOS # 0.3 10^3/uL (0.0-0.5); EOS % 4.6 % (0.0-3.0); LYMPH # 1.0 10^3/uL (1.5-5.0); LYMPH % 17.7 % (24.0-44.0); MONO # 0.5 10^3/uL (0.0-0.8); MONO % 9.1 % (2.0-8.0); NEUTROPHILS # 3.6 10^3/uL (1.5-8.5); NEUTROPHILS % 67.4 % (36.0-66.0); PLATELET COUNT, AUTOMATED 227 10^3/uL (150-450)
[2024-11-21 07:31] LABS: CALCIUM LEVEL 8.7 MG/DL (8.5-10.1); CARBON DIOXIDE LEVEL 25.0 MMOL/L (20-31); CHLORIDE LEVEL 106.0 MMOL/L (98-107); CREATININE FOR GFR 1.01 MG/DL (0.55-1.30); GLOMERULAR FILTRATION RATE 64.5 (>51); POTASSIUM SERUM 3.3 MMOL/L (3.5-5.1); SODIUM LEVEL 142.0 MMOL/L (136-145)
[2024-11-21] MEDS: POTASSIUM CHLORIDE 10% LIQ 20MEQ/15ML UDC PO ONE (08:47)
[2024-11-21 10:00] VITALS: BP 140/70; TEMP 97.5; O2SAT 99
[2024-11-21 14:00] VITALS: BP 137/82; TEMP 97.7; O2SAT 96
[2024-11-21] MEDS: KCL 20MEQ IN D5/0.45NS 1000ML 1,000 ML IV SCH (15:58)
[2024-11-21 18:00] VITALS: BP 144/82; TEMP 97.7; O2SAT 96
[2024-11-21 20:33] VITALS: BP 141/74; TEMP 97.3; O2SAT 99
[2024-11-22 00:06] VITALS: BP 138/71; TEMP 97.5; O2SAT 99
[2024-11-22 05:39] VITALS: BP 148/81; TEMP 97.5; O2SAT 99
[2024-11-22 06:35] LABS: BASO # 0.0 10^3/uL (0.0-0.2); BASO % 0.5 % (0.0-1.0); EOS # 0.3 10^3/uL (0.0-0.5); EOS % 5.6 % (0.0-3.0); LYMPH # 0.9 10^3/uL (1.5-5.0); LYMPH % 16.0 % (24.0-44.0); MONO # 0.4 10^3/uL (0.0-0.8); MONO % 7.6 % (2.0-8.0); NEUTROPHILS # 3.9 10^3/uL (1.5-8.5); NEUTROPHILS % 69.2 % (36.0-66.0); PLATELET COUNT, AUTOMATED 245 10^3/uL (150-450)
[2024-11-22 07:02] LABS: CALCIUM LEVEL 8.8 MG/DL (8.5-10.1); CARBON DIOXIDE LEVEL 24.0 MMOL/L (20-31); CHLORIDE LEVEL 107.0 MMOL/L (98-107); CREATININE FOR GFR 0.98 MG/DL (0.55-1.30); GLOMERULAR FILTRATION RATE 66.9 (>51); POTASSIUM SERUM 3.6 MMOL/L (3.5-5.1); SODIUM LEVEL 142.0 MMOL/L (136-145)
[2024-11-22 10:00] VITALS: BP 151/86; TEMP 97; O2SAT 97
[2024-11-22 14:00] VITALS: BP 144/80; TEMP 97.3; O2SAT 98
[2024-11-22 16:00] VITALS: BP 141/81; TEMP 97.1; O2SAT 99
[2024-11-22 20:28] VITALS: BP 131/73; TEMP 97.3; O2SAT 96
[2024-11-23 00:07] VITALS: BP 146/86; TEMP 97.2; O2SAT 98
[2024-11-23 05:00] VITALS: BP 146/86; TEMP 97.2; O2SAT 98
[2024-11-23 06:23] LABS: BASO # 0.0 10^3/uL (0.0-0.2); BASO % 0.5 % (0.0-1.0); EOS # 0.4 10^3/uL (0.0-0.5); EOS % 6.2 % (0.0-3.0); LYMPH # 0.8 10^3/uL (1.5-5.0); LYMPH % 12.9 % (24.0-44.0); MONO # 0.5 10^3/uL (0.0-0.8); MONO % 8.0 % (2.0-8.0); NEUTROPHILS # 4.5 10^3/uL (1.5-8.5); NEUTROPHILS % 71.3 % (36.0-66.0); PLATELET COUNT, AUTOMATED 250 10^3/uL (150-450)
[2024-11-23 06:48] LABS: CALCIUM LEVEL 8.7 MG/DL (8.5-10.1); CARBON DIOXIDE LEVEL 23.0 MMOL/L (20-31); CHLORIDE LEVEL 110.0 MMOL/L (98-107); CREATININE FOR GFR 0.95 MG/DL (0.55-1.30); GLOMERULAR FILTRATION RATE 69.5 (>51); POTASSIUM SERUM 3.7 MMOL/L (3.5-5.1); SODIUM LEVEL 145.0 MMOL/L (136-145)
[2024-11-23 06:51] VITALS: BP 152/91; TEMP 97.2; O2SAT 100
[2024-11-23] MEDS ORDERED: LORazepam 1 MG TAB SL PRN (11:00)
[2024-11-23 12:00] VITALS: BP 148/80; TEMP 97.3; O2SAT 98
[2024-11-23] MEDS ORDERED: GABA-1171 PO (13:00)
[2024-11-23] MEDS ORDERED: LEVO88TA3 PO (13:08)
[2024-11-23] MEDS ORDERED: HOME MED LIST COMPLETE! XX SCH (13:10)
[2024-11-23 16:00] VITALS: BP 130/76; TEMP 97.2; O2SAT 97
[2024-11-23] MEDS: GABAPENTIN 100 MG CAP PO SCH (16:53)
[2024-11-23] MEDS: ARIPiprazole 15 MG TAB PO SCH (16:53)
[2024-11-23] MEDS: PREGABALIN 100 MG CAP PO SCH (16:53)
[2024-11-23] MEDS: ATORVASTATIN 20 MG TAB PO SCH (16:53)
[2024-11-23 20:04] VITALS: BP 140/77; TEMP 97.5; O2SAT 94
[2024-11-23] MEDS: traMADol 50 MG TAB PO PRN (20:46)
[2024-11-23] MEDS: traZODone 50 MG TAB PO SCH (20:46)
[2024-11-23] MEDS: clonazePAM 1 MG TAB PO SCH (20:47)
[2024-11-24] VITALS: BP 100/64; TEMP 97.5; O2SAT 98
[2024-11-24] MEDS: LEVOTHYROXINE 88 MCG TABLET (0.088 MG) PO SCH (05:47)
[2024-11-24 06:37] LABS: BASO # 0.0 10^3/uL (0.0-0.2); BASO % 0.2 % (0.0-1.0); EOS # 0.4 10^3/uL (0.0-0.5); EOS % 4.1 % (0.0-3.0); LYMPH # 1.0 10^3/uL (1.5-5.0); LYMPH % 11.1 % (24.0-44.0); MONO # 0.6 10^3/uL (0.0-0.8); MONO % 6.7 % (2.0-8.0); NEUTROPHILS # 7.1 10^3/uL (1.5-8.5); NEUTROPHILS % 77.1 % (36.0-66.0); PLATELET COUNT, AUTOMATED 228 10^3/uL (150-450)
[2024-11-24 06:52] VITALS: BP 122/72; TEMP 97.3; O2SAT 95
[2024-11-24 07:14] LABS: CALCIUM LEVEL 9.0 MG/DL (8.5-10.1); CARBON DIOXIDE LEVEL 23.0 MMOL/L (20-31); CHLORIDE LEVEL 110.0 MMOL/L (98-107); CREATININE FOR GFR 0.94 MG/DL (0.55-1.30); GLOMERULAR FILTRATION RATE 70.3 (>51); MAGNESIUM LEVEL 2.0 MG/DL (1.8-2.4); POTASSIUM SERUM 3.4 MMOL/L (3.5-5.1); SODIUM LEVEL 145.0 MMOL/L (136-145)
[2024-11-24 10:00] VITALS: BP 125/72; TEMP 97.7; O2SAT 96
[2024-11-24] MEDS: POTASSIUM CHLORIDE 10% LIQ 20MEQ/15ML UDC PO ONE (12:17)
[2024-11-24 14:00] VITALS: BP 131/81; TEMP 97.9; O2SAT 98
[2024-11-24 18:00] VITALS: BP 131/81; TEMP 97.9; O2SAT 98
[2024-11-24] MEDS: VORTIOXETINE 20 MG PO SCH (18:20)
[2024-11-24 19:54] VITALS: BP 135/82; TEMP 97.7; O2SAT 97
[2024-11-24] MEDS: ENOXAPARIN 40 MG/0.4 ML SYRINGE (J1650 PER 10MG) SC SCH (20:28)
[2024-11-25 00:04] VITALS: BP 139/69; TEMP 97.3; O2SAT 95
[2024-11-25 06:23] VITALS: BP 116/73; TEMP 97.3; O2SAT 95
[2024-11-25] MEDS ORDERED: ENTER DRUG NAME HERE (PATIENT'S OWN MED) PO SCH (09:00)
[2024-11-25 10:00] VITALS: BP 120/76; TEMP 97.3; O2SAT 96
[2024-11-25 14:00] VITALS: BP 125/86; TEMP 97.3; O2SAT 96
[2024-11-25 18:00] VITALS: BP 123/69; TEMP 97.9; O2SAT 97
[2024-11-25 21:10] VITALS: BP 127/72; TEMP 97.2; O2SAT 96
[2024-11-26 00:48] VITALS: BP 125/71; TEMP 97.9; O2SAT 95
[2024-11-26 05:12] VITALS: BP 125/71; TEMP 97.7; O2SAT 92
== END 2024-11-26 11:42 | disposition home health service (06) | DRG 908 ==
LOC: M IRPRO 11:51 → M MS5PR 18:44 → OBSVTOIN 11-18 03:06
PROVIDERS: ADMIT Student in an Organized Health Care Education/Training Program; ATTEND Internal Medicine
PROC: 0DP64UZ Removal of Feeding Device from Stomach, Percutaneous Endoscopic Approach (ICD-10-PCS; 2024-11-17)
PROC: 0DH64UZ Insertion of Feeding Device into Stomach, Percutaneous Endoscopic Approach (ICD-10-PCS; 2024-11-17)
PROC: 0DH57UZ Insertion of Feeding Device into Esophagus, Via Natural or Artificial Opening (ICD-10-PCS; 2024-11-17)
PROC: 8E0W4CZ Robotic Assisted Procedure of Trunk Region, Percutaneous Endoscopic Approach (ICD-10-PCS; 2024-11-17)
PROC: 0DQ84ZZ Repair Small Intestine, Percutaneous Endoscopic Approach (ICD-10-PCS; principal; 2024-11-17 13:00)
DX: K91.71 Accidental puncture and laceration of a digestive system organ or structure during a digestive system procedure (principal); K94.23 Gastrostomy malfunction; R13.12 Dysphagia, oropharyngeal phase; M54.50 Low back pain, unspecified; M54.2 Cervicalgia; I10 Essential (primary) hypertension; E78.00 Pure hypercholesterolemia, unspecified; K21.9 Gastro-esophageal reflux disease without esophagitis; R73.03 Prediabetes; F40.01 Agoraphobia with panic disorder; F32.A Depression, unspecified; E03.9 Hypothyroidism, unspecified; Z90.49 Acquired absence of other specified parts of digestive tract; Z79.890 Hormone replacement therapy; Z79.899 Other long term (current) drug therapy; Z88.6 Allergy status to analgesic agent; Z88.8 Allergy status to other drugs, medicaments and biological substances; Z53.09 Procedure and treatment not carried out because of other contraindication; Z98.84 Bariatric surgery status; Z92.3 Personal history of irradiation; Z96.82 Presence of neurostimulator; Z85.21 Personal history of malignant neoplasm of larynx; Z87.891 Personal history of nicotine dependence